=== PATIENT | male | born 1965 | race Caucasian/White ===

== ENCOUNTER 2016-07-02 08:46 | Emergency (ER) | payer MEDICARE ==
[2016-07-02 10:08] LABS: BASOPHILS 0.4 % (0-2); EOSINOPHILS 3.9 % (0-7); HEMATOCRIT 40.7 % (42.0-54.0); HEMOGLOBIN 13.1 g/dL (13.5-17.5); IMMATURE GRANULOCYTES 0.2 % (0-5); LYMPHOCYTES 16.1 % (15-50); MCH 32.2 pg (26.0-34.0); MCHC 32.2 g/dL (31.0-37.0); MEAN PLATELET VOLUME 10.9 fL (7.4-10.4); MONOCYTES 9.8 % (2-11); NEUTROPHILS 69.6 % (40-80); PLATELET COUNT 106 10x3/uL (130-400); RBC 4.07 10x6/uL (4.20-6.10); RDW 15.6 % (11.5-14.5); WBC 5.7 10x3/uL (4.8-10.8)
[2016-07-02 10:09] LABS: APPEARANCE CLEAR (CLEAR); BACTERIA FEW /hpf (NONE SEEN); BILIRUBIN NEGATIVE (NEGATIVE); COLOR YELLOW (YELLOW); EPITHELIAL CELLS OCC /hpf (0-5); GLUCOSE NEGATIVE (NEGATIVE); KETONE NEGATIVE (NEGATIVE); LEUKOCYTE ESTERASE TRACE (NEGATIVE); NITRITE NEGATIVE (NEGATIVE); PROTEIN NEGATIVE (NEGATIVE); RED CELLS - URINE RARE /hpf (0-5); SPECIFIC GRAVITY 1.015 (1.005-1.020); UROBILINOGEN NORMAL (NORMAL); WHITE CELLS - URINE 0-5 /hpf (0-5)
[2016-07-02 10:10] LABS: UDS - AMPHET NEGATIVE QUAL (NEGATIVE); UDS - BARB NEGATIVE QUAL (NEGATIVE); UDS - BENZO NEGATIVE QUAL (NEGATIVE); UDS - COCAINE NEGATIVE QUAL (NEGATIVE); UDS - METH NEGATIVE QUAL (NEGATIVE); UDS - OPIATE NEGATIVE QUAL (NEGATIVE); UDS - PCP NEGATIVE QUAL (NEGATIVE); UDS - THC NEGATIVE QUAL (NEGATIVE)
[2016-07-02 10:30] LABS: ALBUMIN 3.6 g/dL (3.4-5.0); ALKALINE PHOSPHATASE 73 U/L (46-116); ALT (SGPT) 65 U/L (10-68); BILIRUBIN - TOTAL 0.42 mg/dL (0.2-1.3); CALC OSMOLALITY 286 mosm/kg (275-300); CALCIUM 8.6 mg/dL (8.5-10.1); CARBON DIOXIDE 29.3 mmol/L (21.0-32.0); CHLORIDE - SERUM 106 mmol/L (98-107); CREATININE - SERUM 0.9 mg/dL (0.6-1.3); GLUCOSE 177 mg/dL (74-106); MAGNESIUM - SERUM 1.9 mg/dL (1.8-2.4); POTASSIUM - SERUM 3.9 mmol/L (3.5-5.1); PROTEIN - SERUM 7.4 g/dL (6.4-8.2); SODIUM 142 mmol/L (136-145); UREA NITROGEN 13 mg/dL (7-18); eGFR NON AFRICAN AMERICAN > 90 mL/min (90-120)
== END 2016-07-02 12:51 | disposition home or self-care (01) ==
LOC: D.ER 08:46
PROVIDERS: Emergency Medicine
DX: F32.9 Major depressive disorder, single episode, unspecified (principal); E11.9 Type 2 diabetes mellitus without complications; I25.10 Atherosclerotic heart disease of native coronary artery without angina pectoris; R42 Dizziness and giddiness; Z86.711 Personal history of pulmonary embolism; K21.9 Gastro-esophageal reflux disease without esophagitis; I10 Essential (primary) hypertension; E05.90 Thyrotoxicosis, unspecified without thyrotoxic crisis or storm; F43.10 Post-traumatic stress disorder, unspecified; F17.200 Nicotine dependence, unspecified, uncomplicated; R00.1 Bradycardia, unspecified

== ENCOUNTER 2016-08-24 17:10 | Emergency (ER) | payer MEDICARE ==
[2016-08-24 18:43] LABS: BASOPHILS 0.7 % (0-2); EOSINOPHILS 0.9 % (0-7); HEMATOCRIT 47.1 % (42.0-54.0); IMMATURE GRANULOCYTES 0.4 % (0-5); LYMPHOCYTES 25.7 % (15-50); MCH 32.1 pg (26.0-34.0); MCV 94.4 fL (80.0-100.0); MONOCYTES 4.1 % (2-11); NEUTROPHILS 68.2 % (40-80); RBC 4.99 10x6/uL (4.20-6.10); RDW 15.3 % (11.5-14.5); WBC 6.8 10x3/uL (4.8-10.8)
[2016-08-24 18:54] LABS: PLATELET COUNT 181 10x3/uL (130-400)
[2016-08-24 19:00] LABS: ALKALINE PHOSPHATASE 96 U/L (46-116); ALT (SGPT) 139 U/L (10-68); BILIRUBIN - TOTAL 0.87 mg/dL (0.2-1.3); CALC OSMOLALITY 277 mosm/kg (275-300); CALCIUM 8.4 mg/dL (8.5-10.1); CARBON DIOXIDE 24.9 mmol/L (21.0-32.0); CHLORIDE - SERUM 100 mmol/L (98-107); CREATININE - SERUM 0.8 mg/dL (0.6-1.3); GLUCOSE 139 mg/dL (74-106); POTASSIUM - SERUM 3.5 mmol/L (3.5-5.1); PROTEIN - SERUM 8.4 g/dL (6.4-8.2); SODIUM 140 mmol/L (136-145); UREA NITROGEN 5 mg/dL (7-18); eGFR NON AFRICAN AMERICAN > 90 mL/min (90-120)
[2016-08-24 20:04] LABS: APPEARANCE CLEAR (CLEAR); COLOR DK YELLOW (YELLOW); LEUKOCYTE ESTERASE NEGATIVE (NEGATIVE); NITRITE NEGATIVE (NEGATIVE); PROTEIN 3+ mg/dL (NEGATIVE); SPECIFIC GRAVITY 1.015 (1.005-1.020); UDS - AMPHET NEGATIVE QUAL (NEGATIVE); UDS - BARB NEGATIVE QUAL (NEGATIVE); UDS - BENZO POSITIVE QUAL (NEGATIVE); UDS - COCAINE NEGATIVE QUAL (NEGATIVE); UDS - METH NEGATIVE QUAL (NEGATIVE); UDS - OPIATE NEGATIVE QUAL (NEGATIVE); UDS - PCP NEGATIVE QUAL (NEGATIVE); UDS - THC NEGATIVE QUAL (NEGATIVE)
[2016-08-24 20:05] LABS: BACTERIA FEW /hpf (NONE SEEN); BILIRUBIN NEGATIVE (NEGATIVE); EPITHELIAL CELLS 0-5 /hpf (0-5); GLUCOSE NEGATIVE (NEGATIVE); KETONE MODERATE mg/dL (NEGATIVE); MUCUS <1+ /lpf (NONE SEEN); RED CELLS - URINE 0-5 /hpf (0-5); UROBILINOGEN NORMAL (NORMAL); WHITE CELLS - URINE 0-5 /hpf (0-5)
== END 2016-08-24 21:15 | disposition home or self-care (01) ==
LOC: D.ER 17:10
PROVIDERS: Nurse Practitioner Family
DX: F10.10 Alcohol abuse, uncomplicated (principal); F32.9 Major depressive disorder, single episode, unspecified; F10.129 Alcohol abuse with intoxication, unspecified; E11.9 Type 2 diabetes mellitus without complications; K21.9 Gastro-esophageal reflux disease without esophagitis; I10 Essential (primary) hypertension; E05.90 Thyrotoxicosis, unspecified without thyrotoxic crisis or storm; F17.200 Nicotine dependence, unspecified, uncomplicated

== ENCOUNTER 2017-02-05 16:38 | Emergency (ER) | payer MEDICARE ==
[2017-02-05 17:00] LABS: APPEARANCE CLEAR (CLEAR); BACTERIA NONE SEEN /hpf (NONE SEEN); BILIRUBIN NEGATIVE (NEGATIVE); COLOR YELLOW (YELLOW); EPITHELIAL CELLS RARE /hpf (0-5); GLUCOSE NEGATIVE (NEGATIVE); KETONE NEGATIVE (NEGATIVE); NITRITE NEGATIVE (NEGATIVE); PROTEIN 1+ mg/dL (NEGATIVE); SPECIFIC GRAVITY 1.005 (1.005-1.020); UROBILINOGEN NORMAL (NORMAL); WHITE CELLS - URINE 0-5 /hpf (0-5)
[2017-02-05 17:02] LABS: BASOPHILS 0.3 % (0-2); EOSINOPHILS 0.1 % (0-7); HEMATOCRIT 41.5 % (42.0-54.0); HEMOGLOBIN 14.1 g/dL (13.5-17.5); IMMATURE GRANULOCYTES 0.4 % (0-5); LYMPHOCYTES 11.8 % (15-50); MCH 30.1 pg (26.0-34.0); MCV 88.5 fL (80.0-100.0); MEAN PLATELET VOLUME 10.2 fL (7.4-10.4); MONOCYTES 5.5 % (2-11); NEUTROPHILS 81.9 % (40-80); PLATELET COUNT 147 10x3/uL (130-400); RBC 4.69 10x6/uL (4.20-6.10); RDW 14.7 % (11.5-14.5); WBC 10.4 10x3/uL (4.8-10.8)
[2017-02-05 17:11] LABS: UDS - AMPHET NEGATIVE QUAL (NEGATIVE); UDS - BARB NEGATIVE QUAL (NEGATIVE); UDS - BENZO NEGATIVE QUAL (NEGATIVE); UDS - COCAINE NEGATIVE QUAL (NEGATIVE); UDS - OPIATE NEGATIVE QUAL (NEGATIVE); UDS - PCP NEGATIVE QUAL (NEGATIVE); UDS - THC NEGATIVE QUAL (NEGATIVE)
[2017-02-05 17:21] LABS: ALBUMIN 4.2 g/dL (3.4-5.0); ALKALINE PHOSPHATASE 111 U/L (46-116); ALT (SGPT) 50 U/L (10-68); BILIRUBIN - TOTAL 0.86 mg/dL (0.2-1.3); CALC OSMOLALITY 268 mosm/kg (275-300); CALCIUM 8.2 mg/dL (8.5-10.1); CHLORIDE - SERUM 94 mmol/L (98-107); CREATININE - SERUM 0.8 mg/dL (0.6-1.3); GLUCOSE 184 mg/dL (74-106); POTASSIUM - SERUM 3.8 mmol/L (3.5-5.1); PROTEIN - SERUM 9.1 g/dL (6.4-8.2); SODIUM 133 mmol/L (136-145); UREA NITROGEN 7 mg/dL (7-18); eGFR NON AFRICAN AMERICAN > 90 mL/min (90-120)
[2017-02-05 18:07] LABS: MAGNESIUM - SERUM 1.6 mg/dL (1.8-2.4)
== END 2017-02-06 06:59 | disposition short-term general hospital (02) ==
LOC: D.ER 16:38
PROVIDERS: Emergency Medicine; Physician Assistant
DX: F32.9 Major depressive disorder, single episode, unspecified (principal); R45.851 Suicidal ideations; I10 Essential (primary) hypertension; E11.9 Type 2 diabetes mellitus without complications; K21.9 Gastro-esophageal reflux disease without esophagitis

== ENCOUNTER 2017-04-26 07:24 | Day surgery (SDC) | payer MEDICARE ==
[~2017-04-26] VITALS: Ht 170.2 cm; Wt 117.9 kg
--- NOTE | ~2017-04-26 | OP ---
PATIENT NAME: EDDA BARRAGAN JR MEDICAL RECORD: [id number] :69 LOCATION:[facility] ADMISSION DATE: SURGEON: SHAHEEN DIETZ DO DATE OF OPERATION: 04/26/2017 PROCEDURES PERFORMED: Bilateral endoscopic carpal tunnel release and left cubital tunnel release. PREOPERATIVE DIAGNOSES: Bilateral carpal tunnel syndrome and left cubital tunnel syndrome. POSTOPERATIVE DIAGNOSES: Bilateral carpal tunnel syndrome and left cubital tunnel syndrome. INDICATIONS: Mr. Barragan is a 51-year-old male that presented to my office with a long history of bilateral hand numbness and tingling. I sent him for nerve conduction studies, which came back positive for carpal tunnel syndrome and he is having severe carpal tunnel syndrome and avxkonyv-mi-mrckrx cubital tunnel syndrome on the left. He was symptomatic. Anytime he drove, his hands goes numb and they would wake him up at night and his left hand first 3 digits and his ulna too as well, digits would go numb. He came to my office and asked me if I would do his surgeries and I explained to him that since I was leaving, we could do one or both if he wanted to and although he would have a hard time recovering, but we would bandage him up well. He wanted to get them both done at the same time to be over with. He was informed of the risks and benefits including damage to nerves, that numbness would not go away, damage to vessels, and infection. He was okay with this and he consented to procedure. SURGEON: Shaheen Dietz DO DESCRIPTION OF PROCEDURE: The patient was taken to the operative suite and laid in supine position. The left upper extremity was prepped and draped in sterile fashion first and then the right one. A time-out was performed and everyone was in agreeance with correct site, side, and patient. The patient was given Ancef preoperatively for antibiotics. The incisions were then drawn out on the left and the left upper extremity was exsanguinated and the tourniquet was inflated. Tourniquet was up on the upper arm under the drapes. First began with cubital tunnel. An incision was made over the cubital tunnel between the medial epicondyle and the olecranon. Careful dissection was made down the cubital tunnel itself. The ulnar nerve was encountered, and fascia was released on top of the nerve distally over the FCU and proximally as well freeing up the nerve quite nicely. The nerve did not sublux, so we did not transpose it. The nerve looked healthy after the release. Attention was then drawn to the left carpal tunnel. A centimeter long incision was made just over the palmaris longus transversely and 2 Ragnells were used to carefully dissect down to the carpal tunnel itself. The median nerve was then encountered. A pickup and scissors were used to carefully release the forearm fascia proximally and then the dilators were used in the carpal tunnel itself having the median nerve below it and then the sheath was put in. The probe and rasp were used to clean off the transverse carpal ligament ensuring that we were only cutting the transverse carpal ligament and the knife was entered and the transverse carpal ligament was divided under direct visualization with the scope. Scope was then removed and a longer end of the Ragnell was used to view under direct loop magnification that the complete transverse carpal ligament had been incised and this was indeed the case freeing up the nerve completely. The tourniquet was then let down and any OPERATIVE REPORT [id number] EDDA BARRAGAN V JR coagulation that was needed was done at that time and the carpal tunnel area was anesthetized with 0.5% Marcaine without epinephrine as well as the cubital tunnel site and then the carpal tunnel incision was closed with 5-0 Monocryl in inverted interrupted fashion and then Steri-Strips were placed over it and the cubital tunnel was closed with 4-0 Monocryl in inverted interrupted fashion and then 4-0 Monocryl was ran on the skin in subcuticular fashion. Steri-Strips were put on that. Then Adaptic, 4 x 4s, Kerlix, and Coban were lightly wrapped over each of the sites. Then, we moved to the right side. The tourniquet was up on the left side for 28 minutes, then moved to the right side and the right tourniquet was placed in the forearm on the right and the right upper extremity was exsanguinated and then tourniquet was let up. Tourniquet was up for 16 minutes on the right. An incision then commenced as similar to the left with a centimeter incision over the palmaris longus just proximal to the wrist crease. Careful dissection was made down with Ragnells to the carpal tunnel itself and the forearm fascia was released proximally. I then dilated the carpal tunnel with dilators and the sheath was entered in. There was some soft tissue in the way. This was cleared off with a rasp and the probe. The transverse carpal ligament was seen and released under direct visualization with the knife. Then, the long end of the Ragnell was brought back in to ensure that the carpal tunnel had been completely released and indeed it was. Tourniquet was then let down at 16 minutes and 10 mL of 0.5% Marcaine was injected around the area. The incision was closed with 5-0 Monocryl in inverted interrupted fashion and Steri-Strips were put over it and then Adaptic, 4 x 4, Kerlix, and Coban were lightly wrapped on the palm. The complications were none. Blood loss was minimal. TRANSINT:[id number] Voice Confirmation ID: [id number] DOCUMENT ID: [id number] SHAHEEN DIETZ DO at 1604 CC: [id number] DICTATION DATE: 04/26/17 1146 PROFESSIONAL MODEL: 04/26/17 1230 DEP [facility] 04/26/17 [facility] [address] [place] [address]
[2017-04-26 08:10] LABS: HEMATOCRIT 41.6 % (42.0-54.0); HEMOGLOBIN 13.6 g/dL (13.5-17.5); MCH 28.9 pg (26.0-34.0); MCHC 32.7 g/dL (31.0-37.0); MCV 88.3 fL (80.0-100.0); MEAN PLATELET VOLUME 11.5 fL (7.4-10.4); RBC 4.71 10x6/uL (4.20-6.10); RDW 14.7 % (11.5-14.5); WBC 7.2 10x3/uL (4.8-10.8)
[2017-04-26 08:19] LABS: CALC OSMOLALITY 277 mosm/kg (275-300); CALCIUM 9.2 mg/dL (8.5-10.1); CARBON DIOXIDE 29.8 mmol/L (21.0-32.0); CHLORIDE - SERUM 99 mmol/L (98-107); CREATININE - SERUM 0.9 mg/dL (0.6-1.3); GLUCOSE 217 mg/dL (74-106); POTASSIUM - SERUM 3.9 mmol/L (3.5-5.1); SODIUM 136 mmol/L (136-145); UREA NITROGEN 11 mg/dL (7-18); eGFR NON AFRICAN AMERICAN > 90 mL/min (90-120)
[2017-04-26] MEDS ORDERED: METOPROLOL TAR100 M1 PO (08:26)
[2017-04-26] MEDS ORDERED: LEVOTHYROXINE50 MCG PO (08:26)
[2017-04-26] MEDS ORDERED: NORVASC5 MG PO (08:27)
[2017-04-26] MEDS ORDERED: LIPITOR20 MG PO (08:28)
[2017-04-26] MEDS ORDERED: NEURONTIN600 MG PO (08:28)
[2017-04-26] MEDS ORDERED: LEXAPRO20 MG PO (08:29)
[2017-04-26] MEDS ORDERED: PRINIVIL20 MG PO (08:29)
[2017-04-26] MEDS ORDERED: IBUPROFEN800 MG PO (08:31)
[2017-04-26] MEDS ORDERED: GLUCOPHAGE500 MG PO (08:31)
[2017-04-26] MEDS ORDERED: PROAIR HFA8.5 GM INH (08:32)
[2017-04-26] MEDS ORDERED: SINEQUAN100 MG PO ×2 (08:32→08:36)
[2017-04-26] MEDS ORDERED: PROTONIX20 MG PO (08:33)
[2017-04-26] MEDS ORDERED: ELIQUIS5 MG PO (08:33)
[2017-04-26] MEDS ORDERED: K-DUR20 MEQ PO (08:33)
[2017-04-26 08:54] VITALS: BP 121/71; Ht 170.2 cm; Wt 117.9 kg
[2017-04-26] MEDS ORDERED: PERCOCET 7.5/321 TAB PO (11:38)
[2017-04-26] MEDS ORDERED: DURICEF500 MG PO (11:38)
[2017-04-26] MEDS ORDERED: ULTRAM50 MG PO (11:51)
== END 2017-04-26 13:20 | disposition home or self-care (01) ==
LOC: D.OPS 07:24 → D.PAN 08:30 → D.OPS 09:30
PROVIDERS: Anesthesiology
DX: G56.03 Carpal tunnel syndrome, bilateral upper limbs (principal); G56.22 Lesion of ulnar nerve, left upper limb; F17.200 Nicotine dependence, unspecified, uncomplicated; I25.10 Atherosclerotic heart disease of native coronary artery without angina pectoris; I10 Essential (primary) hypertension; E11.9 Type 2 diabetes mellitus without complications; E03.9 Hypothyroidism, unspecified; G47.30 Sleep apnea, unspecified; K21.9 Gastro-esophageal reflux disease without esophagitis; E66.01 Morbid (severe) obesity due to excess calories; Z01.812 Encounter for preprocedural laboratory examination

== ENCOUNTER 2017-05-07 10:58 | Outpatient (CLI) | payer MEDICARE ==
--- NOTE | ~2017-05-07 | HEMODYNAMI ---
PATIENT:EDDA BARRAGAN JR MEDICAL RECORD: [id number] : 69 LOCATION:[facility] ADMISSION DATE: 05/07/17 Generatedon:05/07/201714:15 Patient name: EDDA BARRAGAN Patient #: [id number] SSN: : 1965 Date of study: 05/07/2017 Page: Of Hemodynamic Procedure Report Patient Data Patient Demographics Procedure consent was obtained First Name: EDDA Gender: Male Last Name: LAUREL Suffix: [facility] Initial: Van Campbell : 1965 Patient #: [id number] Age: 51 year(s) Race: Unknown Additional ID: [id number] Contact details [address]: [address] [place] [address] State: [place] City: [place] Zip code: [address] Past Medical History Allergies: No known allergies Admission Admission Data Admission Date: 05/07/2017 Admission Time: 10:58 Admit Source: Other Lab Results Lab Result Date: 05/07/2017 Lab Result Time: 11:35 Biochemistry Name Units Result Min Max BUN mg/dl 18 --(---*)-- 7 18 Creatinine mg/dl 0.9 --(-*--)-- 0.6 1.3 CBC Name Units Result Min Max Hematocrit % 38.1 *-(----)-- 42 54 Hemoglobin g/dl 12.2 *-(----)-- 13.5 17.5 Procedure Procedure Types Cath Procedure Diagnostic Procedure LHC LHC w/Coronaries w/Grafts Sedation Charges Moderate Sedation up to 30 minutes PCI Procedure Coronary Stent AMI/SVG/TURKEY EGG GATHERER PTCA or Stent SVG-BMS/LIZ Initial Procedure Description Procedure Date Procedure Date: 05/07/2017 Procedure Start Time: 13:32 Procedure End Time: 14:14 Procedure Staff Name Function Zaid Ramires MD Performing Physician Dusty Little RT Monitor Ching Mccloud RT Scrub Glen Miller RN Nurse Procedure Data Cath Procedure Fluoroscopy Diagnostic fluoroscopy Total fluoroscopy Time: 7.7 time: 7.7 min min Diagnostic fluoroscopy Total fluoroscopy dose: dose: 1752 mGy 1752 mGy Contrast Material Contrast Material Type Amount (ml) Isovue 300 176 Entry Location Entry Primary Successful Side Size Upsize Upsize Entry Closure Succes sful Closure Location (Fr) 1 (Fr) 2 (Fr) Remarks Device Remarks Femoral Right 5 Fr Exoseal vein Femoral Right 5 Fr 6 Fr Exoseal artery Short Estimated blood loss: 10 ml Diagnostic catheters Device Type Used For End Catheter Placement MULTIPACK JL 4.0 5Fr Procedure catheter DIAGNOSTIC AR 1 MOD 5Fr Procedure catheter ([id number]) DIAGNOSTIC IM 5Fr Procedure catheter ([id number]) MULTIPACK Pigtail 5 Fr Procedure catheter DIAGNOSTIC AR 1 MOD 5Fr Procedure catheter ([id number]) Procedure Complications No complications Procedure Medications Medication Administration Route Dosage Oxygen NC 2 l/min Heparin Flush Bag added to field 2 bags (1000units/500ml NS) 0.9% NaCl I.V. 100 ml/hr Fentanyl I.V. 50 mcg Versed I.V. 1 mg Fentanyl I.V. 50 mcg Versed I.V. 1 mg Fentanyl I.V. 50 mcg Versed I.V. 1 mg Versed I.V. 1 mg Fentanyl I.V. 50 mcg Fentanyl I.V. 50 mcg Fentanyl I.V. 50 mcg Heparin Bolus I.V. 75287 units Hemodynamics Rest HGB: 12.2 (g/dl) Heart Rate: 70 (bpm) Pressure Samples Time Site Value (mmHg) Purpose Heart Use Rate(bpm) 13:44 LV 131/4,37 Snapshot 78 13:45 AO 135/88(110) Pullback 75 13:45 LV 145/1,46 Pullback 75 Gradients Valve Time Site 1 Site 2 Mean SEP/DFP Peak To Heart Use (mmHg) (sec/min) Peak Rate (mmHg) (bpm) Aortic 13:45 LV AO 16 7 10 75 145/1,46 135/88(110) Calculations Valve P-P Mean Valve Index Valve Source Name Gradient Area Flow (cm2) Aortic 10 16 10 16 Snapshots Pre Cath Intra NCS Post Cath Vital Signs Time Heart Resp SPO2 etCO2 NIBP (mmHg) Rhythm Pain Sedation Rate (ipm) (%) (mmHg) Status Level (bpm) 12:57:28 69 16 95 38.9 150/87(112) NSR 0 (11) 10(A) , No pain 13:02:19 70 16 95 29.9 139/74(104) NSR 0 (11) 10(A) , No pain 13:07:10 66 14 94 50.1 141/71(100) NSR 0 (11) 10(A) , No pain 13:11:59 69 15 93 46.4 142/80(105) NSR 0 (11) 10(A) , No pain 13:16:49 69 16 93 11.2 140/74(111) NSR 0 (11) 10(A) , No pain 13:21:36 66 16 95 0 133/84(112) NSR 0 (11) 10(A) , No pain 13:26:25 68 15 92 0 143/84(112) NSR 0 (11) 10(A) , No pain 13:31:16 73 16 92 0 137/79(102) NSR 0 (11) 10(A) , No pain 13:36:03 76 16 90 60.6 134/70(123) NSR 0 (11) 10(A) , No pain 13:40:54 73 15 92 59.1 135/81(103) NSR 0 (11) 10(A) , No pain 13:46:27 78 16 92 53.8 137/79(104) NSR 0 (11) 10(A) , No pain 13:51:16 78 15 91 50.8 153/99(128) NSR 0 (11) 10(A) , No pain 13:56:11 79 16 92 56.1 160/76(112) NSR 0 (11) 10(A) , No pain 14:01:04 81 15 93 23.1 146/70(115) NSR 0 (11) 10(A) , No pain 14:05:55 79 16 94 0 152/85(106) NSR 0 (11) 10(A) , No pain 14:10:48 79 7 92 0 147/82(114) NSR 0 (11) 10(A) , No pain Medications Time Medication Route Dose Verified Delivered Reason Notes Effectiveness by by 13:13:38 Oxygen NC 2 Zaid Glen Per physician l/min Ike Miller RN 13:13:46 Heparin Flush added 2 Zaid Glen used for Bag to bags Ike Miller fire control assistant (1000units/500ml field NS) 13:13:54 0.9% NaCl I.V. 100 Zaid Glen Per physician ml/hr Ike Miller RN 13:28:13 Fentanyl I.V. 50 Zaid Glen for sedation mcg Ike Miller RN 13:28:20 Versed I.V. 1 mg Zaid Glen for sedation Ike Miller RN 13:31:14 Fentanyl I.V. 50 Zaid Glen for sedation mcg Ike Miller RN 13:31:18 Versed I.V. 1 mg Zaid Glen for sedation Ike Miller RN 13:34:15 Fentanyl I.V. 50 Zaid Glen for sedation mcg Ike Miller RN 13:34:19 Versed I.V. 1 mg Zaid Glen for sedation Ike Miller RN 13:36:23 Versed I.V. 1 mg Zaid Glen for sedation Ike Miller RN 13:36:32 Fentanyl I.V. 50 Zaid Glen for sedation mcg Ike Miller RN 13:38:44 Fentanyl I.V. 50 Zaid Glen for sedation mcg Ike Miller RN 13:45:56 Fentanyl I.V. 50 Zaid Glen for sedation mcg Ike Miller RN 13:54:17 [place].V. 30547 Zaid Glen for units Ike Miller RN anticoagulation Procedure Log Time Note 12:26:10 Informed consent obtained and on chart 12:26:17 Admit Source: Other 12:30:20 Diagnostic Cath status Elective 12:30:25 Dusty Little RT(R) sent for patient. Start room use. 12:30:27 Time tracking: Regular hours 12:30:31 Plan of Care:Hemodynamics will remain stable., Cardiac rhythm will remain stable., Comfort level will be maintained., Respiratory function will remain adequate., Patient/ family verbilizes understanding of procedure., Procedure tolerated without complication., Recovers from procedure without complications.. 12:31:11 Lab Result : Hemoglobin 12.2 g/dl 12:31:11 Lab Result : Creatinine 0.9 mg/dl 12:31:11 Lab Result : BUN 18 mg/dl 12:31:11 Lab Result : Hematocrit 38.1 % 12:31:36 H&P Date Dictated: 05/01/2017 Within 30 days and on chart., H&P Addendum completed by physician on day of procedure. (MUST COMPLETE FOR ALL OUTPATIENTS). 12:37:47 Family in waiting room. 12:43:28 Patient received from Pre/Post Procedure Room to CCL 1 Alert and oriented. Tansferred to table in Supine position. 12:43:29 Warm blankets applied, and tyrone hugger turned on for patient comfort. 12:43:30 Correct patient and procedure confirmed by team. 12:43:35 ECG and BP/O2 sat monitors applied to patient. 12:43:36 Pre-procedure instructions explained to patient. 12:43:37 Pre-op teaching completed and patient verbalized understanding. 12:43:40 Patient NPO since Breakfast. 12:56:21 Vital chart was started 13:00:15 Baseline sample Acquired. 13:00:26 Rhythm: sinus rhythm 13:00:28 Full Disclosure recording started 13:00:43 Patient allergic to No known allergies 13:00:45 Is the patient allergic to Iodine/contrast media? No. 13:00:47 Is patient on blood thinner?Yes 13:00:52 ACC The patient was administered the following blood thiners within the last 24 hours: Eliquis 13:00:54 Patient diabetic? Yes. 13:00:56 If diabetic: On Metformin? Yes 13:01:01 If on Metformin: Last Dose? 05/05/2017 13:01:05 Previous problem with sedation/anesthesia? No ? 13:01:06 Snore? Yes 13:01:07 Sleep apnea? Yes 13:01:27 Deviated septum? No 13:01:28 Opens mouth fully? Yes 13:01:29 Sticks out tongue? Yes 13:02:33 Airway obstruction? No ? 13:02:35 Dentures? No ? 13:03:23 Pre procedure: right dorsailis pedis pulse 2+ Normal; easily identifiable; not easily obliterated 13:03:30 Patient pain scale 0/10 ?. 13:09:21 IV patent on arrival in right forearm with 0.9% NaCl at O. 13:09:24 Lab results completed and on chart. 13:09:30 Right groin area was prepped with chlora-prep and draped in sterile fashion 13:09:32 Alarms reviewed by R. N. 13:09:32 Sharps counted by scrub and verified by R.N. 13:09:35 Use device set Femoral Dx 13:09:36 ACIST Syringe (09796) opened to sterile field. 13:09:37 Bag Decanter (2002S) opened to sterile field. 13:09:39 Tegaderm 4 x 4 (1626W) opened to sterile field. 13:09:40 ACIST Hand Control (63026) opened to sterile field. 13:09:40 ACIST Manifold (04791) opened to sterile field. 13:09:43 DIAGNOSTIC Multipack 5Fr catheter set (TM9648) opened to sterile field. 13:09:50 Medline Cath Pack ([id number]) opened to sterile field. 13:09:51 SHEATH 5FR [place] (BBQ686) opened to sterile field. 13:09:52 DIAGNOSTIC WIRE .035 260cm J wire (006244) opened to sterile field. 13:13:38 Oxygen 2 l/min NC was administered by Glen Miller RN; Per physician; 13:13:46 Heparin Flush Bag (1000units/500ml NS) 2 bags added to field was administered by Glen Miller RN; used for procedure; 13:13:54 0.9% NaCl 100 ml/hr I.V. was administered by Glen Miller RN; Per physician; 13:14:52 Zero performed for pressure channel P1 13:27:56 Physician arrived 13:27:57 --------ALL STOP TIME OUT------ 13:27:57 Final Timeout: patient, procedure, and site verified with staff and physician. All members of the team are in agreement. 13:28:00 Right groin site verified by team. 13:28:02 Physical assessment completed. ASA score P 2 - A patient with mild systemic disease as per Zaid Ramires MD. 13:28:04 Sedation plan: IV Moderate Sedation Medication:Versed, Fentanyl 13:28:13 Fentanyl 50 mcg I.V. was administered by Glen Miller RN; for sedation; 13:28:20 Versed 1 mg I.V. was administered by Glen Miller RN; for sedation; 13:28:25 Zero performed for pressure channel P1 13:31:14 Fentanyl 50 mcg I.V. was administered by Glen Miller RN; for sedation; 13:31:18 Versed 1 mg I.V. was administered by Glen Miller RN; for sedation; 13:32:32 Procedure started. 13:32:35 Local anesthetic to right femoral artery with Lidocaine 2% by Zaid Ramires MD.INITIAL ACCESS ONLY 13:33:05 A 5 Fr sheath was inserted into the Right Femoral vein 13:33:14 SHEATH 5FR [place] (DDJ873) opened to sterile field. 13:33:33 A 5 Fr sheath was inserted into the Right Femoral artery 13:34:15 Fentanyl 50 mcg I.V. was administered by Glen Miller RN; for sedation; 13:34:19 Versed 1 mg I.V. was administered by Glen Miller RN; for sedation; 13:35:55 A MULTIPACK JL 4.0 5Fr catheter was advanced over the wire and used for Procedure. 13:36:23 Versed 1 mg I.V. was administered by Glen Miller RN; for sedation; 13:36:32 Fentanyl 50 mcg I.V. was administered by Glen Miller RN; for sedation; 13:36:45 LCA angiography performed. 13:37:16 Catheter exchanged over wire. 13:38:18 A DIAGNOSTIC AR 1 MOD 5Fr catheter ([id number]) was advanced over the wire and used for Procedure. 13:38:44 Fentanyl 50 mcg I.V. was administered by Glen Miller RN; for sedation; 13:39:28 RCA angiography performed. 13:40:16 SVG to RCA angiography performed. 13:41:24 Catheter exchanged over wire. 13:41:31 A DIAGNOSTIC IM 5Fr catheter (635139T) was advanced over the wire and used for Procedure. 13:43:51 MORENO angiography performed. 13:44:02 Catheter exchanged over wire. 13:44:34 A MULTIPACK Pigtail 5 Fr catheter was advanced over the wire and used for Procedure. 13:44:58 LV hemodynamics recorded. 13:44:59 LV gram done using BRADEN 13:45:01 Injector settings: Ml/sec: 10, Volume: 20, 13:45:14 EF : 50 % 13:45:28 Aortic Root visualized 13:45:56 Fentanyl 50 mcg I.V. was administered by Glen Miller RN; for sedation; 13:46:44 Catheter exchanged over wire. 13:46:52 A DIAGNOSTIC AR 1 MOD 5Fr catheter ([id number]) was advanced over the wire and used for Procedure. 13:49:54 SVG to LAD angiography performed. 13:49:56 Catheter removed. 13:50:13 BMW 300cm Bertram 2 J wire ([id number]) opened to sterile field. 13:50:14 INFLATOR Merit BasixCompak (AG0340) opened to sterile field. 13:50:15 SHEATH 6FR [place] (EYD631) opened to sterile field. 13:52:20 GUIDE 6FR AR 2.0 catheter (IM4DF24) opened to sterile field. 13:52:29 Sheath upsized to a 6 Fr Short. 13:54:17 Heparin Bolus 27384 units I.V. was administered by Glen Miller RN; for anticoagulation; 13:55:12 6 Fr ar 2 guide catheter was inserted over the wire 13:55:18 BMW wire advanced. 13:55:36 Wire advanced across lesion. 14:00:48 Inflation Number: 1 A INTEGRITY OTW 3.5 X 26 stent ([id number]) was prepped and advanced across the Aorta Right -> R PDA. The stent was deployed at 14 HARJEET for 0:10 (min:sec). 14:02:46 Stent catheter was removed intact over wire. 14:02:46 Wire removed. 14:02:49 Guide catheter removed. 14:02:59 EXOSEAL 5Fr (EX500) opened to sterile field. 14:03:00 EXOSEAL 6Fr (EX600) opened to sterile field. 14:04:16 Sheath removed intact; hemostasis achieved with Exoseal to the Right Femoral vein. 14:05:43 Sheath removed intact; hemostasis achieved with Exoseal to the Right Femoral artery. 14:05:47 Procedure ended.(Physican Out) 14:09:03 Fluoroscopy time 07.70 minutes. 14:09:08 Flurop Dose total: 1752 14:09:08 Fluoroscopy dose: 1752 mGy 14:09:11 Contrast amount:Isovue 300 176ml. 14:09:12 Sharps counted by scrub and verified by R.N. 14:09:13 Insertion/operative site no bleeding no hematoma. 14:09:16 Post-op/insertion site Right Femoral artery dressed using a 4 x 4 and Tegaderm. 14:09:19 Post right femoral artery:stable, soft, clean and dry 14:09:25 Post right femoral vein:stable, soft, clean and dry 14:09:27 Post Procedure Pulses reassessed and unchanged 14:09:29 Post-procedure physical assessment completed. ASA score P 2 - A patient with mild systemic disease as per Zaid Ramires MD. 14:09:31 Post procedure rhythm: unchanged. 14:09:35 Estimated blood loss: 10 ml 14:09:36 Post procedure instruction explained to patient.Patient verbalizes understanding. 14:09:40 Patient needs reinforcement of post procedure teaching. 14:12:45 Procedure type changed to Cath procedure, Diagnostic procedure, LHC, LHC w/Coronaries w/Grafts, Sedation Charges, Moderate Sedation up to 30 minutes, PCI procedure, Coronary Stent, AMI/SVG/TURKEY EGG GATHERER PTCA or Stent, SVG-BMS/LIZ Initial 14:13:23 TUBING High Pressure Extension Tubing (Ike) ([id number]) opened to sterile field. 14:14:02 Procedure and supply charges have been captured, reviewed, submitted and are correct. 14:14:04 Procedure Complication : No complications 14:14:06 Vital chart was stopped 14:14:06 See physician's report for complete and final results. 14:14:08 Report given to Pre/Post Procedure Room. 14:14:16 Patient transfered to Pre/Post Procedure Room with Stretcher. 14:14:18 Procedure ended. 14:14:18 Full Disclosure recording stopped 14:15:34 End room use (Document Last) Intervention Summary Intervention Notes Time ActionType Lesion and Equipment Action# Pressure Duration Attributes Used 14:00:48 Place stent Aorta Right INTEGRITY 1 14 00:10 -> R PDA OTW 3.5 X 26 stent ([id number]) Device Usage Item Name Manufacture Quantity Catalog Hospital Part Current Minimal L ot# / Number Charge Number Stock Stock Serial# Code MARIAN Meansist 1 06001 807228 977644 012540 20 Syringe TeachScape (54448) Systems Inc Bag Microtek 1 2001S 533762 48067 119738 5 Decanter Medical Inc. () Tegaderm 4 3M 1 1626W 922327 381545 433039 5 x 4 (1626W) ACIST Hand Acist 1 87775 044695 204344 581807 5 Control Medical (43230) Systems Inc ACIST Acist 1 93164 822628 471435 294953 5 Manifold Medical (82922) Systems Inc DIAGNOSTIC Cardinal 1 XI1614 943755 73162 184808 30 Multipack Health 5Fr catheter set (MF3317) Medline Cardinal 1 [id number] 216843 50642 966050 5 Cath Pack Health ([id number]) SHEATH 5FR Terumo 2 EYS363 490892 328255 747267 40 [place] (OEF169) DIAGNOSTIC St Nathan 1 272232 248408 779104 365158 30 WIRE .035 260cm J wire (238845) MULTIPACK Cardinal 1 218998 5 JL 4.0 5Fr Health catheter DIAGNOSTIC Cardinal 1 067219Q 203156 179479 066592 15 AR 1 MOD Health 5Fr catheter (924648S) DIAGNOSTIC Cardinal 1 161414P 619511 680393 633389 5 IM 5Fr Health catheter (568205D) MULTIPACK Cardinal 1 306455 5 Pigtail 5 Health Fr catheter BMW 300cm Self 1 [id number] 706048 299927 716688 5 Bertram 2 Vascular J wire (4419664U) INFLATOR Merit 1 AB2822 414354 018726 529645 15 [facility] Medical BasixCompak (WX1138) SHEATH 6FR Terumo 1 SFN809 664965 170525 999393 40 [place] (AAO557) GUIDE 6FR Medtronic 1 [id number] 342530 42629 651345 1 AR 2.0 catheter (TW3VA37) INTEGRITY Medtronic 1 [id number] 143664 529065 1 0 [id number] OTW 3.5 X 26 stent ([id number]) EXOSEAL 5Fr Cardinal 1 EX500 355826 603245 394793 10 (EX500) Health EXOSEAL 6Fr Cardinal 1 EX600 111166 622180 762683 10 (EX600) Health TUBING High Merit 1 [id number] 029279 34314 315415 10 Pressure Medical Extension Tubing (Ramires) ([id number]) Signature Audit [place] Stage Time Signature Unsigned Intra-Procedure 05/07/2017 Dusty Little 2:15:44 PM RT(R) Signatures Monitor : Dusty Little RT Signature : Date : Time : [facility] [address] [facility] [place] [address]
[~2017-05-07 10:58] MED LIST: DURICEF500 MG PO; ELIQUIS5 MG PO; GLUCOPHAGE500 MG PO; IBUPROFEN800 MG PO; K-DUR20 MEQ PO; LEVOTHYROXINE50 MCG PO; LEXAPRO20 MG PO; LIPITOR20 MG PO; METOPROLOL TAR100 M1 PO; NEURONTIN600 MG PO; NORVASC5 MG PO; PERCOCET 7.5/321 TAB PO; PRINIVIL20 MG PO; PROAIR HFA8.5 GM INH; PROTONIX20 MG PO; SINEQUAN100 MG PO; ULTRAM50 MG PO
[2017-05-07] MEDS ORDERED: LASIX40 MG PO (11:20)
[2017-05-07] MEDS ORDERED: BACLOFEN20 M1 PO (11:23)
[2017-05-07 11:34] VITALS: BP 124/66; BMI 43.6
[2017-05-07 11:51] LABS: CALC OSMOLALITY 276 mosm/kg (275-300); CALCIUM 8.9 mg/dL (8.5-10.1); CHLORIDE - SERUM 99 mmol/L (98-107); CREATININE - SERUM 0.9 mg/dL (0.6-1.3); POTASSIUM - SERUM 4.4 mmol/L (3.5-5.1); SODIUM 132 mmol/L (136-145); UREA NITROGEN 18 mg/dL (7-18); eGFR NON AFRICAN AMERICAN > 90 mL/min (90-120)
[2017-05-07 11:52] LABS: BASOPHILS 0.3 % (0-2); GLUCOSE 282 mg/dL (74-106); HEMATOCRIT 38.1 % (42.0-54.0); HEMOGLOBIN 12.2 g/dL (13.5-17.5); IMMATURE GRANULOCYTES 0.2 % (0-5); LYMPHOCYTES 22.9 % (15-50); MCH 27.9 pg (26.0-34.0); MEAN PLATELET VOLUME 11.6 fL (7.4-10.4); MONOCYTES 5.9 % (2-11); NEUTROPHILS 68.7 % (40-80); PLATELET COUNT 167 10x3/uL (130-400); RBC 4.38 10x6/uL (4.20-6.10); RDW 15.1 % (11.5-14.5); WBC 6.6 10x3/uL (4.8-10.8)
[2017-05-07] MEDS ORDERED: PLAVIX75 MG PO (14:31)
[2017-05-07] MEDS ORDERED: BAYER CHEWABLE81 MG PO (14:31)
[2017-08-06] MEDS ORDERED: BACTRIM DS TABL1 TAB PO (23:11)
== END 2017-05-07 18:40 | disposition home or self-care (01) ==
LOC: D.CATH 10:58
PROVIDERS: Internal Medicine Cardiovascular Disease
DX: I25.119 Atherosclerotic heart disease of native coronary artery with unspecified angina pectoris (principal); I10 Essential (primary) hypertension; Z01.812 Encounter for preprocedural laboratory examination; F17.200 Nicotine dependence, unspecified, uncomplicated

== ENCOUNTER 2017-08-04 20:18 | Emergency (ER) | payer MEDICARE ==
[~2017-08-04 20:18] MED LIST changes: +BACLOFEN20 M1 PO; +BAYER CHEWABLE81 MG PO; +LASIX40 MG PO; +PLAVIX75 MG PO
[2017-08-06] MEDS ORDERED: BACTRIM DS TABL1 TAB PO (23:11)
== END 2017-08-04 21:33 | disposition home or self-care (01) ==
LOC: D.ER 20:18
DX: L02.214 Cutaneous abscess of groin (principal); F17.200 Nicotine dependence, unspecified, uncomplicated; I10 Essential (primary) hypertension; E11.9 Type 2 diabetes mellitus without complications

== ENCOUNTER 2017-08-29 12:30 | Emergency (ER) | payer MEDICARE ==
[~2017-08-29] VITALS: Ht 170.2 cm; Wt 122.7 kg
[~2017-08-29 12:30] MED LIST changes: +BACTRIM DS TABL1 TAB PO
[2017-08-29 12:42] VITALS: BP 125/75; Ht 170.2 cm; Wt 122.7 kg
[2017-08-29 13:17] LABS: BASOPHILS 0 % (0-2); EOSINOPHILS 0 % (0-7); HEMATOCRIT 36.8 % (42.0-54.0); HEMOGLOBIN 11.5 g/dL (13.5-17.5); LYMPHOCYTES 6.5 % (15-50); MCH 26.6 pg (26.0-34.0); MCHC 31.3 g/dL (31.0-37.0); MEAN PLATELET VOLUME 9.4 fL (7.4-10.4); MONOCYTES 4.9 % (2-11); NEUTROPHILS 87.6 % (40-80); PLATELET COUNT 153 10x3/uL (130-400); RBC 4.33 10x6/uL (4.20-6.10); RDW 17.1 % (11.5-14.5); WBC 10.4 10x3/uL (4.8-10.8)
[2017-08-29 13:31] LABS: ALBUMIN 3.8 g/dL (3.4-5.0); ALKALINE PHOSPHATASE 99 U/L (46-116); ALT (SGPT) 24 U/L (10-68); BILIRUBIN - TOTAL 0.47 mg/dL (0.2-1.3); CALC OSMOLALITY 294 mosm/kg (275-300); CALCIUM 8.9 mg/dL (8.5-10.1); CARBON DIOXIDE 25.2 mmol/L (21.0-32.0); CHLORIDE - SERUM 104 mmol/L (98-107); CREATININE - SERUM 0.8 mg/dL (0.6-1.3); PROTEIN - SERUM 8.2 g/dL (6.4-8.2); SODIUM 143 mmol/L (136-145); UREA NITROGEN 7 mg/dL (7-18); eGFR NON AFRICAN AMERICAN > 90 mL/min (90-120)
[2017-08-29 13:34] LABS: GLUCOSE 310 mg/dL (74-106)
== END 2017-08-29 17:00 | disposition left against medical advice (07) ==
LOC: D.ER 12:30
PROVIDERS: Family Medicine
DX: M79.661 Pain in right lower leg (principal)

== ENCOUNTER 2017-08-30 06:14 | Emergency (ER) | payer MEDICARE ==
[~2017-08-30] VITALS: Ht 170.2 cm; Wt 120.5 kg
[2017-08-30 06:28] VITALS: Ht 170.2 cm; Wt 120.5 kg
[2017-08-30 08:38] VITALS: BP 134/94
== END 2017-08-30 08:41 | disposition left against medical advice (07) ==
LOC: D.ER 06:14
DX: M79.604 Pain in right leg (principal)

== ENCOUNTER 2017-09-02 13:29 | Emergency (ER) | payer MEDICARE ==
[~2017-09-02] VITALS: Ht 170.2 cm; Wt 118.2 kg
[2017-09-02 13:31] VITALS: Ht 170.2 cm; Wt 118.2 kg
[2017-09-02 14:08] LABS: BASOPHILS 0.2 % (0-2); EOSINOPHILS 0.3 % (0-7); HEMATOCRIT 38.5 % (42.0-54.0); HEMOGLOBIN 12.2 g/dL (13.5-17.5); IMMATURE GRANULOCYTES 1.2 % (0-5); LYMPHOCYTES 13.7 % (15-50); MCHC 31.7 g/dL (31.0-37.0); MCV 81.9 fL (80.0-100.0); MEAN PLATELET VOLUME 9.6 fL (7.4-10.4); MONOCYTES 6.4 % (2-11); NEUTROPHILS 78.2 % (40-80); PLATELET COUNT 156 10x3/uL (130-400); RDW 16.4 % (11.5-14.5); WBC 10.5 10x3/uL (4.8-10.8)
[2017-09-02 14:34] LABS: ALBUMIN 3.9 g/dL (3.4-5.0); ALKALINE PHOSPHATASE 95 U/L (46-116); ALT (SGPT) 39 U/L (10-68); BILIRUBIN - TOTAL 0.57 mg/dL (0.2-1.3); CALC OSMOLALITY 281 mosm/kg (275-300); CALCIUM 8.1 mg/dL (8.5-10.1); CARBON DIOXIDE 27.9 mmol/L (21.0-32.0); CHLORIDE - SERUM 95 mmol/L (98-107); CREATININE - SERUM 0.7 mg/dL (0.6-1.3); GLUCOSE 271 mg/dL (74-106); POTASSIUM - SERUM 3.3 mmol/L (3.5-5.1); SODIUM 137 mmol/L (136-145); UREA NITROGEN 8 mg/dL (7-18); eGFR NON AFRICAN AMERICAN > 90 mL/min (90-120)
[2017-09-02 14:39] LABS: THYROID STIMULATING HORMONE 2.36 uIU/mL (0.36-3.74)
[2017-09-02 14:49] LABS: APPEARANCE CLEAR (CLEAR); BILIRUBIN NEGATIVE (NEGATIVE); COLOR YELLOW (YELLOW); GLUCOSE 500 mg/dL (NEGATIVE); KETONE NEGATIVE (NEGATIVE); NITRITE NEGATIVE (NEGATIVE); PROTEIN 1+ mg/dL (NEGATIVE); UROBILINOGEN NORMAL (NORMAL)
[2017-09-02 15:21] LABS: UDS - AMPHET NEGATIVE QUAL (NEGATIVE); UDS - BARB NEGATIVE QUAL (NEGATIVE); UDS - BENZO NEGATIVE QUAL (NEGATIVE); UDS - COCAINE NEGATIVE QUAL (NEGATIVE); UDS - OPIATE NEGATIVE QUAL (NEGATIVE); UDS - PCP NEGATIVE QUAL (NEGATIVE); UDS - THC NEGATIVE QUAL (NEGATIVE)
[2017-09-02] MEDS ORDERED: LIBRIUM25 MG PO (21:57)
[2017-09-02 22:45] VITALS: BP 141/84
== END 2017-09-02 22:46 | disposition home or self-care (01) ==
LOC: D.ER 13:29
PROVIDERS: Family Medicine
DX: F10.10 Alcohol abuse, uncomplicated (principal); E11.9 Type 2 diabetes mellitus without complications; I10 Essential (primary) hypertension; Z86.79 Personal history of other diseases of the circulatory system; B19.20 Unspecified viral hepatitis C without hepatic coma; F17.200 Nicotine dependence, unspecified, uncomplicated

== ENCOUNTER 2017-09-23 11:30 | Outpatient (CLI) | payer MEDICARE ==
[~2017-09-23] VITALS: Ht 170.2 cm; Wt 123.6 kg
--- NOTE | ~2017-09-23 | HEMODYNAMI ---
PATIENT:EDDA BARRAGAN JR MEDICAL RECORD: [id number] : 69 LOCATION:[facility] ADMISSION DATE: 09/23/17 Generatedon:09/23/201715:09 Patient name: EDDA BARRAGAN Patient #: [id number] SSN: : 1965 Date of study: 09/23/2017 Page: Of Hemodynamic Procedure Report Patient Data Patient Demographics Procedure consent was obtained First Name: EDDA Gender: Male Last Name: LAUREL Suffix: [facility] Initial: Van Campbell : 1965 Patient #: [id number] Age: 52 year(s) Race: Unknown Additional ID: [id number] Contact details Address: [address] [place] [address] [address] State: [place] City: [facility] Zip code: [address] Past Medical History Allergies: No known allergies Admission Admission Data Admission Date: 09/23/2017 Admission Time: 11:30 Procedure Procedure Types Cath Procedure Diagnostic Procedure LHC LHC w/Coronaries w/Grafts PCI Procedure AMI/SVG/TECHNOLOGY DIRECTOR PTCA or Stent SVG-BMS/LIZ Initial Procedure Description Procedure Date Procedure Date: 09/23/2017 Procedure Start Time: 14:30 Procedure End Time: 15:05 Procedure Staff Name Function Zaid Ramires MD Performing Physician Fausto Bernstein RT Monitor Ching Mccloud RT Scrub Сергей Murcia RN Nurse Procedure Data Cath Procedure Fluoroscopy Diagnostic fluoroscopy Total fluoroscopy Time: 5.5 time: 5.5 min min Diagnostic fluoroscopy Total fluoroscopy dose: dose: 1728 mGy 1728 mGy Contrast Material Contrast Material Type Amount (ml) Isovue 300 120 Entry Location Entry Primary Successful Side Size Upsize Upsize Entry Closure [place] ccessful Closure Location (Fr) 1 (Fr) 2 (Fr) Remarks Device Remarks Femoral Right 5 Fr Manual vein Compression Femoral Right 5 Fr 6 Fr Exoseal artery Short Estimated blood loss: 10 ml Diagnostic catheters Device Type Used For End Catheter Placement MULTIPACK JL 4.0 5Fr Procedure catheter DIAGNOSTIC AR MOD 5Fr Procedure Catheter ([id number]) MULTIPACK Pigtail 5 Fr Procedure catheter Procedure Complications No complications Procedure Medications Medication Administration Route Dosage Oxygen NC 2 l/min Lidocaine 2% added to field 20 Heparin Flush Bag added to field 2 bags (1000units/500ml NS) 0.9% NaCl I.V. 100 ml/hr Versed I.V. 2 mg Fentanyl I.V. 100 mcg Fentanyl I.V. 100 mcg Versed I.V. 2 mg Heparin Bolus I.V. 20127 units Versed I.V. 1 mg Fentanyl I.V. 50 mcg Fentanyl I.V. 50 mcg Versed I.V. 1 mg Plavix P.O. 600 mg Hemodynamics Rest Heart Rate: 66 (bpm) Pressure Samples Time Site Value (mmHg) Purpose Heart Use Rate(bpm) 14:59 LV 119/-15,16 Snapshot 79 14:59 LV 121/-15,15 EDP 75 15:00 AO 124/67(93) Pullback 68 15:00 LV 109/4,9 Pullback 68 Gradients Valve Time Site 1 Site 2 Mean SEP/DFP Peak To Heart Use (mmHg) (sec/min) Peak Rate (mmHg) (bpm) Aortic 15:00 LV AO 0 2 0 68 109/4,9 124/67(93) Calculations Valve P-P Mean Valve Index Valve Source Name Gradient Area Flow (cm2) Aortic 0 0 0 0 Snapshots Pre Cath Intra NCS Post Cath Vital Signs Time Heart Resp SPO2 etCO2 NIBP (mmHg) Rhythm Pain Sedation Rate (ipm) (%) (mmHg) Status Level (bpm) 14:25:54 74 36 95 31.3 148/92(108) NSR 0 (11) 10(A) , No pain 14:30:08 61 16 96 41.1 139/94(130) NSR 0 (11) 10(A) , No pain 14:35:31 67 18 93 35.8 155/95(118) NSR 0 (11) 10(A) , No pain 14:40:53 70 16 93 45.5 166/108(115) NSR 0 (11) 9(A) , No pain 14:45:21 74 18 94 38.8 170/103(137) NSR 0 (11) 9(A) , No pain 14:49:46 73 22 95 30.6 146/87(118) NSR 0 (11) 9(A) , No pain 14:54:08 67 17 95 35 132/76(100) NSR 0 (11) 9(A) , No pain 14:58:21 71 16 96 34.3 146/104(116) NSR 0 (11) 9(A) , No pain 15:02:46 69 23 95 37.3 167/78(116) NSR 0 (11) 10(A) , No pain Medications Time Medication Route Dose Verified Delivered Reason Notes Effectiveness by by 14:24:17 Oxygen NC 2 Zaid Buffie used for l/min Ike Murcia RN procedure 14:24:23 Lidocaine 2% added 20ml Zaid Zaid for local to vial Ike Ramires MD anesthetic field 14:24:28 Heparin Flush added 2 Zaid Zaid used for Bag to bags Ike Ramires MD procedure (1000units/500ml field NS) 14:24:36 0.9% NaCl I.V. 100 Zaid Buffie Per physician ml/hr Ike Murcia RN 14:29:31 Versed I.V. 2 mg Zaid Buffie for sedation Ike Murcia RN 14:29:46 Fentanyl I.V. 100 Zaid Buffie for sedation mcg Ike Murcia RN 14:35:54 Fentanyl I.V. 100 Zaid Buffie for sedation mcg Ike Murcia RN 14:36:07 Versed I.V. 2 mg Zaid Buffie for sedation Ike Murcia RN 14:51:27 [place].V. 60270 Zaid Buffie for verifi ed units Ike Murcia RN anticoagulation with liam marc rn 14:52:10 Versed I.V. 1 mg Zaid Buffie for sedation Ike Murcia RN 14:52:23 Fentanyl I.V. 50 Zaid Buffie for sedation mcg Ike Murcia RN 14:58:12 Fentanyl I.V. 50 Zaid Buffie for sedation mcg Ike Murcia RN 14:58:26 Versed I.V. 1 mg Zaid Buffie for sedation Ike Murcia RN 15:01:47 Plavix P.O. 600 Zaid Buffie for mg Ike Murcia RN antiplatelet therapy Procedure Log Time Note 13:50:20 Ching Mccloud RT(R) sent for patient. Start room use. 14:13:28 Time tracking: Regular hours (M-F 7:00 - 5:00) 14:13:33 Plan of Care:Hemodynamics will remain stable., Cardiac rhythm will remain stable., Comfort level will be maintained., Respiratory function will remain adequate., Patient/ family verbilizes understanding of procedure., Procedure tolerated without complication., Recovers from procedure without complications.. 14:13:34 Signed procedure consent form obtained from patient. 14:13:38 Patient received from Pre/Post Procedure Room to CCL 2 Alert and oriented. Tansferred to table in Supine position. 14:13:40 Warm blankets applied, and tyrone hugger turned on for patient comfort. 14:13:40 Correct patient and procedure confirmed by team. 14:13:41 ECG and BP/O2 sat monitors applied to patient. 14:14:32 H&P Date Dictated: 09/17/2017 Within 30 days and on chart., H&P Addendum completed by physician on day of procedure. (MUST COMPLETE FOR ALL OUTPATIENTS). 14:14:41 Patient allergic to No known allergies 14:24:17 Oxygen 2 l/min NC was administered by Сергей Murcia RN; used for procedure; 14:24:23 Lidocaine 2% 20ml vial added to field was administered by Zaid Ramires MD; for local anesthetic; 14:24:28 Heparin Flush Bag (1000units/500ml NS) 2 bags added to field was administered by Zaid Ramires MD; used for procedure; 14:24:36 0.9% NaCl 100 ml/hr I.V. was administered by Сергей Murcia RN; Per physician; 14:24:43 Vital chart was started 14:25:57 Baseline sample Acquired. 14:26:02 Rhythm: sinus rhythm 14:26:03 Full Disclosure recording started 14:26:05 Pre-procedure instructions explained to patient. 14:26:06 Pre-op teaching completed and patient verbalized understanding. 14:26:07 Family in patients room. 14:26:09 Patient NPO since Midnight. 14:26:10 Is the patient allergic to Iodine/contrast media? No. 14:26:11 Is patient on blood thinner?Yes 14:26:47 Last dose of Eliquis was 09/20/17. 14:26:49 Patient diabetic? Yes. 14:26:50 If diabetic: On Metformin? Yes 14:26:53 If on Metformin: Last Dose? 09/21/2017 14:26:58 Previous problem with sedation/anesthesia? No ? 14:26:59 Snore? Yes 14:27:00 Sleep apnea? Yes 14:27:01 Deviated septum? No 14:27:02 Opens mouth fully? Yes 14:27:03 Sticks out tongue? Yes 14:27:04 Airway obstruction? No ? 14:27:06 Dentures? No ? 14:27:09 Pre procedure: right dorsailis pedis pulse 1+ Palpable, but thready & weak; easily obliterated 14:27:12 Patient pain scale 0/10 ?. 14:27:17 IV patent on arrival in right antecubital with 0.9% NaCl at [facility]. 14:27:35 Lab results completed and on chart. 14:27:38 Right groin area was prepped with chlora-prep and draped in sterile fashion 14:27:39 Alarms reviewed by R. N. 14:27:40 Sharps counted by scrub and verified by R.N. 14:27:47 Use device set Femoral Dx 14:28:01 ACIST Syringe (51812) opened to sterile field. 14:28:01 Bag Decanter (2002S) opened to sterile field. 14:28:02 Medline Cath Pack ([id number]) opened to sterile field. 14:28:03 ACIST Hand Control (37880) opened to sterile field. 14:28:04 ACIST Manifold (39317) opened to sterile field. 14:28:06 Tegaderm 4 x 4 (1626W) opened to sterile field. 14:28:09 DIAGNOSTIC WIRE .035 260cm J wire (697728) opened to sterile field. 14:28:10 DIAGNOSTIC Multipack 5Fr catheter set (VT6917) opened to sterile field. 14:28:13 SHEATH Prelude 5Fr 0.035 (SIR-1B-09-035) opened to sterile field. 14:28:32 --------ALL STOP TIME OUT------ 14:28:32 Final Timeout: patient, procedure, and site verified with staff and physician. All members of the team are in agreement. 14:28:41 Right groin site verified by team. 14:28:47 Physical assessment completed. ASA score P 3 - A patient with severe systemic disease as per Zaid Ramires MD. 14:28:51 Sedation plan: IV Moderate Sedation Medication:Versed, Fentanyl 14:29:31 Versed 2 mg I.V. was administered by Сергей Murcia RN; for sedation; 14:29:46 Fentanyl 100 mcg I.V. was administered by Сергей Murcia RN; for sedation; 14:30:14 Procedure started. 14:30:17 Local anesthetic to right femoral artery with Lidocaine 2% by Zaid Ramires MD.INITIAL ACCESS ONLY 14:35:54 Fentanyl 100 mcg I.V. was administered by Сергей Murcia RN; for sedation; 14:36:07 Versed 2 mg I.V. was administered by Сергей Murcia RN; for sedation; 14:37:42 A 5 Fr sheath was inserted into the Right Femoral vein 14:38:04 SHEATH Prelude 5Fr 0.035 (GBY-1S-96-035) opened to sterile field. 14:38:18 A 5 Fr sheath was inserted into the Right Femoral artery 14:39:18 A MULTIPACK JL 4.0 5Fr catheter was advanced over the wire and used for Procedure. 14:40:00 LCA angiography performed. 14:41:32 Catheter exchanged over wire. 14:41:36 A DIAGNOSTIC AR MOD 5Fr Catheter (481419M) was advanced over the wire and used for Procedure. 14:41:43 RCA angiography performed. 14:42:39 SVG to RPDA angiography performed. 14:42:48 SVG to Circ occluded. 14:45:45 SVG to Diag angiography performed. 14:45:47 Catheter exchanged over wire. 14:47:59 Use device set RAMIRES PCI 14:48:15 SHEATH Prelude 6Fr 0.035 (VRK-5J-88-035) opened to sterile field. 14:48:19 BMW 300cm Peach Bottom 2 J wire (1812131F) opened to sterile field. 14:48:20 TUBING High Pressure Extension Tubing (Ike) ([id number]) opened to sterile field. 14:49:02 INFLATOR Merit BasixCompak (LV7501) opened to sterile field. 14:49:17 GUIDE 6FR JR 4.0 catheter (SL7VM81) opened to sterile field. 14:49:30 Sheath upsized to a 6 Fr Short. 14:49:39 6 Fr JR 4 guide catheter was inserted over the wire 14:51:02 BMW wire advanced. 14:51:27 Heparin Bolus 63753 units I.V. was administered by Сергей Murcia RN; for anticoagulation; verified with liam marc rn 14:52:10 Versed 1 mg I.V. was administered by Сергей Murcia RN; for sedation; 14:52:23 Fentanyl 50 mcg I.V. was administered by Сергей Murcia RN; for sedation; 14:52:57 Wire advanced across lesion. 14:56:51 Place stent Inflation Number: 1 A YASMIN RX 5.0 x 18 stent ([id number]) was prepped and advanced across the Aorta Left -> 1st Diag. The stent was deployed at 14 HARJEET for 0:10 (min:sec). 14:57:59 Stent catheter was removed intact over wire. 14:58:00 Wire removed. 14:58:00 Guide catheter removed. 14:58:12 Fentanyl 50 mcg I.V. was administered by Сергей Murcia RN; for sedation; 14:58:16 A MULTIPACK Pigtail 5 Fr catheter was advanced over the wire and used for Procedure. 14:58:26 Versed 1 mg I.V. was administered by Сергей Murcia RN; for sedation; 14:59:48 LV angiography performed. 14:59:49 LV gram done using BRADEN 14:59:58 EF : 50 % 15:00:00 LV hemodynamics recorded. 15:00:03 Injector settings: Ml/sec: 10, Volume: 20, 15:00:07 Catheter removed. 15:00:14 EXOSEAL 6Fr (EX600) opened to sterile field. 15:00:44 Sheath removed intact; hemostasis achieved with Exoseal to the Right Femoral artery. 15:00:47 Procedure ended.(Physican Out) 15:00:59 Fluoroscopy time 05.50 minutes. 15:01:03 Fluoroscopy dose: 1728 mGy 15:: Flurop Dose total: 1728 15:01:07 Contrast amount:Isovue 300 120ml. 15:01:09 Sharps counted by scrub and verified by R.N. 15:01:10 Insertion/operative site no bleeding no hematoma. 15::27 Sheath removed intact; hemostasis achieved with Manual Compression to the Right Femoral vein. 15:01:33 Post-op/insertion site Right Femoral artery dressed using a 4 x 4 and Tegaderm. 15:01:35 Post Procedure Pulses reassessed and unchanged 15:01:37 Post-procedure physical assessment completed. ASA score P 2 - A patient with mild systemic disease as per Zaid Ramires MD. 15:01:40 Post procedure rhythm: unchanged. 15:01:42 Estimated blood loss: 10 ml 15:01:43 Post procedure instruction explained to patient.Patient verbalizes understanding. 15:01:44 Patient needs reinforcement of post procedure teaching. 15:01:47 Plavix 600 mg P.O. was administered by Сергей Murcia RN; for antiplatelet therapy; 15:02:00 Procedure type changed to Cath procedure, Diagnostic procedure, LHC, LHC w/Coronaries w/Grafts, PCI procedure, AMI/SVG/TECHNOLOGY DIRECTOR PTCA or Stent, SVG-BMS/LIZ Initial 15:02:02 Procedure and supply charges have been captured, reviewed, submitted and are correct. 15:02:04 Procedure Complication : No complications 15:05:39 Vital chart was stopped 15:05:40 See physician's report for complete and final results. 15:05:48 Report given to Pre/Post Procedure Room. 15:05:52 Patient transfered to Pre/Post Procedure Room with Stretcher. 15:05:54 Procedure ended. 15:05:54 Full Disclosure recording stopped 15:09:28 End room use (Document Last) Intervention Summary Intervention Notes Time ActionType Lesion and Equipment Used Action# Pressure Duration Attributes 14:56:51 Place stent Aorta Left YASMIN RX 5.0 x 1 14 00:10 -> 1st Diag 18 stent ([id number]) Device Usage Item Name Manufacture Quantity Catalog Number Hospital Part Current Minimal Lot# / Charge Number Stock Stock Serial# Code ACIST Syringe Acist 1 45409 753141 428192 718979 20 (86141) Medical Systems Inc Bag Decanter Microtek 1 349992 71499 186830 5 () Medical Inc. Medline Cath Cardinal 1 [id number] 145017 16107 756513 5 Pack Health ([id number]) ACIST Hand Acist 1 67417 128822 317252 161121 5 Control (11251) Medical Systems Inc ACIST Manifold Acist 1 18571 092331 195645 502005 5 (26359) Medical Systems Inc Tegaderm 4 x 4 3M 1 1626W 724333 573970 352417 5 (1626W) DIAGNOSTIC WIRE St Nathan 1 347495 520105 217243 921460 30 .035 260cm J wire (587603) DIAGNOSTIC Cardinal 1 XH5683 308772 41096 027479 30 Multipack 5Fr Health catheter set (IM4773) SHEATH Prelude Merit 2 FXC-6V-43-035 700638 079847 191837 5 5Fr 0.035 Medical (YZO-4C-62-035) MULTIPACK JL Cardinal 1 593762 5 4.0 5Fr Health catheter SHEATH Prelude Merit 1 BBK-3W-29-35 423533 0031551 423274 5 6Fr 0.035 Medical (KSE-6Y-96-035) BMW 300cm Self 1 [id number] 858177 505856 991768 5 Peach Bottom 2 J Vascular wire (9635602B) TUBING High Merit 1 [id number] 065321 54088 028064 10 Pressure Medical Extension Tubing (Ramires) (FG9391X) DIAGNOSTIC AR Cardinal 1 703771M 838967 760487 594721 15 MOD 5Fr Health Catheter (359919X) INFLATOR Merit Merit 1 GO3023 228424 029452 213284 15 [facility] Hospital[facility] Single Point Medical (HN4561) GUIDE 6FR JR Medtronic 1 HW9EH42 534259 04853 146170 1 4.0 catheter (OY7CI78) YASMIN RX 5.0 x Medtronic 1 [id number] 503450 0291575 293625 5 [id number] 18 stent ([id number]) MULTIPACK Cardinal 1 655744 5 Pigtail 5 Fr Health catheter EXOSEAL 6Fr Cardinal 1 EX600 276109 258181 916432 10 (EX600) Health Signature Audit [place] Stage Time Signature Unsigned Intra-Procedure 09/23/2017 Fausto Bernstein 3:09:48 PM RT(R) Signatures Monitor : Fausto Bernstein RT Signature : Date : Time : [facility] [address] [place] [address]
[~2017-09-23 11:30] MED LIST changes: +LIBRIUM25 MG PO
[2017-09-23 12:18] VITALS: BP 137/85; Ht 170.2 cm; Wt 123.6 kg
[2017-09-23 13:10] LABS: BASOPHILS 0.3 % (0-2); EOSINOPHILS 2.2 % (0-7); HEMATOCRIT 36.7 % (42.0-54.0); HEMOGLOBIN 11.3 g/dL (13.5-17.5); IMMATURE GRANULOCYTES 0.6 % (0-5); MCH 26.1 pg (26.0-34.0); MCHC 30.8 g/dL (31.0-37.0); MCV 84.8 fL (80.0-100.0); MEAN PLATELET VOLUME 9.7 fL (7.4-10.4); MONOCYTES 5.6 % (2-11); NEUTROPHILS 71.3 % (40-80); PLATELET COUNT 175 10x3/uL (130-400); RBC 4.33 10x6/uL (4.20-6.10); RDW 17.6 % (11.5-14.5)
[2017-09-23 13:36] LABS: CALC OSMOLALITY 279 mosm/kg (275-300); CALCIUM 8.5 mg/dL (8.5-10.1); CARBON DIOXIDE 32.2 mmol/L (21.0-32.0); CHLORIDE - SERUM 104 mmol/L (98-107); CREATININE - SERUM 0.7 mg/dL (0.6-1.3); POTASSIUM - SERUM 4.4 mmol/L (3.5-5.1); SODIUM 140 mmol/L (136-145); UREA NITROGEN 10 mg/dL (7-18); eGFR NON AFRICAN AMERICAN > 90 mL/min (90-120)
[2017-09-23 13:44] LABS: GLUCOSE 142 mg/dL (74-106)
[2017-09-23] MEDS ORDERED: PLAVIX75 MG PO (16:29)
== END 2017-09-23 19:15 | disposition home or self-care (01) ==
LOC: D.CATH 11:30
PROVIDERS: Internal Medicine Cardiovascular Disease
DX: I25.790 Atherosclerosis of other coronary artery bypass graft(s) with unstable angina pectoris (principal); I10 Essential (primary) hypertension; R06.02 Shortness of breath
CPT/HCPCS: 93459; C9604

== ENCOUNTER 2017-11-05 15:04 | Emergency (ER) | payer MEDICARE ==
[2017-11-05 15:11] VITALS: Ht 170.2 cm
[2017-11-05 16:01] LABS: BASOPHILS 0.3 % (0-2); HEMATOCRIT 36.5 % (42.0-54.0); HEMOGLOBIN 11.4 g/dL (13.5-17.5); IMMATURE GRANULOCYTES 0.8 % (0-5); LYMPHOCYTES 29.5 % (15-50); MCHC 31.2 g/dL (31.0-37.0); MCV 86.5 fL (80.0-100.0); MEAN PLATELET VOLUME 9.8 fL (7.4-10.4); NEUTROPHILS 64.4 % (40-80); PLATELET COUNT 179 10x3/uL (130-400); RBC 4.22 10x6/uL (4.20-6.10); RDW 18.9 % (11.5-14.5)
[2017-11-05 16:25] LABS: ALBUMIN 3.7 g/dL (3.4-5.0); ALKALINE PHOSPHATASE 79 U/L (46-116); ALT (SGPT) 49 U/L (10-68); BILIRUBIN - TOTAL 0.36 mg/dL (0.2-1.3); CALC OSMOLALITY 285 mosm/kg (275-300); CALCIUM 8.1 mg/dL (8.5-10.1); CARBON DIOXIDE 29.6 mmol/L (21.0-32.0); CHLORIDE - SERUM 104 mmol/L (98-107); CREATININE - SERUM 0.6 mg/dL (0.6-1.3); GLUCOSE 172 mg/dL (74-106); POTASSIUM - SERUM 3.7 mmol/L (3.5-5.1); PROTEIN - SERUM 7.6 g/dL (6.4-8.2); SODIUM 143 mmol/L (136-145); UREA NITROGEN 5 mg/dL (7-18); eGFR NON AFRICAN AMERICAN > 90 mL/min (90-120)
[2017-11-05 16:32] LABS: APPEARANCE CLEAR (CLEAR); BILIRUBIN NEGATIVE (NEGATIVE); COLOR YELLOW (YELLOW); GLUCOSE NEGATIVE (NEGATIVE); KETONE NEGATIVE (NEGATIVE); NITRITE NEGATIVE (NEGATIVE); PROTEIN 1+ mg/dL (NEGATIVE); UROBILINOGEN NORMAL (NORMAL)
[2017-11-05 16:35] LABS: UDS - AMPHET NEGATIVE QUAL (NEGATIVE); UDS - BARB NEGATIVE QUAL (NEGATIVE); UDS - BENZO NEGATIVE QUAL (NEGATIVE); UDS - COCAINE NEGATIVE QUAL (NEGATIVE); UDS - OPIATE NEGATIVE QUAL (NEGATIVE); UDS - PCP NEGATIVE QUAL (NEGATIVE); UDS - THC NEGATIVE QUAL (NEGATIVE)
[2017-11-06 10:21] VITALS: BP 112/065
== END 2017-11-06 10:30 ==
LOC: D.ER 15:04
PROVIDERS: Family Medicine
DX: F10.129 Alcohol abuse with intoxication, unspecified (principal); R45.851 Suicidal ideations

== ENCOUNTER 2017-12-10 05:18 | Inpatient (IN) | payer MEDICARE ==
[~2017-12-10] VITALS: Ht 170.2 cm; Wt 120.5 kg
--- NOTE | ~2017-12-10 | MORECARE ---
CASE MANAGEMENT DISCHARGE SUMMARY PATIENT: EDDA BARRGAAN V JR UNIT: [id number] ADM DATE: 12/10/17 AGE: 52 : 69 SEX: M ROOM/BED: D.4241 AUTHOR: MURRAY LEHMAN PHYSICIAN: REFERRING PHYSICIAN: LOGAN AVILA DO DATE OF SERVICE: 12/16/17 Discharge Plan Patient Name: EDDA BARRAGAN Facility: [facility]:[place] : 1965 Planned Disposition: Home Anticipated Discharge Date: 12/13/17 Discharge Date: 12/13/2017 Expected LOS: 3 Initial Reviewer: [email or web address] Initial Review Date: 12/13/2017 Generated: 12/16/17 9:50 am Comments DCP- Discharge Planning Updated by [email or web address]: Carleen Kenney on 12/13/17 9:[address] Patient Name: EDDA BARRAGAN Admission Status: ER Accout number: [id number] Admission Date: 12-10-2017 : 1965 Admission Diagnosis:LOCALIZED EDEMA Attending: LOGAN AVILA Current LOS: 3 Anticipated DC Date: 12-13-2017 Planned Disposition: Home Primary Insurance: MEDICARE A & B Discharge Planning Comments: CM MET WITH PATIENT ABOUT DC PLANNING. STATES TO DC TO HOME TODAY. STATES SPOUSE LAURIE WILL PICK HIM UP WHEN DC'D. STATES NO NEEDS AT THIS TIME. CM WILL FOLLOW AND ASSIST NEEDED WITH DC PLANNING/NEEDS. IMM SERVED. Alarm Mechanism Adjuster: Carleen Kenney DCPIA - Discharge Planning Initial Assessment Updated by [email or web address]: Carleen Kenney on 12/13/17 10:55 am * Is the patient Alert and Oriented? Yes * PCP MARGARITA * Pharmacy [facility] * Preadmission Environment Home with Family * ADLs Independent * Equipment CPAP Glucometer * List name and contact numbers for known caregivers / representatives who currently or will assist patient after discharge: LAURIE, SPOUSE, , * Community resources currently utilized None * Additional services required to return to the preadmission environment? No * Can the patient safely return to the preadmission environment? Yes * Has this patient been hospitalized within the prior 30 days at any hospital? No Coverage Notice Reviewer: [email or web address] Kenney Notice Issued Date-Time: 12/13/2017 10:51 Notice Type: IM Discharge Notice Notice Delivered To: Patient Relationship to Patient: Self Therapy Assistant Name: Delivery Method: HAND - Hand Delivered Ritu Days: Prior Verbal Notification: Recipient Understood Notice: Yes Recipient Signature: Yes Med Rec Note Co-signed by Attending: Coverage Notice Comment: Last DP export: 12/13/17 9:58 Patient Name: EDDA BARRAGAN Page [phone] at 0850 All edits/amendments must be made on the electronic document DICTATION DATE: 12/16/17848 GARBAGE TRUCK HELPER: LOREN 12/16/1749 RPT#: [id number] DC DATE:12/13/17 STATUS: DIS IN [facility] [address] [place] [address] END OF REPORT
--- NOTE | ~2017-12-10 | MORECARE ---
CASE MANAGEMENT DISCHARGE SUMMARY PATIENT: EDDA BARRAGAN V JR UNIT: [id number] ADM DATE: 12/10/17 AGE: 52 : 69 SEX: M ROOM/BED: D.2883 AUTHOR: MURRAY LEHMAN PHYSICIAN: REFERRING PHYSICIAN: LOGAN AVILA DO DATE OF SERVICE: 12/13/17 Discharge Plan Patient Name: EDDA BARRAGAN Facility: [facility]:[place] : 1965 Planned Disposition: Home Anticipated Discharge Date: 12/13/17 Discharge Date: Expected LOS: 3 Initial Reviewer: [email or web address] Initial Review Date: 12/13/2017 Generated: 12/13/17 11:58 am Comments DCP- Discharge Planning Updated by [email or web address]: Carleen Kenney on 12/13/17 9:[address] Patient Name: EDDA BARRAGAN Admission Status: ER Accout number: [id number] Admission Date: 12-10-2017 : 1965 Admission Diagnosis:LOCALIZED EDEMA Attending: LOGAN AVILA Current LOS: 3 Anticipated DC Date: 12-13-2017 Planned Disposition: Home Primary Insurance: MEDICARE A & B Discharge Planning Comments: CM MET WITH PATIENT ABOUT DC PLANNING. STATES TO DC TO HOME TODAY. STATES SPOUSE LAURIE WILL PICK HIM UP WHEN DC'D. STATES NO NEEDS AT THIS TIME. CM WILL FOLLOW AND ASSIST NEEDED WITH DC PLANNING/NEEDS. IMM SERVED. Tongue Binder: Carleen Kenney DCPIA - Discharge Planning Initial Assessment Updated by [email or web address]: Carleen Kenney on 12/13/17 10:55 am * Is the patient Alert and Oriented? Yes * PCP MARGARITA * Pharmacy [facility] * Preadmission Environment Home with Family * ADLs Independent * Equipment CPAP Glucometer * List name and contact numbers for known caregivers / representatives who currently or will assist patient after discharge: LAURIE, SPOUSE, , * Community resources currently utilized None * Additional services required to return to the preadmission environment? No * Can the patient safely return to the preadmission environment? Yes * Has this patient been hospitalized within the prior 30 days at any hospital? No Coverage Notice Reviewer: [email or web address] - Carleen Kenney Notice Issued Date-Time: 12/13/2017 10:51 Notice Type: IM Discharge Notice Notice Delivered To: Patient Relationship to Patient: Self Irish Moss Bleacher Name: Delivery Method: HAND - Hand Delivered Ritu Days: Prior Verbal Notification: Recipient Understood Notice: Yes Recipient Signature: Yes Med Rec Note Co-signed by Attending: Coverage Notice Comment: Patient Name: EDDA BARRAGAN Page [phone] at 1058 All edits/amendments must be made on the electronic document DICTATION DATE: 12/13/171057 SHAREPOINT TRAINER: LOREN 12/13/17 1058 RPT#: [id number] DC DATE: STATUS: ADM IN [facility] [address] [place] [address] END OF REPORT
[2017-12-10 06:32] LABS: BASOPHILS 0.6 % (0-2); EOSINOPHILS 4.2 % (0-7); HEMATOCRIT 33.5 % (42.0-54.0); HEMOGLOBIN 10.2 g/dL (13.5-17.5); IMMATURE GRANULOCYTES 0.4 % (0-5); LYMPHOCYTES 21.8 % (15-50); MCHC 30.4 g/dL (31.0-37.0); MCV 85.2 fL (80.0-100.0); MONOCYTES 7.7 % (2-11); NEUTROPHILS 65.3 % (40-80); PLATELET COUNT 147 10x3/uL (130-400); RBC 3.93 10x6/uL (4.20-6.10); RDW 17.9 % (11.5-14.5); WBC 5.2 10x3/uL (4.8-10.8)
[2017-12-10 06:46] LABS: ALBUMIN 3.5 g/dL (3.4-5.0); ALKALINE PHOSPHATASE 97 U/L (46-116); ALT (SGPT) 33 U/L (10-68); BILIRUBIN - TOTAL 0.33 mg/dL (0.2-1.3); CALC OSMOLALITY 282 mosm/kg (275-300); CALCIUM 8.3 mg/dL (8.5-10.1); CARBON DIOXIDE 26.3 mmol/L (21.0-32.0); CHLORIDE - SERUM 104 mmol/L (98-107); CREATININE - SERUM 0.8 mg/dL (0.6-1.3); POTASSIUM - SERUM 3.9 mmol/L (3.5-5.1); PROTEIN - SERUM 7.3 g/dL (6.4-8.2); SODIUM 138 mmol/L (136-145); UREA NITROGEN 11 mg/dL (7-18); eGFR NON AFRICAN AMERICAN > 90 mL/min (90-120)
[2017-12-10 06:48] LABS: GLUCOSE 241 mg/dL (74-106)
[2017-12-10 06:57] LABS: CREATINE KINASE 153 UL (21-232); PRO BNP 91 pg/mL (0-125); TROPONIN-I < 0.017 ng/mL (0.000-0.060)
[2017-12-10 07:35] VITALS: BP 135/72
[2017-12-10 07:46] LABS: APTT 28.3 SECONDS (22.8-39.4); INR 1.15 (0.85-1.17); PROTIME 14.3 SECONDS (11.6-15.0)
[2017-12-10 07:48] LABS: D-DIMER-QUANTITATIVE 0.42 ug/mLFEU (0.20-0.54)
[2017-12-10] MEDS ORDERED: CYMBALTA60 MG PO (09:58)
[2017-12-10] MEDS ORDERED: TEMAZEPAM30 MG PO (10:04)
[2017-12-10] MEDS ORDERED: OXYCODONE HCL5 M1 PO (10:05)
[2017-12-10 11:02] VITALS: BP 134/90; BMI 42.5
[2017-12-10 11:40] VITALS: BP 134/99
[2017-12-10 20:21] VITALS: BP 153/72
[2017-12-11] VITALS: BP 140/77
[2017-12-11 04:00] VITALS: BP 109/46
[2017-12-11 06:04] LABS: BASOPHILS 0.4 % (0-2); HEMATOCRIT 35.8 % (42.0-54.0); HEMOGLOBIN 11.1 g/dL (13.5-17.5); IMMATURE GRANULOCYTES 0.2 % (0-5); LYMPHOCYTES 21.2 % (15-50); MCH 25.9 pg (26.0-34.0); MCV 83.6 fL (80.0-100.0); MEAN PLATELET VOLUME 10.8 fL (7.4-10.4); MONOCYTES 8.3 % (2-11); NEUTROPHILS 67.9 % (40-80); PLATELET COUNT 152 10x3/uL (130-400); RBC 4.28 10x6/uL (4.20-6.10); WBC 4.6 10x3/uL (4.8-10.8)
[2017-12-11 06:31] LABS: CALCIUM 8.1 mg/dL (8.5-10.1); CARBON DIOXIDE 28.1 mmol/L (21.0-32.0); CHLORIDE - SERUM 101 mmol/L (98-107); CREATININE - SERUM 0.7 mg/dL (0.6-1.3); MAGNESIUM - SERUM 1.3 mg/dL (1.8-2.4); SODIUM 140 mmol/L (136-145); UREA NITROGEN 11 mg/dL (7-18); eGFR NON AFRICAN AMERICAN > 90 mL/min (90-120)
[2017-12-11 06:33] LABS: CALC OSMOLALITY 281 mosm/kg (275-300); GLUCOSE 177 mg/dL (74-106); POTASSIUM - SERUM 3.3 mmol/L (3.5-5.1)
[2017-12-11 11:00] VITALS: BP 137/86
[2017-12-11 11:52] VITALS: BP 140/88
[2017-12-11 12:56] VITALS: Ht 170.2 cm; Wt 120.5 kg
[2017-12-11 18:37] VITALS: BP 145/85
[2017-12-11 19:00] VITALS: BP 92/58
[2017-12-12 00:55] VITALS: BP 105/53
[2017-12-12 05:04] LABS: BASOPHILS 0.4 % (0-2); EOSINOPHILS 3.9 % (0-7); HEMATOCRIT 36.1 % (42.0-54.0); IMMATURE GRANULOCYTES 0.2 % (0-5); LYMPHOCYTES 25.9 % (15-50); MCHC 30.5 g/dL (31.0-37.0); MCV 85.3 fL (80.0-100.0); MEAN PLATELET VOLUME 10.4 fL (7.4-10.4); MONOCYTES 8.8 % (2-11); NEUTROPHILS 60.8 % (40-80); PLATELET COUNT 177 10x3/uL (130-400); RBC 4.23 10x6/uL (4.20-6.10); RDW 17.9 % (11.5-14.5); WBC 5.5 10x3/uL (4.8-10.8)
[2017-12-12 05:31] LABS: ALBUMIN 3.4 g/dL (3.4-5.0); ALKALINE PHOSPHATASE 86 U/L (46-116); ALT (SGPT) 32 U/L (10-68); CALC OSMOLALITY 281 mosm/kg (275-300); CALCIUM 8.2 mg/dL (8.5-10.1); CHLORIDE - SERUM 100 mmol/L (98-107); CREATININE - SERUM 0.8 mg/dL (0.6-1.3); GLUCOSE 161 mg/dL (74-106); MAGNESIUM - SERUM 1.4 mg/dL (1.8-2.4); POTASSIUM - SERUM 3.7 mmol/L (3.5-5.1); PROTEIN - SERUM 7.3 g/dL (6.4-8.2); SODIUM 139 mmol/L (136-145); eGFR NON AFRICAN AMERICAN > 90 mL/min (90-120)
[2017-12-12 05:37] LABS: UREA NITROGEN 14 mg/dL (7-18)
[2017-12-12 07:08] VITALS: BP 103/57
[2017-12-12 08:47] VITALS: BP 108/62
[2017-12-12 11:06] VITALS: BP 121/76
[2017-12-12 16:17] VITALS: BP 110/56
[2017-12-12 22:25] VITALS: BP 113/55
[2017-12-13 02:17] VITALS: BP 119/69
[2017-12-13 05:59] VITALS: BP 115/58
[2017-12-13 08:14] VITALS: BP 117/60
[2017-12-13 12:06] VITALS: BP 117/69
== END 2017-12-13 14:31 | disposition home or self-care (01) | DRG 947 ==
LOC: D.ER 05:18 → D.M2 08:22 → D.EDHOLD 08:22 → D.M2 08:28
PROVIDERS: Emergency Medicine; Family Medicine
DX: R60.0 Localized edema (principal); J81.0 Acute pulmonary edema; F31.30 Bipolar disorder, current episode depressed, mild or moderate severity, unspecified; L03.115 Cellulitis of right lower limb; F10.10 Alcohol abuse, uncomplicated; D64.9 Anemia, unspecified; E11.9 Type 2 diabetes mellitus without complications; I10 Essential (primary) hypertension; I25.10 Atherosclerotic heart disease of native coronary artery without angina pectoris; J44.9 Chronic obstructive pulmonary disease, unspecified; K21.9 Gastro-esophageal reflux disease without esophagitis; Z72.0 Tobacco use; Z95.1 Presence of aortocoronary bypass graft; Z95.5 Presence of coronary angioplasty implant and graft

== ENCOUNTER → 2018-01-21 13:38 | Outpatient (CLI) | payer MEDICARE ==
[2017-12-11 12:56] VITALS: BMI 42.9
[~2018-01-21 13:38] MED LIST changes: +CYMBALTA60 MG PO; +OXYCODONE HCL5 M1 PO; +TEMAZEPAM30 MG PO
== END | disposition home or self-care (01) ==
LOC: D.CT 13:38
DX: M19.019 Primary osteoarthritis, unspecified shoulder (principal)

== ENCOUNTER → 2018-03-07 11:24 | Outpatient (CLI) | payer MEDICARE ==
[2017-12-11 12:56] VITALS: BMI 42.9
== END | disposition home or self-care (01) ==
LOC: D.MRI 11:24
DX: M25.511 Pain in right shoulder (principal)

== ENCOUNTER → 2018-03-31 19:56 | Outpatient (CLI) | payer MEDICARE ==
[2017-12-11 12:56] VITALS: BMI 42.9
== END | disposition home or self-care (01) ==
LOC: D.LABREF 19:56
DX: R31.9 Hematuria, unspecified (principal)

== ENCOUNTER 2018-06-09 09:02 | Emergency (ER) | payer MEDICARE ==
[~2018-06-09] VITALS: Ht 170.2 cm; Wt 125.0 kg
[2018-06-09 09:06] VITALS: Ht 170.2 cm; Wt 125.0 kg
[2018-06-09] MEDS ORDERED: HYDROCODON-ACE1 EAC2 PO (09:15)
[2018-06-09] MEDS ORDERED: AMBIEN5 MG PO (09:15)
[2018-06-09] MEDS ORDERED: PROVENTIL/2.5 MG/3 M INH (09:18)
[2018-06-09] MEDS ORDERED: MYBETRIC (09:18)
[2018-06-09] MEDS ORDERED: GLIMEPIRIDE1 MG PO (09:20)
[2018-06-09 10:05] LABS: BASOPHILS 0.2 % (0-2); EOSINOPHILS 2.9 % (0-7); HEMOGLOBIN 12.4 g/dL (13.5-17.5); IMMATURE GRANULOCYTES 0.3 % (0-5); LYMPHOCYTES 12.6 % (15-50); MCH 28.4 pg (26.0-34.0); MCHC 31.8 g/dL (31.0-37.0); MCV 89.4 fL (80.0-100.0); MEAN PLATELET VOLUME 10.6 fL (7.4-10.4); MONOCYTES 6.1 % (2-11); NEUTROPHILS 77.9 % (40-80); RBC 4.36 10x6/uL (4.20-6.10); RDW 17.1 % (11.5-14.5); WBC 5.9 10x3/uL (4.8-10.8)
[2018-06-09 10:10] LABS: INR 1.05 (0.85-1.17); PROTIME 13.2 SECONDS (11.6-15.0)
[2018-06-09 10:12] LABS: PLATELET COUNT 133 10x3/uL (130-400)
[2018-06-09 10:14] LABS: ALBUMIN 3.4 g/dL (3.4-5.0); ALKALINE PHOSPHATASE 101 U/L (46-116); ALT (SGPT) 39 U/L (10-68); BILIRUBIN - TOTAL 0.37 mg/dL (0.2-1.3); CALC OSMOLALITY 277 mosm/kg (275-300); CALCIUM 8.4 mg/dL (8.5-10.1); CARBON DIOXIDE 30.8 mmol/L (21.0-32.0); CHLORIDE - SERUM 99 mmol/L (98-107); CREATININE - SERUM 0.8 mg/dL (0.6-1.3); PROTEIN - SERUM 7.2 g/dL (6.4-8.2); SODIUM 135 mmol/L (136-145); UREA NITROGEN 9 mg/dL (7-18); eGFR NON AFRICAN AMERICAN > 90 mL/min (90-120)
[2018-06-09 10:15] LABS: GLUCOSE 258 mg/dL (74-106)
[2018-06-09 10:26] LABS: CKMB 1.2 U/L (0.0-3.6); CREATINE KINASE 59 UL (21-232); MAGNESIUM - SERUM 1.5 mg/dL (1.8-2.4)
[2018-06-09 10:28] LABS: TROPONIN-I < 0.017 ng/mL (0.000-0.060)
[2018-06-09] MEDS ORDERED: KEFLEX500 MG PO (11:03)
[2018-06-09] MEDS ORDERED: MAG-OX 400 MG400 MG PO (11:07)
[2018-06-09 11:49] VITALS: BP 144/89
== END 2018-06-09 11:58 | disposition home or self-care (01) ==
LOC: D.ER 09:02
PROVIDERS: Emergency Medicine
DX: R60.0 Localized edema (principal); I10 Essential (primary) hypertension; E83.42 Hypomagnesemia; I73.9 Peripheral vascular disease, unspecified

== ENCOUNTER 2018-07-02 08:00 | Outpatient (CLI) | payer MEDICARE ==
[~2018-07-02 08:00] MED LIST changes: +AMBIEN5 MG PO; +GLIMEPIRIDE1 MG PO; +HYDROCODON-ACE1 EAC2 PO; +KEFLEX500 MG PO; +MAG-OX 400 MG400 MG PO; +MYBETRIC; +PROVENTIL/2.5 MG/3 M INH
[2018-07-02] MEDS ORDERED: OXYCONTIN10 MG PO (14:06)
[2018-07-02] MEDS ORDERED: OMEPRAZOLE40 MG PO (14:07)
[2018-07-02 14:51] LABS: HEMATOCRIT 43.4 % (42.0-54.0); HEMOGLOBIN 14.5 g/dL (13.5-17.5); MCH 29.7 pg (26.0-34.0); MCHC 33.4 g/dL (31.0-37.0); MCV 88.8 fL (80.0-100.0); MEAN PLATELET VOLUME 10.7 fL (7.4-10.4); RBC 4.89 10x6/uL (4.20-6.10); RDW 16.4 % (11.5-14.5); WBC 9.5 10x3/uL (4.8-10.8)
[2018-07-02 15:09] LABS: CALC OSMOLALITY 282 mosm/kg (275-300); CALCIUM 10.1 mg/dL (8.5-10.1); CARBON DIOXIDE 26.8 mmol/L (21.0-32.0); CHLORIDE - SERUM 103 mmol/L (98-107); POTASSIUM - SERUM 3.8 mmol/L (3.5-5.1); SODIUM 141 mmol/L (136-145); UREA NITROGEN 20 mg/dL (7-18); eGFR NON AFRICAN AMERICAN 84 mL/min (90-120)
[2018-07-02 15:15] LABS: GLUCOSE 84 mg/dL (74-106)
[2018-07-03] MEDS ORDERED: GLUCOTROL 5 MG T5 MG PO (12:52)
[2018-07-03] MEDS ORDERED: LIPITOR20 MG PO (12:52)
[2018-07-04 12:27] VITALS: BMI 41.8
== END 2018-07-02 08:01 | disposition home or self-care (01) ==
LOC: D.OPS 08:00 → EDSTATUS 07-03 08:30 → D.PAN 07-03 08:30
PROVIDERS: Anesthesiology; ATTEND Urology
DX: R31.21 Asymptomatic microscopic hematuria (principal); R39.15 Urgency of urination; Z01.812 Encounter for preprocedural laboratory examination; Z53.09 Procedure and treatment not carried out because of other contraindication

== ENCOUNTER 2018-07-03 09:23 | Outpatient (CLI) | payer MEDICARE ==
[~2018-07-03] VITALS: Ht 170.2 cm; Wt 121.1 kg
--- NOTE | ~2018-07-03 | OP ---
PATIENT NAME: EDDA BARRAGAN JR MEDICAL RECORD: [id number] :[birth year] LOCATION:D.M2 D.2117 ADMISSION DATE: SURGEON: JOYCE THOMAS MD DATE OF OPERATION: 07/03/2018 PROCEDURES: 1. PTCA and stent, RCA through patent vein graft. 2. PTCA and stent, left circumflex. 3. IFR, RCA. 4. IFR, left circumflex. 5. Left heart catheterization. 6. Selective coronary angiography. 7. Vein graft angiography. INDICATION: Unstable angina and coronary artery disease. PROCEDURE IN DETAIL: After informed consent was obtained with detailed description of risks and benefits as well as alternative therapies, the patient elected to proceed with angiogram and angioplasty. The right femoral area was prepped and draped in normal sterile fashion. The right femoral artery was cannulated via modified Seldinger technique with placement of 6-Palestinian sheath. All catheters were exchanged through the sheath. FINDINGS: Left ventriculogram performed in standard 30-degree BRADEN view reveals preserved cardiac wall motion. Ejection fraction estimated at 55% to 60%. SELECTIVE CORONARY ANGIOGRAPHY: 1. Left main is with no significant angiographic disease. 2. Left anterior descending is totally occluded. 3. Vein graft to the LAD diagonal filling the LAD as well is widely patent. Previously placed stent is widely patent. 4. Left circumflex has 75% stenosis at the ostium with an abnormal IFR. 5. Vein graft to the left circumflex is closed. 6. Right coronary is closed. 7. Vein graft to the right coronary is patent; however, after this, there is 75% stenosis in the RCA. This is with an abnormal IFR of 0.8. PTCA AND STENT OF THE RCA THROUGH THE VEIN GRAFT: The stent used was 3.0 x 18-mm Jairon. Result was 0% residual stenosis. PTCA AND STENT OF THE LEFT CIRCUMFLEX: The stent used was 2.75 x 12-mm Shelby. Result was 0% residual stenosis. OVERALL IMPRESSION: Successful PTCA and stent of RCA and left circumflex, both going from 75% initial stenosis to 0% residual. TRANSINT:[id number] Voice Confirmation ID: [id number] DOCUMENT ID: [id number] OPERATIVE REPORT [id number] EDDA BARRAGAN JR, JEFFREY MD CC: [id number] DICTATION DATE: 07/03/18 1604 STEPDOWN NURSE: 05/02/19 1618 [facility] [address] [facility] [address]
--- NOTE | ~2018-07-03 | HEMODYNAMI ---
PATIENT:EDDA BARRAGAN JR MEDICAL RECORD: [id number] : 69 LOCATION:[facility] D.2[address] LOCATED WITHIN [facility]# [id number] ADMISSION DATE: 07/03/18 Generatedon:07/03/201816:06 Patient name: EDDA BARRAGAN Patient #: [id number] SSN: [id number] : 1965 Date of study: 07/03/2018 Page: Of Hemodynamic Procedure Report Patient Data Patient Demographics Procedure consent was obtained First Name: EDDA Gender: Male Last Name: LAUREL Suffix: Jr Rico Initial: Van Campbell : 1965 Patient #: [id number] Age: 52 year(s) Race: Unknown SSN: [id number] Additional ID: [id number] Contact details Address: [address] [place] [address] State: [place] [facility] [place]: [address] Past Medical History Allergies: No known allergies Admission Admission Data Admission Date: 07/03/2018 Admission Time: 9:23 Room #: D.2117 Lab Results Lab Result Date: 07/03/2018 Lab Result Time: 0:00 Biochemistry Name Units Result Min Max BUN mg/dl 23 --(----)-* 7 18 Creatinine mg/dl 1.2 --(---*)-- 0.6 1.3 CBC Name Units Result Min Max Hemoglobin g/dl 13.2 -*(----)-- 13.5 17.5 Procedure Procedure Types Cath Procedure Diagnostic Procedure [facility] w/Coronaries w/Grafts FFR/IVUS FFR Initial PCI Procedure Coronary Stent Coronary Stent Initial AMI/SVG/BOAT WORKER PTCA or Stent SVG-BMS/LIZ Initial Procedure Description Procedure Date Procedure Date: 07/03/2018 Procedure Start Time: 15:39 Procedure End Time: 16:01 Procedure Staff Name Function Adis Rodriguez MD Performing Physician Zina Terry RT Monitor Dusty Little RT Scrub Adalid Cox RT Scrub Thomas Castillo RN Nurse Man Cifuentes CRNA Additional personnel Procedure Data Cath Procedure Fluoroscopy Diagnostic fluoroscopy Total fluoroscopy Time: 5.2 time: 5.2 min min Diagnostic fluoroscopy Total fluoroscopy dose: dose: 1682 mGy 1682 mGy Contrast Material Contrast Material Type Amount (ml) Isovue 300 141 Entry Location Entry Primary Successful Side Size Upsize Upsize Entry Closure Succes sful Closure Location (Fr) 1 (Fr) 2 (Fr) Remarks Device Remarks Femoral Right 5 Fr 6 Fr artery Short Estimated blood loss: 5 ml Diagnostic catheters Device Type Used For End Catheter Placement MULTIPACK Pigtail 5 Fr LV Angiography catheter MULTIPACK JL 4.0 5Fr Left Coronary catheter Angiography DIAGNOSTIC AR2 MOD 5 Fr Multi-vessel catheter ([id number]) Angiography Procedure Complications No complications Procedure Medications Medication Administration Route Dosage 0.9% NaCl I.V. 100 ml/hr Oxygen etCO2 Nasal cannula 2 l/min Heparin Flush Bag added to field 2 bags (1000units/500ml NS) Lidocaine 2% added to field 20 Refer to Anesthesia Notes for Sedation Medications Heparin Bolus I.V. 4000 units Labetalol I.V. 5 mg Hemodynamics Rest HGB: 13.2 (g/dl) Heart Rate: 85 (bpm) Pressure Samples Time Site Value (mmHg) Purpose Heart Use Rate(bpm) 15:40 LV 160/28,32 Snapshot 100 15:41 AO 169/121(144) Snapshot 100 Snapshots Pre Cath Intra NCS Post Cath Vital Signs Time Heart Resp SPO2 etCO2 NIBP (mmHg) Rhythm Pain Sedation Rate (ipm) (%) (mmHg) Status Level (bpm) 15:19:12 81 18 96 0 150/92(118) NSR 0 (11) 10(A) , No pain 15:23:32 89 26 97 20.2 146/92(113) NSR 0 (11) 10(A) , No pain 15:27:54 83 13 96 41.2 166/87(111) NSR 0 (11) 10(A) , No pain 15:44:01 104 15 92 11.9 159/88(0) NSR 0 (11) 8(A) , No pain 15:46:45 106 18 91 10.4 153/84(0) NSR 0 (11) 8(A) , No pain 15:49:14 100 19 98 30.7 179/97(122) NSR 0 (11) 8(A) , No pain 15:53:40 87 10 97 17.9 111/53(82) NSR 0 (11) 8(A) , No pain 15:57:55 87 11 97 17.9 107/59(81) NSR 0 (11) 9(A) , No pain 16:02:06 91 10 98 18.7 123/70(93) NSR 0 (11) 9(A) , No pain Medications Time Medication Route Dose Verified Delivered Reason Notes Effectiveness by by 15:17:04 0.9% NaCl I.V. 100 Thomas Thomas Per physician ml/hr Anna Castillo RN RN 15:17:13 Oxygen etCO2 2 Thomas Thomas for low 02 sats Nasal l/min Anna Castillo cannula RN RN 15:17:27 Heparin Flush added 2 Thomas Thomas used for Bag to bags Anna Castillo procedure (1000units/500ml field RN RN NS) 15:17:37 Lidocaine 2% added 20ml Thomas Thomas for local to vial Anna Castillo anesthetic field RN RN 15:32:38 Refer to Thomas Thomas for sedation Anesthesia Notes Anna Castillo for Sedation RN RN Medications 15:50:03 Labetalol I.V. 5 mg Thomas Thomas for Lorigan Anna hypertension RN RN 15:51:24 Heparin Bolus I.V. 4000 Thomas Thomas for units Anna Castillo anticoagulation RN patient case manager Log Time Note 14:45:18 Diagnostic Cath Status : Elective 14:46:47 Adalid Suit RT(R) sent for patient. Start room use. 14:46:48 Time tracking: Regular hours (M-F 7:00 - 5:00) 14:46:53 Plan of Care:Hemodynamics will remain stable., Cardiac rhythm will remain stable., Comfort level will be maintained., Respiratory function will remain adequate., Patient/ family verbilizes understanding of procedure., Procedure tolerated without complication., Recovers from procedure without complications.. 14:55:35 Lab Result : Hemoglobin 13.2 g/dl 14:55:35 Lab Result : Creatinine 1.2 mg/dl 14:55:35 Lab Result : BUN 23 mg/dl 15:13:57 Patient received from Med II to [facility] 2 Alert and oriented. Tansferred to table in Supine position. 15:13:59 Warm blankets applied, and tyrone hugger turned on for patient comfort. 15:13:59 Correct patient and procedure confirmed by team. 15:14:01 Signed procedure consent form obtained from patient. 15:14:02 ECG and BP/O2 sat monitors applied to patient. 15:17:04 0.9% NaCl 100 ml/hr I.V. was administered by Thomas Castillo RN; Per physician; 15:17:13 Oxygen 2 l/min etCO2 Nasal cannula was administered by Thomas Castillo RN; for low 02 sats; 15:17:27 Heparin Flush Bag (1000units/500ml NS) 2 bags added to field was administered by Thomas Castillo RN; used for procedure; 15:17:37 Lidocaine 2% 20ml vial added to field was administered by Thomas Castillo RN; for local anesthetic; 15:17:53 Vital chart was started 15:20:30 Baseline sample Acquired. 15:20:34 Rhythm: sinus rhythm 15:20:35 Full Disclosure recording started 15:20:47 H&P Date Dictated: 07/03/2018 Within 30 days and on chart., H&P Addendum completed by physician on day of procedure. (MUST COMPLETE FOR ALL OUTPATIENTS). 15:20:51 Pre-procedure instructions explained to patient. 15:20:51 Pre-op teaching completed and patient verbalized understanding. 15:20:53 Family in waiting room. 15:20:55 Patient NPO since Midnight. 15:22:17 Is the patient allergic to Iodine/contrast media? No. 15:22:22 Is patient on blood thinner?Yes 15:22:25 ACC The patient was administered the following blood thiners within the last 24 hours: ACCPlavix 15:22:27 Patient diabetic? Yes. 15:22:29 If diabetic: On Metformin? Yes 15:22:33 If on Metformin: Last Dose? 07/02/2018 15:22:34 ----Pre-sedation anethsthesia assessment.---- 15:22:36 Previous problem with sedation/anesthesia? No ? 15:22:38 Snore? Yes 15:22:39 Sleep apnea? Yes 15:22:40 Deviated septum? No 15:22:42 Opens mouth fully? Yes 15:22:43 Sticks out tongue? No 15:22:49 Airway obstruction? Yes COPD 15:22:53 Dentures? No ? 15:22:57 Pre procedure: right dorsailis pedis pulse 1+ Palpable, but thready & weak; easily obliterated 15:23:53 Patient pain scale 7/10 CHEST PAIN. 15:24:00 IV patent on arrival in left forearm with 0.9% NaCl at [facility] 15:24:06 Lab results completed and on chart. 15:24:12 Right groin area was prepped with chlora-prep and draped in sterile fashion 15:24:54 Alarms reviewed by R. N. 15:24:55 Sharps counted by scrub and verified by R.N. 15:25:01 Use device set Femoral Dx 15:25:02 ACIST Syringe (26771) opened to sterile field. 15:25:02 Bag Decanter (2002S) opened to sterile field. 15:25:03 Medline Cath Pack ([id number]) opened to sterile field. 15:25:03 DIAGNOSTIC WIRE .035 260cm J wire (789279) opened to sterile field. 15:25:05 ACIST Hand Control (53460) opened to sterile field. 15:25:05 ACIST Manifold (76900) opened to sterile field. 15:25:06 DIAGNOSTIC Multipack 5Fr catheter set ([id number]) opened to sterile field. 15:25:06 Tegaderm 4 x 4 (1626W) opened to sterile field. 15:25:07 SHEATH 5FR [place] (WAN288) opened to sterile field. 15:29:37 Physician arrived 15:29:37 --------ALL STOP TIME OUT------ 15:29:38 Final Timeout: patient, procedure, and site verified with staff and physician. All members of the team are in agreement. 15:29:41 Right groin site verified by team. 15:29:45 Maximum allowable Isovue 300 dose 300ml. Physician notified. (300ml for normal creatinines. For patients with creatinine of 1.7 or higher multiply weight(kg) x 5 divided by creatinine.) 15:29:49 Fire Safety Assessment: A--An alcohol-based skin anteseptic being used preoperatively., C--Open oxygen or nitrous oxide is being used., D--An ESU, laser, or fiber-optic light is being used. 15:29:52 Physical assessment completed. ASA score P 2 - A patient with mild systemic disease as per Adis Rodriguez MD. 15:29:55 Sedation plan: TIVA Medication:Propofol 15:31:22 Zero performed for pressure channel P1 15:31:32 Zero performed for pressure channel P1 15:32:38 Refer to Anesthesia Notes for Sedation Medications was administered by Thomas Castillo RN; for sedation; 15:38:40 Procedure started. 15:39:14 Local anesthetic to right femoral artery with Lidocaine 2% by Adis Rodriguez MD.INITIAL ACCESS ONLY 15:39:29 A 5 Fr sheath was inserted into the Right Femoral artery 15:39:58 A MULTIPACK Pigtail 5 Fr catheter was advanced over the wire and used for LV Angiography. 15:40:37 LV hemodynamics recorded. 15:40:38 LV gram done using BRADEN 15:40:40 Injector settings: Ml/sec: 5, Volume: 15, 15:40:58 EF : 60 % 15:41:04 Catheter removed. 15:41:23 A MULTIPACK JL 4.0 5Fr catheter was advanced over the wire and used for Left Coronary Angiography. 15:43:08 LCA angiography performed. 15:43:10 Injector settings: Ml/sec: 3, Volume: 6, 15:43:12 Catheter removed. 15:43:29 A DIAGNOSTIC AR2 MOD 5 Fr catheter ([id number]) was advanced over the wire and used for Multi-vessel Angiography. 15:43:37 RCA angiography performed. 15:43:48 SVG to RCA angiography performed. 15:44:47 SHEATH 6FR [place] (YBP411) opened to sterile field. 15:44:47 INFLATOR Merit BasixCompak (IG8787) opened to sterile field. 15:44:48 [place] Verrata Plus pressure wire (91456B) opened to sterile field. 15:44:57 SVG to Circ angiography performed. 15:45:32 Catheter removed. 15:45:34 Proceeding to intervention. 15:45:42 Sheath upsized to a 6 Fr Short. 15:46:04 GUIDE 6FR AR 2.0 catheter ([id number]) opened to sterile field. 15:46:10 6 Fr AR 2 guide catheter was inserted over the wire 15:46:22 IFR wire advanced. 15:49:28 SVG lesion measured at 0.80 with IFR 15:50:03 Labetalol 5 mg I.V. was administered by Thomas Castillo RN; for hypertension; 15:51:15 Place stent Inflation Number: 1 A YASMIN RX 3.0 x 18 stent ([id number]) was prepped and advanced across the Aorta Right -> Mid RCA. The stent was deployed at 13 HARJEET for 0:10 (min:sec). 15:51:24 Heparin Bolus 4000 units I.V. was administered by Thomas Castillo RN; for anticoagulation; 15:51:40 Inflation number: 2 The stent balloon was then re-inflated across the Aorta Right -> Mid RCA to 21 HARJEET for 0:10 (min:sec). 15:53:36 Stent catheter was removed intact over wire. 15:53:38 Wire removed. 15:53:38 Guide catheter removed. 15:53:49 GUIDE 6FR XBLAD 3.5 catheter ([id number]) opened to sterile field. 15:53:57 6 Fr xblad 3.5 guide catheter was inserted over the wire 15:55:19 FFR/IFR wire advanced. 15:55:51 lcx lesion measured at 0.89 with IFR 15:57:54 Place stent Inflation Number: 1 A YASMIN RX 2.75 x 12 stent ([id number]) was prepped and advanced across the Prox CX. The stent was deployed at 13 HARJEET for 0:10 (min:sec). 15:59:11 Stent catheter was removed intact over wire. 15:59:11 Wire removed. 15:59:12 Guide catheter removed. 15:59:18 EXOSEAL 6Fr (EX600) opened to sterile field. 15:59:37 Procedure ended.(Physican Out) 15:59:54 Fluoroscopy time 05.20 minutes. 15:59:59 Flurop Dose total: 1682 15:59:59 Fluoroscopy dose: 1682 mGy 16:00:35 Contrast amount:Isovue 300 141ml. 16:00:37 Sharps counted by scrub and verified by R.N. 16:00:39 Insertion/operative site no bleeding no hematoma. 16:00:41 Post-op/insertion site Right Femoral artery dressed using a 4 x 4 and Tegaderm. 16:00:44 Post Procedure Pulses reassessed and unchanged 16:00:46 Post procedure rhythm: unchanged. 16:00:48 Estimated blood loss: 5 ml 16:00:50 Post procedure instruction explained to patient.Patient verbalizes understanding. 16:00:51 Patient needs reinforcement of post procedure teaching. 16:01:30 Procedure type changed to Cath procedure, Diagnostic procedure, LHC, LHC w/Coronaries w/Grafts, FFR/IVUS, FFR Initial, PCI procedure, Coronary Stent, Coronary Stent Initial, AMI/SVG/BOAT WORKER PTCA or Stent, SVG-BMS/LIZ Initial 16:01:31 Procedure and supply charges have been captured, reviewed, submitted and are correct. 16:01:35 Procedure Complication : No complications 16:01:37 Vital chart was stopped 16:01:38 See physician's report for complete and final results. 16:01:52 Report given to [facility]. 16:01:54 Patient transfered to [facility] with Stretcher. 16:01:57 Procedure ended. 16:01:57 Full Disclosure recording stopped 16:02:06 ACC-PCI Only Patient was given prescriptions, or instructed by Adis Rodriguez MD to start/continue the following medications upon discharge: Plavix 16:02:08 End room use (Document Last) Intervention Summary Intervention Notes Time ActionType Lesion and Equipment Used Action# Pressure Duration Attributes 15:51:15 Place stent Aorta Right YASMIN RX 3.0 x 1 13 00:10 -> Mid RCA 18 stent ([id number]) 15:51:40 Reinflate Aorta Right YASMIN RX 3.0 x 2 21 00:10 stent -> Mid RCA 18 stent balloon ([id number]) 15:57:54 Place stent Prox CX YASMIN RX 2.75 x 1 13 00:10 12 stent ([id number]) Device Usage Item Name Manufacture Quantity Catalog Hospital Part Current Minimal Lot# / Number Charge Number Stock Stock Serial# Code ACIST Syringe Acist 1 89766 934168 482898 343233 20 (07224) [employer] Bag Decanter Microtek 1 707424 55622 716738 5 () Medical Inc. Medline Cath Medline 1 [id number] 616831 91296 303599 5 Pack ([id number]) DIAGNOSTIC St Nathan 1 701736 420041 394389 611758 30 WIRE .035 260cm J wire (790829) ACIST Hand Acist 1 24124 644073 306280 073477 5 Control Medical (03596) Systems Inc ACIST Manifold Acist 1 21871 123756 815323 198676 5 (24212) Medical Systems Inc DIAGNOSTIC Cardinal 1 GW6562 321647 78253 319359 30 Multipack 5Fr Health catheter set (ZL9932) Tegaderm 4 x 4 3M 1 1626W 037583 937927 373064 5 (1626W) SHEATH 5FR Terumo 1 XSJ656 662009 573625 072154 5 [place] (VIW343) MULTIPACK Cardinal 1 718923 5 Pigtail 5 Fr Health catheter MULTIPACK JL Cardinal 1 352372 5 4.0 5Fr Health catheter DIAGNOSTIC AR2 Cardinal 1 [id number] 606573 616267 231889 20 MOD 5 Fr Health catheter (712450H) SHEATH 6FR Terumo 1 GFD228 023165 491129 611213 40 [place] (OPU906) INFLATOR Merit Merit 1 CH2057 499393 418689 294178 15 ApoforeSt. Mark'S HospitalActively Learn [facility] (VZ8888) [place] 1 12506N 673435 724495244 275638 5 Verrata Plus pressure wire (29748H) GUIDE 6FR AR Medtronic 1 [id number] 439986 48130 775606 1 2.0 catheter (XU9II16) YASMIN RX 3.0 x Medtronic 1 [id number] 282044 6176588 909637 5 [id number] 18 stent ([id number]) GUIDE 6FR Cardinal 1 [id number] 197543 556148 826552 10 XBLAD 3.5 Health catheter ([id number]) YASMIN RX 2.75 x Medtronic 1 [id number] 617312 9191811 112173 5 [id number] 12 stent ([id number]) EXOSEAL 6Fr Cardinal 1 EX600 186764 849049 770151 10 (EX600) Health Signature Audit [place] Stage Time Signature Unsigned Intra-Procedure 07/03/2018 Zina Terry 4:05:58 PM RT(R) Signatures Monitor : Zina Terry RT Signature : Date : Time : [id number] [place] [address]
--- NOTE | ~2018-07-03 | DS ---
PATIENT:EDDA BARRAGAN V JR :69 MEDICAL RECORD: [id number] DISCHARGE SUMMARY ADMISSION DATE: 07/03/18 DISCHARGE DATE: 07/04/18 DIAGNOSES: 1. Unstable angina. 2. Coronary artery disease. 3. Percutaneous transluminal coronary angioplasty stent right coronary artery and left circumflex this admission. 4. Diabetes. 5. Hypertension. 6. Hyperlipidemia. HOSPITAL COURSE: Mr. Barragan presents with unstable anginal symptomatology, found to have significant disease of the RCA and circumflex, underwent successful PTCA stent of both territories, was discharged home with the addition of Plavix to his medical regimen. He had no further anginal symptomatology. Will follow up with [facility] in 1 month. TRANSINT:[id number] Voice Confirmation ID: [id number] DOCUMENT ID: [id number] JOYCE THOMAS MD CC: [id number] DICTATION DATE: 07/04/18 1056 MAJOR GIFTS DIRECTOR: 07/04/18 1209 DEP CLI 07/04/18 [id number] [place] [address]
[~2018-07-03 09:23] MED LIST changes: +OMEPRAZOLE40 MG PO; +OXYCONTIN10 MG PO
[2018-07-03 10:13] LABS: BASOPHILS 0.2 % (0-2); EOSINOPHILS 2.6 % (0-7); HEMATOCRIT 40.8 % (42.0-54.0); HEMOGLOBIN 13.2 g/dL (13.5-17.5); IMMATURE GRANULOCYTES 0.2 % (0-5); LYMPHOCYTES 18.4 % (15-50); MCH 29.4 pg (26.0-34.0); MCHC 32.4 g/dL (31.0-37.0); MEAN PLATELET VOLUME 10.4 fL (7.4-10.4); MONOCYTES 7.4 % (2-11); NEUTROPHILS 71.2 % (40-80); RBC 4.49 10x6/uL (4.20-6.10); RDW 16.3 % (11.5-14.5)
[2018-07-03 10:17] LABS: ALBUMIN 3.9 g/dL (3.4-5.0); ALKALINE PHOSPHATASE 86 U/L (46-116); ALT (SGPT) 92 U/L (10-68); APTT 28.2 SECONDS (22.8-39.4); BILIRUBIN - TOTAL 0.48 mg/dL (0.2-1.3); CALC OSMOLALITY 293 mosm/kg (275-300); CALCIUM 9.4 mg/dL (8.5-10.1); CARBON DIOXIDE 27.4 mmol/L (21.0-32.0); CHLORIDE - SERUM 104 mmol/L (98-107); CREATININE - SERUM 1.2 mg/dL (0.6-1.3); INR 1.09 (0.85-1.17); POTASSIUM - SERUM 3.6 mmol/L (3.5-5.1); PROTEIN - SERUM 7.8 g/dL (6.4-8.2); PROTIME 13.6 SECONDS (11.6-15.0); SODIUM 142 mmol/L (136-145); UREA NITROGEN 23 mg/dL (7-18); eGFR NON AFRICAN AMERICAN 68 mL/min (90-120)
[2018-07-03 10:18] LABS: GLUCOSE 218 mg/dL (74-106)
[2018-07-03 10:24] LABS: MCV 90.9 fL (80.0-100.0); PLATELET COUNT 112 10x3/uL (130-400); WBC 6.1 10x3/uL (4.8-10.8)
[2018-07-03 10:33] LABS: CKMB 3.8 U/L (0.0-3.6); CREATINE KINASE 287 UL (21-232); MAGNESIUM - SERUM 1.4 mg/dL (1.8-2.4); PRO BNP 102 pg/mL (0-125); TROPONIN-I < 0.017 ng/mL (0.000-0.060)
[2018-07-03] MEDS ORDERED: GLUCOTROL 5 MG T5 MG PO (12:52)
[2018-07-03] MEDS ORDERED: LIPITOR20 MG PO (12:52)
--- NOTE | 2018-07-03 13:01 | NUR ---
TRANSFER FROM ER BY W/C. ROSEMARIEINTED TO ROOM. CALL LIGHT IN REACH. WILL CONT. PLAN OF CARE.
[2018-07-03 13:09] VITALS: BP 133/75
[2018-07-03 13:28] VITALS: BP 136/75; BMI 41.9
--- NOTE | 2018-07-03 14:00 | NUR ---
HAS SLIPPED AND FELL ON HIS LOTION THAT HE HAD SPILT ON FLOOR. DR. THOMAS NOTIFIED. REFUSES BED ALARM. FORM SIGNED AND PLACED ON CHART.
--- NOTE | 2018-07-03 14:58 | NUR ---
CONSENTS SIGNED FOR [facility]. PRE-OPS GIVEN. WILL CONT. PLAN OF CARE.
--- NOTE | 2018-07-03 15:45 | NUR ---
TO STRETCHER DRIER OPERATOR BY BED.
--- NOTE | 2018-07-03 19:30 | NUR ---
RESUMING PATIENT CARE. PATIENT IS ALERT AND ORIENTED. RESTING COMFORTABLY IN BED. RESPIRATIONS ARE EVEN AND UNLABORED. PATIENT RIGHT GROIN, DRESSING C/D/I, AREA SOFT, MINIMAL BRUISING. NO S/S OF DISRESS. NO C/O PAIN. CALL LIGHT WITHIN REACH. WILL CPOC.
[2018-07-03 20:05] VITALS: BP 144/73
[2018-07-04] VITALS: BP 140/70
--- NOTE | 2018-07-04 02:07 | NUR ---
PATIENT ALERT AND ORIENTED, RESPIRATIONS ARE EVEN AND UNLABORED. PATIENT ASKING FOR A SNACK. NEEDS MET. NO S/S OF DISTRESS. CALL LIGHT WITHIN REACH. WILL CPOC.
[2018-07-04 04:00] VITALS: BP 131/74
--- NOTE | 2018-07-04 04:52 | NUR ---
PATIENT RESTING COMFORTABLY IN BED. RESPIRATIONS ARE EVEN AND UNLABORED. NO S/S OF DISTRESS. CALL LIGHT WITHIN REACH. WILL CPOC.
[2018-07-04 07:56] VITALS: BP 152/75
--- NOTE | 2018-07-04 10:54 | HP ---
PATIENT: EDDA BARRAGAN JR MEDICAL RECORD: [id number] ACCOUNT: [id number] LOCATION:[address] : 69 ADMISSION DATE: 07/03/18 PCP: LOGAN AVILA DO HISTORY AND PHYSICAL EXAMINATION DIAGNOSES: 1. Unstable angina. 2. Coronary artery disease. 3. Previous multivessel PTCA stent. 4. Previous coronary artery bypass graft surgery 10 years ago. 5. Hypertension. 6. Hyperlipidemia. 7. Paroxysmal atrial fibrillation. 8. Noninsulin-dependent diabetes. HISTORY OF PRESENT ILLNESS: Mr. Barragan has a past history of coronary artery disease, bypass surgery approximately 10 years ago, five vessels and stents since then. Last stents were approximately a year ago. He has been having 2 weeks of increasing episodes of chest pain, chest discomfort compatible with angina just like that of his previous angina. This has worsened dramatically over the past 24 hours. He comes in with chest pain, severe diaphoresis to the point of drooping wet with sweat, shortness of breath. PHYSICAL EXAMINATION: GENERAL APPEARANCE: Well-nourished, well-developed, appears stated age. Level of distress, comfortable. PSYCHIATRIC: Mental status, alert, normal affect. Orientation, oriented to time, place and person. EYES: Lids and conjunctiva, noninjected. No discharge, no pallor. ENT: Lips, teeth, gums, normal dentition. Oropharynx, no cyanosis, no pallor. NECK: Carotid arteries, bilateral normal upstroke, no bruits, no thrills. JUGULAR VEINS: No jugular venous pressure or distention. CERVICAL LYMPH NODES: Nontender, nonenlarged. THYROID: Not enlarged. Nontender. No nodules. LUNGS: Respiratory effort, unlabored. CHEST: Normal curvature. No thoracic deformity. No chest wall tenderness. Percussion, resonant. Auscultation, clear. No wheezes, no rales, no rhonchi. CARDIOVASCULAR: Precordial exam, nondisplaced. No heaves or pericardial thrills. Rate and rhythm, regular. Heart sounds, normal S1, normal S2. No S3, no gallop, no rub. Systolic murmur, not heard. Diastolic murmur, not heard. EXTREMITIES: No cyanosis, no edema. Peripheral pulses, full and equal in all extremities, except as noted. No bruits appreciated. ABDOMEN: Soft, nondistended. Normal aorta. No bruit. Nontender. No masses. Liver, nontender, no hepatomegaly. Spleen, nontender, no splenomegaly. MUSCULOSKELETAL: No joint tenderness. No joint swelling. No erythema. NEUROLOGICAL: Normal gait, normal strength, normal tone. SKIN: Warm and dry. OVERALL IMPRESSION: Chest pain compatible with angina. EKG compatible with inferior ischemia. Most likely, he has recurrent hemodynamically significant coronary artery disease. His symptoms have progressed in a markedly unstable fashion. We will proceed with coronary angiography. Further care depends upon the findings of the angiography. He is already on maximal medical therapy with SUSAN inhibitor, beta-tatianna, or calcium channel tatianna. HISTORY AND PHYSICAL [id number] EDDA BARRAGAN JR TRANSINT:[id number] Voice Confirmation ID: [id number] DOCUMENT ID: [id number] JOYCE THOMAS MD at 1054 CC: [id number] DICTATION DATE: 07/03/18 1536 SPEECH AND LANGUAGE SPECIALIST: 07/03/18 1548 [facility] [address] [id number]
[2018-07-04] MEDS ORDERED: ASPIRIN81 MG PO (11:41)
[2018-07-04] MEDS ORDERED: PLAVIX75 MG PO (11:41)
[2018-07-04 12:20] VITALS: BP 166/82
[2018-07-04 12:27] VITALS: Ht 170.2 cm; Wt 121.1 kg
--- NOTE | 2018-07-04 12:46 | NUR ---
IV AND TELEMETRY DCD. DC PLANS GIVEN. UNDERSTANDING VOICED. ESCORTED TO CAR BY W/C.
== END 2018-07-04 12:46 | disposition home or self-care (01) ==
LOC: D.CATH 09:23 → D.ER 09:23 → D.M2 09:23 → EDSTATUS 11:25 → D.M2 11:54 → D.CATH 07-04 12:46
PROVIDERS: Emergency Medicine; ATTEND Internal Medicine Interventional Cardiology
DX: I25.110 Atherosclerotic heart disease of native coronary artery with unstable angina pectoris (principal); Z95.5 Presence of coronary angioplasty implant and graft; Z95.1 Presence of aortocoronary bypass graft; I10 Essential (primary) hypertension; E78.5 Hyperlipidemia, unspecified; I48.0 Paroxysmal atrial fibrillation; E11.9 Type 2 diabetes mellitus without complications
CPT/HCPCS: 93459; C9604; C9605

== ENCOUNTER 2018-07-20 17:14 | Emergency (ER) | payer MEDICARE ==
[~2018-07-20] VITALS: Ht 170.2 cm; Wt 122.7 kg
[~2018-07-20 17:14] MED LIST changes: +ASPIRIN81 MG PO; +GLUCOTROL 5 MG T5 MG PO
[2018-07-20 17:18] VITALS: Ht 170.2 cm; Wt 122.7 kg
[2018-07-20 17:58] LABS: BASOPHILS 0.1 % (0-2); EOSINOPHILS 0.9 % (0-7); HEMATOCRIT 42.6 % (42.0-54.0); HEMOGLOBIN 14.3 g/dL (13.5-17.5); IMMATURE GRANULOCYTES 0.3 % (0-5); LYMPHOCYTES 26.1 % (15-50); MCHC 33.6 g/dL (31.0-37.0); MCV 89.3 fL (80.0-100.0); MONOCYTES 6.5 % (2-11); NEUTROPHILS 66.1 % (40-80); PLATELET COUNT 214 10x3/uL (130-400); RBC 4.77 10x6/uL (4.20-6.10)
[2018-07-20 18:11] LABS: APTT 26.3 SECONDS (22.8-39.4); INR 1.11 (0.85-1.17); PROTIME 13.8 SECONDS (11.6-15.0)
[2018-07-20 18:20] LABS: ALBUMIN 3.8 g/dL (3.4-5.0); ALKALINE PHOSPHATASE 86 U/L (46-116); ALT (SGPT) 74 U/L (10-68); BILIRUBIN - TOTAL 0.45 mg/dL (0.2-1.3); CALC OSMOLALITY 281 mosm/kg (275-300); CALCIUM 8.1 mg/dL (8.5-10.1); CARBON DIOXIDE 27.3 mmol/L (21.0-32.0); CHLORIDE - SERUM 100 mmol/L (98-107); CREATININE - SERUM 0.7 mg/dL (0.6-1.3); POTASSIUM - SERUM 3.5 mmol/L (3.5-5.1); SODIUM 140 mmol/L (136-145); UREA NITROGEN 14 mg/dL (7-18); eGFR NON AFRICAN AMERICAN > 90 mL/min (90-120)
[2018-07-20 18:21] LABS: GLUCOSE 135 mg/dL (74-106)
[2018-07-20 18:32] LABS: CKMB 0.5 U/L (0.0-3.6); CREATINE KINASE 73 UL (21-232); MAGNESIUM - SERUM 1.5 mg/dL (1.8-2.4)
[2018-07-20 18:35] LABS: TROPONIN-I < 0.017 ng/mL (0.000-0.060)
[2018-07-20 19:37] LABS: AMYLASE - SERUM 84 U/L (25-115); LIPASE 393 U/L (73-393)
[2018-07-20 21:07] VITALS: BP 167/83
== END 2018-07-20 21:07 | disposition home or self-care (01) ==
LOC: D.ER 17:14
PROVIDERS: Family Medicine
DX: R07.9 Chest pain, unspecified (principal); Z79.01 Long term (current) use of anticoagulants; J44.9 Chronic obstructive pulmonary disease, unspecified; E11.9 Type 2 diabetes mellitus without complications; Z87.09 Personal history of other diseases of the respiratory system; R06.09 Other forms of dyspnea

== ENCOUNTER 2018-12-07 12:15 | Inpatient (IN) | payer MEDICARE ==
[~2018-12-07] VITALS: Ht 170.2 cm; Wt 138.6 kg
[2018-12-07 12:57] LABS: BASOPHILS 0 % (0-2); EOSINOPHILS 0.4 % (0-7); HEMATOCRIT 39.2 % (42.0-54.0); HEMOGLOBIN 13.2 g/dL (13.5-17.5); IMMATURE GRANULOCYTES 0.3 % (0-5); LYMPHOCYTES 3.5 % (15-50); MCH 30.9 pg (26.0-34.0); MCHC 33.7 g/dL (31.0-37.0); MCV 91.8 fL (80.0-100.0); MEAN PLATELET VOLUME 10.3 fL (7.4-10.4); MONOCYTES 3.9 % (2-11); NEUTROPHILS 91.9 % (40-80); RBC 4.27 10x6/uL (4.20-6.10); RDW 16.7 % (11.5-14.5); WBC 10.8 10x3/uL (4.8-10.8)
[2018-12-07 13:03] LABS: PLATELET COUNT 102 10x3/uL (130-400)
[2018-12-07 13:14] LABS: INR 1.11 (0.85-1.17); PROTIME 13.8 SECONDS (11.6-15.0)
[2018-12-07 13:34] LABS: ALBUMIN 3.1 g/dL (3.4-5.0); ALKALINE PHOSPHATASE 116 U/L (46-116); ALT (SGPT) 47 U/L (10-68); BILIRUBIN - TOTAL 1.12 mg/dL (0.2-1.3); CALC OSMOLALITY 277 mosm/kg (275-300); CALCIUM 7.9 mg/dL (8.5-10.1); CHLORIDE - SERUM 95 mmol/L (98-107); CKMB 1.9 U/L (0.0-3.6); CREATINE KINASE 94 UL (21-232); CREATININE - SERUM 0.7 mg/dL (0.6-1.3); GLUCOSE 302 mg/dL (74-106); MAGNESIUM - SERUM 1.1 mg/dL (1.8-2.4); PROTEIN - SERUM 7.7 g/dL (6.4-8.2); SODIUM 134 mmol/L (136-145); UREA NITROGEN 11 mg/dL (7-18); eGFR NON AFRICAN AMERICAN > 90 mL/min (90-120)
[2018-12-07 13:35] LABS: POTASSIUM - SERUM 2.7 mmol/L (3.5-5.1)
--- NOTE | 2018-12-07 13:52 | NUR ---
PT DECLINED NTG PATCH
[2018-12-07 14:21] LABS: APPEARANCE CLEAR (CLEAR); BILIRUBIN NEGATIVE (NEGATIVE); COLOR YELLOW (YELLOW); GLUCOSE 1000 mg/dL (NEGATIVE); KETONE SMALL mg/dL (NEGATIVE); NITRITE NEGATIVE (NEGATIVE); PROTEIN TRACE mg/dL (NEGATIVE); SPECIFIC GRAVITY 1.005 (1.005-1.020); UROBILINOGEN NORMAL (NORMAL); WHITE CELLS - URINE 0-5 /hpf (NEGATIVE)
[2018-12-07 14:22] LABS: BACTERIA FEW /hpf (NEGATIVE); RED CELLS - URINE 0-5 /hpf (0-5)
[2018-12-07 14:38] VITALS: BP 165/88
[2018-12-07] MEDS ORDERED: BUPRENORPHIN-N1 EACH SL (14:55)
[2018-12-07 16:00] VITALS: BP 143/76
[2018-12-07 17:21] VITALS: Ht 170.2 cm; Wt 138.6 kg
[2018-12-07 19:13] LABS: CKMB 1.6 U/L (0.0-3.6); CREATINE KINASE 112 UL (21-232); TROPONIN-I < 0.017 ng/mL (0.000-0.060)
--- NOTE | 2018-12-07 19:40 | NUR ---
RECIEVED BEDSIDE SHIFT REPORT. UP AMBULATING IN HALLWAY WITH SPOUSE. LEFT FLOOR WITH SPOUSE AND SAID " BE RIGHT BACK'. AMBULATING AROUND MED SURG AT THIS TIME. ALERT AND ORIENTED . WILL CONT ASSESSMENT WHEN RETURNS TO HIS ROOM.
[2018-12-07 20:00] VITALS: BP 151/80
[2018-12-08 00:30] VITALS: BP 138/74
[2018-12-08 00:35] VITALS: BP 146/71
[2018-12-08 02:18] LABS: CKMB 0.8 U/L (0.0-3.6); CREATINE KINASE 55 UL (21-232); TROPONIN-I < 0.017 ng/mL (0.000-0.060)
[2018-12-08 04:24] VITALS: BP 145/58
--- NOTE | 2018-12-08 04:56 | NUR ---
STATES HE THINKS HE HAD A SEIZURE AND REQUESTED LIBRIUM. SAID WHEN HE WITHDRAWLS FROM ALCOHOL HE HAS SEIZURES. LIBRIUM GIVEN PER ORDER. NO OBVIOUS S/S OF SEIZURE ACTIVITY OBSERVED.
[2018-12-08 06:18] LABS: BASOPHILS 0.1 % (0-2); EOSINOPHILS 0.9 % (0-7); HEMATOCRIT 38.3 % (42.0-54.0); HEMOGLOBIN 12.7 g/dL (13.5-17.5); IMMATURE GRANULOCYTES 0.4 % (0-5); LYMPHOCYTES 7.7 % (15-50); MCH 30.7 pg (26.0-34.0); MCHC 33.2 g/dL (31.0-37.0); MCV 92.5 fL (80.0-100.0); MEAN PLATELET VOLUME 10.6 fL (7.4-10.4); MONOCYTES 5.6 % (2-11); NEUTROPHILS 85.3 % (40-80); PLATELET COUNT 102 10x3/uL (130-400); RBC 4.14 10x6/uL (4.20-6.10); RDW 16.5 % (11.5-14.5)
[2018-12-08 06:21] LABS: WBC 7.7 10x3/uL (4.8-10.8)
[2018-12-08 07:28] LABS: CALC OSMOLALITY 269 mosm/kg (275-300); CALCIUM 7.5 mg/dL (8.5-10.1); CARBON DIOXIDE 35.2 mmol/L (21.0-32.0); CHLORIDE - SERUM 93 mmol/L (98-107); CKMB 0.8 U/L (0.0-3.6); CREATINE KINASE 60 UL (21-232); CREATININE - SERUM 0.7 mg/dL (0.6-1.3); GLUCOSE 177 mg/dL (74-106); SODIUM 134 mmol/L (136-145); TROPONIN-I < 0.017 ng/mL (0.000-0.060); UREA NITROGEN 7 mg/dL (7-18); eGFR NON AFRICAN AMERICAN > 90 mL/min (90-120)
[2018-12-08 07:31] LABS: POTASSIUM - SERUM 2.7 mmol/L (3.5-5.1)
--- NOTE | 2018-12-08 07:32 | NUR ---
ACKNOWLEDGING THE CRITICAL LOW POTASSIUM OF 2.7 AND MAG OF 1.0 . WILL TREAT AGAIN TODAY TO GET LABS NORMALIZED. PATIENT IS RESTING QUIETLY AT THIS TIME. WEARING C-PAP THAT HE BROUGHT FROM HOME.
[2018-12-08 08:30] VITALS: BP 150/83
[2018-12-08 16:52] VITALS: BP 125/65
[2018-12-08] MEDS ORDERED: BUPRENORPHIN-N1 EACH SL (18:33)
[2018-12-08 20:00] VITALS: BP 125/62
[2018-12-09] VITALS: BP 127/77
[2018-12-09 04:00] VITALS: BP 127/64
[2018-12-09 06:29] LABS: CALC OSMOLALITY 270 mosm/kg (275-300); CALCIUM 7.3 mg/dL (8.5-10.1); CHLORIDE - SERUM 96 mmol/L (98-107); CREATININE - SERUM 0.7 mg/dL (0.6-1.3); GLUCOSE 165 mg/dL (74-106); MAGNESIUM - SERUM 1.2 mg/dL (1.8-2.4); PHOSPHOROUS 2.4 mg/dL (2.5-4.9); POTASSIUM - SERUM 3.9 mmol/L (3.5-5.1); SODIUM 134 mmol/L (136-145); UREA NITROGEN 11 mg/dL (7-18); eGFR NON AFRICAN AMERICAN > 90 mL/min (90-120)
[2018-12-09 07:21] LABS: BASOPHILS 0.2 % (0-2); EOSINOPHILS 1.4 % (0-7); HEMATOCRIT 38.6 % (42.0-54.0); HEMOGLOBIN 12.6 g/dL (13.5-17.5); IMMATURE GRANULOCYTES 0.7 % (0-5); LYMPHOCYTES 11.9 % (15-50); MCH 30.7 pg (26.0-34.0); MCHC 32.6 g/dL (31.0-37.0); MCV 94.1 fL (80.0-100.0); MEAN PLATELET VOLUME 11.2 fL (7.4-10.4); MONOCYTES 7.3 % (2-11); NEUTROPHILS 78.5 % (40-80); PLATELET COUNT 106 10x3/uL (130-400); WBC 8.3 10x3/uL (4.8-10.8)
--- NOTE | 2018-12-09 07:27 | NUR ---
REPORT RECEIVED. WILL CONTINUE WITH POC. PT CURRENTLY LYING SUPINE. CALL LIGHT W/I REACH. RR EVEN AND UNLABORED ON CPAP. R.FOR ABX CURRENTLY INFUSING. NO S/S OF DISTRESS NOTED. PT DENIES ANY NEEDS. WILL CTM.
[2018-12-09 08:45] VITALS: BP 135/67
[2018-12-09 12:45] VITALS: BP 130/77
--- NOTE | 2018-12-09 14:01 | NUR ---
I have reviewed this patient and I concur with the Shift Assessment completed by the Licensed Practical Nurse today this shift.
[2018-12-09 16:46] VITALS: BP 105/51
--- NOTE | 2018-12-09 17:16 | NUR ---
PT CURRENTLY LYING SEMI FOWLERS. CALL LIGHT W/I REACH. RR EVEN AND UNLABORED ON 2L 02. NO S/S OF DISTRESS NOTED. R.WRIST PIV IS SALINE LOCKED. PT DENIES ANY NEEDS. WILL CTM.
--- NOTE | 2018-12-09 19:05 | NUR ---
EVENING ROUNDS COMPLETE. PT SITTING UP IN BEDSIDE CHAIR. NO SIGNS OF DISTRESS. AAOX4, PT DENIES ANY PAIN OR NEEDS AT THIS TIME. CL IN REACH, BED IN LOWEST POSITION.
[2018-12-09 20:00] VITALS: BP 142/87
[2018-12-10] VITALS: BP 148/89
[2018-12-10 04:00] VITALS: BP 141/75
[2018-12-10 04:36] LABS: BASOPHILS 0.2 % (0-2); EOSINOPHILS 2.4 % (0-7); HEMATOCRIT 40.4 % (42.0-54.0); HEMOGLOBIN 13.1 g/dL (13.5-17.5); IMMATURE GRANULOCYTES 1.4 % (0-5); LYMPHOCYTES 19.6 % (15-50); MCHC 32.4 g/dL (31.0-37.0); MCV 95.5 fL (80.0-100.0); MEAN PLATELET VOLUME 10.3 fL (7.4-10.4); MONOCYTES 9.2 % (2-11); NEUTROPHILS 67.2 % (40-80); RBC 4.23 10x6/uL (4.20-6.10); RDW 17.1 % (11.5-14.5); WBC 6.3 10x3/uL (4.8-10.8)
[2018-12-10 04:39] LABS: PLATELET COUNT 135 10x3/uL (130-400)
[2018-12-10 05:14] LABS: CALCIUM 7.4 mg/dL (8.5-10.1); CARBON DIOXIDE 34.1 mmol/L (21.0-32.0); CHLORIDE - SERUM 99 mmol/L (98-107); CREATININE - SERUM 0.8 mg/dL (0.6-1.3); GLUCOSE 122 mg/dL (74-106); MAGNESIUM - SERUM 1.3 mg/dL (1.8-2.4); SODIUM 141 mmol/L (136-145); eGFR NON AFRICAN AMERICAN > 90 mL/min (90-120)
[2018-12-10 05:23] LABS: CALC OSMOLALITY 282 mosm/kg (275-300); POTASSIUM - SERUM 3.3 mmol/L (3.5-5.1); UREA NITROGEN 15 mg/dL (7-18)
--- NOTE | 2018-12-10 07:00 | NUR ---
REPORT RECEIVED. HE IS ALERT AROUSES EASILY HAS CPAP ON AT THIS TIME THAT HE WEARS AT NIGHT. RESP EVEN WITHOUT LABOR. RIGHT LOWER LEG WITH EDEMA AND REDNESS THAT EXTENDS UP LEG. HE HAS IT ELEVATED UP ON A PILLOW. BED IN LOWEST POSITION AND LOCKED. CAREPLAN REVIEW DONE WITH SAFETY PRECAUTIONS IN PLACE. CL IN REACH
[2018-12-10 08:00] VITALS: BP 136/65
[2018-12-10 12:00] VITALS: BP 125/72
--- NOTE | 2018-12-10 13:36 | NUR ---
HE WILL DISCHARGE TONIGHT AFTER 8PM DOSE OF VANCOMYCIN PER GILA. HE WILL RETURN TO OUTPATIENT TOMORROW FOR DOSE OF ORBACTIV, SALINE LOCK IS NOT TO BE LEFT IN WHEN DISCHARGING, OUTPATIENT TO RESITE HIM TOMORROW PER GILA FORREST.
--- NOTE | 2018-12-10 14:28 | NUR ---
I CALLED EMILIO IN OUTPATIENT TO SCHEDULE A TIME FOR TOMORROW FOR IV ANTIBIOTIC FOR PAITENT. SHE TELLS ME THAT HE CAN BE IN OUTPAITNET AT 1230. I CALLED VIKAS IN SCHEDULING AND FAXED ORDER ALONG WITH WRITTEN SCRIPT FOR ORBACTIV 1200 MG X 1 TO [phone]. SHE STATES THAT HE NEEDS TO BE IN REGISTRATION AT 1200.
--- NOTE | 2018-12-10 14:44 | NUR ---
WILL DEFER FLU SHOT AT THIS TIME PATIENT IS STILL ON IV ANTIBIOTICS.
--- NOTE | 2018-12-10 15:58 | MORECARE ---
CASE MANAGEMENT DISCHARGE SUMMARY PATIENT: EDDA BARRAGAN V JR UNIT: [id number] ADM DATE: 12/07/18 AGE: 53 : 69 SEX: M ROOM/BED: D.6532 AUTHOR: MURRAY LEHMAN PHYSICIAN: REFERRING PHYSICIAN: GIULIANO BETANCOURT MD DATE OF SERVICE: 12/10/18 Discharge Plan Patient Name: EDDA BARRAGAN Facility: [facility]:[place] : 1965 Planned Disposition: Outpatient clinics\services (Programs) Anticipated Discharge Date: 12/10/18 Discharge Date: Expected LOS: 3 Initial Reviewer: [id number] Initial Review Date: 12/10/2018 Generated: 12/10/18 4:58 pm DCPIA - Discharge Planning Initial Assessment Updated by [email or web address]: Brandon Urrutia on 12/10/18 3:57 pm * Is the patient Alert and Oriented? Yes * How many steps to enter\exit or inside your home? * PCP DR. AVILA * Pharmacy [facility] * Preadmission Environment Home with Family * ADLs Independent * Equipment CPAP Glucometer * Other Equipment NO MEDICAL EQUIPMENT PROVIDER PREFERENCE * List name and contact numbers for known caregivers / representatives who currently or will assist patient after discharge: LETICIA BARRAGAN, SPOUSE, * Verbal permission to speak to the caregivers and representatives has been obtained from the patient. N/A * Community resources currently utilized None * Please name any agencies selected above. NONE * Additional services required to return to the preadmission environment? No * Can the patient safely return to the preadmission environment? Yes * Has this patient been hospitalized within the prior 30 days at any hospital? No Coverage Notice Reviewer: [id number] - Brandon Urrutia Notice Issued Date-Time: 12/10/2018 14:10 Notice Type: IM Discharge Notice Notice Delivered To: Patient Relationship to Patient: Practicing Dermatologist Name: Delivery Method: HAND - Hand Delivered Ritu Days: Prior Verbal Notification: Recipient Understood Notice: Yes Recipient Signature: Yes Med Rec Note Co-signed by Attending: Coverage Notice Comment: Patient Name: EDDA BARRAGAN Page [phone] at 1558 All edits/amendments must be made on the electronic document DICTATION DATE: 12/10/181557 AUDIO VISUAL SECRETARY: LOREN 12/10/181557 RPT#: [id number] DC DATE: STATUS: ADM IN [facility] [address] [place] [address] END OF REPORT
[2018-12-10 16:00] VITALS: BP 124/62
--- NOTE | 2018-12-10 16:13 | MORECARE ---
CASE MANAGEMENT DISCHARGE SUMMARY PATIENT: EDDA BARRAGAN V JR UNIT: [id number] ADM DATE: 12/07/18 AGE: 53 : 69 SEX: M ROOM/BED: D.4808 AUTHOR: DOMINIK,DOC PHYSICIAN: REFERRING PHYSICIAN: GIULIANO BETANCOURT MD DATE OF SERVICE: 12/10/18 Discharge Plan Patient Name: EDDA BARRAGAN [facility] [facility] 1965 Planned Disposition: Outpatient clinics\services (Programs) Anticipated Discharge Date: 12/10/18 Discharge Date: Expected LOS: 3 Initial Reviewer: [email or web address] Initial Review Date: 12/10/2018 Generated: 12/10/18 5:12 pm Comments DCP- Discharge Planning Updated by [email or web address]: Brandon Urrutia on 12/10/18 3:[address] Patient Name: EDDA BARRAGAN Admission Status: ER Accout number: [id number] Admission Date: 12-07-2018 : 1965 Admission Diagnosis: Attending: GIULIANO BETANCOURT Current LOS: 3 Anticipated DC Date: 12-10-2018 Planned Disposition: Outpatient clinics\services (Programs) Primary Insurance: MEDICARE A & B PLANNED EXTERNAL PROVIDER: [facility] OUTPATIENT DEPARTMENT Discharge Planning Comments: CM MET WITH PT IN ROOM TO DISCUSS DISCHARGE PLANNING AND NEEDS. PT REPORTS LIVING AT HOME INDEPENDENTLY WITH SPOUSE. PT HAS GLUCOMETER AND CPAP FROM [facility]. PT HAS NO OUTSIDE SERVICES ASSISTING IN THE HOME. CM DISCUSSED AVAILABILITY OF HOME HEALTH, REHAB SERVICES AND MEDICAL EQUIPMENT. PT DENIES DISCHARGE NEEDS, REPORTS HIS WILL PICK HIM UP FOR DISCHARGE HOME. IMPORTANT MESSAGE FROM MEDICARE PROVIDED AND EXPLAINED. CM RECEIVED EMAIL FROM CM DIRECTOR MAYE STATING that we will be able to administer a Delvance equivalent medication in the outpatient. PT WAS PROVIDED [facility] OUTPATIENT SERVICES ARRANGED BY SPOOL HAULER. CM SPOKE TO PT IN ROOM WHO IS THANKFUL TO BE ABLE TO GO HOME AND GET SOME REST; PT REPORTS ABILITY FOR SPOUSE TO TRANSPORT TO [facility] FOR OUTPATIENT INFUSION SERVICES. PT DENIES FURHTER NEEDS. PT TO DISCHARGE HOME WITH SPOUSE, SPOUSE TO TRANSPORT HOME. PT'S SPOUSE TO TRANSPORT PT TO [facility] FOR OUTPATIENT INFUSION. CM TO FOLLLOW AND ASSIST IF NEEDED. Consulting Analyst: Brandon Urrutia DCPIA - Discharge Planning Initial Assessment Updated by [id number]: Brandon Urrutia on 12/10/18 3:57 pm * Is the patient Alert and Oriented? Yes * How many steps to enter\exit or inside your home? * PCP DR. AVILA * Pharmacy [facility] * Preadmission Environment Home with Family * ADLs Independent * Equipment CPAP Glucometer * Other Equipment NO MEDICAL EQUIPMENT PROVIDER PREFERENCE * List name and contact numbers for known caregivers / representatives who currently or will assist patient after discharge: LETICIA BARRAGAN, SPOUSE, * Verbal permission to speak to the caregivers and representatives has been obtained from the patient. N/A * Community resources currently utilized None * Please name any agencies selected above. NONE * Additional services required to return to the preadmission environment? No * Can the patient safely return to the preadmission environment? Yes * Has this patient been hospitalized within the prior 30 days at any hospital? No Coverage Notice Reviewer: [id number] - Brandon Urrutia Notice Issued Date-Time: 12/10/2018 14:10 Notice Type: IM Discharge Notice Notice Delivered To: Patient Relationship to Patient: Women'S Lacrosse Coach Name: Delivery Method: HAND - Hand Delivered Ritu Days: Prior Verbal Notification: Recipient Understood Notice: Yes Recipient Signature: Yes Med Rec Note Co-signed by Attending: Coverage Notice Comment: Last DP export: 12/10/18 2:58 p Patient Name: EDDA BARRAGAN Page [phone] at 1613 All edits/amendments must be made on the electronic document DICTATION DATE: 12/10/181611 HARNESS MENDER: LOREN 12/10/181611 RPT#: [id number] DC DATE: STATUS: ADM IN [facility] [address] [place] [address] END OF REPORT
--- NOTE | 2018-12-10 18:05 | NUR ---
SITTING UP IN CHAIR IN ROOM WITH CL IN REACH. ALERT DENIES ANY CURRENT NEEDS. CONTINUE CURRENT POC.
--- NOTE | 2018-12-10 19:00 | NUR ---
EVENING ROUNDS COMPLETE. PT SITTING UP IN BED. NO SIGNS OF DISTRESS. PT DENIES ANY NEEDS AT THIS TIME. LAST DOSE OF VANC INFUSING BEFORE PT CAN BE D/C.
[2018-12-10 20:35] VITALS: BP 134/75
--- NOTE | 2018-12-10 21:31 | NUR ---
PT INFUSION COMPLETE. IV TO RIGHT FOREARM REMOVED AT THIS TIME. TIP INTACT. PT TOLERATED WELL.
--- NOTE | 2018-12-10 21:43 | NUR ---
PT WHEELED TO FRONT DOOR AND ENTERED WIFES CAR.
--- NOTE | 2018-12-11 07:14 | MORECARE ---
CASE MANAGEMENT DISCHARGE SUMMARY PATIENT: EDDA BARRAGAN V JR UNIT: [id number] ADM DATE: 12/07/18 AGE: 53 : 69 SEX: M ROOM/BED: D.9604 AUTHOR: DOMINIKDOC PHYSICIAN: REFERRING PHYSICIAN: GIULIANO BETANCOURT MD DATE OF SERVICE: 12/11/18 Discharge Plan Patient Name: EDDA BARRAGAN [facility] [facility] 1965 Planned Disposition: Outpatient clinics\services (Programs) Anticipated Discharge Date: 12/10/18 Discharge Date: 12/10/2018 Expected LOS: 3 Initial Reviewer: [id number] Initial Review Date: 12/10/2018 Generated: 12/11/18 8:14 am Comments DCP- Discharge Planning Updated by [id number]: Brandon Urrutia on 12/10/18 3:[address] Patient Name: EDDA BARRAGAN Admission Status: ER Accout number: [id number] Admission Date: 12-07-2018 : 1965 Admission Diagnosis: Attending: GIULIANO BETANCOURT Current LOS: 3 Anticipated DC Date: 12-10-2018 Planned Disposition: Outpatient clinics\services (Programs) Primary Insurance: MEDICARE A & B PLANNED EXTERNAL PROVIDER: [facility] OUTPATIENT DEPARTMENT Discharge Planning Comments: CM MET WITH PT IN ROOM TO DISCUSS DISCHARGE PLANNING AND NEEDS. PT REPORTS LIVING AT HOME INDEPENDENTLY WITH SPOUSE. PT HAS GLUCOMETER AND CPAP FROM [facility]. PT HAS NO OUTSIDE SERVICES ASSISTING IN THE HOME. CM DISCUSSED AVAILABILITY OF HOME HEALTH, REHAB SERVICES AND MEDICAL EQUIPMENT. PT DENIES DISCHARGE NEEDS, REPORTS HIS WILL PICK HIM UP FOR DISCHARGE HOME. IMPORTANT MESSAGE FROM MEDICARE PROVIDED AND EXPLAINED. CM RECEIVED EMAIL FROM CM DIRECTOR MAYE STATING that we will be able to administer a Delvance equivalent medication in the outpatient. PT WAS PROVIDED [facility] OUTPATIENT SERVICES ARRANGED BY BULK DELIVERY DRIVER. CM SPOKE TO PT IN ROOM WHO IS THANKFUL TO BE ABLE TO GO HOME AND GET SOME REST; PT REPORTS ABILITY FOR SPOUSE TO TRANSPORT TO [facility] FOR OUTPATIENT INFUSION SERVICES. PT DENIES FURHTER NEEDS. PT TO DISCHARGE HOME WITH SPOUSE, SPOUSE TO TRANSPORT HOME. PT'S SPOUSE TO TRANSPORT PT TO [facility] FOR OUTPATIENT INFUSION. CM TO FOLLLOW AND ASSIST IF NEEDED. Brazing Machine Feeder: Brandon Urrutia DCPIA - Discharge Planning Initial Assessment Updated by [id number]: Brandon Urrutia on 12/10/18 3:57 pm * Is the patient Alert and Oriented? Yes * How many steps to enter\exit or inside your home? * PCP DR. AVILA * Pharmacy [facility] [address] * Preadmission Environment Home with Family * ADLs Independent * Equipment CPAP Glucometer * Other Equipment NO MEDICAL EQUIPMENT PROVIDER PREFERENCE * List name and contact numbers for known caregivers / representatives who currently or will assist patient after discharge: LETICIA BARRAGAN, SPOUSE, * Verbal permission to speak to the caregivers and representatives has been obtained from the patient. N/A * Community resources currently utilized None * Please name any agencies selected above. NONE * Additional services required to return to the preadmission environment? No * Can the patient safely return to the preadmission environment? Yes * Has this patient been hospitalized within the prior 30 days at any hospital? No Coverage Notice Reviewer: [id number] - Brandon Urrutia Notice Issued Date-Time: 12/10/2018 14:10 Notice Type: IM Discharge Notice Notice Delivered To: Patient Relationship to Patient: Inspector Purchased Parts Name: Delivery Method: HAND - Hand Delivered Ritu Days: Prior Verbal Notification: Recipient Understood Notice: Yes Recipient Signature: Yes Med Rec Note Co-signed by Attending: Coverage Notice Comment: Last DP export: 12/10/18 3:13 p Patient Name: EDDA BARRAGAN Page [id number] at 0714 All edits/amendments must be made on the electronic document DICTATION DATE: 12/11/18713 REAL ESTATE BROKER ASSOCIATE: LOREN 12/11/18713 RPT#: [id number] DC DATE:12/10/18 STATUS: DIS IN [facility] [address] [place] [address] END OF REPORT
== END 2018-12-10 21:43 | disposition home or self-care (01) | DRG 637 ==
LOC: D.ER 12:15 → D.M2 14:02
PROVIDERS: Emergency Medicine; ADMIT Internal Medicine Nephrology; ATTEND Internal Medicine Nephrology
DX: E11.628 Type 2 diabetes mellitus with other skin complications (principal); G93.41 Metabolic encephalopathy; L03.116 Cellulitis of left lower limb; E87.1 Hypo-osmolality and hyponatremia; E11.40 Type 2 diabetes mellitus with diabetic neuropathy, unspecified; I10 Essential (primary) hypertension; I25.10 Atherosclerotic heart disease of native coronary artery without angina pectoris; J44.9 Chronic obstructive pulmonary disease, unspecified; G47.33 Obstructive sleep apnea (adult) (pediatric); E87.6 Hypokalemia; E11.65 Type 2 diabetes mellitus with hyperglycemia; K76.0 Fatty (change of) liver, not elsewhere classified; K75.9 Inflammatory liver disease, unspecified; K21.9 Gastro-esophageal reflux disease without esophagitis; Z68.33 Body mass index [BMI] 33.0-33.9, adult; E66.01 Morbid (severe) obesity due to excess calories; Z91.19 Patient's noncompliance with other medical treatment and regimen; F41.8 Other specified anxiety disorders; F10.10 Alcohol abuse, uncomplicated

== ENCOUNTER 2018-12-11 12:12 | Outpatient (CLI) | payer MEDICARE ==
[~2018-12-11] VITALS: Ht 170.2 cm; Wt 121.8 kg
[~2018-12-11 12:12] MED LIST changes: +BUPRENORPHIN-N1 EACH SL
[2018-12-11 13:04] VITALS: BP 140/74; Ht 170.2 cm; Wt 121.8 kg
--- NOTE | 2018-12-11 14:35 | NUR ---
UPON ROUNDING ON PATIENT, IV IN RIGHT MAMMARY AREA IS NOTED TO BE FIRM AND RED. INFUSION HALTED AND IV ACCESS RETRIED BY SHAHNAZ KAUR RN IN LEFT MAMMARY AREA, UNSUCCESSFUL. IV RESITED IN RIGHT MAMMARY AREA ABOUT 5 INCHES INFERIORLY TO PREVIOUS SITE. PATIENT STATES THAT IV PUMP HAD ALARMED MULTIPLE TIMES SAYING THAT IT WAS OCCLUDED AND PATIENT WAS RESTARTING THE INFUSION. PATIENT IS UNSURE HOW MANY TIMES THIS HAPPENED. CALL PLACED TO PHARMACIST TO INQUIRE ABOUT THE TISSUE TOXICITY OF THIS MEDICATION, PHARMACIST STATES HE WILL LOOK IT UP AND CALL BACK
--- NOTE | 2018-12-11 14:50 | NUR ---
PHARMACIST OLINDA CALLS AND STATES THAT WITH THIS PARTICULAR MEDICATION "NO SPECIAL MEASURES NEED TO BE TAKEN, JUST TREAT THE AREA ANY OTHER INFILTRATED IV SITE." GREETER GUEST SERVICES KALYAN ARCEO VISITS THE PATIENT AND GIVES SOME EDUCATION ABOUT THE MEDICATION
--- NOTE | 2018-12-11 15:23 | NUR ---
dr. estevez notified and reviewed pt's behavior and assessment results. pt is a low risk per dr. estevez. dr. estevez stated to give resources to pt at time of discharge. no further orders at this time. resources reviewed with pt and he verbalizied understanding.
== END 2018-12-11 17:45 | disposition home or self-care (01) ==
LOC: D.OPS 12:12
PROVIDERS: ATTEND Internal Medicine Nephrology
DX: L03.90 Cellulitis, unspecified (principal)

== ENCOUNTER → 2018-12-29 11:00 | Outpatient (CLI) | payer MEDICARE ==
[2018-12-11 13:04] VITALS: BMI 42.1
[~2018-12-29 11:00] MED LIST changes: +AMBIEN10 MG PO; +EFFEXOR75 MG PO; +MYRBETRIQ50 MG PO; +RANEXA500 MG PO; +SYNTHROID50 MCG PO
--- NOTE | 2018-12-31 09:45 | ST ---
PATIENT:EDDA BARRAGAN JR MEDICAL RECORD: [id number] SEX: M LOCATION:[facility] ORDER #: ADMISSION DATE: 12/29/18 AGE OF PATIENT: 53 REFERRING PHYSICIAN: INTERPRETING PHYSICIAN: JOYCE THOMAS MD DATE OF SERVICE: 12/29/2018 PROCEDURE: Nuclear stress test. INDICATION: Angina, coronary artery disease, hypertension, and hyperlipidemia. He was exercised on standard Lexiscan protocol with 33 mCi of sestamibi injected at peak stress, 11 mCi used previously for rest images. FINDINGS: Gated SPECT reveals a mildly depressed ejection fraction at 49%. SPECT imaging: Cardiolite was used as myocardial perfusion agent. There is reversible ischemia anteriorly as well as inferiorly. Anterior includes the basal, mid, apical anterior segments. The degree of reversibility is moderate. The amount of myocardial involved is moderate. Inferior includes the basal, mid, apical, inferior segments. The degree of reversibility is mild. The amount of myocardium involved is moderate. The amount of myocardium involved between the 2 defects is very large. OVERALL IMPRESSION: This is a high risk abnormal nuclear stress test. Reversible ischemia anteriorly as well as inferiorly suggestive of multivessel coronary artery disease. TRANSINT:[id number] Voice Confirmation ID: [id number] DOCUMENT ID: [id number] JOYCE THOMAS MD at 0945 CC: LOGAN AVILA DO [id number] DICTATION DATE: 12/30/18 1027 MEDICAL LAB SPECIALIST: 12/31/18 0046 DEP CLI 12/29/18 [facility] [address] [place] [id number]
== END | disposition home or self-care (01) ==
LOC: D.HCCARDIO 11:00
PROVIDERS: ATTEND Internal Medicine Interventional Cardiology
DX: I25.10 Atherosclerotic heart disease of native coronary artery without angina pectoris (principal)

== ENCOUNTER → 2019-01-02 12:59 | Outpatient (CLI) | payer MEDICARE ==
[2018-12-11 13:04] VITALS: BMI 42.1
--- NOTE | 2019-01-07 14:07 | EC ---
PATIENT:EDDA BARRAGAN JR DATE OF SERVICE: 01/02/19 SEX: M MEDICAL RECORD: [id number] DATE OF : [birth year] LOCATION:[facility] AGE OF PATIENT: 53 ADMISSION DATE: 01/02/19 REFERRING PHYSICIAN: INTERPRETING PHYSICIAN: JOYCE RODRIGUEZ MD ECHOCARDIOGRAM REPORT ECHO CHARGES 4 ECHO COMPLETE Date: 01/02/19 CLINICAL DIAGNOSIS: CAD/HTN ECHOCARDIOGRAPHIC MEASUREMENTS (adult normal given) AC root (d.<3.7cm) 3.0 cm LV Septum d (<1.2 cm> 1.4 cm Valve Excursion 2.0 cm LV Septum (systole) 2.0 cm Left Atria (s.<4.0cm> 4.1 cm LVPW d(<1.2cm) 1.4 cm RV (d.<2.3cm) 2.9 cm LVPW (sytole) 2.1 cm LV diastole(<5.6CM) 5.5 cm MV E-F(>70mm/sec) cm LV systole 2.4 cm LVOT Diameter 1.9 cm MV exc.(>10mm) cm Est.ejection fraction (50-75%) % DOPPLER: LVIT cm/sec A 87.0 cm/sec E 100 cm/sec LA cm/sec RVSP 38.0 mmHg LVOT 118 cm/sec AOP1/2T m/s Asc. Ao 193 cm/sec RVOT 81.0 cm/sec RA cm/sec PA 158 cm/sec AV Gradient Peak 15.0 mmHg AV Mean 6.9 mmHg AV Area 1.6 cm MV Gradient Peak 5.6 mmHg MV Mean 1.9 mmHg MV Area cm COMMENTS: OP - HC Carrier Packer: 1 FRITZ ROTHMANOE Pleater: 1 Dr. Rodriguez TAPE# PACS Pericardial Effusion N DATE OF SERVICE: ECHOCARDIOGRAM FINDINGS: 1. Left ventricular chamber size is within normal limits. Left ventricular systolic function is normal. Overall ejection fraction estimated at 55%. 2. Left atrium is enlarged at 4.1 cm. Right atrium and right ventricular chamber sizes are as well mildly dilated. 3. Valvular structures have normal structure and motion. ECHOCARDIOGRAM REPORT [id number] AZUCENA BARRAGANFLORINDA Campbell JR 4. Doppler interrogation reveals only trace mitral regurgitation, no other valvular insufficiency or stenosis. Pulmonary systolic pressure is normal estimated at 38 mmHg. 5. No evidence of pericardial effusion or left ventricular thrombus. TRANSINT:[id number] Voice Confirmation ID: [id number] DOCUMENT ID: [id number] OJYCE RODRIGUEZ MD at 1407 CC: [id number] DICTATION DATE: 01/03/19 1136 INTERNAL COMMUNICATIONS MANAGER: 01/03/19 1214 DEP CLI 01/02/19 [place] [id number]
== END | disposition home or self-care (01) ==
LOC: D.HCCECHO 12:59
PROVIDERS: ATTEND Internal Medicine Interventional Cardiology
DX: I34.0 Nonrheumatic mitral (valve) insufficiency (principal)

== ENCOUNTER 2019-01-13 08:17 | Outpatient (CLI) | payer MEDICARE ==
[~2019-01-13] VITALS: Ht 170.2 cm; Wt 120.5 kg
--- NOTE | ~2019-01-13 | HEMODYNAMI ---
PATIENT:EDDA BARRAGAN JR MEDICAL RECORD: [id number] : 69 LOCATION:[facility] ADMISSION DATE: 01/13/19 Generatedon:01/13/201912:44 Patient name: EDDA BARRAGAN Patient #: [id number] SSN: [id number] : 1965 Date of study: 01/13/2019 Page: Of Hemodynamic Procedure Report Patient Data Patient Demographics Procedure consent was obtained First Name: EDDA Gender: Male Last Name: LAUREL Suffix: Jr Rico Initial: Van Campbell : 1965 Patient #: [id number] Age: 53 year(s) Race: SSN: [id number] Additional ID: [id number] Contact details Address: [address] [place] [address] State: [place] City: [facility] Zip code: [address] Past Medical History Allergies Allergen Reaction Date Comments Reported Other 01/13/2019 lithium,aripiprazole(from allergy Abilify) Admission Admission Data Admission Date: 01/13/2019 Admission Time: 8:17 Arrival Date: 01/13/2019 Arrival Time: 0:00 Admit Source: Other Insurance Payor: Medicare HIC #: [id number] Height (in.): 66.93 BSA: 2.28 (m2) Height (cm.): 170 BMI: 41.52 (kg/m2) Weight (lbs.): 264.56 Weight (kg.): 120 Lab Results Lab Result Date: 01/13/2019 Lab Result Time: 0:00 Biochemistry Name Units Result Min Max BUN mg/dl 14 --(--*-)-- 7 18 Creatinine mg/dl 0.8 --(-*--)-- 0.6 1.3 eGFR ml/min 90 --(*---)-- 90 120 NONAFRICAN CBC Name Units Result Min Max Hemoglobin g/dl 13.4 -*(----)-- 13.5 17.5 Procedure Procedure Types Cath Procedure Diagnostic Procedure [facility] w/Coronaries w/Grafts FFR/IVUS FFR Initial FFR Additional Procedure Description Procedure Date Procedure Date: 01/13/2019 Procedure Start Time: 12:20 Procedure End Time: 12:42 Procedure Staff Name Function Adis Rodriguez MD Performing Physician Ching Mccloud RT Monitor Alexandra Zambrano RT Monitor Lilly Ramírez RT Scrub Thomas Castillo RN Nurse Nas Colunga MD Additional personnel Indication CAD Procedure Data Cath Procedure Fluoroscopy Diagnostic fluoroscopy Total fluoroscopy Time: 5 time: 5 min min Diagnostic fluoroscopy Total fluoroscopy dose: dose: 1097 mGy 1097 mGy Contrast Material Contrast Material Type Amount (ml) Isovue 300 118 Entry Location Entry Primary Successful Side Size Upsize Upsize Entry Closure Succes sful Closure Location (Fr) 1 (Fr) 2 (Fr) Remarks Device Remarks Femoral Right 5 Fr 6 Fr Exoseal artery Short Estimated blood loss: 5 ml Diagnostic catheters Device Type Used For End Catheter Placement MULTIPACK Pigtail 5 Fr LV Angiography catheter MULTIPACK JL 4.0 5Fr Left Coronary catheter Angiography MULTIPACK 3DRC 5Fr Right Coronary catheter Angiography DIAGNOSTIC AR2 MOD 5 Fr Procedure catheter ([id number]) Procedure Complications No complications Procedure Medications Medication Administration Route Dosage 0.9% NaCl I.V. 100 ml/hr Oxygen etCO2 Nasal cannula 2 l/min Heparin Flush Bag added to field 2 bags (1000units/500ml NS) Lidocaine 2% added to field 20 Refer to Anesthesia Notes for Sedation Medications Hemodynamics Rest BSA: 2.28 (m2) HGB: 13.4 (g/dl) O2 Consumption: Estimated: 263.35 (ml/min) O2 Co nsumption indexed: Estimated:115.5 (ml/min/m) Heart Rate: 60 (bpm) Snapshots Pre Cath Intra NCS Post Cath Vital Signs Time Heart Resp SPO2 etCO2 NIBP (mmHg) Rhythm Pain Sedation Rate (ipm) (%) (mmHg) Status Level (bpm) 11:55:28 62 14 98 0 152/72(117) NSR 0 (11) 10(A) , No pain 12:00:09 62 34 97 19.8 142/66(126) NSR 0 (11) 10(A) , No pain 12:05:32 59 16 94 38.9 140/85(126) NSR 0 (11) 10(A) , No pain 12:10:03 57 15 93 33.5 130/76(117) NSR 0 (11) 10(A) , No pain 12:14:27 57 13 91 38.2 135/81(111) NSR 0 (11) 10(A) , No pain 12:18:57 62 11 96 31.2 139/69(117) NSR 0 (11) 9(A) , No pain 12:23:21 71 10 95 45.7 149/94(133) NSR 0 (11) 8(A) , No pain 12:27:50 68 12 94 37.3 139/98(124) NSR 0 (11) 8(A) , No pain 12:32:12 68 10 94 38.1 150/107(142) NSR 0 (11) 8(A) , No pain 12:36:42 68 15 94 34.3 142/97(126) NSR 0 (11) 9(A) , No pain 12:41:15 65 35 97 29.7 133/79(98) NSR 0 (11) 9(A) , No pain Medications Time Medication Route Dose Verified Delivered Reason Notes Eff ectiveness by by 12:04:27 0.9% NaCl I.V. 100 Thomas Thomas Per ml/hr Anna Castillo physician RN RN 12:04:36 Oxygen etCO2 2 Thomas Thomas for low 02 Nasal l/min Anna Castillo sats cannula RN RN 12:04:51 Heparin Flush added 2 Thomas Thomas used for Bag to bags Anna Castillo procedure (1000units/500ml field RN RN NS) 12:05:02 Lidocaine 2% added 20ml Thomas Thomas for local to vial Anna Castillo anesthetic field RN RN 12:17:56 Refer to Thomas Thomas for Anesthesia Notes Anna Castillo sedation for Sedation RN RN Medications Procedure Log Time Note 11:31:50 Informed consent obtained and on chart 11:33:36 Indication : CAD 11:33:41 Diagnostic Cath Status : Elective 11:33:54 Procedure Status Elective Heart Cath (OP). 11:33:59 Ching Mccloud RT(R) sent for patient. Start room use. 11:40:21 Patient allergic to Other allergylithium,aripiprazole(from [facility]) 11:44:03 Arrival Date: 01/13/2019 12:00:00 AM 11:44:35 Insurance Payor : Medicare 11:44:39 Patient Height : 66.93 inches 11:44:45 Patient Weight : 264.56 lbs 11:44:50 Admit Source: Other :45:32 Lab Result : eGFR NONAFRICAN 90 ml/min :45:32 Lab Result : Hemoglobin 13.4 g/dl ::32 Lab Result : BUN 14 mg/dl ::32 Lab Result : Creatinine 0.8 mg/dl 11:47:42 Time tracking: Regular hours (M-F 7:00 - 5:00) 11:47:49 Plan of Care:Hemodynamics will remain stable., Cardiac rhythm will remain stable., Comfort level will be maintained., Respiratory function will remain adequate., Patient/ family verbilizes understanding of procedure., Procedure tolerated without complication., Recovers from procedure without complications.. 11:47:56 Patient received from Pre/Post Procedure Room to CCL 1 Alert and oriented. Tansferred to table in Supine position. 11:47:58 Warm blankets applied, and tyrone hugger turned on for patient comfort. 11:47:59 Correct patient and procedure confirmed by team. 11:48:00 ECG and BP/O2 sat monitors applied to patient. 11:48:12 ACC Patient presents with Stable Angina CCS Anginal Class 2--Slight limitation of ordinary activity. 11:49:24 ACCPatient has been prescribed/administered the following anti-anginal medication within the last 2 weeks: Beta Jeremy 11:53:57 Vital chart was started 11:53:58 Baseline sample Acquired. 11:54:05 Rhythm: sinus rhythm 11:54:08 Full Disclosure recording started 11:54:10 - 11:54:19 H&P Date Dictated: 01/13/2019 H&P Addendum completed by physician on da y of procedure. (MUST COMPLETE FOR ALL OUTPATIENTS), New H&P dictated by physician.. 11:54:22 Pre-procedure instructions explained to patient. 11:54:23 Pre-op teaching completed and patient verbalized understanding. 11:54:28 Family in patients room. 11:54:31 Patient NPO since Midnight. 11:54:35 Is the patient allergic to Iodine/contrast media? No. 11:54:49 Was the patient premedicated? Yes 11:54:51 Is patient on blood thinner?Yes 11:54:57 ACC The patient was administered the following blood thiners within the last 24 hours: ACCPlavix 11:55:00 Patient diabetic? Yes. 11:55:03 If diabetic: On Metformin? Yes 11:55:11 If on Metformin: Last Dose? 01/12/2019 11:55:14 ----Pre-sedation anethsthesia assessment.---- 11:55:18 Previous problem with sedation/anesthesia? No ? 11:55:20 Snore? Yes 11:55:22 Sleep apnea? Yes 11:55:28 Deviated septum? No 11:55:31 Opens mouth fully? Yes 11:55:33 Sticks out tongue? Yes 11:56:22 Airway obstruction? Yes PT USES CPAP AT HOME 11:58:40 Dentures? No ? 11:58:48 Pre procedure: right dorsailis pedis pulse 1+ Palpable, but thready & weak; easily obliterated 11:58:53 Patient pain scale 0/10 ?. 11:59:42 IV patent on arrival in right antecubital with 0.9% NaCl at KVO. 12:00:11 Lab results completed and on chart. 12:00:45 Stress Test: yes; abnormal ANTERIORLY AND INFERIORLY 12:00:50 Risk of Mortality: 0.1 12:00:54 Risk of blood transfusion: 0.2 12:00:59 Risk of SHERRON: 0.3 12:01:04 Right groin area was prepped with chlora-prep and draped in sterile fashion 12:01:07 Alarms reviewed by R. N. 12:01:08 Sharps counted by scrub and verified by R.N. 12:01:16 Use device set Femoral Dx 12:01:19 ACIST Syringe (51099) opened to sterile field. 12:01:19 Bag Decanter () opened to sterile field. 12:01:21 Medline Cath Pack ([id number]) opened to sterile field. 12:01:23 ACIST Hand Control (34399) opened to sterile field. 12:01:24 ACIST Manifold (64903) opened to sterile field. 12:01:25 DIAGNOSTIC Multipack 5Fr catheter set ([id number]) opened to sterile field. 12:01:28 SHEATH 5FR [place] (CWP711) opened to sterile field. 12:01:29 EMERALD Guide Wire (719-437) opened to sterile field. 12:04:27 0.9% NaCl 100 ml/hr I.V. was administered by Thomas Castillo RN; Per physician; Verbal order read back and verified. 12:04:36 Oxygen 2 l/min etCO2 Nasal cannula was administered by Thomas Castillo RN; for low 02 sats; Verbal order read back and verified. 12:04:51 Heparin Flush Bag (1000units/500ml NS) 2 bags added to field was administered by Thomas Castillo RN; used for procedure; Verbal order read back and verified. 12:05:02 Lidocaine 2% 20ml vial added to field was administered by Thomas Castillo RN; for local anesthetic; Verbal order read back and verified. 12:05:52 Zero performed for pressure channel P1 12:14:35 Physician arrived 12:14:44 Nas Colunga MD present and monitoring patient for TIVA. 12:15:24 Final Timeout: patient, procedure, and site verified with staff and physician. All members of the team are in agreement. 12:15:42 Fire Safety Assessment: A--An alcohol-based skin anteseptic being used preoperatively., C--Open oxygen or nitrous oxide is being used., D--An ESU, laser, or fiber-optic light is being used. 12:17:56 Refer to Anesthesia Notes for Sedation Medications was administered by Thomas Castillo RN; for sedation; Verbal order read back and verified. 12:19:42 --------ALL STOP TIME OUT------ 12:19:49 Right groin site verified by team. 12:19:58 1) 90+ Normal kidney functon but urine findings or structural abnormalities or genetic trait point to kidney disease. 12:20:04 Maximum allowable contrast dose (3.7 X eGFR X 0.75)250 ml. 12:20:10 Physical assessment completed. ASA score P 2 - A patient with mild systemic disease as per Adis Rodriguez MD. 12:: Sedation plan: TIVA Medication:Propofol 12::24 Procedure started. 12:: Local anesthetic to right femoral artery with Lidocaine 2% by Adis Rodriguez MD.INITIAL ACCESS ONLY 12::42 A 5 Fr sheath was inserted into the Right Femoral artery 12:: A MULTIPACK Pigtail 5 Fr catheter was advanced over the wire and used for LV Angiography. 12::07 LV gram done using BRADEN 12:: EF : 30 % 12:: Injector settings: Ml/sec: 10, Volume: 20, 12::36 Catheter removed. 12::42 A MULTIPACK JL 4.0 5Fr catheter was advanced over the wire and used for Left Coronary Angiography. 12:22:14 LCA angiography performed. 12:23:00 Catheter removed. 12:23:09 A MULTIPACK 3DRC 5Fr catheter was advanced over the wire and used for Right Coronary Angiography. 12:23:59 MORENO to LAD angiography performed. 12:24:19 Catheter removed. 12:24:28 A DIAGNOSTIC AR2 MOD 5 Fr catheter ([id number]) was advanced over the wire and used for Procedure. 12:25:18 SVG to Diag angiography performed. 12:26:40 SVG to RCA angiography performed. 12:28:00 Jean Verrata Plus pressure wire (39769Q) opened to sterile field. 12:28: SHEATH 6FR [place] (TGJ404) opened to sterile field. 12:28:02 INFLATOR Merit BasixCompak (TC0955) opened to sterile field. 12:28:06 GUIDE 6FR AR 2.0 catheter (HV3MB88) opened to sterile field. 12::27 Sheath upsized to a 6 Fr Short. 12:29:05 6 Fr AR2 guide catheter was inserted over the wire 12:29:26 FFR/IFR wire advanced. 12:30:56 Wire advanced across lesion. 12:31:51 mRCA SVG lesion measured at 0.91 with IFR 12:32:30 Wire removed. 12:32:31 Guide catheter removed. 12:32:46 GUIDE 6FR XBLAD 3.5 catheter ([id number]) opened to sterile field. 12:33:06 6 Fr XBLAD3.5 guide catheter was inserted over the wire 12:33:45 FFR/IFR wire advanced. 12:34:14 Wire advanced across lesion. 12:35:53 Ramus lesion measured at 0.94 with IFR 12:36:05 Wire removed. 12:36:06 Guide catheter removed. 12:36:26 EXOSEAL 6Fr (EX600) opened to sterile field. 12:36:49 Sheath removed intact; hemostasis achieved with Exoseal to the Right Femoral artery. 12:36:53 Procedure ended.(Physican Out) 12:38:06 Contrast amount:Isovue 300 118ml. 12:38:10 Maximum allowable dose exceeded? No. 12:38:33 Fluoroscopy time 05.00 minutes. 12:38:48 Flurop Dose total: 1097 12:38:48 Fluoroscopy dose: 1097 mGy 12:38:58 Dose Area Product 93547 mGy/cm. 12:39:01 Sharps counted by scrub and verified by R.N. 12:39:06 Insertion/operative site no bleeding no hematoma. 12:39:12 Post-op/insertion site Right Femoral artery dressed using a 4 x 4 and Tegaderm. 12:39:17 Post right femoral artery:stable 12:39:23 Post Procedure Pulses reassessed and unchanged 12:39:28 Post-procedure physical assessment completed. ASA score P 2 - A patient with mild systemic disease as per Adis Rodriguez MD. 12:39:32 Post procedure rhythm: unchanged. 12:39:38 Estimated blood loss: 5 ml 12:39:40 Post procedure instruction explained to patient.Patient verbalizes understanding. 12:39:41 Patient needs reinforcement of post procedure teaching. 12:40:01 Procedure type changed to Cath procedure, Diagnostic procedure, [facility], C w/Coronaries w/Grafts, FFR/IVUS, FFR Initial, FFR Additional 12:40:12 Procedure and supply charges have been captured, reviewed, submitted an d are correct. 12:41:25 Procedure Complication : No complications 12:41:28 Vital chart was stopped 12:41:48 [facility] Findings: mild to moderate CAD (<70%) 12:41:50 Operative report dictated upon procedure completion. 12:41:51 See physician's report for complete and final results. 12:42:04 Report given to Pre/Post Procedure Room. 12:42:09 Patient transfered to Pre/Post Procedure Room with Stretcher. 12:42:12 Procedure ended. 12:42:12 Full Disclosure recording stopped 12:42:24 End room use (Document Last) Device Usage Item Name Manufacture Quantity Catalog Hospital Part Current Minima l Lot# / Number Charge Number Stock Stock Serial# Code ACIST Acist 1 99131 [id number] 566447 125592 20 Syringe Medical (94621) Systems Executive [employer]ers Bag Microtek 1 557107 81552 230001 5 Decanter Medical Inc. () Medline Medline 1 [id number] 530244 65400 709993 5 Cath Pack ([id number]) ACIST Hand Acist 1 82856 936021 176457 154592 5 Control Medical (80889) Systems Inc ACIST Acist 1 94413 437334 285829 556294 5 Manifold Medical (05450) Systems Inc DIAGNOSTIC Cardinal 1 [id number] 357441 79201 338747 30 Multipack Health 5Fr catheter set (GB0678) SHEATH 5FR Terumo 1 NNR991 226456 816916 050543 5 [place] (USJ992) EMERALD Cardinal 1 502-455 660888 166222 278095 5 Guide Wire Health (502-455) MULTIPACK Cardinal 1 792903 5 Pigtail 5 Health Fr catheter MULTIPACK Cardinal 1 295396 5 JL 4.0 5Fr Health catheter MULTIPACK Cardinal 1 816394 5 3DRC 5Fr Health catheter DIAGNOSTIC Cardinal 1 [id number] 632864 628982 232991 20 AR2 MOD 5 Health Fr catheter (298679A) Jean Jean 1 [id number] 652418 [id number] 666582 5 Verrata Plus pressure wire (52132Y) SHEATH 6FR Terumo 1 XIH191 372313 369429 446171 40 [place] (RRX290) INFLATOR Merit 1 OK3863 303538 178986 710271 15 Merit Medical BasixCompak (AY3358) GUIDE 6FR Medtronic 1 [id number] 113402 84536 454855 1 AR 2.0 catheter (CY9EZ99) GUIDE 6FR Cardinal 1 [id number] 288608 542362 606294 10 XBLAD 3.5 Health catheter (55478370) EXOSEAL 6Fr Cardinal 1 EX600 280185 139079 874895 10 (EX600) Health Signature Audit [place] Stage Time Signature Unsigned Intra-Procedure 01/13/2019 Alexandra 12:43:15 PM Juan Manuel RT(R) (CV) Intra-Procedure 01/13/2019 Thomas 12:43:49 PM Anna TELLO Intra-Procedure 01/13/2019 Adis Rodriguez 12:44:15 PM [facility] [address] [facility] [place] [address]
[~2019-01-13 08:17] MED LIST changes: -AMBIEN10 MG PO; -EFFEXOR75 MG PO; -MYRBETRIQ50 MG PO; -RANEXA500 MG PO; -SYNTHROID50 MCG PO
[2019-01-13] MEDS ORDERED: EFFEXOR75 MG PO (08:40)
[2019-01-13] MEDS ORDERED: LASIX40 MG PO (08:43)
[2019-01-13 08:45] VITALS: BP 157/79; Ht 170.2 cm; Wt 120.5 kg
[2019-01-13] MEDS ORDERED: MYRBETRIQ50 MG PO (08:45)
[2019-01-13] MEDS ORDERED: GLUCOTROL 5 MG T5 MG PO (08:46)
[2019-01-13] MEDS ORDERED: ELIQUIS5 MG PO (08:46)
[2019-01-13] MEDS ORDERED: AMBIEN10 MG PO (08:47)
[2019-01-13] MEDS ORDERED: SYNTHROID50 MCG PO (08:47)
[2019-01-13 09:27] LABS: BASOPHILS 0.1 % (0-2); EOSINOPHILS 1.6 % (0-7); HEMATOCRIT 41.6 % (42.0-54.0); HEMOGLOBIN 13.4 g/dL (13.5-17.5); IMMATURE GRANULOCYTES 0.3 % (0-5); LYMPHOCYTES 22.6 % (15-50); MCH 30.9 pg (26.0-34.0); MCHC 32.2 g/dL (31.0-37.0); MCV 96.1 fL (80.0-100.0); MEAN PLATELET VOLUME 10.4 fL (7.4-10.4); MONOCYTES 5.6 % (2-11); NEUTROPHILS 69.8 % (40-80); PLATELET COUNT 152 10x3/uL (130-400); RBC 4.33 10x6/uL (4.20-6.10); RDW 15.7 % (11.5-14.5); WBC 7.3 10x3/uL (4.8-10.8)
[2019-01-13 09:50] LABS: ALT (SGPT) 50 U/L (10-68); CALC OSMOLALITY 280 mosm/kg (275-300); CALCIUM 8.9 mg/dL (8.5-10.1); CARBON DIOXIDE 27.4 mmol/L (21.0-32.0); CHLORIDE - SERUM 104 mmol/L (98-107); CHOL - HDL RATIO 3.7 ratio (2.3-4.9); CHOLESTEROL, TOTAL 171 mg/dL (0-200); CREATININE - SERUM 0.8 mg/dL (0.6-1.3); HDL CHOLESTEROL 46 mg/dL (32-96); LDL CHOLESTEROL 86 mg/dL (0-100); LDL-HDL RATIO 1.9 ratio (1.5-3.5); POTASSIUM - SERUM 4.2 mmol/L (3.5-5.1); SODIUM 137 mmol/L (136-145); TRIGLYCERIDE 198 mg/dL (30-200); UREA NITROGEN 14 mg/dL (7-18); eGFR NON AFRICAN AMERICAN > 90 mL/min (90-120)
[2019-01-13 09:51] LABS: GLUCOSE 199 mg/dL (74-106)
--- NOTE | 2019-01-13 12:50 | NUR ---
PT ARRIVED BY STRETCHER. PLACED ON MONITOR. ASSESSMENT COMPLETED. FAMILY AT BEDSIDE.
--- NOTE | 2019-01-13 13:02 | NUR ---
DR. THOMAS ROUNDED AND SPOKE WITH PT AND PT'S FAMILY. THEY VOICED UNDERSTANDING. VSS. RIGHT GROIN DRESSING C/D/I. NO S/S OF HEMATOMA NOTED.
[2019-01-13] MEDS ORDERED: RANEXA500 MG PO (13:08)
--- NOTE | 2019-01-13 13:30 | NUR ---
PT RESTING COMFORTABLY. VSS. RIGHT GROIN DRESSING C/D/I. NO S/S OF HEMATOMA NOTED. PT VOIDED IN URINAL 200cc OF CLEAR YELLOW URINE NOTED. CALL LIGHT WITHIN REACH. FAMILY AT BEDSIDE. PT DENIES NAUSEA/PAIN AT THIS TIME.
--- NOTE | 2019-01-13 14:00 | NUR ---
PT RESTING COMFORTABLY. IN SUPINE POSITION. RIGHT GROIN DRESSING C/D/I. NO S/S OF HEMATOMA NOTED. VSS. DENIES NAUSEA/PAIN AT THIS TIME.
--- NOTE | 2019-01-13 14:30 | NUR ---
PT'S HEAD OF BED INC TO 30 DEGREES. TOLERATED WELL. RIGHT GROIN DRESSING C/D/I. NO S/S OF HEMATOMA NOTED. PT SET UP WITH SANDWICH TRAY AND DRINK. CALL LIGHT WITHIN REACH. VSS. WILL CONTINUE TO MONITOR.
--- NOTE | 2019-01-13 15:00 | NUR ---
RIGHT GROIN DRESSING C/D/I. NO S/S OF HEMATOMA NOTED. CALL LIGHT WITHIN REACH. FAMILY AT BEDSIDE. VSS.
--- NOTE | 2019-01-13 15:10 | NUR ---
DISCUSSED DISCHARGE INSTRUCTIONS WITH PT AND PT'S FAMILY. THEY VOICED UNDERSTANDING. PIV D/C'D WITH CATH TIP INTACT. PT TOLERATED WELL. PT INSTRUCTED TO GET UP AND DRESSED AT THIS TIME.
--- NOTE | 2019-01-13 15:30 | NUR ---
PT TAKEN OUT TO VEHICLE BY WHEELCHAIR. NO S/S OF DISTRESS NOTED. ALL BELONGINGS AND PAPERWORK IN HAND.
--- NOTE | 2019-01-14 10:41 | OP ---
PATIENT NAME: EDDA BARRAGAN JR MEDICAL RECORD: [id number] :69 LOCATION:D.CAT ADMISSION DATE: SURGEON: JOYCE THOMAS MD DATE OF OPERATION: 01/13/2019 PROCEDURES: 1. IFR RCA. 2. IFR ramus intermedius. 3. Vein graft angiography. 4. Left heart catheterization. 5. Selective coronary angiography. 6. Left ventriculogram. INDICATION: Angina, coronary artery disease, abnormal nuclear stress test. PROCEDURE IN DETAIL: After informed consent was obtained and after a detailed description of risks, benefits as well as alternative therapies, the patient elected to proceed with angiogram and heart catheterization. The right femoral area was prepped and draped in normal sterile fashion. Right femoral artery was cannulated via modified Seldinger technique with placement of 6-Frisian sheath. All catheters exchanged through this sheath. FINDINGS: Left ventriculogram was performed in standard 30-degree BRADEN view, reveals global hypokinesis, ejection fraction 30 to 35%. SELECTIVE CORONARY ANGIOGRAPHY: 1. Left main is with no significant angiographic disease. 2. Left anterior descending is totally occluded. 3. Vein graft to the LAD diagonal is patent. This ties on in the mid diagonal. There is no graft to the LAD. The LAD then backfills through the diagonal. LAD does have significant stenosis in the mid vessel; however, this is unapproachable via transcatheter approach secondary to the graft tying into the diagonal. 4. The circumflex has mild irregularities, no flow-limiting stenosis. There is a questionable stenosis on the ramus intermedius; however, IFR is normal. 5. Right coronary is totally occluded. 6. Vein graft to the right coronary is widely patent. There are previously placed stents, these are widely patent. There is an area between the stents that is questionable; however, IFR is normal. OVERALL IMPRESSION: Wide patency of both bypass grafts. There is disease of the left anterior descending, this is unapproachable via transcatheter, approach only medical management of this disease. TRANSINT:[id number] Voice Confirmation ID: [id number] DOCUMENT ID: [id number] JOYCE THOMAS MD at 1041 CC: [id number] DICTATION DATE: 01/13/19 1240 AUTOMATIC SPLICING MACHINE OPERATOR: 01/13/19 1339 DEP CLI 01/13/19 [facility] [address] [place] [address]
== END 2019-01-13 15:30 | disposition home or self-care (01) ==
LOC: D.CATH 08:17
PROVIDERS: ATTEND Internal Medicine Interventional Cardiology
DX: I25.110 Atherosclerotic heart disease of native coronary artery with unstable angina pectoris (principal); R94.30 Abnormal result of cardiovascular function study, unspecified

== ENCOUNTER 2019-03-10 16:43 | Inpatient (IN) | payer MEDICARE ==
[~2019-03-10] VITALS: Ht 170.2 cm; Wt 128.4 kg
[~2019-03-10 16:43] MED LIST changes: +AMBIEN10 MG PO; +EFFEXOR75 MG PO; +MYRBETRIQ50 MG PO; +RANEXA500 MG PO; +SYNTHROID50 MCG PO
[2019-03-10] MEDS ORDERED: GLUCOTROL 5 MG T5 MG PO (17:14)
[2019-03-10 18:08] LABS: BASOPHILS 0.6 % (0-2); HEMATOCRIT 44.2 % (42.0-54.0); HEMOGLOBIN 14.2 g/dL (13.5-17.5); IMMATURE GRANULOCYTES 0.2 % (0-5); LYMPHOCYTES 23.5 % (15-50); MCH 31.5 pg (26.0-34.0); MCHC 32.1 g/dL (31.0-37.0); MEAN PLATELET VOLUME 9.1 fL (7.4-10.4); MONOCYTES 7.5 % (2-11); NEUTROPHILS 67.2 % (40-80); RBC 4.51 10x6/uL (4.20-6.10); RDW 17.1 % (11.5-14.5); WBC 5.2 10x3/uL (4.8-10.8)
[2019-03-10 18:12] LABS: PLATELET COUNT 115 10x3/uL (130-400)
[2019-03-10 18:22] LABS: APTT 29.5 SECONDS (22.8-39.4); INR 1.07 (0.85-1.17); PROTIME 13.9 SECONDS (11.6-15.0)
[2019-03-10 19:21] LABS: CALC OSMOLALITY 282 mosm/kg (275-300); CALCIUM 8.3 mg/dL (8.5-10.1); CARBON DIOXIDE 28.2 mmol/L (21.0-32.0); CHLORIDE - SERUM 103 mmol/L (98-107); CREATININE - SERUM 0.6 mg/dL (0.6-1.3); GLUCOSE 159 mg/dL (74-106); POTASSIUM - SERUM 4.1 mmol/L (3.5-5.1); SODIUM 141 mmol/L (136-145); UREA NITROGEN 9 mg/dL (7-18); eGFR NON AFRICAN AMERICAN > 90 mL/min (90-120)
[2019-03-10 19:26] VITALS: BP 148/89
[2019-03-10 19:36] LABS: ALBUMIN 3.7 g/dL (3.4-5.0); ALKALINE PHOSPHATASE 87 U/L (46-116); ALT (SGPT) 103 U/L (10-68); BILIRUBIN - TOTAL 0.64 mg/dL (0.2-1.3); CKMB 1.3 U/L (0.0-3.6); CREATINE KINASE 125 UL (21-232); PROTEIN - SERUM 7.8 g/dL (6.4-8.2)
[2019-03-10 19:40] LABS: TROPONIN-I < 0.017 ng/mL (0.000-0.060)
[2019-03-10 19:57] VITALS: BP 146/62
[2019-03-10 20:31] VITALS: BP 146/62; BMI 44.4
--- NOTE | 2019-03-10 20:32 | NUR ---
RECIEVED REPORT FROM ER, PT ARRIVED BY WHEELCHAIR. PT AAOX4, VSS, NO S/S OF RT DISTRESS. PT C/O PAIN IN BILAT L.EXT. WILL ADMINISTER PAIN MEDS ORDERED. BILAT LOWER EXT APPEARS REDDENED, SWOLLEN WITH SCABS/SORE, WITH MILD WEEPING. FSBS 126 NO INSULIN GIVEN. SPOUSE AT BEDSIDE. PT STATES HE FORGOT HIS CPAP MACHINE AT HOME, BUT HE CAN GO WITHOUT IT TODAY. PLACED PT ON 2L FOR COMFORT. PT DENIES ANY FURTHER NEEDS AT THIS TIME. WILL CPOC. CL WITHIN REACH, BED IN LOW, SR UP X2.
--- NOTE | 2019-03-10 21:44 | NUR ---
NICOTINE PATCH PLACED IN R.SHOULDER, VANC STARTED, 2MG MORPHINE GIVEN FOR PAIN OF 8/10 ON BILAT LOWER EXT. URINAL AT BEDSIDE. PT DENIES ANY FURTHER NEEDS AT THIS WILL CTM.
--- NOTE | 2019-03-10 22:00 | NUR ---
pt is doing ok. he has multiple complaints every time his room is entered. he gets up ad nehemiah in room.
--- NOTE | 2019-03-11 00:06 | NUR ---
PT UP IN ROOM. HE STATES THAT HE IS GETTING SHAKY LIKE HE WAS GOING INTO DT'S. HE STATES THAT HE HAD A SEIZURE AT HOME YESTERDAY. HE ALSO STATES THAT FOR THE LAST FEW WEEKS HE HAS BEEN DRINKING HEAVILY TO HELP WITH THE PAIN. ELISHA Cespedes NOTIFIED THE PHYSICIAN. HIS BP NOTED TO BE HIGHER THAN THE LAST TIME VS WERE TAKEN.
[2019-03-11 00:11] VITALS: BP 163/94
--- NOTE | 2019-03-11 01:02 | NUR ---
PT'S BP 163/94. PT ALSO C/O DT'S AND STUFFY NOSE. CALLED AND NOTIFIED MARIELLE PRAKASH. 10MG APRESOLINE ORDERED. APRESOLINE GIVEN AT THIS TIME. PRN MORPHINE ALSO GIVEN. WILL CPOC. CL WITHIN REACH.
[2019-03-11 04:10] VITALS: BP 146/88
[2019-03-11 08:01] LABS: BASOPHILS 0.2 % (0-2); EOSINOPHILS 1.4 % (0-7); HEMATOCRIT 42.9 % (42.0-54.0); HEMOGLOBIN 13.9 g/dL (13.5-17.5); IMMATURE GRANULOCYTES 0.2 % (0-5); LYMPHOCYTES 22.3 % (15-50); MCH 31.7 pg (26.0-34.0); MCHC 32.4 g/dL (31.0-37.0); MCV 97.9 fL (80.0-100.0); MEAN PLATELET VOLUME 9.2 fL (7.4-10.4); MONOCYTES 9.1 % (2-11); NEUTROPHILS 66.8 % (40-80); RBC 4.38 10x6/uL (4.20-6.10); RDW 16.8 % (11.5-14.5); WBC 4.8 10x3/uL (4.8-10.8)
[2019-03-11 08:08] LABS: PLATELET COUNT 90 10x3/uL (130-400)
[2019-03-11 08:24] LABS: ALBUMIN 3.7 g/dL (3.4-5.0); ALKALINE PHOSPHATASE 88 U/L (46-116); ALT (SGPT) 100 U/L (10-68); BILIRUBIN - TOTAL 0.75 mg/dL (0.2-1.3); CALC OSMOLALITY 277 mosm/kg (275-300); CALCIUM 8.4 mg/dL (8.5-10.1); CARBON DIOXIDE 30.9 mmol/L (21.0-32.0); CHLORIDE - SERUM 100 mmol/L (98-107); CREATININE - SERUM 0.6 mg/dL (0.6-1.3); GLUCOSE 119 mg/dL (74-106); MAGNESIUM - SERUM 1.5 mg/dL (1.8-2.4); PHOSPHOROUS 3.1 mg/dL (2.5-4.9); POTASSIUM - SERUM 3.8 mmol/L (3.5-5.1); PRO BNP 116 pg/mL (0-125); PROTEIN - SERUM 7.8 g/dL (6.4-8.2); SODIUM 140 mmol/L (136-145); THYROID STIMULATING HORMONE 4.69 uIU/mL (0.36-3.74); UREA NITROGEN 7 mg/dL (7-18); eGFR NON AFRICAN AMERICAN > 90 mL/min (90-120)
[2019-03-11 08:30] VITALS: BP 151/84
--- NOTE | 2019-03-11 08:33 | NUR ---
PT IN BR VOMITTING. PRN ZOFRAN GIVEN AT THIS TIME.
--- NOTE | 2019-03-11 09:13 | NUR ---
PT STATES HE DRINKS "ABOUT A FIFTH OF VODKA EVERYDAY." SPOKE WITH FRANCHESCA. BANANA BAG AND ATIVAN ORDERED.
[2019-03-11 10:04] VITALS: Ht 170.2 cm; Wt 128.4 kg
[2019-03-11 11:21] LABS: APPEARANCE CLEAR (CLEAR); BILIRUBIN NEGATIVE (NEGATIVE); COLOR YELLOW (YELLOW); GLUCOSE 250 mg/dL (NEGATIVE); KETONE SMALL mg/dL (NEGATIVE); NITRITE NEGATIVE (NEGATIVE); PROTEIN 1+ mg/dL (NEGATIVE); UROBILINOGEN NORMAL (NORMAL)
[2019-03-11 11:25] LABS: AMORPHOUS SEDIMENT <1+ /lpf (NONE SEEN); BACTERIA FEW /hpf (NEGATIVE); EPITHELIAL CELLS 0-5 /hpf (0-5); MUCUS <1+ /lpf (NONE SEEN); RED CELLS - URINE 0-5 /hpf (0-5); WHITE CELLS - URINE NSEEN /hpf (NEGATIVE)
[2019-03-11 11:26] LABS: PLATELET ESTIMATE DECREASED
[2019-03-11 11:27] LABS: ANISOCYTOSIS OCC; ROULEAUX OCC
[2019-03-11] MEDS ORDERED: PLAVIX75 MG PO (11:31)
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
[2019-03-11 19:45] VITALS: BP 170/86
--- NOTE | 2019-03-11 19:45 | NUR ---
PATIENT AMBULATING AROUND ROOM WITH GUEST AT BEDSIDE. VSS. PATIENT DENIES NEEDS AT THIS TIME. GAVE GUEST CLEAN LINENS PER HER REQUEST. OFFERED TO CHANGE BED, GUEST DECLINED. ENCOURAGED THE PATIENT TO CALL IF HE HAS NEEDS. BED IN LOWEST POSITION AND CALL LIGHT WITHIN REACH. WILL CONTINUE TO MONITOR.
[2019-03-12 01:39] VITALS: BP 133/76
--- NOTE | 2019-03-12 04:19 | NUR ---
PATIENT RESTING IN BED. ADMINISTERED MEDS PER ORDERS. PATIENT REFUSED INSULIN FOR 160 BLOOD GLUCOSE. PATIENT STATED HE ATE 1/2 SMALL BAG POPCORN. PATIENT DENIES OTHER NEEDS AT THIS TIME. WILL CONTINUE TO MONITOR.
[2019-03-12 05:30] VITALS: BP 142/73
--- NOTE | 2019-03-12 07:58 | NUR ---
ASSESSMENT COMPLETE, PT UP SITTING ON SIDE OF BED, EATING BREAKFAST. AT BEDSIDE. BOTH DENY ANY NEEDS AT THIS TIME.
[2019-03-12 08:00] VITALS: BP 157/88
[2019-03-12 09:50] LABS: CALCIUM 7.8 mg/dL (8.5-10.1); CARBON DIOXIDE 31.1 mmol/L (21.0-32.0); CHLORIDE - SERUM 98 mmol/L (98-107); MAGNESIUM - SERUM 1.4 mg/dL (1.8-2.4); PHOSPHOROUS 2.8 mg/dL (2.5-4.9); SODIUM 137 mmol/L (136-145); UREA NITROGEN 8 mg/dL (7-18)
[2019-03-12 09:56] LABS: CALC OSMOLALITY 277 mosm/kg (275-300); CREATININE - SERUM 0.8 mg/dL (0.6-1.3); GLUCOSE 204 mg/dL (74-106); POTASSIUM - SERUM 3.1 mmol/L (3.5-5.1); eGFR NON AFRICAN AMERICAN > 90 mL/min (90-120)
[2019-03-12 10:00] LABS: BASOPHILS 0.2 % (0-2); EOSINOPHILS 1.8 % (0-7); HEMATOCRIT 41.8 % (42.0-54.0); HEMOGLOBIN 13.7 g/dL (13.5-17.5); IMMATURE GRANULOCYTES 0.2 % (0-5); LYMPHOCYTES 12.7 % (15-50); MCH 31.9 pg (26.0-34.0); MCHC 32.8 g/dL (31.0-37.0); MCV 97.2 fL (80.0-100.0); MEAN PLATELET VOLUME 10.2 fL (7.4-10.4); MONOCYTES 8.5 % (2-11); NEUTROPHILS 76.6 % (40-80); PLATELET COUNT 75 10x3/uL (130-400); RDW 16.6 % (11.5-14.5); WBC 4.3 10x3/uL (4.8-10.8)
[2019-03-12 12:03] VITALS: BP 136/80
--- NOTE | 2019-03-12 13:19 | MORECARE ---
CASE MANAGEMENT DISCHARGE SUMMARY PATIENT: EDDA BARRAGAN V JR UNIT: [id number] ADM DATE: 03/10/19 AGE: 53 : 69 SEX: M ROOM/BED: D.1206 AUTHOR: MURRAY LEHMAN PHYSICIAN: REFERRING PHYSICIAN: AUBREE DYSON MD DATE OF SERVICE: 03/12/19 Discharge Plan Patient Name: EDDA BARRAGAN Facility: [facility]:[place] : 1965 Planned Disposition: Home Anticipated Discharge Date: 03/14/19 Discharge Date: Expected LOS: 4 Initial Reviewer: PIERCE Initial Review Date: 03/10/2019 Generated: 03/12/19 2:19 pm DCPIA - Discharge Planning Initial Assessment Updated by [email or web address]: Rufina Ramon on 03/12/19 1:17 pm * Is the patient Alert and Oriented? Yes * How many steps to enter\exit or inside your home? * PCP Dr. Baker * Pharmacy [facility] * Preadmission Environment Home with Family * ADLs Independent * Equipment CPAP Crutch Glucometer Nebulizer Rolling Walker * List name and contact numbers for known caregivers / representatives who currently or will assist patient after discharge: Felisha Nation - - [phone] * Verbal permission to speak to the caregivers and representatives has been obtained from the patient. Yes * Community resources currently utilized None * Please name any agencies selected above. Has had House Calls in the past. * Additional services required to return to the preadmission environment? No * Can the patient safely return to the preadmission environment? Yes * Has this patient been hospitalized within the prior 30 days at any hospital? No Coverage Notice Reviewer: [id number] Ramila Ramon Notice Issued Date-Time: 03/12/2019 13:11 Notice Type: Patient Choice Letter Notice Delivered To: Patient Relationship to Patient: Spouse Computer Architect Name: Felisha Nation Delivery Method: HAND - Hand Delivered Ritu Days: Prior Verbal Notification: Recipient Understood Notice: Yes Recipient Signature: Yes Med Rec Note Co-signed by Attending: Coverage Notice Comment: DC IMM delivered, explained, signed by the patients , and placed in his chart. Signed form also left with patient. Rufina Ramon RN, CCM Reviewer: [id number] Ramila Ramon Notice Issued Date-Time: 03/12/2019 13:17 Notice Type: Patient Choice Letter Notice Delivered To: Patient Relationship to Patient: Spouse Computer Architect Name: Felisha Nation Delivery Method: HAND - Hand Delivered Ritu Days: Prior Verbal Notification: Recipient Understood Notice: Yes Recipient Signature: Yes Med Rec Note Co-signed by Attending: Coverage Notice Comment: CHRISTOPHER form presented, explained and signed by the patients , Felisha Nation, for 1.[employer] 2.[employer]. Signed form placed on patient's chart and a signed copy left with the patient for her records. Patient Name: EDDA BARRAGAN Page [id number] at 1319 All edits/amendments must be made on the electronic document DICTATION DATE: 03/12/198 RECEIVING ROOM CLERK: LOREN 03/12/198 RPT#: [id number] DC DATE: STATUS: ADM IN [facility] [address] [place] [address] END OF REPORT
--- NOTE | 2019-03-12 13:29 | MORECARE ---
CASE MANAGEMENT DISCHARGE SUMMARY PATIENT: EDDA BARRAGAN V JR UNIT: [id number] ADM DATE: 03/10/19 AGE: 53 : 69 SEX: M ROOM/BED: D.1206 AUTHOR: DOMINIK,DOC PHYSICIAN: REFERRING PHYSICIAN: AUBREE DYSON MD DATE OF SERVICE: 03/12/19 Discharge Plan Patient Name: EDDA BARRAGAN Facility: [facility] : 1965 Planned Disposition: Home Anticipated Discharge Date: 03/14/19 Discharge Date: Expected LOS: 4 Initial Reviewer: [email or web address] Initial Review Date: 03/10/2019 Generated: 03/12/19 2:29 pm DCP- Discharge Planning Updated by [email or web address]: Rufina Ramon on 03/12/19 12:[address] DC PLAN: Return home with at dc. ANTICIPATED DC NEEDS: denied known dc needs at time of assessment. CM met with patient and his , Felisha, to complete initial dc planning assessment. CM educated patient on the CM role and verbal consent given by patient to complete assessment. CM verified patient's address, phone number, and emergency contact phone numbers. Patient lives at home with his . He reports he is mostly independent in his care at home. At discharge patient plans to return home with his and feels this is a safe discharge. CM discussed availability of home health, rehab services, and medical equipment. He reports he has had [facility] House Calls with his last dc. Patient denied known discharge needs at this time but may need hh if MD thinks so. CHRISTOPHER form presented, explained and signed by the patient's ,Felisha for 1. [place] 2.[place] 3. Signed form placed on patient's chart and a signed copy left with the patient for her records. Transportation provider at discharge will be his . CM will continue to follow and will assist as needed with dc plans/needs. Rufina Ramon RN, [facility] DCPIA - Discharge Planning Initial Assessment Updated by [email or web address]: Rufina Ramon on 03/12/19 1:17 pm * Is the patient Alert and Oriented? Yes * How many steps to enter\exit or inside your home? * PCP Dr. Baker * Pharmacy [facility] * Preadmission Environment Home with Family * ADLs Independent * Equipment CPAP Crutch Glucometer Nebulizer Rolling Walker * List name and contact numbers for known caregivers / representatives who currently or will assist patient after discharge: Felisha Nation - - [phone] * Verbal permission to speak to the caregivers and representatives has been obtained from the patient. Yes * Community resources currently utilized None * Please name any agencies selected above. Has had House Calls in the past. * Additional services required to return to the preadmission environment? No * Can the patient safely return to the preadmission environment? Yes * Has this patient been hospitalized within the prior 30 days at any hospital? No Coverage Notice Reviewer: [email or web address] Ramila Ramon Notice Issued Date-Time: 03/12/2019 13:11 Notice Type: Patient Choice Letter Notice Delivered To: Patient Relationship to Patient: Spouse Leasing Specialist Name: Felisha Nation Delivery Method: HAND - Hand Delivered Ritu Days: Prior Verbal Notification: Recipient Understood Notice: Yes Recipient Signature: Yes Med Rec Note Co-signed by Attending: Coverage Notice Comment: DC IMM delivered, explained, signed by the patients , and placed in his chart. Signed form also left with patient. Rufina Ramon RN, CCM Reviewer: [email or web address] Ramila Ramon Notice Issued Date-Time: 03/12/2019 13:17 Notice Type: Patient Choice Letter Notice Delivered To: Patient Relationship to Patient: Spouse Leasing Specialist Name: Felisha Nation Delivery Method: HAND - Hand Delivered Ritu Days: Prior Verbal Notification: Recipient Understood Notice: Yes Recipient Signature: Yes Med Rec Note Co-signed by Attending: Coverage Notice Comment: CHRISTOPHER form presented, explained and signed by the patients , Felisha Nation, for 1.[place] 2.[place]. Signed form placed on patient's chart and a signed copy left with the patient for her records. Last DP export: 03/12/19 12:19 pm Patient Name: EDDA BARRAGAN Page [phone] at 1329 All edits/amendments must be made on the electronic document DICTATION DATE: 03/12/19 1329 WORKERS COMPENSATION EXAMINER: LOREN 03/12/19 1329 RPT#: [id number] DC DATE: STATUS: ADM IN [facility] [address] [place] [address] END OF REPORT
--- NOTE | 2019-03-12 17:16 | NUR ---
FSBS 152 NO COVERAGE REQUIRED. PT UP ONSIDE OF BED EATING DINNER. DENIES ANY FURTHER NEEDS AT THIS TIME.
--- NOTE | 2019-03-12 18:20 | NUR ---
PT HALLUNINATING, SEEING PEOPLE IN IN HIS ROOM THAT arent there. ENCOURAGED TO CALL to have SIT WITH HIM BUT REFUSED SECONDARY TO BEING WORN OUT. GIVEN CHAIR TO SIT OUT AT NURSES STATION WITH US WHERE NO WINDOWS ARE PRESENT. WILL CONTINUE TO MONITOR.
[2019-03-12 20:02] VITALS: BP 136/68
--- NOTE | 2019-03-12 23:21 | NUR ---
PT STATED THAT HE WANTED TO STEP OFF FLOOR TO SMOKE AFTER IV MORPHINE AND ATIVAN. I ADVISED HIM THAT IT IS AGAINST THE HOSPITAL RULES TO GO OFF THE FLOOR AFTER HAVING IV MEDICATION. HE STATED THAT HE WAS GOING TO GO OUTSIDE ANYWAY. PT HAS NICOTINE PATCH ON. I PAGED THE MARIELLE PRAKASH WHO HAS YET TO CALL BACK. NETWORK FIREWALL ENGINEER WAS ALSO NOTIFIED. PT SIGNED AMA FORM PIOR TO LEAVING THE HOSPITAL. PT TOOK ALL BELONGINGS. IV IS DC'ED AND PT HAS NO TELEMETRY. LEFT WALKING OFF THE FLOOR AND OUT OF THE HOSPITAL AND WAS ESCORTED OUT BY SECURITY.
== END 2019-03-12 23:15 | disposition left against medical advice (07) | DRG 603 ==
LOC: D.ER 16:43 → D.M3 18:15
PROVIDERS: Family Medicine; ADMIT Family Medicine; ATTEND Family Medicine
DX: L03.115 Cellulitis of right lower limb (principal); Z68.41 Body mass index [BMI] 40.0-44.9, adult; F17.213 Nicotine dependence, cigarettes, with withdrawal; I10 Essential (primary) hypertension; Z79.01 Long term (current) use of anticoagulants; E11.51 Type 2 diabetes mellitus with diabetic peripheral angiopathy without gangrene; K76.0 Fatty (change of) liver, not elsewhere classified; J44.9 Chronic obstructive pulmonary disease, unspecified; F41.8 Other specified anxiety disorders; K21.9 Gastro-esophageal reflux disease without esophagitis; I25.10 Atherosclerotic heart disease of native coronary artery without angina pectoris; K75.9 Inflammatory liver disease, unspecified; E66.01 Morbid (severe) obesity due to excess calories; K74.60 Unspecified cirrhosis of liver

== ENCOUNTER 2019-05-16 14:11 | Emergency (ER) | payer MEDICARE ==
[~2019-05-16] VITALS: Ht 170.2 cm; Wt 120.5 kg
[2019-05-16 14:11] VITALS: Ht 170.2 cm; Wt 120.5 kg
[2019-05-16 15:33] LABS: BASOPHILS 0.1 % (0-2); EOSINOPHILS 0.4 % (0-7); HEMATOCRIT 42.5 % (42.0-54.0); HEMOGLOBIN 14.1 g/dL (13.5-17.5); IMMATURE GRANULOCYTES 0.5 % (0-5); LYMPHOCYTES 9.1 % (15-50); MCHC 33.2 g/dL (31.0-37.0); MCV 93.4 fL (80.0-100.0); MEAN PLATELET VOLUME 10.2 fL (7.4-10.4); MONOCYTES 1.4 % (2-11); NEUTROPHILS 88.5 % (40-80); PLATELET COUNT 148 10x3/uL (130-400); RBC 4.55 10x6/uL (4.20-6.10); RDW 15.2 % (11.5-14.5); WBC 9.5 10x3/uL (4.8-10.8)
[2019-05-16 15:43] LABS: APTT 31.5 SECONDS (22.8-39.4); INR 1.22 (0.85-1.17); PROTIME 15.3 SECONDS (11.6-15.0)
[2019-05-16 15:46] LABS: CALC OSMOLALITY 290 mosm/kg (275-300); CALCIUM 9.3 mg/dL (8.5-10.1); CARBON DIOXIDE 28.3 mmol/L (21.0-32.0); CHLORIDE - SERUM 100 mmol/L (98-107); CREATININE - SERUM 0.8 mg/dL (0.6-1.3); POTASSIUM - SERUM 4.6 mmol/L (3.5-5.1); SODIUM 137 mmol/L (136-145); UREA NITROGEN 15 mg/dL (7-18); eGFR NON AFRICAN AMERICAN > 90 mL/min (90-120)
[2019-05-16 15:55] LABS: GLUCOSE 382 mg/dL (74-106)
[2019-05-16 16:03] LABS: ALKALINE PHOSPHATASE 122 U/L (30-120); ALT (SGPT) 46 U/L (10-68); CKMB 0.9 U/L (0.0-3.6); CREATINE KINASE 39 UL (21-232); MAGNESIUM - SERUM 1.7 mg/dL (1.8-2.4); PROTEIN - SERUM 7.5 g/dL (6.4-8.2); THYROID STIMULATING HORMONE 2.46 uIU/mL (0.36-3.74)
[2019-05-16 16:08] LABS: TROPONIN-I < 0.017 ng/mL (0.000-0.060)
[2019-05-16 18:27] LABS: UDS - AMPHET NEGATIVE QUAL (NEGATIVE); UDS - BARB NEGATIVE QUAL (NEGATIVE); UDS - BENZO NEGATIVE QUAL (NEGATIVE); UDS - COCAINE NEGATIVE QUAL (NEGATIVE); UDS - OPIATE NEGATIVE QUAL (NEGATIVE); UDS - PCP NEGATIVE QUAL (NEGATIVE); UDS - THC NEGATIVE QUAL (NEGATIVE)
[2019-05-16 18:48] LABS: BACTERIA MANY /hpf (NEGATIVE); BILIRUBIN NEGATIVE (NEGATIVE); EPITHELIAL CELLS 0-5 /hpf (0-5); GLUCOSE 1000 mg/dL (NEGATIVE); KETONE NEGATIVE (NEGATIVE); NITRITE POSITIVE (NEGATIVE); UROBILINOGEN NORMAL (NORMAL)
[2019-05-16 21:33] VITALS: BP 160/106
[2019-05-16] MEDS ORDERED: LEVAQUIN750 MG PO (22:29)
== END 2019-05-16 23:42 | disposition home or self-care (01) ==
LOC: D.ER 14:11
PROVIDERS: Family Medicine
DX: E11.65 Type 2 diabetes mellitus with hyperglycemia (principal); Z79.84 Long term (current) use of oral hypoglycemic drugs; E07.9 Disorder of thyroid, unspecified; I10 Essential (primary) hypertension; J44.9 Chronic obstructive pulmonary disease, unspecified; K21.9 Gastro-esophageal reflux disease without esophagitis; Z72.0 Tobacco use

== ENCOUNTER 2019-06-10 14:41 | Inpatient (IN) | payer MEDICARE ==
[~2019-06-10] VITALS: Ht 170.2 cm; Wt 125.0 kg
[~2019-06-10 14:41] MED LIST changes: +LEVAQUIN750 MG PO
[2019-06-10 15:46] LABS: UDS - AMPHET NEGATIVE QUAL (NEGATIVE); UDS - BARB NEGATIVE QUAL (NEGATIVE); UDS - BENZO NEGATIVE QUAL (NEGATIVE); UDS - COCAINE NEGATIVE QUAL (NEGATIVE); UDS - OPIATE NEGATIVE QUAL (NEGATIVE); UDS - PCP NEGATIVE QUAL (NEGATIVE); UDS - THC NEGATIVE QUAL (NEGATIVE)
[2019-06-10 15:53] LABS: BILIRUBIN NEGATIVE (NEGATIVE); GLUCOSE NEGATIVE (NEGATIVE); KETONE NEGATIVE (NEGATIVE); NITRITE POSITIVE (NEGATIVE); SPECIFIC GRAVITY 1.015 (1.005-1.020); UROBILINOGEN NORMAL (NORMAL)
[2019-06-10 15:54] LABS: BACTERIA MANY /hpf (NEGATIVE); RED CELLS - URINE 25-50 /hpf (0-5); WHITE CELLS - URINE 25-50 /hpf (NEGATIVE)
[2019-06-10 15:59] LABS: BASOPHILS 0.2 % (0-2); EOSINOPHILS 1.1 % (0-7); HEMATOCRIT 39.7 % (42.0-54.0); HEMOGLOBIN 12.7 g/dL (13.5-17.5); IMMATURE GRANULOCYTES 0.3 % (0-5); LYMPHOCYTES 12.6 % (15-50); MCV 93.6 fL (80.0-100.0); MEAN PLATELET VOLUME 10.7 fL (7.4-10.4); MONOCYTES 7.2 % (2-11); NEUTROPHILS 78.6 % (40-80); PLATELET COUNT 139 10x3/uL (130-400); RBC 4.24 10x6/uL (4.20-6.10); RDW 15.5 % (11.5-14.5); WBC 6.4 10x3/uL (4.8-10.8)
--- NOTE | 2019-06-10 16:01 | NUR ---
PT RESPONDING MUCH BETTER AFTER NARCAN.GTT HELD PER MOUSTAPHA
[2019-06-10 16:05] LABS: APTT 36.5 SECONDS (22.8-39.4); INR 1.48 (0.85-1.17); PROTIME 17.8 SECONDS (11.6-15.0)
[2019-06-10 16:21] LABS: CALC OSMOLALITY 282 mosm/kg (275-300); CALCIUM 8.4 mg/dL (8.5-10.1); CARBON DIOXIDE 28.4 mmol/L (21.0-32.0); CHLORIDE - SERUM 103 mmol/L (98-107); CREATININE - SERUM 0.8 mg/dL (0.6-1.3); POTASSIUM - SERUM 4.5 mmol/L (3.5-5.1); SODIUM 139 mmol/L (136-145); UREA NITROGEN 15 mg/dL (7-18); eGFR NON AFRICAN AMERICAN > 90 mL/min (90-120)
[2019-06-10 16:25] LABS: GLUCOSE 174 mg/dL (74-106)
[2019-06-10 16:37] LABS: ALBUMIN 3.4 g/dL (3.4-5.0); ALKALINE PHOSPHATASE 105 U/L (30-120); ALT (SGPT) 29 U/L (10-68); AMYLASE - SERUM 26 U/L (25-115); CKMB 0.4 U/L (0.0-3.6); CREATINE KINASE 38 UL (21-232); LIPASE 140 U/L (73-393); MAGNESIUM - SERUM 1.6 mg/dL (1.8-2.4); PROTEIN - SERUM 6.5 g/dL (6.4-8.2); THYROID STIMULATING HORMONE 2.04 uIU/mL (0.36-3.74)
[2019-06-10 16:38] LABS: TROPONIN-I < 0.017 ng/mL (0.000-0.060)
--- NOTE | 2019-06-10 19:10 | NUR ---
PT RESTING WITH EYES CLOSED. RESPIRATIONS EVEN AND UNLABORED. WILL CONTINUE TO MONITOR.
--- NOTE | 2019-06-10 21:30 | NUR ---
PT RIPPED IV OUT OF ARM, INCONTINENT EPISODE OF URINE. PERIODS OF APNEIC BREATHING NOTED. OLINDA DANIEL CONTACTED, VERBAL ORDERS GIVEN FOR RESPIRATORY TO SET PT UP TO BIPAP. LINEN CHANGE, GOWN CHANGED. PERINEAL CARE PROVIDED X1 ASSIST. PT DENIES FURTHER NEEDS. FLOOR NURSE CONTACTED AND REPORT AMMENDED.
--- NOTE | 2019-06-10 22:05 | NUR ---
PT ARRIVED TO THE FLOOR. EYES CLOSED. BREATHING LABORED. PT AROUSES TO VERBAL STIMULI. SKIN CLEAN DRY AND INTACT. IV SITE LT SHOULDER. DRESSING CLEAN DRY AND INTACT. NO SIGNS OF INFECTION OR INFULTRATION. WILL CONTINUE PLAN OF CARE. CALL LIGHT IN REACH. BED LOWERED AND LOCKED. BED RAILS UPX2
[2019-06-10 22:43] VITALS: BP 139/88
[2019-06-11] VITALS (7 sets, daily range): BP systolic 119–142; BP diastolic 56–87; Ht 170.2 cm; Wt 125.0 kg
[2019-06-11 05:31] LABS: BASOPHILS 0.2 % (0-2); HEMATOCRIT 41.7 % (42.0-54.0); HEMOGLOBIN 13.1 g/dL (13.5-17.5); IMMATURE GRANULOCYTES 0.5 % (0-5); LYMPHOCYTES 13.7 % (15-50); MCH 29.6 pg (26.0-34.0); MCHC 31.4 g/dL (31.0-37.0); MCV 94.3 fL (80.0-100.0); MEAN PLATELET VOLUME 10.7 fL (7.4-10.4); MONOCYTES 7.8 % (2-11); NEUTROPHILS 76.8 % (40-80); PLATELET COUNT 145 10x3/uL (130-400); RBC 4.42 10x6/uL (4.20-6.10); RDW 15.6 % (11.5-14.5)
[2019-06-11 05:45] LABS: ALBUMIN 3.3 g/dL (3.4-5.0); ALKALINE PHOSPHATASE 106 U/L (30-120); ALT (SGPT) 29 U/L (10-68); BILIRUBIN - TOTAL 0.71 mg/dL (0.2-1.3); CALCIUM 8.8 mg/dL (8.5-10.1); CARBON DIOXIDE 31.5 mmol/L (21.0-32.0); CHLORIDE - SERUM 101 mmol/L (98-107); CREATININE - SERUM 0.7 mg/dL (0.6-1.3); GLUCOSE 156 mg/dL (74-106); MAGNESIUM - SERUM 1.5 mg/dL (1.8-2.4); PHOSPHOROUS 3.9 mg/dL (2.5-4.9); POTASSIUM - SERUM 4.1 mmol/L (3.5-5.1); PROTEIN - SERUM 7.2 g/dL (6.4-8.2); SODIUM 139 mmol/L (136-145); eGFR NON AFRICAN AMERICAN > 90 mL/min (90-120)
[2019-06-11 05:47] LABS: CALC OSMOLALITY 279 mosm/kg (275-300); UREA NITROGEN 10 mg/dL (7-18)
--- NOTE | 2019-06-11 08:00 | NUR ---
ASSESSMENT PER FLOW SHEET. PATIENT IS WITHOUT DISTRESS.HE HOPES TO GO HOME TODAY. MONITOR FOR NEEDS
--- NOTE | 2019-06-11 08:30 | NUR ---
OFFERED TO PUT SCD'S ON PT, PT REFUSED STATING HE FEELS SO MUCH BETTER AND WAS ABLE TO AMBULATE TO RESTROOM WITH NO ASSISTANCE, PT STATED HE HAD UTI AND WAS UNAWARE OF THE EFFECTS OF IT WHEN NOT TREATED. PT IS ALERT AND ORIENTED NO S/SX OF DISTRESS, CONTINUE WITH PLAN OF CARE
[2019-06-11 10:15] LABS: % SATURATION 18 % (15-55); IRON 63 ug/dl (35-150); TOTAL IRON BIND CAPACITY 336 ug/dl (260-445); UNSAT IRON BIND CAPACITY 273 ug/dl (150-375)
[2019-06-11 10:41] LABS: FERRITIN 153 ng/mL (3-244)
[2019-06-12] VITALS: BP 130/78
[2019-06-12 04:00] VITALS: BP 121/73
[2019-06-12 04:30] LABS: BASOPHILS 0.2 % (0-2); EOSINOPHILS 1.6 % (0-7); HEMATOCRIT 42.4 % (42.0-54.0); HEMOGLOBIN 13.6 g/dL (13.5-17.5); IMMATURE GRANULOCYTES 0.5 % (0-5); LYMPHOCYTES 22.9 % (15-50); MCH 29.8 pg (26.0-34.0); MCHC 32.1 g/dL (31.0-37.0); MEAN PLATELET VOLUME 10.1 fL (7.4-10.4); MONOCYTES 10.8 % (2-11); PLATELET COUNT 155 10x3/uL (130-400); RBC 4.56 10x6/uL (4.20-6.10); RDW 15.6 % (11.5-14.5); WBC 5.6 10x3/uL (4.8-10.8)
[2019-06-12 05:03] LABS: CALCIUM 8.6 mg/dL (8.5-10.1); CARBON DIOXIDE 31.7 mmol/L (21.0-32.0); CHLORIDE - SERUM 98 mmol/L (98-107); GLUCOSE 151 mg/dL (74-106); MAGNESIUM - SERUM 1.7 mg/dL (1.8-2.4); PHOSPHOROUS 4.4 mg/dL (2.5-4.9); POTASSIUM - SERUM 3.6 mmol/L (3.5-5.1); SODIUM 138 mmol/L (136-145)
[2019-06-12 05:05] LABS: CALC OSMOLALITY 279 mosm/kg (275-300); CREATININE - SERUM 0.9 mg/dL (0.6-1.3); UREA NITROGEN 14 mg/dL (7-18); eGFR NON AFRICAN AMERICAN > 90 mL/min (90-120)
--- NOTE | 2019-06-12 06:19 | NUR ---
I have reviewed this patient and I concur with the Shift Assessment completed by the Licensed Practical Nurse today this shift.
[2019-06-12 09:39] VITALS: BP 137/78
[2019-06-12] MEDS ORDERED: LEVAQUIN750 MG PO (11:22)
[2019-06-12 12:48] VITALS: BP 128/77
--- NOTE | 2019-06-12 13:11 | NUR ---
DISCHARGE INSTRUCTIONS,STATES UNDERSTANDING. IV DCD WITH CATH TIP INTACT. WAITING ON RIDE FOR TRANSPORT HOME
--- NOTE | 2019-06-12 14:42 | NUR ---
LEFT UNIT VIA WHEELCHAIR FOR TRANSPORT HOME
--- NOTE | 2019-06-12 17:02 | MORECARE ---
CASE MANAGEMENT DISCHARGE SUMMARY PATIENT: EDDA BARRAGAN V JR UNIT: [id number] ADM DATE: 06/10/19 AGE: 53 : 69 SEX: M ROOM/BED: D.2218 AUTHOR: MURRAY LEHMAN PHYSICIAN: REFERRING PHYSICIAN: GIULIANO BETANCOURT MD DATE OF SERVICE: 06/12/19 Discharge Plan Patient Name: EDDA BARRAGAN [facility] [facility] 1965 Planned Disposition: Home Anticipated Discharge Date: Discharge Date: 06/12/2019 Expected LOS: 0 Initial Reviewer: [email or web address] Initial Review Date: 06/10/2019 Generated: 06/12/19 6:02 pm Patient Name: EDDA BARRAGAN Page [phone] at 1702 All edits/amendments must be made on the electronic document DICTATION DATE: 06/12/191701 CHILD CARE TEAM LEAD: LOREN 06/12/191701 RPT#: [id number] DC DATE:06/12/19 STATUS: DIS IN [facility] [address] [place] [address] END OF REPORT
== END 2019-06-12 14:43 | disposition home or self-care (01) | DRG 689 ==
LOC: D.ER 14:41 → D.MS 17:45
PROVIDERS: Family Medicine; ADMIT Internal Medicine Nephrology; ATTEND Internal Medicine Nephrology
DX: N39.0 Urinary tract infection, site not specified (principal); G93.41 Metabolic encephalopathy; F17.203 Nicotine dependence unspecified, with withdrawal; Z68.41 Body mass index [BMI] 40.0-44.9, adult; I50.22 Chronic systolic (congestive) heart failure; B96.20 Unspecified Escherichia coli [E. coli] as the cause of diseases classified elsewhere; J44.9 Chronic obstructive pulmonary disease, unspecified; I25.10 Atherosclerotic heart disease of native coronary artery without angina pectoris; I11.0 Hypertensive heart disease with heart failure; E78.5 Hyperlipidemia, unspecified; E66.01 Morbid (severe) obesity due to excess calories; E11.51 Type 2 diabetes mellitus with diabetic peripheral angiopathy without gangrene; F41.8 Other specified anxiety disorders; E03.9 Hypothyroidism, unspecified

== ENCOUNTER 2019-06-13 20:37 | Inpatient (IN) | payer MEDICARE ==
[~2019-06-13] VITALS: Ht 170.2 cm; Wt 124.7 kg
[2019-06-13 20:57] LABS: BASOPHILS 0 % (0-2); EOSINOPHILS 0.4 % (0-7); HEMATOCRIT 41.4 % (42.0-54.0); HEMOGLOBIN 13.5 g/dL (13.5-17.5); IMMATURE GRANULOCYTES 0.4 % (0-5); LYMPHOCYTES 8.6 % (15-50); MCHC 32.6 g/dL (31.0-37.0); MEAN PLATELET VOLUME 10.1 fL (7.4-10.4); MONOCYTES 4.8 % (2-11); NEUTROPHILS 85.8 % (40-80)
[2019-06-13 21:05] LABS: CALCIUM 8.7 mg/dL (8.5-10.1); CHLORIDE - SERUM 96 mmol/L (98-107); PLATELET COUNT 201 10x3/uL (130-400); POTASSIUM - SERUM 4.1 mmol/L (3.5-5.1); SODIUM 135 mmol/L (136-145); WBC 12.8 10x3/uL (4.8-10.8); eGFR NON AFRICAN AMERICAN 35 mL/min (90-120)
[2019-06-13 21:08] LABS: CALC OSMOLALITY 287 mosm/kg (275-300); CREATININE - SERUM 2.1 mg/dL (0.6-1.3); GLUCOSE 237 mg/dL (74-106); UREA NITROGEN 41 mg/dL (7-18)
[2019-06-13 21:12] LABS: BILIRUBIN NEGATIVE (NEGATIVE); GLUCOSE NEGATIVE (NEGATIVE); KETONE NEGATIVE (NEGATIVE); NITRITE NEGATIVE (NEGATIVE); UROBILINOGEN NORMAL (NORMAL)
[2019-06-13 21:14] LABS: BACTERIA MODERATE /hpf (NEGATIVE); EPITHELIAL CELLS 0-5 /hpf (0-5); RED CELLS - URINE 0-5 /hpf (0-5); WHITE CELLS - URINE 25-50 /hpf (NEGATIVE)
[2019-06-13 21:23] LABS: ALBUMIN 3.4 g/dL (3.4-5.0); ALKALINE PHOSPHATASE 114 U/L (30-120); ALT (SGPT) 35 U/L (10-68); BILIRUBIN - TOTAL 1.47 mg/dL (0.2-1.3); CKMB 3.3 U/L (0.0-3.6); CREATINE KINASE 406 UL (21-232); PROTEIN - SERUM 7.3 g/dL (6.4-8.2)
[2019-06-13 21:27] LABS: TROPONIN-I < 0.017 ng/mL (0.000-0.060)
[2019-06-13 21:28] LABS: MAGNESIUM - SERUM 1.5 mg/dL (1.8-2.4); THYROID STIMULATING HORMONE 2.99 uIU/mL (0.36-3.74)
[2019-06-13 21:34] LABS: APTT 34.1 SECONDS (22.8-39.4); INR 1.34 (0.85-1.17); PROTIME 16.4 SECONDS (11.6-15.0)
[2019-06-13 23:06] VITALS: BP 120/60; BMI 43.2
--- NOTE | 2019-06-13 23:14 | NUR ---
ADMISSION ASSESSMENT COMPLETE. BOX LINER STARTED AND DOCUMENTED WITH WITNESS. PT TEACHING PERFORMED BY ARNOL TORO ON USE OF BOX LINER.
[2019-06-14] VITALS: BP 120/60
[2019-06-14 04:00] VITALS: BP 156/87
[2019-06-14 10:42] VITALS: BP 127/78
--- NOTE | 2019-06-14 13:34 | NUR ---
PT ALERT X 4. BREATH SOUNDS CLEAR BILAT. IV TO RIGHT AC, PATENT, DRESSING CDI. DRESSING TO LEFT FOOT CDI, FOOT SWOLLEN AND BRUISED. PT REPORTING PAIN OF 9/10, WILL CONTINUE TO MONITOR. BED LOW, CALL LIGHT IN REACH. NO OTHER NEEDS AT THIS TIME.
[2019-06-14 17:50] VITALS: BP 146/84
[2019-06-14 22:30] VITALS: BP 146/84
--- NOTE | 2019-06-14 23:30 | NUR ---
ORTHO STATIC VS; LYING- B/P 148/83 HR 107, SITTING B/P 117/81 HR 119, STANDING 117/75 HR 125.
[2019-06-15 01:25] VITALS: BP 148/83
[2019-06-15 04:59] VITALS: BP 126/74
[2019-06-15 06:17] LABS: BASOPHILS 0.1 % (0-2); EOSINOPHILS 1.4 % (0-7); HEMATOCRIT 36.2 % (42.0-54.0); HEMOGLOBIN 11.6 g/dL (13.5-17.5); IMMATURE GRANULOCYTES 0.5 % (0-5); LYMPHOCYTES 14.6 % (15-50); MCH 29.6 pg (26.0-34.0); MCV 92.3 fL (80.0-100.0); MEAN PLATELET VOLUME 10.4 fL (7.4-10.4); MONOCYTES 4.8 % (2-11); NEUTROPHILS 78.6 % (40-80); RBC 3.92 10x6/uL (4.20-6.10); RDW 15.5 % (11.5-14.5)
[2019-06-15 06:44] LABS: PLATELET COUNT 120 10x3/uL (130-400); WBC 7.9 10x3/uL (4.8-10.8)
[2019-06-15 06:45] LABS: CALCIUM 8.5 mg/dL (8.5-10.1); CARBON DIOXIDE 27.3 mmol/L (21.0-32.0); CHLORIDE - SERUM 101 mmol/L (98-107); GLUCOSE 230 mg/dL (74-106); POTASSIUM - SERUM 3.9 mmol/L (3.5-5.1); SODIUM 137 mmol/L (136-145)
[2019-06-15 06:51] LABS: CALC OSMOLALITY 280 mosm/kg (275-300); CREATININE - SERUM 0.8 mg/dL (0.6-1.3); UREA NITROGEN 13 mg/dL (7-18); eGFR NON AFRICAN AMERICAN > 90 mL/min (90-120)
--- NOTE | 2019-06-15 07:10 | NUR ---
ALERT AND ORIENTED. CPAP ON AT THIS TIME. IV TO RIGHT AC, NS INFUSING @ 50ML/HR. SITE PATENT WITHOUT REDNESS OR SWELLING. SUSAN WRAP TO LEFT FOOT D/T FX. DENIES ANY NEEDS AT THIS TIME. CALL LIGHT IN REACH. WILL CONTINUE TO MONITOR.
[2019-06-15 09:27] VITALS: BP 143/89
[2019-06-15 12:34] VITALS: Ht 170.2 cm; Wt 124.7 kg
[2019-06-15 13:19] VITALS: BP 135/92
--- NOTE | 2019-06-15 13:43 | NUR ---
LYING IN BED,WITHOUT DISTRESS.DENIES NEEDS.CALL LIGHT IN REACH
[2019-06-15 17:47] VITALS: BP 159/87
--- NOTE | 2019-06-15 18:14 | NUR ---
ALERT AND ORIENTED, RESTING IN BED WITH EYES OPEN. NO C/O PAIN. NO S/S OF ACUTE DISTRESS NOTED. DENIES ANY NEEDS AT THIS TIME. CALL LIGHT IN REACH. WILL CONTINUE TO MONITOR.
--- NOTE | 2019-06-15 19:15 | NUR ---
SUPINE IN BED, A&O X 4. REPORTS PAIN OF 8/10. PILLOW UNDER KNEES PER REQUEST. STATES PAIN MEDICINE IS NOT VERY EFFECTIVE BECAUSE HE TAKE SUBOXONE AT HOME. DRESSING TO LEFT FOOT C/D/I. WILL CONTINUE TO MONITOR.
[2019-06-15 20:00] VITALS: BP 176/98
[2019-06-16 00:57] VITALS: BP 158/94
--- NOTE | 2019-06-16 02:19 | NUR ---
I have reviewed this patient and I concur with the Shift Assessment completed by the Licensed Practical Nurse today this shift.
[2019-06-16 04:57] VITALS: BP 170/90
[2019-06-16 05:51] LABS: BASOPHILS 0.1 % (0-2); EOSINOPHILS 1.9 % (0-7); HEMATOCRIT 37.1 % (42.0-54.0); HEMOGLOBIN 11.7 g/dL (13.5-17.5); IMMATURE GRANULOCYTES 0.9 % (0-5); LYMPHOCYTES 14.7 % (15-50); MCH 29.3 pg (26.0-34.0); MCHC 31.5 g/dL (31.0-37.0); MEAN PLATELET VOLUME 10.2 fL (7.4-10.4); MONOCYTES 3.1 % (2-11); NEUTROPHILS 79.3 % (40-80); PLATELET COUNT 126 10x3/uL (130-400); RBC 3.99 10x6/uL (4.20-6.10); RDW 15.4 % (11.5-14.5); WBC 7.4 10x3/uL (4.8-10.8)
[2019-06-16 06:11] LABS: CALC OSMOLALITY 276 mosm/kg (275-300); CALCIUM 8.6 mg/dL (8.5-10.1); CARBON DIOXIDE 28.5 mmol/L (21.0-32.0); CHLORIDE - SERUM 101 mmol/L (98-107); CREATININE - SERUM 0.7 mg/dL (0.6-1.3); GLUCOSE 215 mg/dL (74-106); MAGNESIUM - SERUM 1.4 mg/dL (1.8-2.4); SODIUM 136 mmol/L (136-145); eGFR NON AFRICAN AMERICAN > 90 mL/min (90-120)
[2019-06-16 06:12] LABS: UREA NITROGEN 9 mg/dL (7-18)
--- NOTE | 2019-06-16 07:00 | NUR ---
RECEIVED PT FROM MACHINE PULLER AND LASTER. PT SLEEPING WITH CPAP ON UPON ENTERING. BREATHING EVEN AND UNLABORED. NO S/S OF DISTRESS AT THIS TIME. PT IS REPORTED TO BE ALERT AND ORIENTED. ACHS BLOOD SUGAR. PT HAS LEFT FOOT FRACTURE. WAS SCHEDULED TO HAVE SURGERY TODAY. DR. DIETZ CAME THROUGH AND CANCELLED PT SURGERY DUE TO FOOT BEING TOO SWOLLEN. ORDERED PT DIABETIC DIET. ROOM AIR, RIGHT AC IV WITH NS @ 75. WILL CONTINUE TO MONITOR.
[2019-06-16 08:47] VITALS: BP 157/102
--- NOTE | 2019-06-16 10:44 | NUR ---
ADMINISTERED PRN PERCOCET 10 FOR PAIN OF 9/10 IN LEFT FOOT AND HIP. NO DIFFICULTY SWALLOWING. DENIES ANY NEEDS AT THIS TIME. BED IN LOWEST POSITION, BED RAILS X2, CALL LIGHT WITHIN REACH. WILL CONTINUE TO MONITOR.
--- NOTE | 2019-06-16 11:57 | NUR ---
ADMINISTERED INSULIN FOR BLOOD SUGAR OF 323, 8 UNITS IN LEFT ARM. RESTING COMFORTABLY IN BED WITH HOME CPAP ON. DENIES ANY NEEDS AT THIS TIME. WILL CONTINUE TO MONITOR.
[2019-06-16 12:48] VITALS: BP 160/97
--- NOTE | 2019-06-16 14:19 | NUR ---
HUNG IV ANTIBIOTICS. RESTING COMFORTABLY IN BED WITH HOME CPAP ON. DENIES ANY NEEDS AT THIS TIME. BED IN LOWEST POSITION, BED RAILS X2, CALL LIGHT WITHIN REACH. WILL CONTINUE TO MONITOR.
--- NOTE | 2019-06-16 15:04 | NUR ---
ADMINISTERED PRN PERCOCET FOR PAIN LEVEL OF 7/10. NO DIFFICULTY SWALLOWING. DENIES ANY NEEDS. WILL CONTINUE TO MONITOR.
--- NOTE | 2019-06-16 17:03 | NUR ---
ADMINISTERED MEDICATION. ASSESSED BLOOD SUGAR. 214, REQUIRED 4 UNITS INSULIN. ADMINISTERED IN RIGHT ARM. PT IS UP RIGHT EATING. DINNER. DENIES ANY NEEDS AT THIS TIME. WILL CONTINUE TO MONITOR.
[2019-06-16 17:16] VITALS: BP 154/88
--- NOTE | 2019-06-16 19:18 | NUR ---
ADMINISTERED PRN PERCOCET FOR 8/10 PAIN.
[2019-06-16 22:38] VITALS: BP 148/84
[2019-06-17 01:08] VITALS: BP 167/94
[2019-06-17 05:38] VITALS: BP 159/80
[2019-06-17 06:33] LABS: BASOPHILS 0.1 % (0-2); EOSINOPHILS 2.3 % (0-7); HEMATOCRIT 37.6 % (42.0-54.0); HEMOGLOBIN 12.2 g/dL (13.5-17.5); IMMATURE GRANULOCYTES 1.1 % (0-5); LYMPHOCYTES 15.5 % (15-50); MCHC 32.4 g/dL (31.0-37.0); MCV 92.4 fL (80.0-100.0); MEAN PLATELET VOLUME 9.9 fL (7.4-10.4); MONOCYTES 4.1 % (2-11); NEUTROPHILS 76.9 % (40-80); PLATELET COUNT 146 10x3/uL (130-400); RBC 4.07 10x6/uL (4.20-6.10); RDW 15.2 % (11.5-14.5); WBC 7.4 10x3/uL (4.8-10.8)
--- NOTE | 2019-06-17 06:55 | NUR ---
ALERT AND ORIENTED, RESTING IN BED WITH CPAP ON. NO C/O PAIN. NO S/S OF ACUTE DISTRESS NOTED. UP WITH ASSIST, USES URINAL. IV TO RIGHT AC, NS IFUSING @ 75ML/HR. SITE PATENT WITHOUT REDNESS OR SWELLING. DENIES ANY NEEDS AT THIS TIME. CALL LIGHT IN REACH. WILL CONTINUE TO MONITOR.
[2019-06-17 06:59] LABS: CALC OSMOLALITY 274 mosm/kg (275-300); CARBON DIOXIDE 27.7 mmol/L (21.0-32.0); CHLORIDE - SERUM 101 mmol/L (98-107); CREATININE - SERUM 0.7 mg/dL (0.6-1.3); GLUCOSE 186 mg/dL (74-106); MAGNESIUM - SERUM 1.5 mg/dL (1.8-2.4); POTASSIUM - SERUM 4.2 mmol/L (3.5-5.1); SODIUM 136 mmol/L (136-145); UREA NITROGEN 8 mg/dL (7-18); eGFR NON AFRICAN AMERICAN > 90 mL/min (90-120)
[2019-06-17 09:57] VITALS: BP 166/88
[2019-06-17] MEDS ORDERED: OMNICEF300 MG PO (13:53)
[2019-06-17 14:41] VITALS: BP 156/93
--- NOTE | 2019-06-17 16:37 | MORECARE ---
CASE MANAGEMENT DISCHARGE SUMMARY PATIENT: EDDA BARRAGAN V JR UNIT: [id number] ADM DATE: 06/13/19 AGE: 53 : 69 SEX: M ROOM/BED: D.2233 AUTHOR: MURRAY LEHMAN PHYSICIAN: REFERRING PHYSICIAN: GIULIANO BETANCOURT MD DATE OF SERVICE: 06/17/19 Discharge Plan Patient Name: EDDA BARRAGAN [facility] [facility] 1965 Planned Disposition: Home or Self Care Anticipated Discharge Date: Discharge Date: Expected LOS: Initial Reviewer: [email or web address] Initial Review Date: 06/13/2019 Generated: 06/17/19 5:36 pm DCPIA - Discharge Planning Initial Assessment Updated by [email or web address]: Alexandria Real on 06/17/19 4:37 pm * Is the patient Alert and Oriented? Yes * How many steps to enter\exit or inside your home? * PCP MARGARITA * [facility] * Preadmission Environment Home with Family * ADLs Independent * Equipment CPAP * List name and contact numbers for known caregivers / representatives who currently or will assist patient after discharge: LAURIE WOO [phone] * Verbal permission to speak to the caregivers and representatives has been obtained from the patient. N/A * Community resources currently utilized Home Health * Additional services required to return to the preadmission environment? Yes * Can the patient safely return to the preadmission environment? No * Has this patient been hospitalized within the prior 30 days at any hospital? Yes Patient Name: EDDA BARRAGAN Page [phone] at 1637 All edits/amendments must be made on the electronic document DICTATION DATE: 06/17/19 163 GEAR REPAIR SUPERVISOR: LOREN 06/17/19 163 RPT#: [id number] DC DATE: STATUS: ADM IN [facility] [address] [place] [address] END OF REPORT
--- NOTE | 2019-06-17 16:44 | MORECARE ---
CASE MANAGEMENT DISCHARGE SUMMARY PATIENT: EDDA BARRAGAN V JR UNIT: [id number] ADM DATE: 06/13/19 AGE: 53 : 69 SEX: M ROOM/BED: D.2233 AUTHOR: DOMINIKDOC PHYSICIAN: REFERRING PHYSICIAN: GIULIANO BETANCOURT MD DATE OF SERVICE: 06/17/19 Discharge Plan Patient Name: EDDA BARRAGAN Facility: [facility]:[place] : 1965 Planned Disposition: Home or Self Care Anticipated Discharge Date: Discharge Date: Expected LOS: Initial Reviewer: [email or web address] Initial Review Date: 06/13/2019 Generated: 06/17/19 5:43 pm Comments DCP- Discharge Planning Updated by [email or web address]: Alexandria Real on 06/17/19 3:[address] Patient Name: EDDA BARRAGAN Admission Status: ER Accout number: [id number] Admission Date: 06-13-2019 : 1965 Admission Diagnosis:PAIN IN LEFT FOOT Attending: GIULIANO BETANCOURT Current LOS: 4 Anticipated DC Date: Planned Disposition: Home or Self Care Primary Insurance: MEDICARE A & B Discharge Planning Comments: CM met with patient to complete initial dc planning assessment. CM educated patient on the CM role and verbal consent given by patient to complete assessment. Patient lives at home with his spouse where he was independent with his care. At discharge patient is unsure of his plan, it just depends on his needs. He states his has just had back surgery and can not help him. he is not safe to go home at this time. If swelling is better he should have surgery on Saturday. CM discussed availability of home health, rehab services, and medical equipment. He has a CPAP at his bedside. He will more than likely need fpc after surgery. Patient denied known discharge needs at this time. CM will continue to follow and will assist as needed with dc plans/needs. Loss Control Technician: Alexandria Real DCPIA - Discharge Planning Initial Assessment Updated by [email or web address]: Alexandria Real on 06/17/19 4:37 pm * Is the patient Alert and Oriented? Yes * How many steps to enter\exit or inside your home? 6/1/7 * PCP MARGARITA * [facility] * Preadmission Environment Home with Family * ADLs Independent * Equipment CPAP * List name and contact numbers for known caregivers / representatives who currently or will assist patient after discharge: LAURIE WOO [phone] * Verbal permission to speak to the caregivers and representatives has been obtained from the patient. N/A * Community resources currently utilized Home Health * Additional services required to return to the preadmission environment? Yes * Can the patient safely return to the preadmission environment? No * Has this patient been hospitalized within the prior 30 days at any hospital? Yes Last DP export: 06/17/19 3:37 p Patient Name: EDDA BARRAGAN Page [phone] at 1644 All edits/amendments must be made on the electronic document DICTATION DATE: 06/17/191642 DRYING FRAME OPERATOR: LOREN 06/17/191642 RPT#: [id number] DC DATE: STATUS: ADM IN [facility] [address] [place] [address] END OF REPORT
[2019-06-17 17:46] VITALS: BP 157/93
--- NOTE | 2019-06-17 19:30 | NUR ---
ALERT AND ORIENTED, RESTING IN BED WITH EYES OPEN. C/O PAIN 11/11, GAVE PERCOCET 10MG PO FOR PAIN. NO S/S OF ACUTE DISTRESS NOTED. DENIES ANYTHING FURTHER. CALL LIGHT IN REACH.
[2019-06-17 20:00] VITALS: BP 158/90
--- NOTE | 2019-06-17 20:00 | NUR ---
ALERT RESTING IN BED SUSAN WRAP DRRESSING INTACT TO LEFT FOOT, SEE SHIFT ASSESSMENT, CALL LIGHT IN REACH
[2019-06-18] VITALS: BP 152/97
[2019-06-18 04:00] VITALS: BP 183/100
[2019-06-18 06:37] LABS: BASOPHILS 0.4 % (0-2); HEMATOCRIT 39.4 % (42.0-54.0); HEMOGLOBIN 12.7 g/dL (13.5-17.5); IMMATURE GRANULOCYTES 1.5 % (0-5); LYMPHOCYTES 16.1 % (15-50); MCH 29.9 pg (26.0-34.0); MCHC 32.2 g/dL (31.0-37.0); MCV 92.7 fL (80.0-100.0); MEAN PLATELET VOLUME 9.6 fL (7.4-10.4); MONOCYTES 6.3 % (2-11); NEUTROPHILS 73.7 % (40-80); PLATELET COUNT 157 10x3/uL (130-400); RBC 4.25 10x6/uL (4.20-6.10); RDW 15.4 % (11.5-14.5); WBC 7.9 10x3/uL (4.8-10.8)
[2019-06-18 06:56] LABS: CALC OSMOLALITY 273 mosm/kg (275-300); CALCIUM 8.8 mg/dL (8.5-10.1); CARBON DIOXIDE 26.4 mmol/L (21.0-32.0); CHLORIDE - SERUM 100 mmol/L (98-107); CREATININE - SERUM 0.7 mg/dL (0.6-1.3); GLUCOSE 176 mg/dL (74-106); MAGNESIUM - SERUM 1.4 mg/dL (1.8-2.4); POTASSIUM - SERUM 4.2 mmol/L (3.5-5.1); SODIUM 136 mmol/L (136-145); UREA NITROGEN 8 mg/dL (7-18); eGFR NON AFRICAN AMERICAN > 90 mL/min (90-120)
--- NOTE | 2019-06-18 07:48 | NUR ---
ALERT AND ORIENTED. LUNGS CLEAR BILATERALLY. HEART SOUNDS S1 AND S2 HEARD IN ALL VENEGAS. BOWEL SOUNDS ACTIVE X 4. SKIN INTACT WITHOUT REDNESS. IV TO RIGHT AC PATENT WITHOUT REDNESS. WEARING BIPAP. REQUESTED AND GIVEN PRN PAIN MEDICATION. DENIES FURTHER NEEDS. BED LOW. CALL JOHNSON AND PERSONAL ITEMS IN REACH. WILL CONTINUE TO MONITOR.
[2019-06-18 08:49] VITALS: BP 160/97
--- NOTE | 2019-06-18 10:31 | NUR ---
Nutrition Follow-up: Eating well overall. Diet: Diabetic PO intake: 82% avg x 6 meals Wt: 275# (06/14) Labs noted: Glu 176, Mg 1.4 Meds noted: Glucotrol, KDur, NS @ 75, Humulin -Encourage PO intake and honor food preferences within diet restrictions. -Monitor wt. -RD following.
[2019-06-18 12:17] VITALS: BP 159/97
--- NOTE | 2019-06-18 14:00 | NUR ---
RESTING IN BED. DENIES NEEDS. WILL CONTINUE TO MONITOR.
[2019-06-18 17:16] VITALS: BP 146/92
--- NOTE | 2019-06-18 18:39 | NUR ---
RESTING IN BED. DENIES NEEDS. CALL JOHNSON AND PERSONAL ITEMS IN REACH.
[2019-06-18 20:00] VITALS: BP 129/84
--- NOTE | 2019-06-18 20:00 | NUR ---
PATIENT RESTING IN BED WATCHING TV. NO S/S OF ACUTE DISTRESS. NO C/O AT THIS TIME. PATIENT HAS IV IN RIGHT AC, NORMAL SALINE @ 30 ML/HR. IV IS PATENT WITHOUT REDNESS, SWELLING, OR TENDERNESS. PATIENT WEARS CPAP FROM HOME AT NIGHT. PATIENT HAS LEFT FOOT FRACTURE, BEING OPERATED ON 06/23/19 (J LUIS). PATIENT IS NON-WEIGHT BEARING TO THE LEFT FOOT, BUT CAN GET UP TO THE BEDSIDE COMMODE WITH ASSISTANCE. PATIENT USES URNINAL. PATIENT REFUSED HIS SCDS. CALL LIGHT IN PLACE. WILL CONTINUE TO MONITOR.
--- NOTE | 2019-06-19 02:23 | NUR ---
I have reviewed this patient and I concur with the Shift Assessment completed by the Licensed Practical Nurse today this shift.
[2019-06-19 04:00] VITALS: BP 164/96
[2019-06-19 06:29] LABS: BASOPHILS 0.2 % (0-2); EOSINOPHILS 1.5 % (0-7); HEMATOCRIT 40.5 % (42.0-54.0); HEMOGLOBIN 13.2 g/dL (13.5-17.5); IMMATURE GRANULOCYTES 1.2 % (0-5); LYMPHOCYTES 13.9 % (15-50); MCH 29.9 pg (26.0-34.0); MCHC 32.6 g/dL (31.0-37.0); MCV 91.8 fL (80.0-100.0); MEAN PLATELET VOLUME 9.6 fL (7.4-10.4); MONOCYTES 5.7 % (2-11); NEUTROPHILS 77.5 % (40-80); PLATELET COUNT 154 10x3/uL (130-400); RBC 4.41 10x6/uL (4.20-6.10); RDW 15.5 % (11.5-14.5); WBC 9.2 10x3/uL (4.8-10.8)
[2019-06-19 06:39] LABS: CALC OSMOLALITY 273 mosm/kg (275-300); CALCIUM 8.8 mg/dL (8.5-10.1); CHLORIDE - SERUM 99 mmol/L (98-107); CREATININE - SERUM 0.7 mg/dL (0.6-1.3); GLUCOSE 204 mg/dL (74-106); MAGNESIUM - SERUM 1.4 mg/dL (1.8-2.4); POTASSIUM - SERUM 4.1 mmol/L (3.5-5.1); SODIUM 135 mmol/L (136-145); UREA NITROGEN 8 mg/dL (7-18); eGFR NON AFRICAN AMERICAN > 90 mL/min (90-120)
--- NOTE | 2019-06-19 07:15 | NUR ---
REC'D IN WALKING ROUNDS AWAKE AND ALERT. RESP EVEN AND UNLABORED WITH NO DISTRESS NOTED. CAN EXPRESS NEEDS AND WANTS. NO C/O NOTED OR VOICED AT THIS TIME. ASSESSMENT COMPLETED. PT IS NON WEIGHT BEARING TO LEFT FOOT. WILL CONTINUE TO OBSERVE FOR NEEDS. C/L IN REACH AT BEDSIDE.
[2019-06-19 09:00] VITALS: BP 160/108
[2019-06-19 12:41] VITALS: BP 143/73
--- NOTE | 2019-06-19 12:51 | NUR ---
LYING IN BED,WITHOUT SIGNS OF DISTRESS.CALL LIGHT IN REACH
[2019-06-19 20:30] VITALS: BP 132/75
[2019-06-20 00:56] VITALS: BP 148/93
--- NOTE | 2019-06-20 01:16 | NUR ---
AWAKE,ALERT.COMPALINTS OF PAIN TO LEFT FOOT. PERCOCET 10/325 MG GIVEN PER REQUEST. LEFT FOOT REMAINS SWAOLLEN AN DISCOLOR. ENCOURAGED TO KEEP FOOT UP ON PILLOW ORDERED.
[2019-06-20 04:01] VITALS: BP 160/91
[2019-06-20 05:21] LABS: BASOPHILS 0.2 % (0-2); EOSINOPHILS 1.3 % (0-7); HEMATOCRIT 41.8 % (42.0-54.0); HEMOGLOBIN 13.7 g/dL (13.5-17.5); IMMATURE GRANULOCYTES 1.5 % (0-5); LYMPHOCYTES 14.4 % (15-50); MCHC 32.8 g/dL (31.0-37.0); MCV 91.7 fL (80.0-100.0); MEAN PLATELET VOLUME 9.5 fL (7.4-10.4); MONOCYTES 5.9 % (2-11); NEUTROPHILS 76.7 % (40-80); PLATELET COUNT 165 10x3/uL (130-400); RBC 4.56 10x6/uL (4.20-6.10); RDW 15.9 % (11.5-14.5); WBC 10.7 10x3/uL (4.8-10.8)
[2019-06-20 05:43] LABS: ALKALINE PHOSPHATASE 112 U/L (30-120); ALT (SGPT) 28 U/L (10-68); BILIRUBIN - TOTAL 1.01 mg/dL (0.2-1.3); CALC OSMOLALITY 270 mosm/kg (275-300); CALCIUM 9.1 mg/dL (8.5-10.1); CARBON DIOXIDE 21.2 mmol/L (21.0-32.0); CHLORIDE - SERUM 99 mmol/L (98-107); CREATININE - SERUM 0.6 mg/dL (0.6-1.3); GLUCOSE 198 mg/dL (74-106); MAGNESIUM - SERUM 1.6 mg/dL (1.8-2.4); POTASSIUM - SERUM 4.5 mmol/L (3.5-5.1); PROTEIN - SERUM 7.6 g/dL (6.4-8.2); SODIUM 133 mmol/L (136-145); eGFR NON AFRICAN AMERICAN > 90 mL/min (90-120)
[2019-06-20 05:44] LABS: UREA NITROGEN 11 mg/dL (7-18)
--- NOTE | 2019-06-20 05:53 | NUR ---
I have reviewed this patient and I concur with the Shift Assessment completed by the Licensed Practical Nurse today this shift.
[2019-06-20 08:12] VITALS: BP 149/84
--- NOTE | 2019-06-20 09:10 | NUR ---
PT ALERT X 4. BREATH SOUNDS CLEAR BILAT. NO IV AT THIS TIME. SUSAN TO LEFT FOOT. PT REPORTING PAIN OF 7/10, MEDICATED PER ORDERS, WILL MONITOR. DISCOLORING TO RLE. BED LOW, CALL LIGHT IN REACH. NO OTHER NEEDS AT THIS TIME.
[2019-06-20 11:38] VITALS: BP 154/87
[2019-06-20 16:00] VITALS: BP 149/91
[2019-06-20 20:00] VITALS: BP 139/79
--- NOTE | 2019-06-20 21:41 | NUR ---
WATCHING TV QUITETLY WITH NO DISTRESS NOTED. SUSAN WRAP DRESSING TO LEFT FOOT. ENCOURAGED PATIENT TO KEEP FOOT ELEVATED DUE TO EDEMA. IV TO RFA INTACT WITHOTU REDNESS OR EDEMA NOTED. CL IN REACH
--- NOTE | 2019-06-21 00:31 | NUR ---
I have reviewed this patient and I concur with the Shift Assessment completed by the Licensed Practical Nurse today this shift.
[2019-06-21 04:00] VITALS: BP 127/79
[2019-06-21 06:50] LABS: BASOPHILS 0.1 % (0-2); EOSINOPHILS 1.9 % (0-7); HEMATOCRIT 41.4 % (42.0-54.0); HEMOGLOBIN 13.5 g/dL (13.5-17.5); IMMATURE GRANULOCYTES 0.9 % (0-5); LYMPHOCYTES 15.1 % (15-50); MCH 29.5 pg (26.0-34.0); MCHC 32.6 g/dL (31.0-37.0); MCV 90.6 fL (80.0-100.0); MEAN PLATELET VOLUME 9.7 fL (7.4-10.4); MONOCYTES 6.4 % (2-11); NEUTROPHILS 75.6 % (40-80); PLATELET COUNT 191 10x3/uL (130-400); RBC 4.57 10x6/uL (4.20-6.10); RDW 15.6 % (11.5-14.5); WBC 8.5 10x3/uL (4.8-10.8)
[2019-06-21 07:20] LABS: ALBUMIN 3.2 g/dL (3.4-5.0); ALKALINE PHOSPHATASE 117 U/L (30-120); BILIRUBIN - TOTAL 0.86 mg/dL (0.2-1.3); CALC OSMOLALITY 276 mosm/kg (275-300); CALCIUM 9.1 mg/dL (8.5-10.1); CARBON DIOXIDE 23.7 mmol/L (21.0-32.0); CHLORIDE - SERUM 100 mmol/L (98-107); CREATININE - SERUM 0.6 mg/dL (0.6-1.3); GLUCOSE 202 mg/dL (74-106); POTASSIUM - SERUM 3.9 mmol/L (3.5-5.1); SODIUM 136 mmol/L (136-145); UREA NITROGEN 11 mg/dL (7-18); eGFR NON AFRICAN AMERICAN > 90 mL/min (90-120)
[2019-06-21 07:21] LABS: ALT (SGPT) 36 U/L (10-68)
[2019-06-21 09:00] VITALS: BP 130/81
--- NOTE | 2019-06-21 09:28 | NUR ---
PT ALERT X 4. BREATH SOUNDS CLEAR BILAT. IV TO RIGHT FOREARM, PATENT, DRESSING CDI. DRESSING TO LEFT FOOT CDI. PT REPORTING PAIN OF 8/10, MEDICATED PER ORDERS, WILL MONITOR. DISCOLORATION TO RIGHT LOWER LEG. BED LOW, CALL LIGHT IN REACH. NO OTHER NEEDS AT THIS TIME.
[2019-06-21 15:17] VITALS: BP 157/88
[2019-06-21 16:26] VITALS: BP 142/83
[2019-06-21 21:14] VITALS: BP 131/81
[2019-06-22 01:01] VITALS: BP 138/94
[2019-06-22 04:00] VITALS: BP 148/87
[2019-06-22 05:34] LABS: BASOPHILS 0.3 % (0-2); EOSINOPHILS 2.1 % (0-7); HEMATOCRIT 41.8 % (42.0-54.0); HEMOGLOBIN 13.6 g/dL (13.5-17.5); IMMATURE GRANULOCYTES 0.6 % (0-5); LYMPHOCYTES 23.6 % (15-50); MCH 29.2 pg (26.0-34.0); MCHC 32.5 g/dL (31.0-37.0); MCV 89.9 fL (80.0-100.0); MEAN PLATELET VOLUME 9.8 fL (7.4-10.4); MONOCYTES 7.9 % (2-11); NEUTROPHILS 65.5 % (40-80); RBC 4.65 10x6/uL (4.20-6.10); RDW 15.4 % (11.5-14.5); WBC 6.7 10x3/uL (4.8-10.8)
[2019-06-22 06:05] LABS: ALBUMIN 3.1 g/dL (3.4-5.0); ALKALINE PHOSPHATASE 117 U/L (30-120); ALT (SGPT) 33 U/L (10-68); BILIRUBIN - TOTAL 0.75 mg/dL (0.2-1.3); CALC OSMOLALITY 275 mosm/kg (275-300); CARBON DIOXIDE 24.7 mmol/L (21.0-32.0); CHLORIDE - SERUM 101 mmol/L (98-107); CREATININE - SERUM 0.7 mg/dL (0.6-1.3); GLUCOSE 227 mg/dL (74-106); POTASSIUM - SERUM 3.8 mmol/L (3.5-5.1); PROTEIN - SERUM 7.5 g/dL (6.4-8.2); SODIUM 135 mmol/L (136-145); UREA NITROGEN 11 mg/dL (7-18); eGFR NON AFRICAN AMERICAN > 90 mL/min (90-120)
[2019-06-22 06:07] LABS: PLATELET COUNT 232 10x3/uL (130-400)
--- NOTE | 2019-06-22 07:10 | NUR ---
ALERT AND ORIENTED, RESTING IN BED WITH CPAP ON. NO C/O PAIN. NO S/S OF ACUTE DISTRESS NOTED. UP WITH ASSIST. NON-WEIGHT BEARING LEFT FOOT. SUSAN WRAP TO LEFT FOOT/ANKLE, C/D/I. IV TO RIGHT FOREARM, NS INFUSING @ 20ML/HR. SITE PATENT WITHOUT REDNESS OR SWELLING. FSBS Q4 HOURS. DENIES ANY NEEDS AT THIS TIME. CALL LIGHT IN REACH. WILL CONTINUE TO MONITOR.
[2019-06-22 07:18] VITALS: BP 111/82
[2019-06-22 12:30] VITALS: BP 144/91
--- NOTE | 2019-06-22 12:55 | NUR ---
Nutrition follow-up: Diet: consistent CHO PO intake 75-100% of meals Labs reviewed Wt: 275# Pt scheduled for ORIF 06/23/19 PO intake has been good during hospital stay RDN following.
--- NOTE | 2019-06-22 16:58 | NUR ---
I have reviewed this patient and I concur with the Shift Assessment completed by the Licensed Practical Nurse today this shift.
[2019-06-22 17:03] VITALS: BP 143/97
--- NOTE | 2019-06-22 19:59 | NUR ---
PATIENT LYING IN BED ON PHONE WITH . ALERT AND ORRIENTED. NO ACUTE DISTRESS NOTED AT THIS TIME. PATIENT IS TOLD HE WILL HAVE AN EKG AT SOME POINT TONIGHT AND STATES HE HAS NO NEEDS AT THIS TIME. R FA IV NS @20, NO REDNESS OR SWELLING NOTED. ROOM AIR. BED IN LOW POSITION BED RAILS X3. CALL LIGHT AND BEDSIDE TABLE WITHIN REACH. WILL CONTINUE TO MONITOR.
[2019-06-22 20:00] VITALS: BP 148/96
[2019-06-23] VITALS: BP 156/100
[2019-06-23 04:00] VITALS: BP 143/87
[2019-06-23 05:37] LABS: BASOPHILS 0.1 % (0-2); EOSINOPHILS 2.1 % (0-7); HEMATOCRIT 41.4 % (42.0-54.0); HEMOGLOBIN 13.5 g/dL (13.5-17.5); IMMATURE GRANULOCYTES 0.6 % (0-5); LYMPHOCYTES 19.5 % (15-50); MCH 29.4 pg (26.0-34.0); MCHC 32.6 g/dL (31.0-37.0); MCV 90.2 fL (80.0-100.0); MEAN PLATELET VOLUME 9.7 fL (7.4-10.4); MONOCYTES 6.4 % (2-11); NEUTROPHILS 71.3 % (40-80); PLATELET COUNT 237 10x3/uL (130-400); RBC 4.59 10x6/uL (4.20-6.10); RDW 15.5 % (11.5-14.5); WBC 7.2 10x3/uL (4.8-10.8)
[2019-06-23 05:38] LABS: ALBUMIN 3.1 g/dL (3.4-5.0); ALKALINE PHOSPHATASE 121 U/L (30-120); ALT (SGPT) 41 U/L (10-68); CALC OSMOLALITY 275 mosm/kg (275-300); CALCIUM 9.2 mg/dL (8.5-10.1); CARBON DIOXIDE 25.3 mmol/L (21.0-32.0); CHLORIDE - SERUM 101 mmol/L (98-107); CREATININE - SERUM 0.6 mg/dL (0.6-1.3); GLUCOSE 187 mg/dL (74-106); POTASSIUM - SERUM 3.9 mmol/L (3.5-5.1); PROTEIN - SERUM 7.5 g/dL (6.4-8.2); SODIUM 136 mmol/L (136-145); UREA NITROGEN 10 mg/dL (7-18); eGFR NON AFRICAN AMERICAN > 90 mL/min (90-120)
[2019-06-23 08:27] VITALS: BP 139/85
[2019-06-23 14:13] VITALS: BP 115/65
--- NOTE | 2019-06-23 15:21 | MORECARE ---
CASE MANAGEMENT DISCHARGE SUMMARY PATIENT: EDDA BARRAGAN V JR UNIT: [id number] ADM DATE: 06/13/19 AGE: 53 : 69 SEX: M ROOM/BED: D.2233 AUTHOR: DOMINIKDOC PHYSICIAN: REFERRING PHYSICIAN: GIULIANO BETANCOURT MD DATE OF SERVICE: 06/23/19 Discharge Plan Patient Name: EDDA BARRAGAN Facility: [facility]:[place] : 1965 Planned Disposition: Home or Self Care Anticipated Discharge Date: Discharge Date: Expected LOS: Initial Reviewer: [email or web address] Initial Review Date: 06/13/2019 Generated: 06/23/19 4:20 pm DCP- Discharge Planning Updated by [email or web address]: Alexandria Real on 06/17/19 3:[address] Patient Name: EDDA BARRAGAN Admission Status: ER Accout number: [id number] Admission Date: 06-13-2019 : 1965 Admission Diagnosis:PAIN IN LEFT FOOT Attending: GIULIANO BETANCOURT Current LOS: 4 Anticipated DC Date: Planned Disposition: Home or Self Care Primary Insurance: MEDICARE A & B Discharge Planning Comments: CM met with patient to complete initial dc planning assessment. CM educated patient on the CM role and verbal consent given by patient to complete assessment. Patient lives at home with his spouse where he was independent with his care. At discharge patient is unsure of his plan, it just depends on his needs. He states his has just had back surgery and can not help him. he is not safe to go home at this time. If swelling is better he should have surgery on Saturday. CM discussed availability of home health, rehab services, and medical equipment. He has a CPAP at his bedside. He will more than likely need prison after surgery. Patient denied known discharge needs at this time. CM will continue to follow and will assist as needed with dc plans/needs. Director Of Cloud Services: Alexandria Real DCPIA - Discharge Planning Initial Assessment Updated by [email or web address]: Alexandria Real on 06/17/19 4:37 pm * Is the patient Alert and Oriented? Yes * How many steps to enter\exit or inside your home? * PCP FARO * Pharmacy [facility] * Preadmission Environment Home with Family * ADLs Independent * Equipment CPAP * List name and contact numbers for known caregivers / representatives who currently or will assist patient after discharge: LAURIE WOO [phone] * Verbal permission to speak to the caregivers and representatives has been obtained from the patient. N/A * Community resources currently utilized Home Health * Additional services required to return to the preadmission environment? Yes * Can the patient safely return to the preadmission environment? No * Has this patient been hospitalized within the prior 30 days at any hospital? Yes Last DP export: 06/17/19 3:44 p Patient Name: EDDA BARRAGAN Page [phone] at 1521 All edits/amendments must be made on the electronic document DICTATION DATE: 06/23/191520 CONTROL CENTER OPERATOR: LOREN 06/23/191520 RPT#: [id number] DC DATE: STATUS: ADM IN [facility] [address] [place] [address] END OF REPORT
[2019-06-23 16:48] VITALS: BP 143/86
--- NOTE | 2019-06-23 17:09 | NUR ---
I have reviewed this patient and I concur with the Shift Assessment completed by the Licensed Practical Nurse today this shift.
[2019-06-23 21:44] VITALS: BP 156/85
[2019-06-24 00:50] VITALS: BP 136/80
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
--- NOTE | 2019-06-24 04:21 | NUR ---
I have reviewed this patient and I concur with the Shift Assessment completed by the Licensed Practical Nurse today this shift.
[2019-06-24 05:01] LABS: BASOPHILS 0.1 % (0-2); EOSINOPHILS 0.9 % (0-7); HEMATOCRIT 39.6 % (42.0-54.0); HEMOGLOBIN 12.9 g/dL (13.5-17.5); IMMATURE GRANULOCYTES 0.3 % (0-5); LYMPHOCYTES 11.2 % (15-50); MCH 29.5 pg (26.0-34.0); MCHC 32.6 g/dL (31.0-37.0); MCV 90.4 fL (80.0-100.0); MEAN PLATELET VOLUME 9.6 fL (7.4-10.4); NEUTROPHILS 80.5 % (40-80); PLATELET COUNT 283 10x3/uL (130-400); RBC 4.38 10x6/uL (4.20-6.10); RDW 15.6 % (11.5-14.5)
[2019-06-24 05:12] LABS: WBC 10.3 10x3/uL (4.8-10.8)
[2019-06-24 05:16] LABS: ALKALINE PHOSPHATASE 119 U/L (30-120); ALT (SGPT) 37 U/L (10-68); BILIRUBIN - TOTAL 0.68 mg/dL (0.2-1.3); CALCIUM 8.7 mg/dL (8.5-10.1); CARBON DIOXIDE 23.6 mmol/L (21.0-32.0); CHLORIDE - SERUM 97 mmol/L (98-107); CREATININE - SERUM 0.7 mg/dL (0.6-1.3); MAGNESIUM - SERUM 1.4 mg/dL (1.8-2.4); POTASSIUM - SERUM 4.2 mmol/L (3.5-5.1); PROTEIN - SERUM 7.4 g/dL (6.4-8.2); SODIUM 131 mmol/L (136-145); eGFR NON AFRICAN AMERICAN > 90 mL/min (90-120)
[2019-06-24 05:17] LABS: CALC OSMOLALITY 268 mosm/kg (275-300); GLUCOSE 248 mg/dL (74-106); UREA NITROGEN 7 mg/dL (7-18)
[2019-06-24 06:55] VITALS: BP 143/87
--- NOTE | 2019-06-24 07:44 | OP ---
PATIENT NAME: EDDA BARRAGAN JR MEDICAL RECORD: [id number] :69 LOCATION:[id number] ADMISSION DATE:06/13/19 SURGEON: BEAR DIETZ DO DATE OF OPERATION: 06/23/2019 PROCEDURE PERFORMED: Left foot second, third, fourth and fifth metatarsal open reduction internal fixation. PREOPERATIVE DIAGNOSES: Left foot second, third, fourth and fifth metatarsal fractures, displaced and comminuted. POSTOPERATIVE DIAGNOSES: Left foot second, third, fourth and fifth metatarsal fractures, displaced and comminuted. INDICATIONS: Mr. Barragan is a 53-year-old male who said he fell and hurt his left foot. He got x-ray and it showed the displaced fractures, luckily he did not get through the Lisfranc joint and that the base of the second stayed in place. He did have an extreme amount of swelling. I wrap him in a 2 x [address] dressing[address] He was that way for 10 days before the swelling came down and till his foot was amenable to surgery. I informed him that he would be at high risk for infection, bleeding, malunion, nonunion, continued pain due to his diabetes and due to the severity of the fractures that we would try to fix it and see if it would heal. He was okay with that and also aware of the risk of bleeding and afterwards blood clots, and even and he signed a consent. He also knew that he could have foot numbness due to the small nerves in the area that would get injured. He was okay with all that and signed the consent. SURGEON: Bear Dietz DO DESCRIPTION OF PROCEDURE: The patient was taken to the operative suite, after given a block by anesthesia in the preoperative area, given general anesthetic and 2 grams of Ancef. He then had an LMA placed. The left lower extremity was then prepped and draped in sterile fashion. Time-out was performed. Everyone was in agreeance with the correct side, site, patient, and procedure. We then first began with the fifth metatarsal, making a small incision on the lateral aspect of the foot and putting a K-wire through the canal of the fifth metatarsal, then used a 15 mm Acutrak screw, compressing the fracture site. After that was done, after drill was used to make overdrill to the pin. This was confirmed to be in good position on AP and lateral. We then exsanguinated the left lower extremity with an Esmarch and inflated the tourniquet to 350 mmHg, it was up for 100 minutes. I then made an incision in the midline in the foot in order to access all the three metatarsals that were fixing. Then, careful dissection was made down to the third metatarsal. The second metatarsal had somehow popped up over the third metatarsal and I had to reduce that extending the excision. This was then plated using Medline plate and screws. Then, the third metatarsal was addressed, it had more distal fracture and severely comminuted with segmental bone loss. I bridged that and put a screw into one of the segmental pieces that was lost and filled that in with the bone that was in the area, bridging the fracture site with the plate. I then dressed the fourth metatarsal in same fashion. It was also severely comminuted. I used a plate to bridge it and putting the comminuted pieces under the plate in hopes that they would serve for healing this. X-rays were then done and everything was confirmed to be in good position on AP, lateral, and oblique, and the tourniquet was then let down. The area was irrigated with normal saline and then closed with a 2-0 Prolene in a horizontal mattress fashion by Fernandez Gonzalez, OPERATIVE REPORT [id number] EDDA BARRAGAN JR certified surgical entry level administrative assistant and then dressed the foot with Adaptic, 4 x 4s, ABD on the heel and cast padding Kerlix and then Vargas wrap. He was then awakened and taken to recovery in stable condition. BLOOD LOSS: Approximately 50 mL. COMPLICATIONS: None. TRANSINT:[id number] Voice Confirmation ID: [id number] DOCUMENT ID: [id number] BEAR DIETZ DO at 0744 CC: [id number] DICTATION DATE: 06/23/19 1336 TURBINE INSPECTOR: 06/23/19 1503 ADM IN [facility] [address] [id number]
[2019-06-24 09:21] VITALS: BP 148/92
--- NOTE | 2019-06-24 11:06 | NUR ---
I have reviewed this patient and I concur with the Shift Assessment completed by the Licensed Practical Nurse today this shift.
--- NOTE | 2019-06-24 13:25 | NUR ---
Nutrition follow-up: s/p ORIF of foot fx Diet: ADA consistent CHO PO intake 100% of meals Labs reviewed Wt: 275# PO intake remains good Rehab screen in progress RDN following.
[2019-06-24 13:45] VITALS: BP 138/84
--- NOTE | 2019-06-24 14:04 | NUR ---
Rehab Prescreening Consult recieved and the chart has been reviewed. He is a good ARU candidate, but is only POD#1. Rehab will follow his progress with Therapy, and plan to accept when appropriate. Diamond Sykes RN Clinical Liaison, Rehab
[2019-06-24 17:06] VITALS: BP 145/85
[2019-06-24 20:00] VITALS: BP 138/86
--- NOTE | 2019-06-25 01:58 | NUR ---
ALERT AND ORENTED ABLE TO BVOICE NEEDS AND WANTS TO STAFF. ON ROOM AIR. IV TO RIGHT FA WITH NS AT 30ML/HR. DILAUDID ACCOUNT SERVICES COORDINATOR IN PLACE PER ORDERS. CALL LIGHT IN REACH BED LOW NO NEEDS.
[2019-06-25 04:00] VITALS: BP 138/56
[2019-06-25 08:48] VITALS: BP 164/95
--- NOTE | 2019-06-25 10:05 | NUR ---
WOKE HIM UP TO TAKE HIS MEDS AND EAT, THEN HE WENT BACK TO SLEEP.
[2019-06-25 10:19] LABS: BASOPHILS 0.1 % (0-2); EOSINOPHILS 1.2 % (0-7); HEMATOCRIT 38.8 % (42.0-54.0); HEMOGLOBIN 12.6 g/dL (13.5-17.5); IMMATURE GRANULOCYTES 0.3 % (0-5); MCH 29.2 pg (26.0-34.0); MCHC 32.5 g/dL (31.0-37.0); MEAN PLATELET VOLUME 9.6 fL (7.4-10.4); MONOCYTES 4.5 % (2-11); NEUTROPHILS 82.9 % (40-80); RBC 4.31 10x6/uL (4.20-6.10); RDW 15.5 % (11.5-14.5)
[2019-06-25 10:23] LABS: PLATELET COUNT 221 10x3/uL (130-400); WBC 7.6 10x3/uL (4.8-10.8)
[2019-06-25 10:29] LABS: CALCIUM 8.7 mg/dL (8.5-10.1); CARBON DIOXIDE 27.3 mmol/L (21.0-32.0); CHLORIDE - SERUM 98 mmol/L (98-107); CREATININE - SERUM 0.6 mg/dL (0.6-1.3); POTASSIUM - SERUM 4.1 mmol/L (3.5-5.1); SODIUM 134 mmol/L (136-145); eGFR NON AFRICAN AMERICAN > 90 mL/min (90-120)
[2019-06-25 10:30] LABS: CALC OSMOLALITY 278 mosm/kg (275-300); GLUCOSE 316 mg/dL (74-106); UREA NITROGEN 9 mg/dL (7-18)
[2019-06-25 13:01] VITALS: BP 157/95
[2019-06-25 15:23] VITALS: BP 92/50
[2019-06-25 16:46] VITALS: BP 153/100
--- NOTE | 2019-06-25 18:19 | NUR ---
REMOVED HIS IV, CALLED REPORT TO VIKAS TELLO ON REHAB UNIT, ROOM 1115.
--- NOTE | 2019-06-25 18:30 | MORECARE ---
CASE MANAGEMENT DISCHARGE SUMMARY PATIENT: EDDA BARRAGAN V JR UNIT: [id number] ADM DATE: 06/13/19 AGE: 53 : 69 SEX: M ROOM/BED: D.2233 AUTHOR: DOMINIK,DOC PHYSICIAN: REFERRING PHYSICIAN: GIULIANO BETANCOURT MD DATE OF SERVICE: 06/25/19 Discharge Plan Patient Name: EDDA BARRAGAN Facility: [facility]:[place] : 1965 Planned Disposition: Home or Self Care Anticipated Discharge Date: Discharge Date: Expected LOS: Initial Reviewer: [email or web address] Initial Review Date: 06/13/2019 Generated: 06/25/19 7:29 pm Comments DCP- Discharge Planning Updated by [email or web address]: Elvira Foy on 06/25/19 5:[address] D/C IMM SIGNED 06/25/19 @ 1610 PATIENT IS GOING TO INPATIENT REHAB @ [facility]. CHRISTOPHER SIGNED. CM WILL CONTINUE TO FOLLOW AND ASSIST NEEDED WITH DISCHARGE PLANNING / NEEDS. DCP- Discharge Planning Updated by [email or web address]: Alexandria Real on 06/17/19 3:[address] Patient Name: EDDA BARRAGAN Admission Status: ER Accout number: [id number] Admission Date: 06-13-2019 : 1965 Admission Diagnosis:PAIN IN LEFT FOOT Attending: GIULIANO BETANCOURT Current LOS: 4 Anticipated DC Date: Planned Disposition: Home or Self Care Primary Insurance: MEDICARE A & B Discharge Planning Comments: CM met with patient to complete initial dc planning assessment. CM educated patient on the CM role and verbal consent given by patient to complete assessment. Patient lives at home with his spouse where he was independent with his care. At discharge patient is unsure of his plan, it just depends on his needs. He states his has just had back surgery and can not help him. he is not safe to go home at this time. If swelling is better he should have surgery on Saturday. CM discussed availability of home health, rehab services, and medical equipment. He has a CPAP at his bedside. He will more than likely need retirement after surgery. Patient denied known discharge needs at this time. CM will continue to follow and will assist as needed with dc plans/needs. Chip Mixer: Alexandria Real DCPIA - Discharge Planning Initial Assessment Updated by [email or web address]: Alexandria Real on 06/17/19 4:37 pm * Is the patient Alert and Oriented? Yes * How many steps to enter\exit or inside your home? * PCP MARGARITA * Pharmacy [facility] * Preadmission Environment Home with Family * ADLs Independent * Equipment CPAP * List name and contact numbers for known caregivers / representatives who currently or will assist patient after discharge: LAURIE CHILO [phone] * Verbal permission to speak to the caregivers and representatives has been obtained from the patient. N/A * Community resources currently utilized Home Health * Additional services required to return to the preadmission environment? Yes * Can the patient safely return to the preadmission environment? No * Has this patient been hospitalized within the prior 30 days at any hospital? Yes Coverage Notice Reviewer: [email or web address] Ramila Foy Notice Issued Date-Time: 06/25/2019 10:00 Notice Type: Patient Choice Letter Notice Delivered To: Patient Relationship to Patient: Self Customer Service And Sales Consultant Name: Delivery Method: HAND - Hand Delivered Ritu Days: Prior Verbal Notification: Recipient Understood Notice: Yes Recipient Signature: Yes Med Rec Note Co-signed by Attending: Coverage Notice Comment: [facility] inpatient rehab Reviewer: [email or web address] Ramila Foy Notice Issued Date-Time: 06/25/2019 16:10 Notice Type: IM Discharge Notice Notice Delivered To: Patient Relationship to Patient: Self Customer Service And Sales Consultant Name: Delivery Method: HAND - Hand Delivered Ritu Days: Prior Verbal Notification: Recipient Understood Notice: Yes Recipient Signature: Yes Med Rec Note Co-signed by Attending: Coverage Notice Comment: Last DP export: 06/23/19 2:21 p Patient Name: EDDA BARRAGAN Page [id number] at 1830 All edits/amendments must be made on the electronic document DICTATION DATE: 06/25/191828 TRAINMAN: LOREN 06/25/191828 RPT#: [id number] DC DATE: STATUS: ADM IN [facility] [address] [place] [address] END OF REPORT
== END 2019-06-25 18:44 | DRG 503 ==
LOC: D.ER 20:37 → D.MS 21:41 → D.SDCHOLD 06-16 12:51 → D.MS 06-16 12:53
PROVIDERS: Emergency Medicine; Family Medicine; Orthopaedic Surgery; ADMIT Internal Medicine Nephrology; ATTEND Internal Medicine Nephrology
PROC: 0QSP04Z Reposition Left Metatarsal with Internal Fixation Device, Open Approach (ICD-10-PCS; principal; 2019-06-23 11:00)
DX: S92.322A Displaced fracture of second metatarsal bone, left foot, initial encounter for closed fracture (principal); G93.41 Metabolic encephalopathy; N39.0 Urinary tract infection, site not specified; T84.051A Periprosthetic osteolysis of internal prosthetic left hip joint, initial encounter; N17.9 Acute kidney failure, unspecified; F31.30 Bipolar disorder, current episode depressed, mild or moderate severity, unspecified; Z68.41 Body mass index [BMI] 40.0-44.9, adult; F17.203 Nicotine dependence unspecified, with withdrawal; R55 Syncope and collapse; I11.0 Hypertensive heart disease with heart failure; I50.9 Heart failure, unspecified; E11.51 Type 2 diabetes mellitus with diabetic peripheral angiopathy without gangrene; I25.10 Atherosclerotic heart disease of native coronary artery without angina pectoris; F41.8 Other specified anxiety disorders; E66.01 Morbid (severe) obesity due to excess calories; E03.9 Hypothyroidism, unspecified; W19.XXXA Unspecified fall, initial encounter; S92.332A Displaced fracture of third metatarsal bone, left foot, initial encounter for closed fracture; S92.342A Displaced fracture of fourth metatarsal bone, left foot, initial encounter for closed fracture; S92.352A Displaced fracture of fifth metatarsal bone, left foot, initial encounter for closed fracture

== ENCOUNTER 2019-06-25 17:12 | Inpatient (IN) | payer MEDICARE ==
[~2019-06-25] VITALS: Ht 170.2 cm; Wt 124.7 kg
[~2019-06-25 17:12] MED LIST changes: +OMNICEF300 MG PO
[2019-06-25 19:00] VITALS: BP 157/90
--- NOTE | 2019-06-25 21:33 | NUR ---
NEW ADMIT, CONSENTS SIGNED, ASSESSMENTS DONE, FALL PRECAUTIONS IN PLACE, FLUIDS/CALL LIGHT WITHIN REACH
[2019-06-25 23:48] VITALS: BP 157/90; BMI 43.2
--- NOTE | 2019-06-26 03:02 | NUR ---
PT ASLEEP, AROUSES EASILY TO VOICE, CPAP ON, FALL PRECAUTIONS IN PLACE, FLUIDS/CALL LIGHT WITHIN REACH
[2019-06-26 06:29] LABS: BASOPHILS 0.2 % (0-2); EOSINOPHILS 0.9 % (0-7); HEMATOCRIT 41.4 % (42.0-54.0); HEMOGLOBIN 13.4 g/dL (13.5-17.5); IMMATURE GRANULOCYTES 0.5 % (0-5); LYMPHOCYTES 11.8 % (15-50); MCH 29.5 pg (26.0-34.0); MCHC 32.4 g/dL (31.0-37.0); MEAN PLATELET VOLUME 9.4 fL (7.4-10.4); MONOCYTES 4.2 % (2-11); NEUTROPHILS 82.4 % (40-80); PLATELET COUNT 261 10x3/uL (130-400); RBC 4.55 10x6/uL (4.20-6.10); RDW 15.5 % (11.5-14.5)
[2019-06-26 06:56] LABS: CALCIUM 9.3 mg/dL (8.5-10.1); CHLORIDE - SERUM 99 mmol/L (98-107); CREATININE - SERUM 0.5 mg/dL (0.6-1.3); POTASSIUM - SERUM 4.7 mmol/L (3.5-5.1); SODIUM 134 mmol/L (136-145); UREA NITROGEN 10 mg/dL (7-18); eGFR NON AFRICAN AMERICAN > 90 mL/min (90-120)
[2019-06-26 06:58] LABS: CALC OSMOLALITY 274 mosm/kg (275-300); GLUCOSE 245 mg/dL (74-106)
[2019-06-26 07:08] LABS: WBC 11.1 10x3/uL (4.8-10.8)
--- NOTE | 2019-06-26 08:30 | NUR ---
The patient is resting, he asked for something to vomit in, provided him a cold wet washcloth to his head and neck. While this nurse went to get an emesis bucket the patient had a loose BM in the bed and he did not vomit. Assisted the patient to sit up, cleaned him up and changed his bed linens.
--- NOTE | 2019-06-26 08:37 | NUR ---
The patient c/o pain, rates his pain 8/10. Dilaudid po, see MAR.
[2019-06-26 09:50] VITALS: BP 135/84
--- NOTE | 2019-06-26 12:30 | NUR ---
The patient says his pain is 4/10 now, he tried to sit up and use the urinal. He had a small amount of BM on the sheetm changed the bottom sheet and the pink pad.
[2019-06-26 14:47] VITALS: Ht 170.2 cm; Wt 124.7 kg
--- NOTE | 2019-06-26 16:11 | NUR ---
The patient c/o pain rates it 11/11. Dilaudid po provided, see MAR.
--- NOTE | 2019-06-26 16:40 | NUR ---
The patient says his pain is less at this time.
[2019-06-26 20:00] VITALS: BP 153/93
--- NOTE | 2019-06-26 20:10 | NUR ---
PATIENT RECEIVED LAYING IN BED WITH HIS BIPAP ON. ASSESSMENT & VITAL SIGNS DONE. BED LOW. CALL LIGHT WITHIN REACH. WILL CONTINUE TO MONITOR.
--- NOTE | 2019-06-27 07:46 | NUR ---
LAYING FLAT IN BED, SHEET COVERING FACE, WOULD NOT RESPOND TO MY QUESTIONS. WHEN NURSE ASKED TO TAKE HIS BP AND RAISE HIS ARM, HE SLUNG IT OUT FORCEFULLY, HITTING NURSE. WEARING CPAP. RLE DISCOLORED AT ANKLE/LOW CALF AREA. CALL LIGHT IN REACH, BED IN LOWEST POSITION, SIDE RAILS UP X2.
[2019-06-27 08:00] VITALS: BP 149/85
--- NOTE | 2019-06-27 11:46 | NUR ---
ROLLING AROUND IN SHIELDS IN WC. HAS LLE ELEVATED ON FOOT PROP ON WC. DENIES NEEDS OR C/O.
[2019-06-27 20:20] VITALS: BP 140/91
--- NOTE | 2019-06-27 20:20 | NUR ---
PATIENT RECEIVED SITTING UP IN BED. CPAP ON 3L. VITAL SIGNS & ASSESSMENT DONE. LEFT FOOT DRESSING C/D/I. BED LOW. CALL LIGHT & URINALS WITHIN REACH. WILL CONTINUE TO MONITOR.
--- NOTE | 2019-06-27 23:47 | NUR ---
I have reviewed this patient and I concur with the Shift Assessment completed by the Licensed Practical Nurse today this shift.
--- NOTE | 2019-06-28 04:13 | NUR ---
PATIENT EYES CLOSED. CPAP CONTINUES. PAIN MEDICATION EFFECTIVE. BED LOW. URINALS & CALL LIGHT WITHIN REACH. WILL CONTINUE TO MONITOR.
[2019-06-28 08:00] VITALS: BP 142/84
--- NOTE | 2019-06-28 13:46 | NUR ---
LAYING DOWN IN BED TALKING ON PHONE AND WATCHING TV. HE GOT SELF UP TO USE BED SIDE COMMODE. LLE STILL WRAPED IN SUSAN BANDAGE. HE ASKS FOR PAIN MEDS EVERY 4 HOURS, ALMOST TO THE MINUTE. CALL LIGHT IN REACH
--- NOTE | 2019-06-28 20:00 | NUR ---
PATIENT RECEIVED SITTING UP IN BED WATCHING TV. VITAL SIGNS & ASSESSMENT DONE. SUSAN BANDAGE INTACT TO LEFT FOOT. PAIN LEVEL 5. PAIN MEDICATION GIVEN ON DAY SHIFT.BED LOW. CALL LIGHT WITHIN REACH. URINAL EMPTIED 200CC. WILL CONTINUE TO MONITOR.
[2019-06-28 20:14] VITALS: BP 125/83
--- NOTE | 2019-06-29 02:11 | NUR ---
I have reviewed this patient and I concur with the Shift Assessment completed by the Licensed Practical Nurse today this shift.
[2019-06-29 05:47] LABS: BASOPHILS 0.2 % (0-2); HEMATOCRIT 42.6 % (42.0-54.0); IMMATURE GRANULOCYTES 0.4 % (0-5); LYMPHOCYTES 24.4 % (15-50); MCH 28.9 pg (26.0-34.0); MCHC 32.9 g/dL (31.0-37.0); MEAN PLATELET VOLUME 9.6 fL (7.4-10.4); MONOCYTES 7.1 % (2-11); NEUTROPHILS 65.9 % (40-80); RBC 4.84 10x6/uL (4.20-6.10); RDW 15.2 % (11.5-14.5); WBC 10.2 10x3/uL (4.8-10.8)
[2019-06-29 06:01] LABS: PLATELET COUNT 391 10x3/uL (130-400)
[2019-06-29 06:27] LABS: CALC OSMOLALITY 277 mosm/kg (275-300); CALCIUM 9.9 mg/dL (8.5-10.1); CARBON DIOXIDE 21.9 mmol/L (21.0-32.0); CHLORIDE - SERUM 97 mmol/L (98-107); CREATININE - SERUM 0.9 mg/dL (0.6-1.3); POTASSIUM - SERUM 4.3 mmol/L (3.5-5.1); SODIUM 134 mmol/L (136-145); UREA NITROGEN 28 mg/dL (7-18); eGFR NON AFRICAN AMERICAN > 90 mL/min (90-120)
[2019-06-29 06:29] LABS: GLUCOSE 171 mg/dL (74-106)
[2019-06-29 07:55] VITALS: BP 130/84
--- NOTE | 2019-06-29 09:55 | NUR ---
LAYING IN BED WITH BIPAP IN PLACE. NO S/S DISTRESS. EYES CLOSED. BED IN LOWEST POSITION. HAS ATE BREAKFAST AND TAKEN AM MEDS. CALL LIGHT IN REACH
--- NOTE | 2019-06-29 10:41 | NUR ---
PATIENT ADMITTED TO REHAB FROM ACUTE FLOOR. DR. AVILA IS PATIENT PCP. DME AT HOME IS A C-PAP. HE HAS NO OUTSIDE SERVICES AT THIS TIME. DISCHARGE PLANS ARE FOR PATIENT TO RETURN HOME. WILL CONTINUE TO FOLLOW WITH PATIENT.
--- NOTE | 2019-06-29 13:47 | NUR ---
Nutrition Follow-up: Pt reports improved appetite and states he ate ~50% of breakfast this AM. Denies N/V. Diet: Diabetic Wt: 275# (06/25) Last BM: 06/27 Labs noted: Na 134, Glu 171 Meds noted: KDur, Lasix, Protonix, vitamin D, Oscal D, Glucophage, Glucotrol -Encourage PO intake and honor food preferences within diet restrictions. -Monitor wt. -RD following.
--- NOTE | 2019-06-29 15:59 | NUR ---
LAYING DOWN IN BED. ASKS FOR PAIN MEDS Q 4 HRS ALMOST TO THE MINUTE. LLE STILL WRAPPED IN SUSAN WRAP. CALL LIGHT IN REACH
--- NOTE | 2019-06-29 19:10 | NUR ---
GREETED PATIENT AND INTRODUCED MYSELF HIS NURSE. PATIENT IS LAYING IN BED WATCHING TV AT THIS TIME. LEFT LEG ELEVATED ON PILLOW FOR COMFORT. O2 AT 3L IN USE VIA NC. RESPIRATIONS EVEN. NO S/S OF DISTRESS. BEDSIDE SHIFT REPORT COMPLETED FROM OFF GOING NURSE. PATIENT DENIES ANY NEEDS AT THIS TIME. CALL LIGHT IN REACH.
[2019-06-29 19:30] VITALS: BP 112/61
--- NOTE | 2019-06-30 00:57 | NUR ---
PT RESTING QUIETLY WITH EYES CLOSED. RESPIRATIONS EVEN. NO S/S OF DISTRESS. CPAP IN USE. CALL LIGHT IN REACH.
--- NOTE | 2019-06-30 05:11 | NUR ---
PT AWAKE AND ADMINISTERED PRN PAIN MEDICATION FOR PAIN IN LEFT FOOT AND LEFT ANKLE. CALL LIGHT IN REACH.
[2019-06-30 07:00] VITALS: BP 121/75
--- NOTE | 2019-06-30 07:15 | NUR ---
REPORT RECEIVED. PT ALERT AND ORIENTED. ON CPAP DURING NIGHT. HAS SOFT CAST TO LEFT FOOT/ANKLE. GETS DILAUDID FOR PAIN. HAS OVERHEAD TRAPEZE BAR TO ASSIST IN SITTING UP. PT HAS NO COMPLAINTS OR NEEDS AT THIS TIME. WILL CONTINUE TO MONITOR. CALL LIGHT IN REACH.
--- NOTE | 2019-06-30 09:30 | NUR ---
PAIN MEDICATION GIVEN PER REQUEST.
--- NOTE | 2019-06-30 12:10 | NUR ---
PT IN ROOM EATING LUNCH. NO NEEDS AT THIS TIME. CALL LIGHT IN REACH.
--- NOTE | 2019-06-30 19:15 | NUR ---
GREETED PATIENT AND INTRODUCED MYSELF HIS NURSE. PATIENT IS RESTING QUIETLY WATCHING TV. RESPIRATIONS EVEN. NO S/S OF DISTRESS. DENIES ANY NEEDS AT THIS TIME. BEDSIDE SHIFT REPORT COMPLETE FROM OFF GOING NURSE. CALL LIGHT IN REACH.
[2019-06-30 23:05] VITALS: BP 111/61
--- NOTE | 2019-07-01 07:10 | NUR ---
ALERT AND ORIENTED, RESTING IN BED WITH CPAP ON. NO C/O PAIN. NO S/S OF ACUTE DISTRESS NOTED. SOFT CAST WITH ACCE WRAP TO LEFT FOOT. UP WITH ASSIST TO BEDSIDE COMMODE. DENIES ANY NEEDS AT THIS TIME. CALL LIGHT IN REACH. WILL CONTINUE TO MONITOR.
[2019-07-01 07:23] LABS: BASOPHILS 0.3 % (0-2); EOSINOPHILS 1.9 % (0-7); HEMATOCRIT 40.8 % (42.0-54.0); HEMOGLOBIN 13.5 g/dL (13.5-17.5); IMMATURE GRANULOCYTES 0.5 % (0-5); LYMPHOCYTES 24.5 % (15-50); MCHC 33.1 g/dL (31.0-37.0); MCV 87.7 fL (80.0-100.0); MEAN PLATELET VOLUME 9.6 fL (7.4-10.4); MONOCYTES 7.9 % (2-11); NEUTROPHILS 64.9 % (40-80); RBC 4.65 10x6/uL (4.20-6.10); RDW 15.2 % (11.5-14.5); WBC 7.8 10x3/uL (4.8-10.8)
[2019-07-01 07:33] LABS: CALC OSMOLALITY 280 mosm/kg (275-300); CALCIUM 9.3 mg/dL (8.5-10.1); CARBON DIOXIDE 22.8 mmol/L (21.0-32.0); CHLORIDE - SERUM 101 mmol/L (98-107); CREATININE - SERUM 0.8 mg/dL (0.6-1.3); GLUCOSE 163 mg/dL (74-106); SODIUM 136 mmol/L (136-145); UREA NITROGEN 27 mg/dL (7-18); eGFR NON AFRICAN AMERICAN > 90 mL/min (90-120)
[2019-07-01 07:40] LABS: PLATELET COUNT 294 10x3/uL (130-400)
[2019-07-01 08:00] VITALS: BP 117/69
--- NOTE | 2019-07-01 10:14 | NUR ---
PATIENT C/O PAIN TO LEFT FOOT, 10/11. GAVE PATIENT DILAUDID 4MG PER PHYSICIAN ORDERS. CALL LIGHT IN REACH. WILL CONTINUE TO MONITOR.
--- NOTE | 2019-07-01 12:30 | NUR ---
I have reviewed this patient and I concur with the Shift Assessment completed by the Licensed Practical Nurse today this shift.
--- NOTE | 2019-07-01 14:15 | NUR ---
PATIENT C/O PAIN TO LEFT FOOT, 11/11 D/T THERAPY. GAVE PATIENT DILAUDID 4 MG PER PHYSICIAN ORDERS. CALL LIGHT IN REACH. WILL CONTINUE TO MONITOR.
--- NOTE | 2019-07-01 16:19 | NUR ---
CARE TEAM MEETING: PATIENT ATTENDED MEETING. HIS QUESTIONS AND CONCERNS WERE ADDRESSED. TENATIVE DISCHARGE DATE IS 07/03/19. WILL CONTINUE TO FOLLOW WITH PATIENT.
--- NOTE | 2019-07-01 16:29 | RHP ---
PATIENT: EDDA BARRAGAN JR MEDICAL RECORD: [id number] ACCOUNT: [id number] [facility] [birth year] AD[facility]ION DATE: 06/25/19 REHABILITATION HISTORY AND PHYSICAL EXAMINATION POST ADMISSION PHYSICIAN EXAMINATION ADMITTING DIAGNOSIS: Disuse myopathy. HISTORY OF PRESENT ILLNESS: The patient is a 53-year-old gentleman who is morbidly obese, presented to the ED on 06/13/2019 with complaints of feeling weak, multiple falls and left foot and hip pain. He was discharged from the hospital on 06/12/2019 for treatment of UTI. He had some fractures of his first through his fifth metatarsals in a medial cuneiform fashion. 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 He has had left hip pain, but it has been worse in the last couple of weeks. The patient has a history of hypertension, CHF, coronary artery disease, coronary artery bypass grafting, obstructive sleep apnea, diabetes. He is on Eliquis for this. He has got a history of hypothyroidism, bipolar disorder and chronic back pain. He had orthopedic surgery consult done and they were unable to do surgery on his initial evaluation. 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 They plan to do a revision at some point. The patient was able to undergo a left foot ORIF on 06/23/2019 for his left foot second, third, fourth and fifth metatarsal fractures. He has been on physical therapy. He is currently ambulating 6 feet. He is nonweightbearing to his left lower extremity, he needs to be monitored closely for his left foot surgical area, pain control, monitoring his I's and O's, antibiotic therapy, lab values, electrolytes. He is on electrolyte protocol. He has got proximal muscle weakness, balance deficits, decreased activity tolerance, decreased strength, gait disturbance, limited safety awareness. He is at a risk for falls and fractures to his foot. He needs cues for using equipment. He is nonweightbearing. He has got low endurance, unsteady gait and balance, fatigues easily and inability to care for himself. These are all barriers to his discharge home. Lives at home with his , was independent with ADLs and mobility prior to this. He is currently set up for max assist for ADLs, mod to max assist for mobility. Plans to return home at his prior level of functioning or better. COMORBIDITIES: In this patient include morbid obesity, weakness, bipolar, syncope and collapse. He has got a history of multiple falls, electrolyte abnormalities, chronic anticoagulation, got a history of COPD, obstructive sleep apnea, morbid obesity, CHF. PAST MEDICAL HISTORY: Significant for diabetes, thyroid problems, hypertension, CHF, coronary artery disease, coronary artery bypass grafting, dyslipidemia, bipolar, COPD, tobacco use in the past. PAST SURGICAL HISTORY: Includes hip, foot, arm, extremity and coronary artery bypass grafting. ALLERGIES: LITHIUM AND ABILIFY. CURRENT MEDICATIONS: Include Os-David 1000 mg daily, he is on vitamin D 1000 units daily, lisinopril 20 mg daily, Plavix 75 mg daily, atorvastatin 20 mg daily, nystatin to apply topically, he is on Effexor 75 b.i.d., potassium 20 mEq b.i.d., Lopressor 100 mg b.i.d., furosemide 40 mg b.i.d., Norvasc 5 mg daily, HISTORY AND PHYSICAL [id number] EDDA BARRAGAN JR metformin 500 mg b.i.d., glipizide 5 mg b.i.d., Protonix 40 mg daily, Synthroid 50 mcg daily, he is on Dilaudid 4 mg every 4 hours p.r.n., Omnicef 300 mg b.i.d., and zolpidem 10 mg at bedtime. HABITS: No alcohol or tobacco use at this time. FAMILY HISTORY: Noncontributory. SOCIAL HISTORY: The patient hopes to return back home with his . REVIEW OF SYSTEMS: GENERAL: Does complain of weakness and fatigue. HEENT: Denies cold, cough, or congestion. CARDIOVASCULAR: Denies chest pain. PHYSICAL EXAMINATION: VITAL SIGNS: Stable, afebrile. GENERAL: A morbidly obese gentleman in no acute distress upon exam. HEENT: Normocephalic and atraumatic. Mucosa moist. NECK: Supple without lymphadenopathy. LUNGS: Clear in [place]. No wheeze, rhonchi or rales. HEART: Regular rate and rhythm. No murmurs, rubs or gallops. ABDOMEN: Soft, benign and nondistended. Positive bowel sounds times 4. EXTREMITIES: No clubbing, cyanosis or edema. Postop area looks pretty good. NEUROLOGIC: He does have noted weakness. LABORATORY DATA: White count is 11,000, H&H of 13 and 41 and platelet count is 261. His sodium is 134, potassium 4.7, BUN and creatinine of 10 and 0.5 and blood sugar is noted to be 245. ASSESSMENT: This is a 53-year-old gentleman admitted to the rehab with a working diagnosis of disuse myopathy. The patient has potential to make improvement. We instituted the following multiple disciplinary therapies include, but not limited to physical, occupational, respiratory, speech, nutritional services, prosthetics and orthotics. Given his complex medical condition and risks for more complications, rehabilitation services cannot be provided at a low level of care such a skilled nurse facility. PLAN: 1. Admit to [facility] for intensive inpatient therapy to include the following disciplines; A. Physical therapy to improve gait, all transfer skills and bed mobility to a modified independent level. B. Occupational therapy to improve activities of daily living. C. Case management to assist with discharge planning and placement options. D. Nutrition to assist with nutritional needs. E. Rehabilitation nursing to assist in monitoring the patient's underlying medical conditions and to assist with any type bowel or bladder management. 2. The patient's current medications and medical care will be continued. 3. The patient will be placed on standard fall precautions. 4. We will follow vitamin D levels and treat his blood sugar throughout his stay. 5. We will see him again in the a.m. TRANSINT:[id number] Voice Confirmation ID: [id number] DOCUMENT ID: [id number] HISTORY AND PHYSICAL [id number] EDDA BARRAGAN JR notes whether there has been none or any medical/functional change since admission: - No change since pre-admission screen. ALEA attests patient continues to be appropriate for IRF: - Continues to be appropriate. MELONY RODRIGUEZ MD at 1629 CC: [id number] DICTATION DATE: 06/26/19904 DIRECTOR OF STRATEGIC SALES: 06/26/19 1013 ADM IN [id number] [place] [address]
--- NOTE | 2019-07-01 18:10 | NUR ---
ALERT AND ORIENTED, RESTING IN BED WITH EYES OPEN. NO C/O PAIN. NO S/S OF ACUTE DISTRESS NOTED. DENIES ANY NEEDS AT THIS TIME. CALL LIGHT IN REACH. WILL CONTINUE TO MONITOR.
--- NOTE | 2019-07-01 19:10 | NUR ---
GREETED PATIENT AND INTRODUCED MYSELF HIS NURSE. PATIENT IS LAYING IN BED RESTING AT THIS TIME WITH CPAP MACHINE IN USE. RESPIRATIONS EVEN. NO S/S OF DISTRESS. DENIES ANY FURTHER NEEDS AT THIS TIME. CALL LIGHT IN REACH.
[2019-07-01 20:33] VITALS: BP 109/70
--- NOTE | 2019-07-02 01:25 | NUR ---
PT RESTING QUIETLY WITH EYES CLOSED. RESPIRATIONS EVEN. NO S/S OF DISTRESS. CPAP IN USE. CALL LIGHT IN REACH.
--- NOTE | 2019-07-02 04:08 | NUR ---
PT RESTING QUIETLY WITH EYES CLOSED. RESPIRATIONS EVEN. NO S/S OF DISTRESS. CPAP IN USE. CALL LIGHT IN REACH.
[2019-07-02 08:00] VITALS: BP 113/65
--- NOTE | 2019-07-02 08:00 | NUR ---
PATIENT IN BED RESTING, CPAP IN USE, DENIES ANY NEEDS AT THIS TIME, C/L AND H2O IN REACH, ASSESSMENT COMPLETED.
--- NOTE | 2019-07-02 12:00 | NUR ---
PT. IN BED RESTING WATCHING TV, DENIES ANY NEEDS AT THIS TIME, C/L AND H2O IN REACH.
--- NOTE | 2019-07-02 16:12 | NUR ---
PT. LYING IN BED RESTING WITH EYES CLOSED, NO S/S OF DISTRESS NOTED, C/L AND H2O IN REACH
[2019-07-02 20:00] VITALS: BP 107/68
--- NOTE | 2019-07-02 20:00 | NUR ---
PATIENT RECEIVED LAYING IN BED. ASSESSMENT & VITAL SIGNS DONE. PAIN MEDICATION GIVEN WAS EFFECTIVE. BED LOW. CALL LIGHT & URINALS WITHIN REACH. WILL CONTINUE TO MONITOR.
--- NOTE | 2019-07-03 03:09 | NUR ---
I have reviewed this patient and I concur with the Shift Assessment completed by the Licensed Practical Nurse today this shift.
--- NOTE | 2019-07-03 04:48 | NUR ---
PATIENT EYES CLOSED. CONTINUES ON CPAP. BED LOW. URINALS & CALL LIGHT WITHIN REACH. WILL CONTIUE TO MONITOR.
--- NOTE | 2019-07-03 07:45 | NUR ---
RESTING QUIETLY WITH EYES CLOSED,AROUSES EASILY TO VERBAL STIMULI,DENIES NEEDS AT PRESENT TIME.IS ORIENTED X 4.DRESSING WITH SOFT CAST INTACT CLEAN AND DRY.WILL CONTINUE WITH CURRENT PLAN OF CARE.POSSIBLE DISCHARGE TODAY.CL IN EASY REACH.
[2019-07-03 08:00] VITALS: BP 114/70
[2019-07-03 08:04] LABS: BASOPHILS 0.3 % (0-2); EOSINOPHILS 1.8 % (0-7); HEMOGLOBIN 13.3 g/dL (13.5-17.5); IMMATURE GRANULOCYTES 0.3 % (0-5); MCH 28.9 pg (26.0-34.0); MCHC 32.4 g/dL (31.0-37.0); MCV 89.1 fL (80.0-100.0); MEAN PLATELET VOLUME 9.9 fL (7.4-10.4); MONOCYTES 8.5 % (2-11); NEUTROPHILS 67.1 % (40-80); PLATELET COUNT 258 10x3/uL (130-400); RDW 15.1 % (11.5-14.5); WBC 6.5 10x3/uL (4.8-10.8)
[2019-07-03 08:15] LABS: CALC OSMOLALITY 280 mosm/kg (275-300); CALCIUM 9.3 mg/dL (8.5-10.1); CHLORIDE - SERUM 102 mmol/L (98-107); CREATININE - SERUM 0.8 mg/dL (0.6-1.3); GLUCOSE 148 mg/dL (74-106); SODIUM 138 mmol/L (136-145); UREA NITROGEN 18 mg/dL (7-18); eGFR NON AFRICAN AMERICAN > 90 mL/min (90-120)
--- NOTE | 2019-07-03 10:16 | NUR ---
PATIENT DISCHARGING HOME TODAY WITH FAMILY. [facility] WILL PROVIDE THERAPY AT HOME. [facility] WILL DELIVER A TUB TRANSFER BENCH TO PATIENT HOME. [facility] AND [facility] SERVED, EXPLAINED AND SIGNED . ONE GIVEN TO PATIENT AND FILED IN CHART. NO COMPARE DATA REVIEWED PER PATIENT REQUEST. DR. AVILA 07/07/19 @ 8:15, DR. DIETZ 07/16/19 @ 2:30. DISCHARGE INSTRUCTIONS FAXED TO [facility] AND REVIEWED WITH PATIENT PER PRIMARY NURSE.
--- NOTE | 2019-07-03 12:30 | NUR ---
REVIEWED MEDICATIONS.HAS CALLED PHARMACY ABOUT RENEWING HIS MEDS.
--- NOTE | 2019-07-03 13:30 | NUR ---
DISCHARGED HOME VIA WHEELCHAIR TO CAR.HAS ALL PERSONAL ITEMS AND PRESCRIPTION,AND INSTRUCTIONS.
== END 2019-07-03 13:30 | disposition home health service (06) | DRG 91 ==
LOC: D.REHAB 17:12
PROVIDERS: ADMIT Emergency Medicine; ATTEND Emergency Medicine
DX: G72.89 Other specified myopathies (principal); G93.41 Metabolic encephalopathy; N39.0 Urinary tract infection, site not specified; T84.051A Periprosthetic osteolysis of internal prosthetic left hip joint, initial encounter; F31.30 Bipolar disorder, current episode depressed, mild or moderate severity, unspecified; Z68.41 Body mass index [BMI] 40.0-44.9, adult; F17.203 Nicotine dependence unspecified, with withdrawal; S92.322D Displaced fracture of second metatarsal bone, left foot, subsequent encounter for fracture with routine healing; I25.10 Atherosclerotic heart disease of native coronary artery without angina pectoris; I11.0 Hypertensive heart disease with heart failure; I50.9 Heart failure, unspecified; E66.01 Morbid (severe) obesity due to excess calories; E11.9 Type 2 diabetes mellitus without complications; J44.9 Chronic obstructive pulmonary disease, unspecified

== ENCOUNTER 2019-07-05 10:01 | Emergency (ER) | payer MEDICARE ==
[2019-07-05 10:14] VITALS: Ht 170.2 cm
[2019-07-05 11:18] VITALS: BP 145/90
== END 2019-07-05 11:18 | disposition home or self-care (01) ==
LOC: D.ER 10:01
DX: G89.18 Other acute postprocedural pain (principal); M79.672 Pain in left foot; E11.9 Type 2 diabetes mellitus without complications; E07.9 Disorder of thyroid, unspecified; I10 Essential (primary) hypertension; J44.9 Chronic obstructive pulmonary disease, unspecified; K21.9 Gastro-esophageal reflux disease without esophagitis; Z79.84 Long term (current) use of oral hypoglycemic drugs

== ENCOUNTER 2019-07-14 14:32 | Inpatient (IN) | payer MEDICARE ==
[~2019-07-14] VITALS: Ht 170.2 cm; Wt 124.7 kg
[2019-07-14] VITALS (10 sets, daily range): BP systolic 101–156; BP diastolic 66–91; BMI 43.5; BMI 43.2
[2019-07-14 14:53] LABS: HEMATOCRIT 45.6 % (42.0-54.0); HEMOGLOBIN 14.7 g/dL (13.5-17.5); MCH 29.7 pg (26.0-34.0); MCHC 32.2 g/dL (31.0-37.0); MCV 92.1 fL (80.0-100.0); MEAN PLATELET VOLUME 10.1 fL (7.4-10.4); RBC 4.95 10x6/uL (4.20-6.10); RDW 16.7 % (11.5-14.5); WBC 15.6 10x3/uL (4.8-10.8)
[2019-07-14] MEDS ORDERED: LEVAQUIN750 MG PO (15:08)
[2019-07-14] MEDS ORDERED: DILAUDID4 MG PO (15:10)
[2019-07-14] MEDS ORDERED: TRULICITY0.75 MG/0. SC (15:12)
[2019-07-14] MEDS ORDERED: BACLOFEN10 MG PO (15:13)
[2019-07-14] MEDS ORDERED: LOTENSIN20 MG (15:13)
[2019-07-14] MEDS ORDERED: LYRICA75 MG PO (15:13)
[2019-07-14 15:23] LABS: CALC OSMOLALITY 277 mosm/kg (275-300); CALCIUM 9.5 mg/dL (8.5-10.1); CHLORIDE - SERUM 99 mmol/L (98-107); CREATININE - SERUM 0.8 mg/dL (0.6-1.3); GLUCOSE 202 mg/dL (74-106); POTASSIUM - SERUM 4.5 mmol/L (3.5-5.1); SODIUM 135 mmol/L (136-145); UREA NITROGEN 18 mg/dL (7-18); eGFR NON AFRICAN AMERICAN > 90 mL/min (90-120)
--- NOTE | 2019-07-14 17:42 | NUR ---
1700-iv sited to r hand x 1 22g. 1745-report called to Mildred Rodriges RN. To await surgery in room 2229. Dr Huber here to see patient. 175-transported to room 2229 via stretcher with personal belongings.
--- NOTE | 2019-07-14 18:15 | NUR ---
REC'D FROM SURGERY SUITE AT THIS TIME AWAKE AND ALERT. RESP EVEN AND UNLABORED WITH NO DISTRESS NOTED. CAN EXPRESS NEEDS AND WANTS. NO C/O NOTED OR VOICED AT THIS TIME. ASSESSMENT COMPLETED. AWAITING TO GO TO SURGERY AT 2100. C/L IN REACH AT BEDSIDE.
--- NOTE | 2019-07-14 19:20 | NUR ---
LYING IN BED WAITING FOR SURGERY SCHEDULED AT 1999. NO DISTRESS. CL IN REACH. ALERT AND ORIENTED X4.
--- NOTE | 2019-07-14 19:55 | NUR ---
PT TAKEN TO SURGERY AT THIS TIME.
--- NOTE | 2019-07-14 21:00 | NUR ---
RECEIVED FROM PACU VIA BED. ALERT AND ORIENTED X4. REQUESTING FOOD. WOUND VAC NOTED TO LT FOOT WITH SMALL AMOUNT OF BLOODY DRAINAGE IN TUBING. USED URINAL. RATES PAIN IN LT FOOT 8 AND ASKING FOR PAIN MED. JUST RECEIVED DEMEROL 20 MIN AGO. SCDS ON BILAT. 1/2 NS @ 50 ML/HR INFUSING IN RT HAND. BLE ARE DISCOLORED BROWN FROM WHAT APPEARS TO BE PVD. SOWMYA ALARM ON FOR PT SAFETY. V/S STABLE. SR ELEVATED X2. CL IN REACH.
--- NOTE | 2019-07-14 23:30 | NUR ---
MEDICATED WITH DILAUDID ORDERED FOR C/O LT FOOT PAIN. HAS TOLERATED DIET. NO DISTRESS. V/S STABLE. CL IN REACH. SOWMYA ALARM ON.
[2019-07-15] VITALS (8 sets, daily range): BP systolic 120–156; BP diastolic 66–90; Ht 170.2 cm; Wt 124.7 kg
--- NOTE | 2019-07-15 03:38 | NUR ---
MEDICATED WITH DILAUDID FOR C/O PAIN IN LT FOOT. CL IN REACH. TALKATIVE AND LAUGHING AND WATCHING TV.
[2019-07-15 05:46] LABS: HEMATOCRIT 41.1 % (42.0-54.0); HEMOGLOBIN 13.2 g/dL (13.5-17.5)
--- NOTE | 2019-07-15 07:15 | NUR ---
REC'D IN BED AWAKE AND ALERT. RESP EVEN AND UNLABORED WITH NO DISTRESS NOTED. CAN EXPRESS NEEDS AND WANTS. NO C/O NOTED OR VOICED OF YET. WOUND VAC INTACT TO LEFT FOOT AND WORKING PROPERLY. ASSESSMENT COMPLETED. C/L IN REACH AT BEDSIDE.
--- NOTE | 2019-07-15 07:58 | OP ---
PATIENT NAME: EDDA BARRAGAN JR MEDICAL RECORD: [id number] :69 LOCATION:D.MS Simmons2229 ADMISSION DATE:07/14/19 SURGEON: SHAHEEN DIETZ DO DATE OF OPERATION: 07/14/2019 PROCEDURE PERFORMED: Left foot irrigation and debridement with wound VAC application. PREOPERATIVE DIAGNOSIS: Surgical wound dehiscence of the left foot. POSTOPERATIVE DIAGNOSIS: Surgical wound dehiscence of the left foot. INDICATION FOR PROCEDURE: Mr. Barragan is a 53-year-old male who about a month ago underwent open reduction internal fixation of his metatarsals with a single incision on the center of his foot. He was doing well. He had the sutures removed last week and then he started putting weight on it against advice and it split open at the distal portion. He came to the clinic today and we admitted him for surgery tonight. I informed him of the risks including infection, possible amputation, removal of hardware, continued pain, prolonged wound VAC usage, blood clots, and even and he signed the consent. SURGEON: Shaheen Dietz DO DESCRIPTION OF PROCEDURE: The patient was taken to the operative suite, laid in supine position, given TIVA first and then did not tolerate that and then given general anesthetic and LMA was placed. He was given 2 grams of Ancef preoperatively. The left lower extremity was prepped and draped in sterile fashion. Timeout was performed. Everyone was agreeance with the correct side, site, patient and procedure. We then began by irrigating the wound with a 1.5 mL normal saline. There is no purulence or anything in the wound and then debrided the edges with a pickup and a 15 blade and then also curettes cleaning up the wound edges. I then irrigated the rest of the wound that measured 4 cm x 1 cm x 2 cm deep. After irrigating, I put a wound VAC sponge and sealed that and then put the wound VAC on. It was holding a good suction after that. He was awakened and taken to recovery in stable condition. BLOOD LOSS: Minimal. COMPLICATION: None. TRANSINT:[id number] Voice Confirmation ID: [id number] DOCUMENT ID: [id number] SHAHEEN DIETZ DO at 0758 CC: [id number] DICTATION DATE: 07/14/192050 QA LEAD: 07/15/19 0218 ADM IN [facility] [address] [id number]
--- NOTE | 2019-07-15 08:00 | NUR ---
WAS MEDICATED WITH DILAUDID FOR C/O LEFT FOOT PAIN. C/L IN REACH AT BEDSIDE.
[2019-07-15 08:52] LABS: CALC OSMOLALITY 276 mosm/kg (275-300); CALCIUM 8.9 mg/dL (8.5-10.1); CARBON DIOXIDE 23.1 mmol/L (21.0-32.0); CHLORIDE - SERUM 100 mmol/L (98-107); CREATININE - SERUM 0.8 mg/dL (0.6-1.3); GLUCOSE 195 mg/dL (74-106); POTASSIUM - SERUM 4.6 mmol/L (3.5-5.1); SODIUM 135 mmol/L (136-145); UREA NITROGEN 18 mg/dL (7-18); eGFR NON AFRICAN AMERICAN > 90 mL/min (90-120)
[2019-07-15 09:29] LABS: ERYTHROCYTE SEDIMENTATION RATE 20 mm/hr (0-20)
--- NOTE | 2019-07-15 12:12 | NUR ---
WAS MEDICATED FOR C/O LEFT FOOT PAIN WITH DILUADID PER ORDERS. C/L IN REACH AT BEDSIDE.
--- NOTE | 2019-07-15 12:30 | NUR ---
LYING IN BED,WITHOUT DISTRESS.
[2019-07-15 12:34] LABS: BILIRUBIN NEGATIVE (NEGATIVE); GLUCOSE NEGATIVE (NEGATIVE); KETONE NEGATIVE (NEGATIVE); NITRITE NEGATIVE (NEGATIVE); SPECIFIC GRAVITY 1.005 (1.005-1.020); UROBILINOGEN NORMAL (NORMAL)
--- NOTE | 2019-07-15 13:23 | MORECARE ---
CASE MANAGEMENT DISCHARGE SUMMARY PATIENT: EDDA BARRAGAN V JR UNIT: [id number] ADM DATE: 07/14/19 AGE: 53 : 69 SEX: M ROOM/BED: D.2229 AUTHOR: MURRAY LEHMAN PHYSICIAN: REFERRING PHYSICIAN: SHAHEEN DIETZ DO DATE OF SERVICE: 07/15/19 Discharge Plan Patient Name: EDDA BARRAGAN Facility: [facility]:[place] : 1965 Planned Disposition: Anticipated Discharge Date: Discharge Date: Expected LOS: Initial Reviewer: [email or web address] Initial Review Date: 07/14/2019 Generated: 07/15/19 2:23 pm Patient Name: EDDA BARRAGAN Page [phone] at 1323 All edits/amendments must be made on the electronic document DICTATION DATE: 07/15/19 1323 RAILROAD MECHANIC: LOREN 07/15/19 1323 RPT#: [id number] DC DATE: STATUS: ADM IN [facility] [address] [place] [address] END OF REPORT
--- NOTE | 2019-07-15 15:36 | NUR ---
I & D ON 07/13 - LEFT FOOT WITH WOUND VAC APPLICATION. VAC DRESSING INTACT.
--- NOTE | 2019-07-15 16:33 | NUR ---
C/O PA IN RATING 7/10 ON PAIN SCALE MEDICATED WTH DILUADID PER ORDERS. C/L IN REACH AT BEDSIDE.
--- NOTE | 2019-07-15 18:33 | NUR ---
OT NOTE: PT COMPLETED BED MOB TASKS WITH SBA. PT COMPLETED FACE HYGIENE WITH SETUP. PT COMPLETED UE AROM WITH FUNCTIONAL TASKS. [id number] THANK YOU,RULA CANTRELL
[2019-07-16] VITALS (7 sets, daily range): BP systolic 129–150; BP diastolic 77–89
[2019-07-16 05:39] LABS: HEMATOCRIT 45.1 % (42.0-54.0); HEMOGLOBIN 14.6 g/dL (13.5-17.5)
[2019-07-16 09:22] LABS: BASOPHILS 0.1 % (0-2); EOSINOPHILS 0.7 % (0-7); HEMATOCRIT 46.1 % (42.0-54.0); HEMOGLOBIN 14.7 g/dL (13.5-17.5); IMMATURE GRANULOCYTES 0.8 % (0-5); LYMPHOCYTES 11.5 % (15-50); MCH 29.1 pg (26.0-34.0); MCHC 31.9 g/dL (31.0-37.0); MCV 91.1 fL (80.0-100.0); MEAN PLATELET VOLUME 9.8 fL (7.4-10.4); MONOCYTES 5.8 % (2-11); NEUTROPHILS 81.1 % (40-80); PLATELET COUNT 199 10x3/uL (130-400); RBC 5.06 10x6/uL (4.20-6.10); RDW 16.8 % (11.5-14.5); WBC 14.6 10x3/uL (4.8-10.8)
[2019-07-16 09:43] LABS: CALC OSMOLALITY 276 mosm/kg (275-300); CALCIUM 9.2 mg/dL (8.5-10.1); CARBON DIOXIDE 26.9 mmol/L (21.0-32.0); CHLORIDE - SERUM 100 mmol/L (98-107); CREATININE - SERUM 0.8 mg/dL (0.6-1.3); GLUCOSE 182 mg/dL (74-106); POTASSIUM - SERUM 4.3 mmol/L (3.5-5.1); SODIUM 134 mmol/L (136-145); eGFR NON AFRICAN AMERICAN > 90 mL/min (90-120)
[2019-07-16 09:46] LABS: UREA NITROGEN 23 mg/dL (7-18)
--- NOTE | 2019-07-16 15:12 | NUR ---
OT NOTE: PT IN BED. STATED THAT HE HAD JUST BEEN SITTING UP ON EOB; ASKED IF PT WOULD LIKE FOR ME TO GET HIM A CHAIR BUT HE DECLINED. STATED THAT HE WAS HAVING 1 MORE SURGERY TOMORROW THEN PLANS TO RETURN HOME LORI MILTON, OTR/L [phone]
[2019-07-17] VITALS: BP 149/87
--- NOTE | 2019-07-17 03:08 | NUR ---
ALERT AND ORENTED X4 ABLE TO VOICE NEEDS AND WANTS TO STAFF. USING C-PAP AT NIGHT. CALL LIGHT IN REACH ON CELL PHONE OFTEN. NO NEEDS A THIS TIME .
[2019-07-17 04:00] VITALS: BP 169/93
[2019-07-17 04:59] LABS: BASOPHILS 0.1 % (0-2); EOSINOPHILS 0.7 % (0-7); HEMATOCRIT 46.6 % (42.0-54.0); HEMOGLOBIN 15.2 g/dL (13.5-17.5); IMMATURE GRANULOCYTES 0.6 % (0-5); LYMPHOCYTES 11.7 % (15-50); MCH 29.5 pg (26.0-34.0); MCHC 32.6 g/dL (31.0-37.0); MCV 90.3 fL (80.0-100.0); MEAN PLATELET VOLUME 9.8 fL (7.4-10.4); MONOCYTES 6.5 % (2-11); NEUTROPHILS 80.4 % (40-80); PLATELET COUNT 181 10x3/uL (130-400); RBC 5.16 10x6/uL (4.20-6.10); RDW 16.5 % (11.5-14.5); WBC 15.1 10x3/uL (4.8-10.8)
[2019-07-17 05:10] LABS: CALC OSMOLALITY 277 mosm/kg (275-300); CALCIUM 9.1 mg/dL (8.5-10.1); CARBON DIOXIDE 23.8 mmol/L (21.0-32.0); CHLORIDE - SERUM 101 mmol/L (98-107); CREATININE - SERUM 0.8 mg/dL (0.6-1.3); POTASSIUM - SERUM 4.4 mmol/L (3.5-5.1); SODIUM 133 mmol/L (136-145); UREA NITROGEN 23 mg/dL (7-18); eGFR NON AFRICAN AMERICAN > 90 mL/min (90-120)
[2019-07-17 05:18] LABS: GLUCOSE 239 mg/dL (74-106)
--- NOTE | 2019-07-17 07:00 | NUR ---
RECEIVED REPORT FROM CRUISE CONSULTANT. UPON ENTERING PT IS ALERT AND ORIENTED X4. RIGHT HAND IV, ACHS BLOOD SUGAR. POST OP +3 DAYS I&D LEFT FOOT, WOUND VAC TO THE LEFT FOOT. NON-WEIGHT BEARING ON THE LEFT FOOT. SURGERY THIS MORNING TO COMPLETE I&D. DENIES ANY NEEDS. WILL CONTINUE TO MONITOR.
--- NOTE | 2019-07-17 07:30 | NUR ---
PT OUT FOR SURGERY.
[2019-07-17] MEDS ORDERED: DILAUDID4 MG PO (08:58)
--- NOTE | 2019-07-17 09:40 | MORECARE ---
CASE MANAGEMENT DISCHARGE SUMMARY PATIENT: EDDA BARRAGAN V JR UNIT: [id number] ADM DATE: 07/14/19 AGE: 53 : 69 SEX: M ROOM/BED: D.2229 AUTHOR: MURRAY LEHMAN PHYSICIAN: REFERRING PHYSICIAN: SHAHEEN DIETZ DO DATE OF SERVICE: 07/17/19 Discharge Plan Patient Name: EDDA BARRAGAN Facility: [facility]:[place] : 1965 Planned Disposition: Anticipated Discharge Date: Discharge Date: Expected LOS: Initial Reviewer: [email or web address] Initial Review Date: 07/14/2019 Generated: 07/17/19 10:39 am Comments DCP- Discharge Planning Updated by [email or web address]: Carleen Kenney on 07/17/19 8:[address] Patient Name: EDDA BARRAGAN Admission Status: Elective Accout number: [id number] Admission Date: 07-14-2019 : 1965 Admission Diagnosis:DISRUPTION OF WOUND, UNSPECIFIED, INITIAL ENCOUNTER Attending: SHAHEEN DIETZ Current LOS: 3 Anticipated DC Date: Planned Disposition: Primary Insurance: MEDICARE A & B Discharge Planning Comments: CM met with patient at bedside after explaining CM role and obtaining verbal consent. CM discussed availability / needs of home health, REHAB and medical equipment. PATIENT DENIES ANY DISCHARGE NEEDS. States current with care 4 but states he doesn't want HH anymore. He states he will call and cancel HH. States he is going to use a wound clinic. imm signed. CM to follow and assist. Tool Room Lathe Operator: Carleen Kenney Coverage Notice Reviewer: [id number] - Carleen Kenney Notice Issued Date-Time: 07/17/2019 9:34 Notice Type: IM Discharge Notice Notice Delivered To: Patient Relationship to Patient: Fertilizer Loader Name: Delivery Method: HAND - Hand Delivered Ritu Days: Prior Verbal Notification: Recipient Understood Notice: Yes Recipient Signature: Yes Med Rec Note Co-signed by Attending: Coverage Notice Comment: Last DP export: 07/15/19 12:23 p Patient Name: EDDA BARRAGAN Page [phone] at 0940 All edits/amendments must be made on the electronic document DICTATION DATE: 07/17/19938 HAIRSPRING INSPECTOR: DM 07/17/19938 RPT#: [id number] DC DATE: STATUS: ADM IN [facility] [address] [facility] [place] [address] END OF REPORT
--- NOTE | 2019-07-17 10:08 | NUR ---
ADMINISTERED MEDICATION, NO DIFFICULTY. HUNG IV ANTIBIOTICS. NO COMPLAINT. PT EATING BREAKFAST. RESTING COMFORTABLY IN BED. DENIES ANY NEEDS AT THIS TIME. WILL CONTINUE TO MONITOR.
--- NOTE | 2019-07-17 11:26 | NUR ---
DC IV FROM RIGHT HAND, CATHETER TIP INTACT. ALL PAPER WORK SIGNED. TEJA NEW ESCORTING PT DOWN VIA WHEELCHAIR. DENIES ANY NEEDS.
--- NOTE | 2019-07-17 14:31 | OP ---
PATIENT NAME: RASHID BARRAGAN JR MEDICAL RECORD: [id number] :69 LOCATION:D.MS Simmons2229 ADMISSION DATE:07/14/19 SURGEON: SHAHEEN DIETZ DO DATE OF OPERATION: 07/17/2019 PROCEDURE PERFORMED: Left foot irrigation and debridement with Kerecis applications. PREOPERATIVE DIAGNOSIS: Left foot surgical wound dehiscence. POSTOPERATIVE DIAGNOSIS: Left foot surgical wound dehiscence. INDICATIONS: Mr. Rashid Barragan is a 53-year-old male who had a foot open reduction internal fixation of 4/5 metatarsals a few weeks ago, almost a month ago now. He presented to the office with an open wound. After having the sutures removed last week on Saturday, I did a debridement with a wound VAC application then and then to close the wound decided to do Kerecis application today with a Prevena plus VAC application. He was aware of the risks including infection, bleeding, damage to nerves or vessels, need for further surgery, failure of wound to close, amputation, continued pain and signed the consent. SURGEON: Shaheen Dietz DO DESCRIPTION OF PROCEDURE: The patient was taken to the operative suite, laid in supine position, given general anesthetic. Left lower extremity was prepped and draped in sterile fashion after he was sedated and LMA was placed. Time-out was performed and everyone was in agreement with correct side, site, patient and procedure. I then began with a #15 blade scalpel and did a debridement of the wound, which measured 4 cm x 1 cm x 1 cm. Once I got bleeding edges with that, I did 2 liters normal saline, irrigated it, one prior to the debridement and one after that. Cultures were also taken, aerobic, anaerobic and Gram stain. We then applied the Kerecis 3 x 7 piece and stuffed it into the wound, sutured it into place with 4-0 Monocryl. I then placed the Prevena VAC with an Adaptic over the Kerecis on the foot. It did appear to be holding suction at that time. He was then awakened and taken to recovery in stable condition. BLOOD LOSS: Minimal. COMPLICATIONS: None. TRANSINT:[id number] Voice Confirmation ID: [id number] DOCUMENT ID: [id number] SHAHEEN DIETZ DO at 1431 CC: [id number] DICTATION DATE: 07/17/19 0849 PROCTOLOGIST: 07/17/19 1425 DIS IN 07/17/19 [facility] [address] [id number]
--- NOTE | 2019-07-17 14:57 | MORECARE ---
CASE MANAGEMENT DISCHARGE SUMMARY PATIENT: EDDA BARRAGAN V JR UNIT: [id number] ADM DATE: 07/14/19 AGE: 53 : 69 SEX: M ROOM/BED: D.2229 AUTHOR: MURRAY LEHMAN PHYSICIAN: REFERRING PHYSICIAN: SHAHEEN DIETZ DO DATE OF SERVICE: 07/17/19 Discharge Plan Patient Name: EDDA BARRAGAN Facility: [facility]:[place] : 1965 Planned Disposition: Anticipated Discharge Date: Discharge Date: 07/17/2019 Expected LOS: Initial Reviewer: [email or web address] Initial Review Date: 07/14/2019 Generated: 07/17/19 3:57 pm Comments DCP- Discharge Planning Updated by [email or web address]: Carleen Kenney on 07/17/19 8:[address] Patient Name: EDDA BARRAGAN Admission Status: Elective Accout number: [id number] Admission Date: 07-14-2019 : 1965 Admission Diagnosis:DISRUPTION OF WOUND, UNSPECIFIED, INITIAL ENCOUNTER Attending: SHAHEEN DIETZ Current LOS: 3 Anticipated DC Date: Planned Disposition: Primary Insurance: MEDICARE A & B Discharge Planning Comments: CM met with patient at bedside after explaining CM role and obtaining verbal consent. CM discussed availability / needs of home health, REHAB and medical equipment. PATIENT DENIES ANY DISCHARGE NEEDS. States current with care 4 but states he doesn't want HH anymore. He states he will call and cancel HH. States he is going to use a wound clinic. imm signed. CM to follow and assist. Pantograph Transferrer: Carleen Kenney Coverage Notice Reviewer: [id number] - Carleen Kenney Notice Issued Date-Time: 07/17/2019 9:34 Notice Type: IM Discharge Notice Notice Delivered To: Patient Relationship to Patient: Weight Shifter Name: Delivery Method: HAND - Hand Delivered Ritu Days: Prior Verbal Notification: Recipient Understood Notice: Yes Recipient Signature: Yes Med Rec Note Co-signed by Attending: Coverage Notice Comment: Last DP export: 07/17/19 8:40 a Patient Name: EDDA BARRAGAN Page [id number] at 1457 All edits/amendments must be made on the electronic document DICTATION DATE: 07/17/191456 CHIEF OPHTHALMIC TECHNICIAN: LOREN 07/17/191456 RPT#: [id number] DC DATE:07/17/19 STATUS: DIS IN [facility] [address] [place] [address] END OF REPORT
== END 2019-07-17 11:27 | disposition home or self-care (01) | DRG 904 ==
LOC: D.OPS 14:32 → D.MS 14:32 → D.OPS 16:15 → D.MS 17:45 → D.OPS 20:42 → D.MS 07-17 11:27
PROVIDERS: Anesthesiology; ADMIT Orthopaedic Surgery; ATTEND Orthopaedic Surgery
PROC: 0HBNXZZ Excision of Left Foot Skin, External Approach (ICD-10-PCS; principal; 2019-07-14 16:15)
PROC: 0HBNXZZ Excision of Left Foot Skin, External Approach (ICD-10-PCS; 2019-07-17)
PROC: 0HRNXK3 Replacement of Left Foot Skin with Nonautologous Tissue Substitute, Full Thickness, External Approach (ICD-10-PCS; 2019-07-17 14:40)
DX: T81.30XA Disruption of wound, unspecified, initial encounter (principal); T84.051A Periprosthetic osteolysis of internal prosthetic left hip joint, initial encounter; N17.9 Acute kidney failure, unspecified; F17.203 Nicotine dependence unspecified, with withdrawal; Z68.41 Body mass index [BMI] 40.0-44.9, adult; I50.22 Chronic systolic (congestive) heart failure; Y82.9 Unspecified medical devices associated with adverse incidents; E11.9 Type 2 diabetes mellitus without complications; I11.0 Hypertensive heart disease with heart failure; I25.10 Atherosclerotic heart disease of native coronary artery without angina pectoris; E78.5 Hyperlipidemia, unspecified; J44.9 Chronic obstructive pulmonary disease, unspecified; X58.XXXA Exposure to other specified factors, initial encounter; E03.9 Hypothyroidism, unspecified; E66.01 Morbid (severe) obesity due to excess calories; F41.8 Other specified anxiety disorders

== ENCOUNTER 2019-07-31 12:50 | Day surgery (SDC) | payer MEDICARE ==
[~2019-07-31] VITALS: Ht 170.2 cm; Wt 119.3 kg
[~2019-07-31 12:50] MED LIST changes: +BACLOFEN10 MG PO; +BUPROPION HCL150 M1 PO; +DILAUDID4 MG PO; +DOXEPIN HCL10 MG PO; +LOTENSIN20 MG; +LYRICA75 MG PO; +PERCOCET 10-321 EAC1 PO; +SEROQUEL100 MG PO; +TRULICITY0.75 MG/0. SC
[2019-07-31 13:31] VITALS: BP 108/79; Ht 170.2 cm; Wt 119.3 kg
[2019-07-31 13:34] LABS: BASOPHILS 0.1 % (0-2); EOSINOPHILS 1.3 % (0-7); HEMATOCRIT 40.2 % (42.0-54.0); IMMATURE GRANULOCYTES 0.5 % (0-5); LYMPHOCYTES 15.9 % (15-50); MCH 29.9 pg (26.0-34.0); MCHC 32.3 g/dL (31.0-37.0); MCV 92.4 fL (80.0-100.0); MEAN PLATELET VOLUME 9.7 fL (7.4-10.4); MONOCYTES 5.6 % (2-11); NEUTROPHILS 76.6 % (40-80); PLATELET COUNT 168 10x3/uL (130-400); RBC 4.35 10x6/uL (4.20-6.10); RDW 16.1 % (11.5-14.5); WBC 9.8 10x3/uL (4.8-10.8)
[2019-07-31 13:39] LABS: CALC OSMOLALITY 285 mosm/kg (275-300); CALCIUM 8.8 mg/dL (8.5-10.1); CARBON DIOXIDE 26.3 mmol/L (21.0-32.0); CHLORIDE - SERUM 102 mmol/L (98-107); CREATININE - SERUM 1.1 mg/dL (0.6-1.3); GLUCOSE 371 mg/dL (74-106); POTASSIUM - SERUM 4.3 mmol/L (3.5-5.1); SODIUM 135 mmol/L (136-145); UREA NITROGEN 15 mg/dL (7-18); eGFR NON AFRICAN AMERICAN 75 mL/min (90-120)
[2019-07-31] MEDS ORDERED: RANEXA500 MG PO (13:50)
[2019-07-31] MEDS ORDERED: DOXEPIN HCL10 MG PO (13:51)
[2019-07-31] MEDS ORDERED: ALEVE220 MG PO (13:52)
[2019-07-31] MEDS ORDERED: BAYER CHEWABLE81 MG PO (13:57)
[2019-07-31] MEDS ORDERED: OXYCODONE HCL5 M1 PO (15:28)
--- NOTE | 2019-07-31 18:12 | NUR ---
172-REMOVED IV WITH CATH INTACT,DISPOSED INTO SHARPS,COVERED WITH GUAZE,SECURED WITH MEDIPORE TAPE.VSS.DENIES PAIN. DRESSING CDI. CAP REFILL WNL.WOUND VAC INTACT.
--- NOTE | 2019-07-31 18:18 | NUR ---
1748-REVIEWED POST OPERATIVE INSTRUCTIONS.PT WILL CALL [facility]S OFFICE SATURDAY MORNING TO CONFIRM FOLLOW UP. ESCORTED OUT VIA W/C WITH SPOUSE AWAITING TO DRIVE HOME
--- NOTE | 2019-08-01 09:15 | OP ---
PATIENT NAME: EDDA BARRAGAN JR MEDICAL RECORD: [id number] :69 LOCATION:D.OPS ADMISSION DATE: SURGEON: SHAHEEN DIETZ DO DATE OF OPERATION: 07/31/2019 PROCEDURE PERFORMED: Left foot wound irrigation and debridements with Kerecis application and wound VAC application. PREOPERATIVE DIAGNOSIS: Left foot surgical wound dehiscence. POSTOPERATIVE DIAGNOSIS: Left foot surgical wound dehiscence. INDICATIONS: Mr. Barragan is a 53-year-old male who had a wound dehiscence approximately 2-1/2 weeks ago, he underwent an I&D with Kerecis application 2 weeks ago and then came to the clinic every week and then this week, he came in and they had formed a small coverage over the hardware in the tendon of the foot over the third and fourth metatarsals distally. The wound was approximately 7 mm deep and was 1-cm wide x 4 cm long. We then decided to do another debridement and another Kerecis application in hopes to fill the rest of the wound then. He is aware of risks including infection, bleeding, damage to nerves and vessels, need for further surgery, continued pain, blood clots, and even and he signed a consent. SURGEON: Shaheen Dietz DO DESCRIPTION OF PROCEDURE: The patient was taken to the operative suite, laid in supine position, given general anesthetic and LMA was placed. He was given 2 grams Ancef. The left lower extremity was then prepped with Betadine and draped. The timeout was performed. Everyone was agreeance with the correct site, side, patient, procedure. I then began with irrigating with 300 mL normal saline on the wound and then taken a curette and getting bleeding surfaces around the edges and then applied the Kerecis sheet into the wound and folding it accordion style. The wound was then closed partially leaving a small opening 4 cm x 0.5 cm and after the debridement had been done with a curette that is when it applied. The wound was then partially closed with 4-0 Monocryl in horizontal mattress fashion. We then applied a Prevena plus wound VAC and then once we had good seal, he was awakened and taken to recovery in stable condition. I was assisted by Fernandez Gonzalez, certified surgical first leveler, who assisted me throughout the procedure with closing and with putting on wound VAC. The patient tolerated the procedure well and was taken to recovery. BLOOD LOSS: Minimal. COMPLICATIONS: None. TRANSINT:[id number] Voice Confirmation ID: [id number] DOCUMENT ID: [id number] OPERATIVE REPORT [id number] EDDA BARRAGAN JR, MICHAEL D, DO at 0915 CC: [id number] DICTATION DATE: 07/31/19 1544 HOSE INSPECTOR: 08/01/19 0029 [facility] 07/31/[address] [address]
== END 2019-07-31 17:48 | disposition home or self-care (01) ==
LOC: D.OPS 12:50 → D.PAN 13:00 → D.OPS 13:30 → D.PAN 13:30 → D.OPS 17:48
PROVIDERS: Anesthesiology; ATTEND Orthopaedic Surgery
DX: T81.31XD Disruption of external operation (surgical) wound, not elsewhere classified, subsequent encounter (principal); S92.302D Fracture of unspecified metatarsal bone(s), left foot, subsequent encounter for fracture with routine healing; E03.9 Hypothyroidism, unspecified; E11.9 Type 2 diabetes mellitus without complications; E78.5 Hyperlipidemia, unspecified; J44.9 Chronic obstructive pulmonary disease, unspecified; K21.9 Gastro-esophageal reflux disease without esophagitis; Z79.84 Long term (current) use of oral hypoglycemic drugs; Z72.0 Tobacco use

== ENCOUNTER 2019-08-28 11:21 | Day surgery (SDC) | payer OTHER, MEDICARE ==
[~2019-08-28] VITALS: Ht 170.2 cm; Wt 122.5 kg
[~2019-08-28 11:21] MED LIST changes: +ALEVE220 MG PO
[2019-08-28 11:44] LABS: HEMATOCRIT 40.1 % (42.0-54.0); HEMOGLOBIN 13.2 g/dL (13.5-17.5); MCHC 32.9 g/dL (31.0-37.0); MCV 91.1 fL (80.0-100.0); MEAN PLATELET VOLUME 9.2 fL (7.4-10.4); NEUTROPHILS 76.3 % (40-80); PLATELET COUNT 163 10x3/uL (130-400); RDW 16.1 % (11.5-14.5); WBC 7.6 10x3/uL (4.8-10.8)
[2019-08-28 11:49] LABS: CALC OSMOLALITY 280 mosm/kg (275-300); CALCIUM 8.1 mg/dL (8.5-10.1); CHLORIDE - SERUM 104 mmol/L (98-107); CREATININE - SERUM 0.9 mg/dL (0.6-1.3); POTASSIUM - SERUM 3.7 mmol/L (3.5-5.1); SODIUM 138 mmol/L (136-145); UREA NITROGEN 11 mg/dL (7-18); eGFR NON AFRICAN AMERICAN > 90 mL/min (90-120)
[2019-08-28 11:54] LABS: GLUCOSE 215 mg/dL (74-106)
[2019-08-28 13:12] VITALS: BP 113/69; Ht 170.2 cm; Wt 122.5 kg
--- NOTE | 2019-08-29 07:23 | OP ---
PATIENT NAME: EDDA BARRAGAN JR MEDICAL RECORD: [id number] :69 LOCATION:FOUZIA ADMISSION DATE: SURGEON: BEAR DIETZ DO DATE OF OPERATION: 08/28/2019 PROCEDURE PERFORMED: The patient had the procedure done on the left foot I&D with Kerecis application and wound VAC application. PREOPERATIVE DIAGNOSIS: Left foot open wound. POSTOPERATIVE DIAGNOSES: Left foot open wound. INDICATIONS: Mr. Barragan is a 53-year-old male who had a left foot 4 metatarsal open reduction internal fixation. He was doing well and then started walking on it prior to the time and he had a dehiscence of the wound. This is the third Kerecis application. The wound size has been shrinking and has been filling in quite nicely; however. We thought we needed 1 more application as his wound size was still approximately 3.5 cm x 1 cm x 4 mm in depth. The patient was aware of the risks including continued pain, need for further surgery, infection, bleeding, damage to nerves and vessels in the area. He signed the consent. SURGEON: Bear Dietz DO DESCRIPTION OF SURGERY: The patient was taken to the operative suite, laid in supine position, given general anesthetic and a gram of Ancef. The left lower extremity was then prepped and draped in sterile fashion. A timeout was performed. Everyone was agreeance with correct side, site, patient, and procedure. After he was sedated, an LMA was placed. The wound was then curetted out around the edges to good bleeding edges on the 3 x 3.5 cm of crust. This patch was rolled up and then put into the wound and then sutured in with 4-0 Monocryl in a horizontal mattress fashion. It was then cleaned off and dressed with a Prevena VAC, and held good suction. He was then awakened and taken to recovery in stable condition. BLOOD LOSS: Minimal. COMPLICATIONS: None. TRANSINT:[id number] Voice Confirmation ID: [id number] DOCUMENT ID: [id number] BEAR DIETZ DO at 0723 CC: [id number] DICTATION DATE: 08/28/19 1553 MARGIN CLERK: 08/29/19 0157 [facility] 08/28/19 [facility] [address] [place] [address]
== END 2019-08-28 17:20 | disposition home or self-care (01) ==
LOC: D.PAN 11:21 → D.OPS 13:45 → D.PAN 14:25
PROVIDERS: Anesthesiology; ATTEND Orthopaedic Surgery
DX: S91.302A Unspecified open wound, left foot, initial encounter (principal); X58.XXXA Exposure to other specified factors, initial encounter; E03.9 Hypothyroidism, unspecified; E11.9 Type 2 diabetes mellitus without complications; E78.2 Mixed hyperlipidemia; Z72.0 Tobacco use; J44.9 Chronic obstructive pulmonary disease, unspecified; K21.9 Gastro-esophageal reflux disease without esophagitis; Z79.84 Long term (current) use of oral hypoglycemic drugs

== ENCOUNTER 2019-10-03 05:52 | Inpatient (IN) | payer MEDICARE, MEDICAID ==
[~2019-10-03] VITALS: Ht 170.2 cm; Wt 136.1 kg
[~2019-10-03 05:52] MED LIST changes: -LOTENSIN20 MG; +LOTENSIN20 MG PO
--- NOTE | 2019-10-03 06:20 | NUR ---
PATIENT COMBATIVE AND CONFUSED TRYING TO CRAWL OUT OF BED. DENIES PAIN.CURSING AND MOVING ALL 4 EXTRMITIES SCOOTING AROUND IN BED.
[2019-10-03 06:44] LABS: BILIRUBIN NEGATIVE (NEGATIVE); GLUCOSE 100 mg/dL (NEGATIVE); KETONE NEGATIVE (NEGATIVE); NITRITE NEGATIVE (NEGATIVE); RED CELLS - URINE 0-5 /hpf (0-5); UROBILINOGEN NORMAL (NORMAL)
--- NOTE | 2019-10-03 06:46 | NUR ---
RESTING QUIETLY NO DISTRESS NOTES 87 SR 96% SAT ON O2 2L NC RESP 12 BP 124/54 AFTER HALDOL AND ATIVAN GIVEN
[2019-10-03 06:48] LABS: BASOPHILS 0.3 % (0-2); EOSINOPHILS 2.1 % (0-7); HEMATOCRIT 33.3 % (42.0-54.0); HEMOGLOBIN 10.9 g/dL (13.5-17.5); IMMATURE GRANULOCYTES 0.3 % (0-5); MCH 30.1 pg (26.0-34.0); MCHC 32.7 g/dL (31.0-37.0); MEAN PLATELET VOLUME 9.6 fL (7.4-10.4); MONOCYTES 7.5 % (2-11); NEUTROPHILS 77.8 % (40-80); PLATELET COUNT 141 10x3/uL (130-400); RBC 3.62 10x6/uL (4.20-6.10); RDW 16.2 % (11.5-14.5); WBC 6.2 10x3/uL (4.8-10.8)
[2019-10-03 06:49] LABS: UDS - AMPHET NEGATIVE QUAL (NEGATIVE); UDS - BARB NEGATIVE QUAL (NEGATIVE); UDS - BENZO NEGATIVE QUAL (NEGATIVE); UDS - COCAINE NEGATIVE QUAL (NEGATIVE); UDS - OPIATE POSITIVE QUAL (NEGATIVE); UDS - PCP NEGATIVE QUAL (NEGATIVE); UDS - THC NEGATIVE QUAL (NEGATIVE)
[2019-10-03 06:54] LABS: CALC OSMOLALITY 293 mosm/kg (275-300); CALCIUM 8.7 mg/dL (8.5-10.1); CARBON DIOXIDE 28.4 mmol/L (21.0-32.0); CHLORIDE - SERUM 103 mmol/L (98-107); CREATININE - SERUM 1.4 mg/dL (0.6-1.3); GLUCOSE 244 mg/dL (74-106); POTASSIUM - SERUM 3.4 mmol/L (3.5-5.1); SODIUM 140 mmol/L (136-145); UREA NITROGEN 33 mg/dL (7-18); eGFR NON AFRICAN AMERICAN 56 mL/min (90-120)
[2019-10-03 07:03] LABS: ALBUMIN 3.4 g/dL (3.4-5.0); ALKALINE PHOSPHATASE 93 U/L (30-120); ALT (SGPT) 20 U/L (10-68); BILIRUBIN - TOTAL 0.57 mg/dL (0.2-1.3); MAGNESIUM - SERUM 1.7 mg/dL (1.8-2.4)
[2019-10-03 07:04] LABS: TROPONIN-I < 0.017 ng/mL (0.000-0.060)
[2019-10-03 07:41] VITALS: BP 147/71
--- NOTE | 2019-10-03 07:42 | NUR ---
PT HOME MEDICATION GIVEN TO ABDULKADIR WOO.
--- NOTE | 2019-10-03 08:30 | NUR ---
PT ARRIVED TO FLOOR. BLOOD AROUND NOSE. BRUISE ON RIGHT THIGH. INCISION ON LEFT FOOT. IV LEFT UPPER CHEST. PT SNORING. INCONTINENT EPOSIDE OF BLADDER CLEANED UP. CL IN REACH. WAKES UP EASILY AND FALLS BACK ASLEEP. WCTM
[2019-10-03 09:42] VITALS: BP 151/100
[2019-10-03 11:37] LABS: % SATURATION 10 % (15-55); IRON 35 ug/dl (35-150); TOTAL IRON BIND CAPACITY 323 ug/dl (260-445); UNSAT IRON BIND CAPACITY 288 ug/dl (150-375)
[2019-10-03 13:51] VITALS: BP 151/100; BMI 43.3
[2019-10-03 13:54] VITALS: Ht 170.2 cm; Wt 136.1 kg
[2019-10-03 17:15] VITALS: BP 131/69
[2019-10-03 20:00] VITALS: BP 134/73
[2019-10-04] VITALS: BP 131/70
--- NOTE | 2019-10-04 00:21 | NUR ---
CHANGING INCONTINENCE OF URINE AND WHEN PATIENT TURNED OVER, WHAT APPEARS TO LOOK LIKE HAND PRINT TYPE BRUISES ON BACK IN SEVERAL PLACES. PATIENT NOT AWARE. DID NOT DISCLOSE ANY OTHER INFORMATION.
--- NOTE | 2019-10-04 01:00 | NUR ---
IV NO LONGER PATENT. ATTEMPTED TO RESITE X 3. CHARGE NURSE ATTEMPTED TO RESITE X1. UNSUCCESSFUL AT THIS TIME. NO IV ACCESS AT THIS TIME.
--- NOTE | 2019-10-04 02:56 | NUR ---
PATIENT WOKE UP ANGRY ABOUT IV. THIS IS THE MOST ALERT PATIENT HAS BEEN. PATIENT SAYS "WE'RE NOT TRYING IVS ANYMORE." THEN PATIENT ASKED IF HE COULD GO HOME. I TOLD HIM IT WAS 0300 AND HE COULD TALK TO DOCTOR IN THE MORNING. PATIENT SAID HE WOULD TRY TO GO BACK TO SLEEP. PATIENT VERY IRRITABLE AT THIS TIME.
--- NOTE | 2019-10-04 03:20 | NUR ---
PATIENT IRRITABLE. KEEPS ASKING WHEN HE WILL BE DISCHARGED. STATED HE NEEDED SOMETHING TO CALM DOWN. PROVIDED ATIVAN. ADMINSTERED PER ORDER. PATIENT TOLERATED WELL. EMPTIED URINAL. DENIES FURTHER NEEDS.
[2019-10-04 04:00] VITALS: BP 137/72
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
--- NOTE | 2019-10-04 06:39 | NUR ---
PATIENT BEING NON COMPLIANT. IRRITABLE. REFUSING ATIVAN.
[2019-10-04 07:04] LABS: BASOPHILS 0.2 % (0-2); EOSINOPHILS 1.7 % (0-7); HEMATOCRIT 37.3 % (42.0-54.0); IMMATURE GRANULOCYTES 0.4 % (0-5); LYMPHOCYTES 19.5 % (15-50); MCHC 32.2 g/dL (31.0-37.0); MCV 93.3 fL (80.0-100.0); MEAN PLATELET VOLUME 10.2 fL (7.4-10.4); MONOCYTES 6.1 % (2-11); NEUTROPHILS 72.1 % (40-80); PLATELET COUNT 135 10x3/uL (130-400); RDW 16.2 % (11.5-14.5)
[2019-10-04 07:16] LABS: WBC 4.6 10x3/uL (4.8-10.8)
--- NOTE | 2019-10-04 07:30 | NUR ---
PT WANTS DISCHARGE PAPERS. I TRIED TO EXPLAIN TO HIM THAT THE DR ARE NOT GOING TO RELEASE HIM AT THIS MOMENT. HE STATES THAT THEY WILL. I EXPLAINED TO HIM AND HIS FIANCEE SINA THAT HE COULD LEAVE AMA. HE WAS ALERT AND ORIENTED. I COULD NOT HOLD HIM. SINA AGREES THAT HE NEEDS TO STAY UNTIL DISCHARGED BY A DOCTOR. TRYING TO PAGE PAVER OPERATOR WITH [facility]. FOR IF PT CHANGES MIND AND WANTS TO LEAVE AMA.
[2019-10-04 07:33] LABS: ALBUMIN 3.5 g/dL (3.4-5.0); ALKALINE PHOSPHATASE 93 U/L (30-120); ALT (SGPT) 20 U/L (10-68); BILIRUBIN - TOTAL 0.49 mg/dL (0.2-1.3); CALC OSMOLALITY 285 mosm/kg (275-300); CALCIUM 9.5 mg/dL (8.5-10.1); CARBON DIOXIDE 28.2 mmol/L (21.0-32.0); CHLORIDE - SERUM 105 mmol/L (98-107); CREATININE - SERUM 0.7 mg/dL (0.6-1.3); GLUCOSE 165 mg/dL (74-106); POTASSIUM - SERUM 3.3 mmol/L (3.5-5.1); PROTEIN - SERUM 7.4 g/dL (6.4-8.2); SODIUM 142 mmol/L (136-145); UREA NITROGEN 10 mg/dL (7-18); eGFR NON AFRICAN AMERICAN > 90 mL/min (90-120)
--- NOTE | 2019-10-04 07:49 | NUR ---
NOTIFIED HOUSE SUP ABOUT PT WANTING TO LEAVE. TRYING TO CALL OR MARIELLE WITH THE [facility] AGAIN.
--- NOTE | 2019-10-04 08:52 | NUR ---
"" SINA IN ROOM. THEY ARE TALKING. PT HAS BEEN SEEN OUT IN THE [place]IELDS IN HIS UNDERWEAR LOOKING FOR HER. VERNONTM
[2019-10-04 09:13] VITALS: BP 135/94
--- NOTE | 2019-10-04 11:13 | NUR ---
CALLED TO LET SINA KNOW THAT THE CORD FOR EDDA'S CPAP IS AT MY DESK. I WILL BAG IT AND THEY WILL BE ABLE TO RETURN IT TO THEM.
== END 2019-10-04 09:48 | disposition home or self-care (01) | DRG 897 ==
LOC: D.ER 05:52 → D.MS 07:40
PROVIDERS: Family Medicine; ADMIT Family Medicine; ATTEND Family Medicine
DX: F19.921 Other psychoactive substance use, unspecified with intoxication with delirium (principal); N17.9 Acute kidney failure, unspecified; Z68.41 Body mass index [BMI] 40.0-44.9, adult; S02.2XXA Fracture of nasal bones, initial encounter for closed fracture; W19.XXXA Unspecified fall, initial encounter; D50.9 Iron deficiency anemia, unspecified; E83.42 Hypomagnesemia; E11.40 Type 2 diabetes mellitus with diabetic neuropathy, unspecified; I25.10 Atherosclerotic heart disease of native coronary artery without angina pectoris; I73.9 Peripheral vascular disease, unspecified; G47.33 Obstructive sleep apnea (adult) (pediatric); E03.9 Hypothyroidism, unspecified; F31.9 Bipolar disorder, unspecified; E66.01 Morbid (severe) obesity due to excess calories

== ENCOUNTER 2019-10-09 08:09 | Day surgery (SDC) | payer MEDICARE, MEDICAID ==
[~2019-10-09] VITALS: Ht 170.2 cm; Wt 122.5 kg
[2019-10-09 08:45] LABS: BASOPHILS 0.2 % (0-2); EOSINOPHILS 1.5 % (0-7); HEMATOCRIT 39.6 % (42.0-54.0); HEMOGLOBIN 12.9 g/dL (13.5-17.5); IMMATURE GRANULOCYTES 1.1 % (0-5); LYMPHOCYTES 12.3 % (15-50); MCH 30.3 pg (26.0-34.0); MCHC 32.6 g/dL (31.0-37.0); MEAN PLATELET VOLUME 9.6 fL (7.4-10.4); MONOCYTES 6.1 % (2-11); NEUTROPHILS 78.8 % (40-80); RBC 4.26 10x6/uL (4.20-6.10); RDW 16.6 % (11.5-14.5); WBC 8.8 10x3/uL (4.8-10.8)
[2019-10-09 08:50] LABS: PLATELET COUNT 186 10x3/uL (130-400)
[2019-10-09 08:52] LABS: CALC OSMOLALITY 281 mosm/kg (275-300); CALCIUM 8.7 mg/dL (8.5-10.1); CARBON DIOXIDE 30.9 mmol/L (21.0-32.0); CHLORIDE - SERUM 98 mmol/L (98-107); CREATININE - SERUM 0.7 mg/dL (0.6-1.3); POTASSIUM - SERUM 3.6 mmol/L (3.5-5.1); SODIUM 139 mmol/L (136-145); UREA NITROGEN 8 mg/dL (7-18); eGFR NON AFRICAN AMERICAN > 90 mL/min (90-120)
[2019-10-09 08:53] LABS: APTT 30.4 SECONDS (22.8-39.4); INR 1.11 (0.85-1.17); PROTIME 14.2 SECONDS (11.6-15.0)
[2019-10-09 08:55] LABS: GLUCOSE 213 mg/dL (74-106)
[2019-10-09 09:45] VITALS: BP 149/84; Ht 170.2 cm; Wt 122.5 kg
--- NOTE | 2019-10-09 18:34 | NUR ---
1540 IV REMOVED AND INSTRUCTIONS GIVEN TO PT
--- NOTE | 2019-10-12 08:18 | OP ---
PATIENT NAME: EDDA BARRAGAN JR MEDICAL RECORD: [id number] :69 LOCATION:D.OPS ADMISSION DATE: SURGEON: BEAR DIETZ DO DATE OF OPERATION: 10/09/2019 PROCEDURE PERFORMED: Left foot I&D with Kerecis application. PREOPERATIVE DIAGNOSIS: Left foot open wound. POSTOPERATIVE DIAGNOSIS: Left foot open wound. INDICATIONS: Mr. Barragan is a 54-year-old male who was had his left open wound for quite some time. He has had several applications with Kerecis. His wound is starting to fill in as he does have a good granular base; however, he does need just probably another application to get it to heal all the way. He has been dealing with this for quite some time. He is aware of the risks including infection, bleeding, damage to nerves and vessels, need for further surgery and possible amputation and he signed the consent. SURGEON: Bear Dietz DO DESCRIPTION OF PROCEDURE: The patient was taken to the operative suite, laid in supine position, given general anesthetic, LMA was placed. The left lower extremity was then prepped and draped in sterile fashion. Timeout was performed. Everyone was agreeance with correct side, site, patient, the procedure. Then, began by irrigating the wound and removing and debriding it. There was some hair on the wound and then I used a curette to get good bleeding edges on the edges of the wound, removing any nonviable tissue in the base of it. It was measured to be 4 cm x 1 cm and approximately 3 mm in depth. I then rolled up a 3 x 3 Kerecis and put in the wound and sutured in with 4-0 Monocryl. Then, I was assisted with this by Emma Jones, certified bench jeweler technician student, and she helped with cutting and holding and placing the graft. It was then dressed with Adaptic, 4 x 4s, ABD, cast padding and Vargas wrap. He was then awakened and taken to recovery in stable condition. BLOOD LOSS: Minimal. COMPLICATION: None. TRANSINT:[id number] Voice Confirmation ID: [id number] DOCUMENT ID: [id number] BEAR DIETZ DO at 0818 CC: [id number] DICTATION DATE: 10/09/19 1310 INVESTOR RELATIONS ANALYST: 10/10/19 0040 [facility] 10/09/19 [facility] [address] [facility]
== END 2019-10-09 15:40 | disposition home or self-care (01) ==
LOC: D.OPS 08:09 → D.PAN 10:45 → D.OPS 10:45
PROVIDERS: Anesthesiology; ATTEND Orthopaedic Surgery
DX: S91.302A Unspecified open wound, left foot, initial encounter (principal); E03.9 Hypothyroidism, unspecified; E11.9 Type 2 diabetes mellitus without complications; E78.2 Mixed hyperlipidemia; I10 Essential (primary) hypertension; Z72.0 Tobacco use; Z79.84 Long term (current) use of oral hypoglycemic drugs; J44.9 Chronic obstructive pulmonary disease, unspecified

== ENCOUNTER 2019-11-04 05:46 | Inpatient (IN) | payer MEDICARE, MEDICAID ==
[~2019-11-04] VITALS: Ht 170.2 cm; Wt 121.6 kg
[2019-11-04] VITALS (22 sets, daily range): BP systolic 98–169; BP diastolic 41–100; BMI 43.2
--- NOTE | 2019-11-04 07:15 | NUR ---
ASSUMED CARE OF PT. PT RESTING IN BED ASLEEP AROUSES WITH STIMULATION. PT INTUBATED AND OGT IN PLACE TO LOW INTER SUCTION. BILAT SOFT WRIST RESTRAINTS IN [place]. PROPOFOL GTT INFUSING TO RIGHT WRIST PIV @ 35 MCG/KG/MIN (33.4 ML/HR). RESP EVEN/UNLABORED. SKIN W/D//P. VSS. VENT SETTIGS: TV 550, PEEP 5 FIO2 100%.
--- NOTE | 2019-11-04 07:30 | NUR ---
URINE SPEC COLLECTED WHEN FC INSERTED, LABELED AT BS AND SENT TO LAB
--- NOTE | 2019-11-04 07:55 | NUR ---
REPORT CALLED TO ELISHA ANDINO
[2019-11-04 07:58] LABS: UDS - AMPHET NEGATIVE QUAL (NEGATIVE); UDS - BARB NEGATIVE QUAL (NEGATIVE); UDS - BENZO NEGATIVE QUAL (NEGATIVE); UDS - COCAINE NEGATIVE QUAL (NEGATIVE); UDS - OPIATE POSITIVE QUAL (NEGATIVE); UDS - PCP NEGATIVE QUAL (NEGATIVE); UDS - THC NEGATIVE QUAL (NEGATIVE)
[2019-11-04 08:04] LABS: BILIRUBIN NEGATIVE (NEGATIVE); KETONE NEGATIVE (NEGATIVE); NITRITE NEGATIVE (NEGATIVE); UROBILINOGEN NORMAL (NORMAL)
[2019-11-04 08:07] LABS: AMORPHOUS SEDIMENT <1+ /lpf (NONE SEEN); BACTERIA MODERATE /hpf (NONE SEEN); EPITHELIAL CELLS 0-5 /hpf (0-5)
--- NOTE | 2019-11-04 08:10 | NUR ---
LABS DRAWN PER ENVELOPE MACHINE OPERATOR
[2019-11-04 08:15] LABS: BASOPHILS 0.1 % (0-2); EOSINOPHILS 1.1 % (0-7); HEMATOCRIT 36.7 % (42.0-54.0); HEMOGLOBIN 11.7 g/dL (13.5-17.5); IMMATURE GRANULOCYTES 0.3 % (0-5); LYMPHOCYTES 9.4 % (15-50); MCHC 31.9 g/dL (31.0-37.0); MCV 94.1 fL (80.0-100.0); MEAN PLATELET VOLUME 9.8 fL (7.4-10.4); MONOCYTES 5.2 % (2-11); NEUTROPHILS 83.9 % (40-80); PLATELET COUNT 160 10x3/uL (130-400); RDW 16.3 % (11.5-14.5); WBC 10.2 10x3/uL (4.8-10.8)
--- NOTE | 2019-11-04 08:15 | NUR ---
XRAY SHOWS ET TUBE NEEDS TO BE PULLED BACK. SPOKE WITH DR RUSS AND INSTR TO PULL ET BACK 2 CM. RT AT BS AND TUBE RETRACTED 2 CM (25 CM AT THE LIP)
--- NOTE | 2019-11-04 08:25 | NUR ---
ADMITTED TO ROOM #8252. CONDITION STABLE
[2019-11-04 08:26] LABS: CALC OSMOLALITY 293 mosm/kg (275-300); CARBON DIOXIDE 25.2 mmol/L (21.0-32.0); CHLORIDE - SERUM 104 mmol/L (98-107); CREATININE - SERUM 2.2 mg/dL (0.6-1.3); GLUCOSE 203 mg/dL (74-106); POTASSIUM - SERUM 3.9 mmol/L (3.5-5.1); SODIUM 141 mmol/L (136-145); UREA NITROGEN 32 mg/dL (7-18); eGFR NON AFRICAN AMERICAN 33 mL/min (90-120)
--- NOTE | 2019-11-04 08:30 | NUR ---
REC'D VIA STRETCHER FROM ER PERSONNEL X2, AMBU BAG CONNECTED TO SECURED ETT WITH PORTABLE O2 IN USE, TRANSFERRED TO ICU BED, PLACE ON STAND UP VENT ON ARRIVAL, O2 SAT 100%, OTHER VSS, SEDATION IN USE, DOES NOT RESPOND TO TACTILE STIMULI, PROPOFAL TITRATED TO 20 MCG, OGT WITH ORANGE TRANSLUCENT DRAINAGE WITH SEDIMENT TO CANISTER, PIV'S TO RT FA AND LEFT UPPER ARM, FFOLEY TO GRAVITY WITH DEBORAH DRAINAGE TO BAG, B/L WRIST RETRAINTS IN USE, ASSESSMENT COMPLETED PER FLOWSHEET, NO FAMILY AVAILABLE UNABLE TO REACH BY PHONE, HISTORY FROM OLD RECORDS, PERSONAL BELONGING BAG WITH CELL PHONE AND NO FOOT WORKER, ONE T-SHIRT, AND ONE PAIR OF BOXER SHORTS AT BEDSIDE
[2019-11-04 08:41] LABS: ALBUMIN 3.7 g/dL (3.4-5.0); ALKALINE PHOSPHATASE 102 U/L (30-120); ALT (SGPT) 20 U/L (10-68); BILIRUBIN - TOTAL 0.66 mg/dL (0.2-1.3); C-REACTIVE PROTEIN 3.1 mg/dL (0.0-0.9); CREATINE KINASE 81 UL (21-232); MAGNESIUM - SERUM 1.5 mg/dL (1.8-2.4); PRO BNP 194 pg/mL (0-125); PROTEIN - SERUM 7.3 g/dL (6.4-8.2); THYROID STIMULATING HORMONE 3.13 uIU/mL (0.36-3.74); TROPONIN-I < 0.017 ng/mL (0.000-0.060)
--- NOTE | 2019-11-04 10:17 | NUR ---
CONSULT CALLED TO DR. DORMAN AT THIS TIME, NO NEW ORDERS
--- NOTE | 2019-11-04 11:30 | NUR ---
NO ACUTE CHANGE FROM PREVIOUS ASSESSMENT, DR DORMAN HERE FOR EVAL, FIO2 TITRATED TO 60 %, NO OTHER ACUTE CHANGE FROM PREVIOUS
--- NOTE | 2019-11-04 15:30 | NUR ---
RESTING WITH NO SIGNS OF DISTRESS, ORAL CARE AND SUCTION COMPLETED, RESPONDING TO TACCTILE STIMULI, WILL CONTINUE TO MONITOR
--- NOTE | 2019-11-04 19:00 | NUR ---
REPORT RECEIVED. PT SEDATED ON VENT, SOFT WRIST RESTRAINTS IN PLACE. ASSESSMENT COMPLETED, SEE FLOWSHEET. PIV IN RIGHT FOREARM INFUSING, SEE IV FLOWSHEET. NO ACUTE DISTRESS NOTED, WILL CONTINUE TO MONITOR.
[2019-11-05] VITALS (22 sets, daily range): BP systolic 138–195; BP diastolic 69–98
--- NOTE | 2019-11-05 03:21 | NUR ---
OLINDA DANIEL APN PAGED REGARDING HEART RATE, UPDATED ON PT STATUS, NEW ORDERS RECEIVED.
[2019-11-05 04:26] LABS: HEMATOCRIT 34.3 % (42.0-54.0); HEMOGLOBIN 11.7 g/dL (13.5-17.5); LYMPHOCYTES 10.3 % (15-50); MCH 31.1 pg (26.0-34.0); MCHC 34.1 g/dL (31.0-37.0); MEAN PLATELET VOLUME 10.3 fL (7.4-10.4); NEUTROPHILS 84.6 % (40-80); PLATELET COUNT 183 10x3/uL (130-400); RBC 3.76 10x6/uL (4.20-6.10); RDW 16.1 % (11.5-14.5); WBC 10.1 10x3/uL (4.8-10.8)
[2019-11-05 04:27] LABS: MCV 91.2 fL (80.0-100.0)
[2019-11-05 04:51] LABS: CALCIUM 7.5 mg/dL (8.5-10.1); CARBON DIOXIDE 26.6 mmol/L (21.0-32.0); CHLORIDE - SERUM 101 mmol/L (98-107); CKMB 0.7 U/L (0.0-3.6); CREATINE KINASE 145 UL (21-232); GLUCOSE 202 mg/dL (74-106); SODIUM 137 mmol/L (136-145); TROPONIN-I < 0.017 ng/mL (0.000-0.060)
[2019-11-05 04:58] LABS: CALC OSMOLALITY 279 mosm/kg (275-300); CREATININE - SERUM 0.8 mg/dL (0.6-1.3); POTASSIUM - SERUM 3.2 mmol/L (3.5-5.1); UREA NITROGEN 12 mg/dL (7-18); eGFR NON AFRICAN AMERICAN > 90 mL/min (90-120)
--- NOTE | 2019-11-05 10:50 | NUR ---
VENT ALARMING RESTLESS, AGITATED, PULLING AGAINST LINES, VERSED 4MG IVP GIVEN PER PRN ORDER
--- NOTE | 2019-11-05 11:00 | NUR ---
TEMP 102.0, BLOOD, URINE, AND RESPIRATORY CULTURES ORDERED, TYLENOL 650 PER OGT
[2019-11-05 11:11] LABS: CKMB 0.5 U/L (0.0-3.6); CREATINE KINASE 101 UL (21-232); TROPONIN-I < 0.017 ng/mL (0.000-0.060)
--- NOTE | 2019-11-05 11:50 | NUR ---
DR DORMAN MAKING ROUNDS, NEW ORDERS GIVEN
--- NOTE | 2019-11-05 14:00 | NUR ---
VENT ALARMING, BITING ON TUBE, VERSED 2 MG IVP GIVEN PER MAR ORDER, ORAL CARE AND SUCTION COMPLETED
--- NOTE | 2019-11-05 15:00 | NUR ---
TEMP 100.4, ICE PACKS PLACED FOR COOLING
[2019-11-05 17:12] LABS: CKMB 0.9 U/L (0.0-3.6); CREATINE KINASE 68 UL (21-232)
[2019-11-05 17:13] LABS: TROPONIN-I < 0.017 ng/mL (0.000-0.060)
[2019-11-06] VITALS (24 sets, daily range): BP systolic 115–151; BP diastolic 65–88
[2019-11-06 04:10] LABS: BASOPHILS 0.1 % (0-2); EOSINOPHILS 1.6 % (0-7); IMMATURE GRANULOCYTES 0.3 % (0-5); LYMPHOCYTES 11.6 % (15-50); MCH 30.2 pg (26.0-34.0); MCHC 32.4 g/dL (31.0-37.0); MEAN PLATELET VOLUME 10.1 fL (7.4-10.4); MONOCYTES 6.7 % (2-11); NEUTROPHILS 79.7 % (40-80); PLATELET COUNT 164 10x3/uL (130-400); RBC 3.98 10x6/uL (4.20-6.10); RDW 16.2 % (11.5-14.5); WBC 9.1 10x3/uL (4.8-10.8)
[2019-11-06 04:23] LABS: CALC OSMOLALITY 279 mosm/kg (275-300); CALCIUM 8.3 mg/dL (8.5-10.1); CARBON DIOXIDE 26.1 mmol/L (21.0-32.0); CHLORIDE - SERUM 103 mmol/L (98-107); CREATININE - SERUM 0.6 mg/dL (0.6-1.3); GLUCOSE 186 mg/dL (74-106); MAGNESIUM - SERUM 1.5 mg/dL (1.8-2.4); POTASSIUM - SERUM 3.1 mmol/L (3.5-5.1); SODIUM 139 mmol/L (136-145); eGFR NON AFRICAN AMERICAN > 90 mL/min (90-120)
[2019-11-06 04:40] LABS: UREA NITROGEN 5 mg/dL (7-18)
--- NOTE | 2019-11-06 10:43 | NUR ---
Nutrition follow-up: Pt intubated, sedated with propofol @ 62 ml/hr NPO Labs reviewed Noted TF to start within 24 hours if pt remains intubated Wt: 271# Recommend Pulmocare @ goal rate of 40 ml/hr RDN following.
--- NOTE | 2019-11-06 12:29 | NUR ---
KATHERINE COMPLETED AT BEDSIDE WITH HIRAM TAM AND PRN DOSE OF VERSED GIVEN, PER ORDER
--- NOTE | 2019-11-06 16:13 | NUR ---
pc from dago alejo, significant other, passcode obtained and status updated, no needs at this time
[2019-11-07] VITALS (24 sets, daily range): BP systolic 127–219; BP diastolic 68–108
[2019-11-07 05:25] LABS: BASOPHILS 0.1 % (0-2); EOSINOPHILS 1.2 % (0-7); HEMATOCRIT 37.7 % (42.0-54.0); HEMOGLOBIN 12.2 g/dL (13.5-17.5); IMMATURE GRANULOCYTES 0.5 % (0-5); LYMPHOCYTES 8.6 % (15-50); MCH 30.2 pg (26.0-34.0); MCHC 32.4 g/dL (31.0-37.0); MCV 93.3 fL (80.0-100.0); MEAN PLATELET VOLUME 10.2 fL (7.4-10.4); MONOCYTES 5.9 % (2-11); NEUTROPHILS 83.7 % (40-80); PLATELET COUNT 173 10x3/uL (130-400); RBC 4.04 10x6/uL (4.20-6.10); RDW 16.3 % (11.5-14.5); WBC 10.2 10x3/uL (4.8-10.8)
[2019-11-07 05:46] LABS: CALC OSMOLALITY 284 mosm/kg (275-300); CALCIUM 8.1 mg/dL (8.5-10.1); CARBON DIOXIDE 21.1 mmol/L (21.0-32.0); CHLORIDE - SERUM 104 mmol/L (98-107); CREATININE - SERUM 0.6 mg/dL (0.6-1.3); GLUCOSE 207 mg/dL (74-106); POTASSIUM - SERUM 3.3 mmol/L (3.5-5.1); SODIUM 141 mmol/L (136-145); UREA NITROGEN 6 mg/dL (7-18); eGFR NON AFRICAN AMERICAN > 90 mL/min (90-120)
--- NOTE | 2019-11-07 07:52 | NUR ---
LYING IN BED ON VENT AT THIS TIME. VSS. NO ACUTE DISTRESS NOTED. PT OPENS EYES TO STIMULATION, AND COUGHS OVER VENT WHEN STIMULATED. TURNED Q2H, ORAL CARE PROVIDED Q2H. WILL CONTINUE PLAN OF CARE.
--- NOTE | 2019-11-07 11:40 | NUR ---
SPOKE WITH PTS FAMILY. UPDATES PROVIDED.
--- NOTE | 2019-11-07 15:39 | NUR ---
SPOKE WITH PTS FAMILY, UPDATES PROVIDED.
--- NOTE | 2019-11-07 16:02 | NUR ---
PERSONAL ITEMS, SUCH CELL PHONE AND CLOTHES, SENT HOME WITH GIRLFRIEND, LETICIA WOO.
--- NOTE | 2019-11-07 16:53 | NUR ---
WILL START PTS TUBE FEEDING WHEN AVALIABLE.
--- NOTE | 2019-11-07 16:58 | NUR ---
DHALIWAL CARE PROVIDED. VSS. NO ACUTE DISTRESS NOTED. WILL CONTINUE PLAN OF CARE.
--- NOTE | 2019-11-07 17:22 | NUR ---
NOTED NO TUBE FEEDING TUBING AVALIABLE. WILL PROVIDE BOLUS (=10ML/HR) FOR PT UNTIL RECIEVE EQUIPMENT.
[2019-11-07 19:08] LABS: ACID FAST SMEAR Negative (()); AFB SPECIMEN PROCESSING Concentration (())
--- NOTE | 2019-11-07 20:00 | NUR ---
REC'D ON VENT FROM OFF-GOING NURSE. REPORT REC'D AND INITIAL ASSESSMENT COMPLETED PER FLOW SHEET. WILL CONT WITH CURRENT PLAN OF CARE.
[2019-11-08] VITALS (21 sets, daily range): BP systolic 122–161; BP diastolic 72–87
[2019-11-08 05:17] LABS: BASOPHILS 0.2 % (0-2); EOSINOPHILS 1.7 % (0-7); HEMATOCRIT 37.9 % (42.0-54.0); HEMOGLOBIN 12.3 g/dL (13.5-17.5); IMMATURE GRANULOCYTES 0.6 % (0-5); LYMPHOCYTES 9.5 % (15-50); MCH 30.7 pg (26.0-34.0); MCHC 32.5 g/dL (31.0-37.0); MCV 94.5 fL (80.0-100.0); MEAN PLATELET VOLUME 10.3 fL (7.4-10.4); MONOCYTES 6.9 % (2-11); NEUTROPHILS 81.1 % (40-80); PLATELET COUNT 172 10x3/uL (130-400); RBC 4.01 10x6/uL (4.20-6.10); RDW 16.6 % (11.5-14.5); WBC 12.4 10x3/uL (4.8-10.8)
[2019-11-08 05:35] LABS: CALCIUM 8.2 mg/dL (8.5-10.1); CARBON DIOXIDE 20.2 mmol/L (21.0-32.0); CHLORIDE - SERUM 104 mmol/L (98-107); CREATININE - SERUM 0.6 mg/dL (0.6-1.3); GLUCOSE 239 mg/dL (74-106); SODIUM 138 mmol/L (136-145); eGFR NON AFRICAN AMERICAN > 90 mL/min (90-120)
[2019-11-08 05:39] LABS: CALC OSMOLALITY 282 mosm/kg (275-300); POTASSIUM - SERUM 3.3 mmol/L (3.5-5.1); UREA NITROGEN 9 mg/dL (7-18)
--- NOTE | 2019-11-08 12:27 | NUR ---
NO ACUTE DISTRESS NOTED AT THIS TIME. VSS. PT TURNED Q2H. ORAL CARE PROVIDED Q2H. BED ALARM ON. WILL CONTINUE PLAN OF CARE.
--- NOTE | 2019-11-08 13:58 | NUR ---
NOTED PTS EMERGENCY CONTACT REQUESTED FOR PT TO HAVE A HEAD CT SINCE HE HAD FALLEN AT HOME PRIOR TO ADMISSION. PER DESTINY TAM TO ORDER HEAD CT.
--- NOTE | 2019-11-08 14:26 | NUR ---
0 ML RESIDUAL NOTED TO OGT WITH FLUID BOLUSES.
--- NOTE | 2019-11-08 15:16 | NUR ---
PER DR DORMAN, CHANGE NS ORDER FROM 200ML/HR TO 50ML/HR
--- NOTE | 2019-11-08 17:43 | NUR ---
INCONTINENT BOWEL MOVEMENT NOTED AT THIS TIME. TOTAL LINEN CHANGE PROVIDED. PT TURNED Q2H, ORAL CARE PROVIDED Q2H. VSS. WILL CONTINUE PLAN OF CARE.
[2019-11-09] VITALS (25 sets, daily range): BP systolic 19–149; BP diastolic 75–87
[2019-11-09 04:54] LABS: ALBUMIN 2.5 g/dL (3.4-5.0); ALKALINE PHOSPHATASE 87 U/L (30-120); BILIRUBIN - TOTAL 0.84 mg/dL (0.2-1.3); CALC OSMOLALITY 283 mosm/kg (275-300); CALCIUM 8.3 mg/dL (8.5-10.1); CARBON DIOXIDE 19.1 mmol/L (21.0-32.0); CHLORIDE - SERUM 105 mmol/L (98-107); GLUCOSE 228 mg/dL (74-106); PROTEIN - SERUM 6.5 g/dL (6.4-8.2); SODIUM 139 mmol/L (136-145); UREA NITROGEN 9 mg/dL (7-18)
[2019-11-09 04:56] LABS: BASOPHILS 0.2 % (0-2); EOSINOPHILS 2.7 % (0-7); HEMOGLOBIN 12.2 g/dL (13.5-17.5); IMMATURE GRANULOCYTES 0.9 % (0-5); LYMPHOCYTES 8.1 % (15-50); MCH 30.6 pg (26.0-34.0); MCV 92.7 fL (80.0-100.0); MONOCYTES 6.7 % (2-11); NEUTROPHILS 81.4 % (40-80); PLATELET COUNT 183 10x3/uL (130-400); RBC 3.99 10x6/uL (4.20-6.10); RDW 16.3 % (11.5-14.5); WBC 11.2 10x3/uL (4.8-10.8)
[2019-11-09 05:16] LABS: ALT (SGPT) 18 U/L (10-68); CREATININE - SERUM 0.4 mg/dL (0.6-1.3); POTASSIUM - SERUM 4.7 mmol/L (3.5-5.1); eGFR NON AFRICAN AMERICAN > 90 mL/min (90-120)
--- NOTE | 2019-11-09 07:10 | NUR ---
REPORT RECIEVED FROM MEAL MILLER AND PATIENT CARE ASSUMED. PATIENT LAYING IN BED ON BACK WITH EYES CLOSED ON VENT AC 20 TV 500 FIO2 30% PEEP 5. BP 139/78 R 28 93% HR 94 NSR. ZITA SOFT WRIST RESRAINTS IN PLACE DHALIWAL CATHETER IN PLACE DRAINING CONC ANBER URINE. WILL CONTINUE WITH PLAN OF CARE. SR UP X 2 BED IN LOW POSITION AND CALL LIGHT IN REACH.
--- NOTE | 2019-11-09 08:17 | NUR ---
Nutrition follow-up: Remains intubated, sedated Pulmocare has been given bolus; 40 ml Q 4 hours over the weekend / no TF bags available ELISHA Lamas reports TF will start today @ 10 ml/hr with increase to goal rate of 50 ml/hr. Labs reviewed +BM RDN following.
[2019-11-09 12:08] LABS: FUNGUS STAIN Final report (())
[2019-11-10] VITALS (25 sets, daily range): BP systolic 113–158; BP diastolic 68–94
[2019-11-10 05:17] LABS: BASOPHILS 0.2 % (0-2); EOSINOPHILS 3.1 % (0-7); HEMATOCRIT 37.2 % (42.0-54.0); HEMOGLOBIN 11.9 g/dL (13.5-17.5); IMMATURE GRANULOCYTES 1.1 % (0-5); LYMPHOCYTES 9.3 % (15-50); MCH 30.2 pg (26.0-34.0); MCV 94.4 fL (80.0-100.0); MEAN PLATELET VOLUME 10.3 fL (7.4-10.4); MONOCYTES 6.1 % (2-11); NEUTROPHILS 80.2 % (40-80); PLATELET COUNT 181 10x3/uL (130-400); RBC 3.94 10x6/uL (4.20-6.10); RDW 16.5 % (11.5-14.5); WBC 9.1 10x3/uL (4.8-10.8)
[2019-11-10 06:06] LABS: ALBUMIN 2.5 g/dL (3.4-5.0); ALKALINE PHOSPHATASE 84 U/L (30-120); ALT (SGPT) 19 U/L (10-68); BILIRUBIN - TOTAL 0.59 mg/dL (0.2-1.3); CALC OSMOLALITY 285 mosm/kg (275-300); CALCIUM 8.5 mg/dL (8.5-10.1); CARBON DIOXIDE 21.3 mmol/L (21.0-32.0); CHLORIDE - SERUM 107 mmol/L (98-107); CREATININE - SERUM 0.5 mg/dL (0.6-1.3); GLUCOSE 247 mg/dL (74-106); POTASSIUM - SERUM 3.5 mmol/L (3.5-5.1); PROTEIN - SERUM 7.1 g/dL (6.4-8.2); SODIUM 140 mmol/L (136-145); UREA NITROGEN 10 mg/dL (7-18); eGFR NON AFRICAN AMERICAN > 90 mL/min (90-120)
[2019-11-11] VITALS (18 sets, daily range): BP systolic 119–167; BP diastolic 74–96
--- NOTE | 2019-11-11 07:15 | NUR ---
BEDSIDE SHIFT REPORT COMPLETED. INTRODUCED MYSELF TO PT PRIMARY RN FOR TODAYS SHIFT. PT IS SEDATED AND NOT RESPONDING TO VERBAL OR TACTILE STIMULI AT THIS TIME. WILL CONTINUE TO TITRATE SEDATION PER ORDERS. INFUSING VIA R.UPPER ARM MIDLINE. PT IS ON VENT AND PULSE OX 94% AT THIS TIME. LUNGS HAVE CRACKLES AND WHEEZING IN BILAT UPPER LOBES AND MIDDLE WITH DIMINISHED LOWER LOBES. PT HAS COPIOUS AMOUNTS OF SECREATIONS COMING FROM ORAL TUBE AND AROUND OGT. SUCTIONED HIM AND PROVIDED ORAL CARE. PTS TUBE FEED IS CURRENTLY OFF PER NIGHTSHIFT BUT OGT WILL NEED ASSESSED FOR PLACEMENT AND THEN RESTART TUBE FEEDING PER ORDERS. S1S2 NOTED AND PT IS RUNNING SINUS TACHYCARDIA ON THE MONITER. BILAT SOFT WRIST RESTRAINTS IN PLACE BUT I WILL UNDO HE IS SO SEDATED AND NOT ATTEMPTING TO PULL AT ANY LINES AT THIS TIME. DHALIWAL CATHTER DRAINING TO GRAVITY DEBORAH COLORED URINE OFF L.SIDE OF THE BED. BILAT ARMS HAVE GENERALIZED EDEMA AND BRUISING BUT SKIN IS INTACT. PT HAD INCONTINENT EPISODE OF LOOSE GREENISH YELLOW STOOL. PARTIAL BED CHANGE COMPLETED AND CLEANED PT UP. BUTTOCKS IS RED AND NONBLANCHABLE BUT SKIN REMAINS INTACT. TURNED PT ONTO HIS L.SIDE AND WILL CONTINUE WITH POSITION CHANGES TO HELP REDUCE ANY BREAKDOWN. PTS L.HEEL HAS A BLISTER WITH SKIN INTACT BUT VERY BOGGY. BILAT FEET HAVE HEEL PROTECTORS IN PLACE. WILL REVIEW CHART AND ORDERS AND BEGIN PLACE OF CARE.
--- NOTE | 2019-11-11 08:00 | NUR ---
UPON GOING TO GIVE AM MEDICATIONS NOTED OGT WAS NOT FUNCTIONING. NIGHTSHIFT WAS UNABLE TO KEEP TUBE FEED GOING. REMOVED OLD OGT WITH TIP FULLY INTACT AND NEW ONE PLACED. AUSCULTATION DONE TO CONFIRM PLACEMENT. WAITING ON XRAY BEFORE STARTING TUBE FEED BACK. D/C PTS L.UPPER ARM PIV IT WAS RED AND LEAKING AT SITE. CATHETER TIP FULLY INTACT. D/C PTS R.WRIST PIV WITH CATHETER TIP INTACT WELL IT WAS NOT PATENT. PT REMAINS RECIEVING IV FLUIDS/DRUGS VIA R.UPPER ARM MIDLINE. NO IMMEDIATE NEEDS AT THIS TIME. WILL CPOC.
--- NOTE | 2019-11-11 08:40 | NUR ---
WEANED SEDATION PER ORDER AT BEDSIDE. WILL SEE HOW PT DOES.
--- NOTE | 2019-11-11 09:49 | NUR ---
Nutrition follow-up: Pt intubated, sedation being weaned off per Mitzi RN per Dr[facility] De La Paz [facility] needs advancing per xray. Labs reviewed Wt: 273# Recommend when TF resumes to advance to goal rate of 50 ml/hr RDN following.
--- NOTE | 2019-11-11 10:46 | NUR ---
PTS GIRLFRIEND LETICIA CALLED AND REC'D UPDATE REQUESTED. I AM CONTINUING TO WEAN DOWN PTS SEDATION. PT REMAINS ASLEEP BUT WILL AROUSE WITH TACTILE STIMULI AND HAS GAG REFLEX INTACT. VSS AND BEING MONITERED. PTS TEMP WAS 100.3 AND WAS TREATED WITH TYELENOL AND IS NOW AFEBRILE. NO IMMEDIATE NEEDS AT THIS TIME. WILL CPOC.
--- NOTE | 2019-11-11 12:00 | NUR ---
FULL CHG BED BATH COMPLETED. TURNED PT ONTO HIS LEFT SIDE TO RELIEVE PRESSURE OFF BOTTOM. PTS BUTTOCKS HAS SOME RED AREAS THAT ARE NOT BLANCHABLE BUT SKIN INTACT. DHALIWAL CATHETER CARE COMPLETED WITH SOAP AND WATER NO KINKS OR ISSUES NOTED WITH TUBING. DHALIWAL BAG DRAINING OFF L.SIDE OF BED TO GRAVITY. SUCTIONED PT AGAIN HE IS HAVING COPIOUS AMOUNTS OF THICK FROTHY SPUTUM FROM HIS MOUTH. CONTINUING TO WEAN PTS SEDATION FOR POSSIBLE EXTUBATION. NO IMMEDIATE NEEDS AT THIS TIME. RESTRAINTS CURRENTLY OFF AND PT IS VERY SEDATED AND RESTING CALM AND BEING COOPERATIVE. WILL CTM.
--- NOTE | 2019-11-11 14:30 | NUR ---
TUBE FEED RESTARTED OGT IS IN PLACE AND CONFIRMED WITH AUSCULTATION AND XRAY. CURRENTLY INFUSING @10CC/HR WILL CONTINUE TO INCREASE PER ORDERS AND CHECK RESIDUALS Q4HRS.
--- NOTE | 2019-11-11 15:52 | NUR ---
PTS SPOUSE/GIRLFRIEND CALLED AND WAS UPDATED WITH CONDITION AGAIN. PT STILL VERY SEDATED. I HAVE WEANED HIS SEDATION DRIP DOWN A LOT TODAY, WILL CONTINUE. VSS EXCEPT PT REMAINS FEBRILE DESPITE TYELENOL GIVEN. WILL DISCUSS WITH PRIMARY ABOUT TRYING SUPPOSITORY INSTEAD OF THROUGH OGT.
--- NOTE | 2019-11-11 16:13 | NUR ---
ROUNDRAZA STATES CONTINUE WEANING SEDATION. NO VENT OR RESPIRATORY CHANGES AT THIS TIME.
--- NOTE | 2019-11-11 18:56 | NUR ---
PT INCONTINENT OF LOOSE STOOL. CLEANED PT UP AND REPOSITIONED HIM TO HIS R.SIDE WITH A WEDGE BEHIND HIS BACK. PT IS DIAPHORETIC AND STILL RUNNING A FEVER. NEW ORDER OBTAINED FOR TYLENOL SUPPOSITORY AND WAS GIVEN. ORAL CARE PROVIDED FOR COPIOUS AMOUNTS OF SECREATIONS LEAKING FROM PTS MOUTH. ICE APPLIED BEHIND PTS HEAD TO TRY AND HELP COOL HIM OFF. PT NOW RESTING NO FURTHER NEEDS WILL GIVE BEDSIDE SHIFT REPORT.
[2019-11-12] VITALS (24 sets, daily range): BP systolic 107–163; BP diastolic 66–99
[2019-11-13] VITALS (24 sets, daily range): BP systolic 112–137; BP diastolic 63–87
[2019-11-13 08:02] LABS: ALBUMIN 2.5 g/dL (3.4-5.0); ALKALINE PHOSPHATASE 126 U/L (30-120); ALT (SGPT) 46 U/L (10-68); BILIRUBIN - TOTAL 0.87 mg/dL (0.2-1.3); CALC OSMOLALITY 293 mosm/kg (275-300); CALCIUM 8.8 mg/dL (8.5-10.1); CARBON DIOXIDE 24.1 mmol/L (21.0-32.0); CHLORIDE - SERUM 104 mmol/L (98-107); CREATININE - SERUM 0.7 mg/dL (0.6-1.3); GLUCOSE 283 mg/dL (74-106); POTASSIUM - SERUM 3.4 mmol/L (3.5-5.1); PROTEIN - SERUM 6.8 g/dL (6.4-8.2); SODIUM 141 mmol/L (136-145); UREA NITROGEN 20 mg/dL (7-18); eGFR NON AFRICAN AMERICAN > 90 mL/min (90-120)
[2019-11-13 08:39] LABS: BASOPHILS 0.4 % (0-2); EOSINOPHILS 2.7 % (0-7); HEMATOCRIT 39.7 % (42.0-54.0); HEMOGLOBIN 12.4 g/dL (13.5-17.5); IMMATURE GRANULOCYTES 0.8 % (0-5); LYMPHOCYTES 10.7 % (15-50); MCH 29.7 pg (26.0-34.0); MCHC 31.2 g/dL (31.0-37.0); MEAN PLATELET VOLUME 11.2 fL (7.4-10.4); NEUTROPHILS 80.4 % (40-80); PLATELET COUNT 286 10x3/uL (130-400); RBC 4.18 10x6/uL (4.20-6.10); RDW 16.1 % (11.5-14.5); WBC 10.6 10x3/uL (4.8-10.8)
--- NOTE | 2019-11-13 09:33 | NUR ---
PS TRIAL 12/06
--- NOTE | 2019-11-13 10:05 | NUR ---
Nutrition follow-up: Intubated, sedated; propofol @ 66.8 ml/hr OGT with Pulmocare @ 20 ml/hr labs reviewed Wt: 273# PS trial today Recommend increasing Pulmocare to goal rate of 60 ml/hr RDN following.
--- NOTE | 2019-11-13 14:19 | NUR ---
RESP RATE 30BPM,SPO2 DROPS TO 88%. PT PLACED BACK ON A/C. SPO2 INCREASED TO 97 AND DIPROVAN TITRATED BACK UP FOR SEDATION.
--- NOTE | 2019-11-13 15:29 | NUR ---
TEMP 101.1, REPORTED TO DR STONE. REC'D NEW ORDERS OBTAIN DRAW CULTURES.
--- NOTE | 2019-11-13 23:00 | NUR ---
60 ML ON RESIDUALS. INCREASED TUBE FEEDING TO 30 ML/HR PER ORDERS
[2019-11-14] VITALS (24 sets, daily range): BP systolic 116–168; BP diastolic 64–100
[2019-11-14 03:20] LABS: BASOPHILS 0.5 % (0-2); EOSINOPHILS 2.8 % (0-7); HEMATOCRIT 38.6 % (42.0-54.0); HEMOGLOBIN 12.2 g/dL (13.5-17.5); IMMATURE GRANULOCYTES 0.8 % (0-5); LYMPHOCYTES 12.8 % (15-50); MCH 29.9 pg (26.0-34.0); MCHC 31.6 g/dL (31.0-37.0); MCV 94.6 fL (80.0-100.0); MEAN PLATELET VOLUME 10.5 fL (7.4-10.4); MONOCYTES 5.9 % (2-11); NEUTROPHILS 77.2 % (40-80); PLATELET COUNT 281 10x3/uL (130-400); RBC 4.08 10x6/uL (4.20-6.10); RDW 15.9 % (11.5-14.5)
[2019-11-14 03:32] LABS: ALBUMIN 2.4 g/dL (3.4-5.0); ALKALINE PHOSPHATASE 125 U/L (30-120); ALT (SGPT) 50 U/L (10-68); BILIRUBIN - TOTAL 0.76 mg/dL (0.2-1.3); CALC OSMOLALITY 290 mosm/kg (275-300); CALCIUM 8.9 mg/dL (8.5-10.1); CARBON DIOXIDE 24.6 mmol/L (21.0-32.0); CHLORIDE - SERUM 102 mmol/L (98-107); CREATININE - SERUM 0.7 mg/dL (0.6-1.3); GLUCOSE 282 mg/dL (74-106); MAGNESIUM - SERUM 1.9 mg/dL (1.8-2.4); PHOSPHOROUS 3.2 mg/dL (2.5-4.9); POTASSIUM - SERUM 3.3 mmol/L (3.5-5.1); PROTEIN - SERUM 7.3 g/dL (6.4-8.2); SODIUM 139 mmol/L (136-145); UREA NITROGEN 22 mg/dL (7-18); eGFR NON AFRICAN AMERICAN > 90 mL/min (90-120)
--- NOTE | 2019-11-14 06:35 | NUR ---
LG BM, COMPLETE BED CHANGED
--- NOTE | 2019-11-14 09:47 | NUR ---
TEMP 100.3. TYLENOL GIVEN. RESP RATE 32BPM. VERSED GIVEN. SPO2 88%. FI02 INC FROM 50% TO 60%. DR GODINEZ NOTIFIED.
--- NOTE | 2019-11-14 13:04 | NUR ---
BRONCHOSCOPY DONE IN ICU BY DR GODINEZ. VERSED 4 MG GIVEN. PT ARIAN WELL.
[2019-11-14 17:00] LABS: MACROPHAGES BF 2 %; NEUT - BF 94 %
[2019-11-14 17:02] LABS: NEUT - BF 98 %
--- NOTE | 2019-11-14 17:26 | NUR ---
TEMP 101.2. HR 138, BP 171/98. PAGED DR GODINEZ. REC'D ORDERS FOR PRECIDEX GTT.
[2019-11-15] VITALS (24 sets, daily range): BP systolic 108–169; BP diastolic 63–104
--- NOTE | 2019-11-15 01:47 | NUR ---
0048-TEMP 102.8. ICE PACKS PLACED. WENT TO GIVE TYLENOL AND OGT TIP WAS IN MOUTH. PATIENT WAS AWAKE TRYING TO GET UP. MAXED OUT OF PRECEDEX AND FENTANYL. GIVEN PRN VERSED. REPLACED OGT. ASCULTATED. GIVEN TYLENOL AND RESTARTED TUBE FEEDING. DURING THIS TIME, PATIENT STARTED BREATHING 40/MIN AND BP ELEVATED. ONCE VERSED WENT IN, PATIENT'S VITAL WENT BACK TO WITHIN LIMITS AND PATIENT STOPPED TRYING TO GET UP.
[2019-11-15 03:27] LABS: BASOPHILS 0.2 % (0-2); EOSINOPHILS 1.3 % (0-7); HEMATOCRIT 36.4 % (42.0-54.0); HEMOGLOBIN 11.1 g/dL (13.5-17.5); IMMATURE GRANULOCYTES 0.5 % (0-5); LYMPHOCYTES 11.7 % (15-50); MCH 29.4 pg (26.0-34.0); MCHC 30.5 g/dL (31.0-37.0); MEAN PLATELET VOLUME 10.7 fL (7.4-10.4); MONOCYTES 4.7 % (2-11); NEUTROPHILS 81.6 % (40-80); RBC 3.77 10x6/uL (4.20-6.10); RDW 15.8 % (11.5-14.5); WBC 8.6 10x3/uL (4.8-10.8)
[2019-11-15 03:28] LABS: MCV 96.6 fL (80.0-100.0); PLATELET COUNT 213 10x3/uL (130-400)
[2019-11-15 03:36] LABS: ALBUMIN 2.2 g/dL (3.4-5.0); ALKALINE PHOSPHATASE 110 U/L (30-120); ALT (SGPT) 53 U/L (10-68); BILIRUBIN - TOTAL 0.56 mg/dL (0.2-1.3); CALC OSMOLALITY 299 mosm/kg (275-300); CALCIUM 8.6 mg/dL (8.5-10.1); CHLORIDE - SERUM 110 mmol/L (98-107); CREATININE - SERUM 0.6 mg/dL (0.6-1.3); GLUCOSE 318 mg/dL (74-106); POTASSIUM - SERUM 3.7 mmol/L (3.5-5.1); PROTEIN - SERUM 6.7 g/dL (6.4-8.2); SODIUM 143 mmol/L (136-145); UREA NITROGEN 22 mg/dL (7-18); eGFR NON AFRICAN AMERICAN > 90 mL/min (90-120)
[2019-11-15 03:39] LABS: PHOSPHOROUS 2.3 mg/dL (2.5-4.9)
--- NOTE | 2019-11-15 05:10 | NUR ---
TEMP 102.9. PAGED AND SPOKE TO FRANCHESCA RAMIREZ. NEW ORDERS REC'D/.
--- NOTE | 2019-11-15 09:35 | NUR ---
CPAP TRIALS STARTED. DR GODINEZ HERE.
--- NOTE | 2019-11-15 12:40 | NUR ---
PT ARIAN CPAP TRIALS. TYLENOL GIVEN FOR TEMP, ICE PKS APPLIED.
--- NOTE | 2019-11-15 13:34 | NUR ---
BATH AND LINENS CHANGED. PT CONTINUES CPAP TRIALS. DR GODINEZ AWARE OF TEMP 103. ICE PK APPLIED, TYLENOL GIVEN. PIPERCILLIN.
[2019-11-16] VITALS (25 sets, daily range): BP systolic 115–154; BP diastolic 62–107
[2019-11-16 05:07] LABS: BASOPHILS 0.1 % (0-2); EOSINOPHILS 5.7 % (0-7); LYMPHOCYTES 11.7 % (15-50); MCHC 29.7 g/dL (31.0-37.0); MCV 97.7 fL (80.0-100.0); MEAN PLATELET VOLUME 11.1 fL (7.4-10.4); MONOCYTES 5.7 % (2-11); NEUTROPHILS 74.8 % (40-80); RDW 15.6 % (11.5-14.5); WBC 8.1 10x3/uL (4.8-10.8)
[2019-11-16 05:09] LABS: HEMATOCRIT 50.5 % (42.0-54.0); PLATELET COUNT 99 10x3/uL (130-400); PLATELET ESTIMATE DECREASED; RBC 5.17 10x6/uL (4.20-6.10)
[2019-11-16 05:15] LABS: ALBUMIN 2.2 g/dL (3.4-5.0); ALKALINE PHOSPHATASE 94 U/L (30-120); ALT (SGPT) 46 U/L (10-68); BILIRUBIN - TOTAL 0.44 mg/dL (0.2-1.3); CALC OSMOLALITY 306 mosm/kg (275-300); CALCIUM 8.4 mg/dL (8.5-10.1); CARBON DIOXIDE 26.2 mmol/L (21.0-32.0); CHLORIDE - SERUM 113 mmol/L (98-107); CREATININE - SERUM 0.7 mg/dL (0.6-1.3); GLUCOSE 311 mg/dL (74-106); POTASSIUM - SERUM 3.8 mmol/L (3.5-5.1); PROTEIN - SERUM 6.1 g/dL (6.4-8.2); SODIUM 147 mmol/L (136-145); UREA NITROGEN 20 mg/dL (7-18); eGFR NON AFRICAN AMERICAN > 90 mL/min (90-120)
--- NOTE | 2019-11-16 10:55 | NUR ---
Nutrition follow-up: Pt remains intubated, sedated Pulmocare off 2/2 possible aspiration CPAP trials 11/14 Spoke with ELISHA Lindsey re: restarting TF per gravity drip after xray Labs reviewed Wt:263# RDN following.
--- NOTE | 2019-11-16 11:08 | NUR ---
PT SWITCHED OVER TO CPAP ON VENT. WILL CONTINUE TO MONITOR
[2019-11-17] VITALS (24 sets, daily range): BP systolic 123–167; BP diastolic 73–100
[2019-11-17 04:50] LABS: BASOPHILS 0.3 % (0-2); EOSINOPHILS 2.7 % (0-7); IMMATURE GRANULOCYTES 0.7 % (0-5); LYMPHOCYTES 12.8 % (15-50); MCH 29.2 pg (26.0-34.0); MCHC 29.9 g/dL (31.0-37.0); MCV 97.7 fL (80.0-100.0); MEAN PLATELET VOLUME 11.2 fL (7.4-10.4); MONOCYTES 4.9 % (2-11); NEUTROPHILS 78.6 % (40-80); RDW 15.3 % (11.5-14.5); WBC 6.7 10x3/uL (4.8-10.8)
[2019-11-17 04:55] LABS: HEMATOCRIT 34.1 % (42.0-54.0); HEMOGLOBIN 10.2 g/dL (13.5-17.5); PLATELET COUNT 185 10x3/uL (130-400); RBC 3.49 10x6/uL (4.20-6.10)
[2019-11-17 05:58] LABS: ALBUMIN 2.1 g/dL (3.4-5.0); ALKALINE PHOSPHATASE 98 U/L (30-120); BILIRUBIN - TOTAL 0.94 mg/dL (0.2-1.3); CALCIUM 8.4 mg/dL (8.5-10.1); CARBON DIOXIDE 26.5 mmol/L (21.0-32.0); CHLORIDE - SERUM 114 mmol/L (98-107); CREATININE - SERUM 0.6 mg/dL (0.6-1.3); POTASSIUM - SERUM 3.3 mmol/L (3.5-5.1); SODIUM 149 mmol/L (136-145); UREA NITROGEN 16 mg/dL (7-18); eGFR NON AFRICAN AMERICAN > 90 mL/min (90-120)
[2019-11-17 06:10] LABS: ALT (SGPT) 66 U/L (10-68); CALC OSMOLALITY 303 mosm/kg (275-300); GLUCOSE 218 mg/dL (74-106)
--- NOTE | 2019-11-17 07:30 | NUR ---
pt started on cpap trial. will continue to monitor
[2019-11-18] VITALS (23 sets, daily range): BP systolic 107–169; BP diastolic 56–106
[2019-11-18 04:58] LABS: BASOPHILS 0.4 % (0-2); EOSINOPHILS 3.7 % (0-7); HEMATOCRIT 36.3 % (42.0-54.0); HEMOGLOBIN 10.7 g/dL (13.5-17.5); IMMATURE GRANULOCYTES 0.4 % (0-5); LYMPHOCYTES 15.1 % (15-50); MCH 28.5 pg (26.0-34.0); MCHC 29.5 g/dL (31.0-37.0); MCV 96.8 fL (80.0-100.0); MEAN PLATELET VOLUME 11.3 fL (7.4-10.4); MONOCYTES 4.4 % (2-11); PLATELET COUNT 184 10x3/uL (130-400); RBC 3.75 10x6/uL (4.20-6.10); WBC 5.7 10x3/uL (4.8-10.8)
[2019-11-18 05:29] LABS: ALBUMIN 2.2 g/dL (3.4-5.0); ALKALINE PHOSPHATASE 105 U/L (30-120); BILIRUBIN - TOTAL 0.75 mg/dL (0.2-1.3); CALC OSMOLALITY 300 mosm/kg (275-300); CALCIUM 8.5 mg/dL (8.5-10.1); CARBON DIOXIDE 29.1 mmol/L (21.0-32.0); CHLORIDE - SERUM 112 mmol/L (98-107); CREATININE - SERUM 0.6 mg/dL (0.6-1.3); GLUCOSE 206 mg/dL (74-106); PROTEIN - SERUM 6.1 g/dL (6.4-8.2); SODIUM 148 mmol/L (136-145); UREA NITROGEN 14 mg/dL (7-18); eGFR NON AFRICAN AMERICAN > 90 mL/min (90-120)
[2019-11-18 05:30] LABS: ALT (SGPT) 87 U/L (10-68)
--- NOTE | 2019-11-18 12:51 | NUR ---
Nutrition follow-up: CPAP trials today TF on hold 2/2 possible misplaced feeding tube Labs reviewed Wt: 263# Recommend restarting TF @ 25 ml/hr with increase to goal rate of 50 ml/hr RDN following.
--- NOTE | 2019-11-18 18:27 | NUR ---
0700- REPORT RECEIVED. PT ASSESSED DOCUMENTED. BED LOCKED AND IN LOW POSITION. SAFETY MAINTAINED. 0900-cares cont. see mar and flowsheet 1141-VERSED GIVEN PRN FOR AGITATION 1420-CPAP TRIAL PER RT 1521-FAILED CPAP TRIAL WITH INCREASED AGITATION. VERSED GIVEN WITH GOOD RESULT. 1700-RESTING QUIETLY AFTER FAMILY CALLED AND PHONE HELD TO EAR.
--- NOTE | 2019-11-18 18:47 | NUR ---
0745-UNABLE TO VERIFY TUBE PLACEMENT. TUBE FEED HELD AT THIS TIME. 1241-PULMACARE TUBE FEED RESTARTED AT 10ML/HR AFTER PLACEMENT VERIFICATION FROM MATY AND DR DANDY WINSLOW.
--- NOTE | 2019-11-18 19:59 | MORECARE ---
CASE MANAGEMENT DISCHARGE SUMMARY PATIENT: EDDA BARRAGAN V JR UNIT: [id number] ADM DATE: 11/04/19 AGE: 54 : 69 SEX: M ROOM/BED: D.2306 AUTHOR: MURRAY LEHMAN PHYSICIAN: REFERRING PHYSICIAN: MELONY RODRIGUEZ MD DATE OF SERVICE: 11/18/19 Discharge Plan Patient Name: EDDA BARRAGAN [facility] [facility] 1965 Planned Disposition: Anticipated Discharge Date: Discharge Date: Expected LOS: Initial Reviewer: [email or web address] Initial Review Date: 11/04/2019 Generated: 11/18/19 8:58 pm Patient Name: EDDA BARRAGAN Page [id number] at 1956 All edits/amendments must be made on the electronic document DICTATION DATE: 11/18/191957 ONLINE BANKING SPECIALIST: LOREN 11/18/191957 RPT#: [id number] DC DATE: STATUS: ADM IN [facility] [address] [place] [address] END OF REPORT
--- NOTE | 2019-11-18 20:05 | MORECARE ---
CASE MANAGEMENT DISCHARGE SUMMARY PATIENT: EDDA BARRAGAN V JR UNIT: [id number] ADM DATE: 11/04/19 AGE: 54 : 69 SEX: M ROOM/BED: D.2306 AUTHOR: DOMINIK,DOC PHYSICIAN: REFERRING PHYSICIAN: MELONY RODRIGUEZ MD DATE OF SERVICE: 11/18/19 Discharge Plan Patient Name: EDDA BARRAGAN Facility: [facility]:[place] : 1965 Planned Disposition: Anticipated Discharge Date: Discharge Date: Expected LOS: Initial Reviewer: [email or web address] Initial Review Date: 11/04/2019 Generated: 11/18/19 9:05 pm DCP- Discharge Planning Updated by [email or web address]: Elvira Foy on 11/18/19 7:[address] LATE ENTRY 11/17/19 Patient Name: EDDA BARRAGAN Admission Status: ER Accout number: [id number] Admission Date: 11-04-2019 : 1965 Admission Diagnosis: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 CM educated patient's significant other on the CM role and verbal consent given by patient to complete assessment. Patient lives at home with significant other. Patient is independent. At discharge patient plans to return home and feels this is a safe discharge. CM discussed availability of home health, rehab services, and medical equipment. Patient will have family to transport home. Uncertain at this time discharge needs / disposition . CM will continue to follow and will assist as needed with dc plans/needs. Mailing Machine Helper: Elvira Foy DCPIA - Discharge Planning Initial Assessment Updated by [email or web address]: Elvira Foy on 11/18/19 7:58 pm * Is the patient Alert and Oriented? No * How many steps to enter\exit or inside your home? * PCP MARGARITA * [facility]acy [facility] * Preadmission Environment Home with Family * ADLs Independent * Other Equipment CPAP, GLUCOMETER * List name and contact numbers for known caregivers / representatives who currently or will assist patient after discharge: ISNA HORTA [facility] - [phone] * Verbal permission to speak to the caregivers and representatives has been obtained from the patient. N/A * Community resources currently utilized None * Additional services required to return to the preadmission environment? No * Can the patient safely return to the preadmission environment? Yes * Has this patient been hospitalized within the prior 30 days at any hospital? No Last DP export: 11/18/19 6:59 p Patient Name: EDDA BARRAGAN Page [phone] at 2005 All edits/amendments must be made on the electronic document DICTATION DATE: 11/18/192004 GAS TURBINE POWERPLANT MECHANIC: LOREN 11/18/192004 RPT#: [id number] DC DATE: STATUS: ADM IN [facility] [address] [place] [address] END OF REPORT
[2019-11-19] VITALS (24 sets, daily range): BP systolic 78–166; BP diastolic 47–98
[2019-11-19 05:18] LABS: ALBUMIN 2.4 g/dL (3.4-5.0); ALKALINE PHOSPHATASE 119 U/L (30-120); ALT (SGPT) 107 U/L (10-68); BILIRUBIN - TOTAL 0.68 mg/dL (0.2-1.3); CALC OSMOLALITY 295 mosm/kg (275-300); CALCIUM 8.5 mg/dL (8.5-10.1); CARBON DIOXIDE 27.4 mmol/L (21.0-32.0); CHLORIDE - SERUM 110 mmol/L (98-107); CREATININE - SERUM 0.6 mg/dL (0.6-1.3); POTASSIUM - SERUM 3.6 mmol/L (3.5-5.1); PROTEIN - SERUM 6.6 g/dL (6.4-8.2); SODIUM 147 mmol/L (136-145); UREA NITROGEN 14 mg/dL (7-18); eGFR NON AFRICAN AMERICAN > 90 mL/min (90-120)
[2019-11-19 05:20] LABS: GLUCOSE 147 mg/dL (74-106)
[2019-11-19 05:23] LABS: BASOPHILS 0.2 % (0-2); EOSINOPHILS 2.7 % (0-7); HEMATOCRIT 37.8 % (42.0-54.0); HEMOGLOBIN 11.5 g/dL (13.5-17.5); IMMATURE GRANULOCYTES 0.5 % (0-5); LYMPHOCYTES 16.2 % (15-50); MCH 28.6 pg (26.0-34.0); MCHC 30.4 g/dL (31.0-37.0); MEAN PLATELET VOLUME 11.8 fL (7.4-10.4); MONOCYTES 4.2 % (2-11); NEUTROPHILS 76.2 % (40-80); PLATELET COUNT 173 10x3/uL (130-400); RBC 4.02 10x6/uL (4.20-6.10); RDW 14.8 % (11.5-14.5); WBC 6.2 10x3/uL (4.8-10.8)
--- NOTE | 2019-11-19 07:16 | NUR ---
INCREASED O2 60%
--- NOTE | 2019-11-19 08:15 | NUR ---
IV PLACED TO RIGHT CHEST. PRECEDEX AND FENTANYL STARTED BACK ON PT. CALLED VASCULAR ACCESS NURSE TO PLACE A MIDLINE OR PICC.
--- NOTE | 2019-11-19 09:39 | NUR ---
PT CONTINUING TO THRASH AROUND IN BED. INCREASED FENTANYL. RT IN SUCTIONING PT. REPOSITIONED. RESTRAINTS ON.
--- NOTE | 2019-11-19 11:36 | NUR ---
PT ON CPAP TRIAL.
--- NOTE | 2019-11-19 12:39 | NUR ---
TURNED OFF CPAP TRIAL. DR DORMAN WANTS TO DO A BRONCH TODAY.
--- NOTE | 2019-11-19 15:48 | NUR ---
BRONCH DONE BY DR DORMAN.
[2019-11-20] VITALS (18 sets, daily range): BP systolic 73–134; BP diastolic 36–72
[2019-11-20 04:30] LABS: BASOPHILS 0.1 % (0-2); HEMATOCRIT 36.9 % (42.0-54.0); HEMOGLOBIN 11.2 g/dL (13.5-17.5); IMMATURE GRANULOCYTES 2.1 % (0-5); LYMPHOCYTES 13.3 % (15-50); MCH 29.2 pg (26.0-34.0); MCHC 30.4 g/dL (31.0-37.0); MEAN PLATELET VOLUME 11.8 fL (7.4-10.4); NEUTROPHILS 77.5 % (40-80); PLATELET COUNT 201 10x3/uL (130-400); RBC 3.84 10x6/uL (4.20-6.10); RDW 15.2 % (11.5-14.5)
[2019-11-20 04:33] LABS: MCV 96.1 fL (80.0-100.0)
[2019-11-20 04:47] LABS: ALBUMIN 2.3 g/dL (3.4-5.0); ALKALINE PHOSPHATASE 107 U/L (30-120); CALC OSMOLALITY 291 mosm/kg (275-300); CALCIUM 8.4 mg/dL (8.5-10.1); CARBON DIOXIDE 26.7 mmol/L (21.0-32.0); CHLORIDE - SERUM 110 mmol/L (98-107); CREATININE - SERUM 0.6 mg/dL (0.6-1.3); GLUCOSE 134 mg/dL (74-106); POTASSIUM - SERUM 3.9 mmol/L (3.5-5.1); SODIUM 146 mmol/L (136-145); UREA NITROGEN 11 mg/dL (7-18); eGFR NON AFRICAN AMERICAN > 90 mL/min (90-120)
[2019-11-20 04:52] LABS: ALT (SGPT) 79 U/L (10-68)
--- NOTE | 2019-11-20 08:27 | NUR ---
INCREASED O2 70%
--- NOTE | 2019-11-20 09:47 | NUR ---
UNABLE TO DO CPAP
--- NOTE | 2019-11-20 11:02 | NUR ---
Nutrition follow-up: Intubated with sedation NPO s/p bronch 11/[address] Olivares, restart TF of Pulmocare via OGT @ 20 ml/hr with increase to goal rate of 50 ml/hr Labs reviewed Wt: 260# RDN following.
--- NOTE | 2019-11-20 13:34 | NUR ---
INCREASED PEEP TO 8 @ 1100
--- NOTE | 2019-11-20 14:02 | NUR ---
0730: REC'D IN BED SATURATED WITH URINE. COMPLETE BATH AND LINEN CHANGE. DHALIWAL IRRIGATED WITH STERILE SALINE. RESISTANCE NOTED DURING IRRIGATION. 0900: DHALIWAL DC'. 18F DHALIWAL INSERTED USING ASEPTIC TECHNIQUE WITH IMMEDIATE RETURN CLOUDY URINE. 1100: DR. DORMAN MAKING ROUNDS. NOT OKAY USING PROPOFOL. PROPOFOL DC'D. PRECEDEX RESTARTED. 5OOCC NS BOLUS GIVEN PER ORDER DR. DORMAN. PEEP INCREAED TO [address] DORMAN.
--- NOTE | 2019-11-20 19:00 | NUR ---
RECIVED BEDSIDE SHIFT REPORT. ISOLATION OBSERVED. PT IS INTUBATED/SEDATED BUT AWAKE WITH EYES OPEN. VSS. AT THIS TIME HE IS CALM&COREOPERATIVE. DHALIWAL OBSERVED HANGING TO GRAVITY AND DRAINING YELLOW URINE. RIGHT IJ IS CDI. RESTRATINS OBSERVED BILAT UPPER EXTREMTIES THAT ARE WARM AND PINK. CAP REFILL LESS THAN 3 SECONDS. PT IS SEEN SQUIRMING SOME BUT DOES HAVE YEAST INFECTION ON BOTTOM AND GROIN AREA, MEDINE IS APPLIED. WILL PERFORM FULL ASSESSMENT AND DOC IN FLOWSHEET. IV MEDS WILL BE DOC IN FLOWSHEET. BED IS LOW,SIDE RAISLX2,CALL LIGTH WITHIN REACH. WILL CONTINUE TO MONITOR
[2019-11-21] VITALS (22 sets, daily range): BP systolic 100–149; BP diastolic 46–72
--- NOTE | 2019-11-21 | NUR ---
JUST GRAVITY FED 240ML OF PULMICARE PER OJ TUBE. PT TOELRATED WELL. THERE WAS NO RESIDULE BEFORE FEEDING WAS GIVEN. FLUSHED WITH 20ML OF TAP WATER TO CLEAR OJ TUBE. VSS. PT IS CALM C EYES CLOSED AT THIS TIME. BED IS LOW,SIDE RIASLX2,CALL LIGHT WITHIN REACH. WILL CONINTUE TO MONITOR
--- NOTE | 2019-11-21 05:00 | NUR ---
GRAVITY FED 240 OF PULMICARE AND FLUSHED WITH 20ML OF TAP WATER. PT TOLERATED WELL. VSS. BED IS LOW,SIDE RAILSX2,CALL LIGHT WITHIN REACH. WILL CONTINEU TO MONITOR
[2019-11-21 05:31] LABS: BASOPHILS 0.3 % (0-2); EOSINOPHILS 2.6 % (0-7); HEMATOCRIT 32.5 % (42.0-54.0); HEMOGLOBIN 9.8 g/dL (13.5-17.5); IMMATURE GRANULOCYTES 0.4 % (0-5); LYMPHOCYTES 13.1 % (15-50); MCH 28.7 pg (26.0-34.0); MCHC 30.2 g/dL (31.0-37.0); MCV 95.3 fL (80.0-100.0); MONOCYTES 4.2 % (2-11); NEUTROPHILS 79.4 % (40-80); PLATELET COUNT 177 10x3/uL (130-400); RBC 3.41 10x6/uL (4.20-6.10); RDW 15.3 % (11.5-14.5); WBC 6.9 10x3/uL (4.8-10.8)
[2019-11-21 05:53] LABS: ALKALINE PHOSPHATASE 101 U/L (30-120); BILIRUBIN - TOTAL 0.54 mg/dL (0.2-1.3); CALCIUM 8.4 mg/dL (8.5-10.1); CARBON DIOXIDE 27.2 mmol/L (21.0-32.0); CHLORIDE - SERUM 109 mmol/L (98-107); CREATININE - SERUM 0.6 mg/dL (0.6-1.3); MAGNESIUM - SERUM 1.5 mg/dL (1.8-2.4); PHOSPHOROUS 3.3 mg/dL (2.5-4.9); POTASSIUM - SERUM 3.4 mmol/L (3.5-5.1); SODIUM 143 mmol/L (136-145); TROPONIN-I 0.034 ng/mL (0.000-0.060); UREA NITROGEN 11 mg/dL (7-18); eGFR NON AFRICAN AMERICAN > 90 mL/min (90-120)
[2019-11-21 05:54] LABS: ALT (SGPT) 53 U/L (10-68); CALC OSMOLALITY 288 mosm/kg (275-300); GLUCOSE 182 mg/dL (74-106)
--- NOTE | 2019-11-21 10:44 | NUR ---
SPOKE WITH PTS EMERGENCY CONTACT, LETICIA. UPDATES PROVIDED. LETICIA WAS ASKING IF SHE COULD TALENT DEVELOPMENT DIRECTOR HIS CELLPHONE; SHE STATED THAT WHEN HE FIRST GOT TO THE HOSPITAL HE HAD HIS PHONE WHICH SHE TOOK HOME, BUT THEN BROUGHT BACK A FEW DAYS AGO IN CASE PT WAS TO BE EXTUBATED. LOOKED IN PTS ROOM, AND AROUND UNIT, UNABLE TO LOCATE PTS CELLPHONE. WILL CONTINUE TO LOOK FOR PHONE.
--- NOTE | 2019-11-21 11:13 | NUR ---
DR DORMAN ROUNDED ON PT, RECIEVED ORDERS FOR VERSED GTT. AFTER VERSED GTT STARTED THEN WEAN OFF PRESIDEX. ALSO RECIEVED ORDERS FOR BENADRYL FOR C/O ITCHING. PT NOTED TO MOVE ABOUT BED MOVING BACK AND SHOULDERS ON BED, STAFF ASKED PT IF HE FELT ITCHY AND PT NODDED HEAD.
[2019-11-21 21:07] LABS: ACID FAST SMEAR Negative (()); AFB SPECIMEN PROCESSING Concentration (())
[2019-11-22] VITALS (24 sets, daily range): BP systolic 82–145; BP diastolic 40–86
[2019-11-22 06:13] LABS: BASOPHILS 0.1 % (0-2); EOSINOPHILS 0.5 % (0-7); HEMATOCRIT 32.7 % (42.0-54.0); HEMOGLOBIN 9.6 g/dL (13.5-17.5); IMMATURE GRANULOCYTES 0.4 % (0-5); LYMPHOCYTES 5.9 % (15-50); MCHC 29.4 g/dL (31.0-37.0); MCV 95.3 fL (80.0-100.0); MEAN PLATELET VOLUME 11.2 fL (7.4-10.4); MONOCYTES 4.5 % (2-11); NEUTROPHILS 88.6 % (40-80); RBC 3.43 10x6/uL (4.20-6.10); RDW 15.7 % (11.5-14.5)
[2019-11-22 06:14] LABS: PLATELET COUNT 255 10x3/uL (130-400); WBC 10.3 10x3/uL (4.8-10.8)
[2019-11-22 07:13] LABS: ALKALINE PHOSPHATASE 102 U/L (30-120); ALT (SGPT) 43 U/L (10-68); BILIRUBIN - TOTAL 0.75 mg/dL (0.2-1.3); CALC OSMOLALITY 287 mosm/kg (275-300); CALCIUM 7.8 mg/dL (8.5-10.1); CARBON DIOXIDE 24.6 mmol/L (21.0-32.0); CHLORIDE - SERUM 108 mmol/L (98-107); CREATININE - SERUM 0.6 mg/dL (0.6-1.3); GLUCOSE 143 mg/dL (74-106); PROTEIN - SERUM 6.1 g/dL (6.4-8.2); SODIUM 144 mmol/L (136-145); UREA NITROGEN 10 mg/dL (7-18); eGFR NON AFRICAN AMERICAN > 90 mL/min (90-120)
[2019-11-22 07:15] LABS: POTASSIUM - SERUM 4.2 mmol/L (3.5-5.1)
--- NOTE | 2019-11-22 15:31 | NUR ---
PER DESTINY TAM TO CONSULT SURGERY FOR TRACH/PEG TOMORROW.
--- NOTE | 2019-11-22 18:14 | NUR ---
CHG BATH PROVIDED AT THIS TIME. TOTAL LINEN CHANGE PROVIDED. VSS. NO ACUTE DISTRESS NOTED. TURNED Q2H, ORAL CARE PROVIDED Q2H. DHALIWAL CARE PROVIDED. WILL CONTINUE PLAN OF CARE.
[2019-11-23] VITALS (28 sets, daily range): BP systolic 106–167; BP diastolic 54–128; Ht 170.2 cm; Wt 121.6 kg
[2019-11-23 05:12] LABS: BASOPHILS 0.2 % (0-2); EOSINOPHILS 3.2 % (0-7); HEMATOCRIT 32.2 % (42.0-54.0); HEMOGLOBIN 9.5 g/dL (13.5-17.5); IMMATURE GRANULOCYTES 0.3 % (0-5); LYMPHOCYTES 12.2 % (15-50); MCH 28.1 pg (26.0-34.0); MCHC 29.5 g/dL (31.0-37.0); MCV 95.3 fL (80.0-100.0); MEAN PLATELET VOLUME 11.1 fL (7.4-10.4); NEUTROPHILS 80.1 % (40-80); PLATELET COUNT 208 10x3/uL (130-400); RBC 3.38 10x6/uL (4.20-6.10); RDW 15.9 % (11.5-14.5)
[2019-11-23 05:39] LABS: INR 1.64 (0.85-1.17); PROTIME 19.3 SECONDS (11.6-15.0)
[2019-11-23 05:46] LABS: ALKALINE PHOSPHATASE 148 U/L (30-120); ALT (SGPT) 43 U/L (10-68); BILIRUBIN - TOTAL 1.63 mg/dL (0.2-1.3); CALCIUM 8.4 mg/dL (8.5-10.1); CARBON DIOXIDE 28.3 mmol/L (21.0-32.0); CHLORIDE - SERUM 106 mmol/L (98-107); CREATININE - SERUM 0.7 mg/dL (0.6-1.3); MAGNESIUM - SERUM 1.4 mg/dL (1.8-2.4); POTASSIUM - SERUM 3.6 mmol/L (3.5-5.1); PROTEIN - SERUM 6.2 g/dL (6.4-8.2); SODIUM 142 mmol/L (136-145); UREA NITROGEN 8 mg/dL (7-18); eGFR NON AFRICAN AMERICAN > 90 mL/min (90-120)
[2019-11-23 05:53] LABS: CALC OSMOLALITY 280 mosm/kg (275-300); GLUCOSE 94 mg/dL (74-106)
--- NOTE | 2019-11-23 07:00 | NUR ---
pt report received from county library director nurse. no acute signs of distress noted. pt resting in bed. shift assessment completed. will continue to monitor
--- NOTE | 2019-11-23 12:54 | NUR ---
Nutrition follow-up: Intubated, sedated Possible trach/PEG soon Pt receiving Pulmocare (4 cartons bolus/day) Labs reviewed Wt: 67# 4 cartons Pulmocare/day providin kcal, 60 gm protein Recommend increasing to 5 cans per day to provide: 1800 kcal, 75 g protein RDN following.
[2019-11-23 14:09] LABS: FUNGUS STAIN Final report (())
[2019-11-24] VITALS (39 sets, daily range): BP systolic 93–169; BP diastolic 51–110
[2019-11-24 05:29] LABS: BASOPHILS 0.2 % (0-2); EOSINOPHILS 2.4 % (0-7); HEMOGLOBIN 10.1 g/dL (13.5-17.5); IMMATURE GRANULOCYTES 0.8 % (0-5); LYMPHOCYTES 9.9 % (15-50); MCH 28.1 pg (26.0-34.0); MCHC 29.7 g/dL (31.0-37.0); MCV 94.7 fL (80.0-100.0); MEAN PLATELET VOLUME 10.8 fL (7.4-10.4); MONOCYTES 4.7 % (2-11); PLATELET COUNT 241 10x3/uL (130-400); RBC 3.59 10x6/uL (4.20-6.10); RDW 15.7 % (11.5-14.5); WBC 6.2 10x3/uL (4.8-10.8)
[2019-11-24 06:44] LABS: ALKALINE PHOSPHATASE 184 U/L (30-120); BILIRUBIN - TOTAL 1.42 mg/dL (0.2-1.3); CALCIUM 8.5 mg/dL (8.5-10.1); CARBON DIOXIDE 27.8 mmol/L (21.0-32.0); CHLORIDE - SERUM 103 mmol/L (98-107); CREATININE - SERUM 0.6 mg/dL (0.6-1.3); MAGNESIUM - SERUM 1.7 mg/dL (1.8-2.4); PHOSPHOROUS 3.4 mg/dL (2.5-4.9); POTASSIUM - SERUM 3.6 mmol/L (3.5-5.1); PROTEIN - SERUM 6.6 g/dL (6.4-8.2); SODIUM 138 mmol/L (136-145); UREA NITROGEN 6 mg/dL (7-18); eGFR NON AFRICAN AMERICAN > 90 mL/min (90-120)
[2019-11-24 06:47] LABS: ALT (SGPT) 75 U/L (10-68); CALC OSMOLALITY 276 mosm/kg (275-300); GLUCOSE 154 mg/dL (74-106)
--- NOTE | 2019-11-24 22:26 | MORECARE ---
CASE MANAGEMENT DISCHARGE SUMMARY PATIENT: EDDA BARRAGAN V JR UNIT: [id number] ADM DATE: 11/04/19 AGE: 54 : 69 SEX: M ROOM/BED: D.2306 AUTHOR: DOMINIK,DOC PHYSICIAN: REFERRING PHYSICIAN: MELONY RODRIGUEZ MD DATE OF SERVICE: 11/24/19 Discharge Plan Patient Name: EDDA BARRAGAN Facility: [facility]:[place] : 1965 Planned Disposition: Anticipated Discharge Date: Discharge Date: Expected LOS: Initial Reviewer: [email or web address] Initial Review Date: 11/04/2019 Generated: 11/24/19 11:25 pm DCP- Discharge Planning Updated by [email or web address]: Elvira Foy on 11/18/19 7:[address] LATE ENTRY 11/17/19 Patient Name: EDDA BARRAGAN Admission Status: ER Accout number: [id number] Admission Date: 11-04-2019 : 1965 Admission Diagnosis:POISONING BY OTH OPIOIDS, ACCIDENTAL (UNINTENTIONAL), I Attending: SABRINA RODRIGUEZ Current LOS: 14 Anticipated DC Date: Planned Disposition: Primary Insurance: [facility] MEDICARE SOLUTIONS Discharge Planning Comments: CM called and spoke with patient's significant other [facility] [phone] to complete initial dc planning assessment. CM educated patient's significant other on the CM role and verbal consent given by patient to complete assessment. Patient lives at home with significant other. Patient is independent. At discharge patient plans to return home and feels this is a safe discharge. CM discussed availability of home health, rehab services, and medical equipment. Patient will have family to transport home. Uncertain at this time discharge needs / disposition . CM will continue to follow and will assist as needed with dc plans/needs. Gantry Rigger: Elvira Foy DCPIA - Discharge Planning Initial Assessment Updated by [email or web address]: Elvira Foy on 11/18/19 7:58 pm * Is the patient Alert and Oriented? No * How many steps to enter\exit or inside your home? * PCP MARGARITA * [facility] * Preadmission Environment Home with Family * ADLs Independent * Other Equipment CPAP, GLUCOMETER * List name and contact numbers for known caregivers / representatives who currently or will assist patient after discharge: SINA HORTA [facility] - [phone] * Verbal permission to speak to the caregivers and representatives has been obtained from the patient. N/A * Community resources currently utilized None * Additional services required to return to the preadmission environment? No * Can the patient safely return to the preadmission environment? Yes * Has this patient been hospitalized within the prior 30 days at any hospital? No External Providers External Provider: Rosio Dumont [facility] Next Contact Date: Service Request Date: Service Type: Resolution: Reviewer: Comments: Last DP export: 11/18/19 7:05 p Patient Name: EDDA BARRAGAN Page 07013 at 2226 All edits/amendments must be made on the electronic document DICTATION DATE: 11/24/192225 ROLL PANNER: LOREN 11/24/192225 RPT#: [id number] DC DATE: STATUS: ADM IN [facility] [address] [place] [address] END OF REPORT
[2019-11-25] VITALS (18 sets, daily range): BP systolic 113–146; BP diastolic 62–112
--- NOTE | 2019-11-25 07:15 | NUR ---
AM ROUNDS COMPLETED. BEDSIDE SHIFT REPORT REC'D. INTRODUCED MYSELF TO PT PRIMARY RN FOR TODAYS SHIFT. PT IS AWAKE BUT DROWSY AND NONVERBAL. PT WAS ABLE TO COMMUNICATE WITH GESTURES AND SHAKE HIS HAND AND FOLLOW SOME COMMANDS. SHIFT ASSESSMENT COMPLETED. APPARENTLY PT IS SCHEDULED FOR TRACH PLACEMENT TODAY, CONSENTS ALREADY SIGNED AND IN CHART, WILL DISCUSS WITH ABOUT TIME. PT CURRENTLY STILL ON VENT. NO ISSUES NOTED THERE. LUNGS HAVE CRACKLES/RALES THROUGHOUT ALL LOBES THOUGH. WILL REVIEW CHART/LABS AND ORDERS AND BEGIN CARE FOR THIS PT.
--- NOTE | 2019-11-25 09:09 | NUR ---
AT BEDSIDE ROUNDING AND STATES HE WILL TRY TO COME AND PLACE TRACH AROUND NOON TODAY. ASKED ABOUT PEG FEEDING AND HE STATES IT WAS SUPPOSED TO BE TO GRAVITY DRAINAGE BAG HOWEVER WAS NOT DONE OVERNIGHT. HE STATES ITS FINE AND CAN RESUME TUBE FEEDS AFTER TRACH IS PLACED. WILL CHECK FOR CONSENTS IN CHART. NO IMMEDIATE NEEDS AT THIS TIME. BED IN LOWEST, SIDE RAILS X2. WILL CTM.
[2019-11-25 09:13] LABS: VIRAL - RESULT No virus isolated. (())
--- NOTE | 2019-11-25 11:15 | NUR ---
Nutrition follow-up: Intubated, sedated PEG placed 11/23 Pulmocare restarting today via gravity drip @ 50 ml/hr (~12 drips/minute) Labs reviewed Wt: 265# RDN following.
--- NOTE | 2019-11-25 12:06 | NUR ---
TURNED PT ONTO HIS L.SIDE WITH 2 PILLOW WEDGES BEHIND HIM. PT WAS ABLE TO FOLLOW COMMANDS AND ASSIST US WITH TURNING. PT SHOOK HIS HEAD "YES" TO ANSWER ME WITH QUESTIONS. FSBS 147 NO COVERAGE REQUIRED. PT RESTING QUIETLY IN BED, NO NEEDS IDENTIFIED AT THIS TIME. CL IN REACH, BED IN LOWEST, SIDE RAILS X2. WILL CPOC.
--- NOTE | 2019-11-25 12:45 | NUR ---
CAME BY TO DO THE TRACH HOWEVER NO RT WAS AVAILABLE. HE STATES HE WILL RETURN AFTER CLINIC TO PERFORM TRACH PROCEDURE. RT STATES THEY WILL MAKE SOMEONE AVAILABLE.
[2019-11-25 17:05] LABS: HEMATOCRIT 33.9 % (42.0-54.0); HEMOGLOBIN 9.9 g/dL (13.5-17.5); MCH 28.4 pg (26.0-34.0); MCHC 29.2 g/dL (31.0-37.0); MEAN PLATELET VOLUME 11.5 fL (7.4-10.4); PLATELET COUNT 274 10x3/uL (130-400); RBC 3.49 10x6/uL (4.20-6.10); RDW 16.2 % (11.5-14.5); WBC 6.7 10x3/uL (4.8-10.8)
[2019-11-25 17:13] LABS: MCV 97.1 fL (80.0-100.0)
--- NOTE | 2019-11-25 17:48 | NUR ---
CALLED AND STATES HE WILL PERFORM TRACH TOMORROW AT 11AM. NOTIFIED RT TO BE READY AND AVAILABLE. WILL PASS ON IN SHIFT REPORT. REPOSITIONED PT IN BED FOR COMFORT AND TO RELIEVE PRESSURE OFF HIS BUTTOCKS. NO IMMEDIATE NEEDS NOTED AT THIS TIME. WILL CPOC.
[2019-11-25 17:56] LABS: LYMPHOCYTES 11 % (15-50); NEUTROPHILS 89 % (40-80); PLATELET ESTIMATE NORMAL
[2019-11-25 18:12] LABS: CALC OSMOLALITY 284 mosm/kg (275-300); CALCIUM 8.3 mg/dL (8.5-10.1); CARBON DIOXIDE 28.3 mmol/L (21.0-32.0); CHLORIDE - SERUM 106 mmol/L (98-107); CREATININE - SERUM 0.6 mg/dL (0.6-1.3); GLUCOSE 155 mg/dL (74-106); POTASSIUM - SERUM 3.6 mmol/L (3.5-5.1); SODIUM 143 mmol/L (136-145); eGFR NON AFRICAN AMERICAN > 90 mL/min (90-120)
[2019-11-25 18:16] LABS: UREA NITROGEN 4 mg/dL (7-18)
--- NOTE | 2019-11-25 18:41 | NUR ---
FENTANYL SYRINGE CHANGED IT WAS EMPTY. NOW INFUSING AT 500MCG/HR. NO IMMEDIATE NEEDS NOTED AT THIS TIME. WILL GIVE BEDSIDE SHIFT REPORT AND PASS ON PT TO NIGHTSHIFT RN.
[2019-11-26] VITALS (25 sets, daily range): BP systolic 121–159; BP diastolic 66–92
--- NOTE | 2019-11-26 11:00 | NUR ---
DR MCMILLAN AND RT AT . TRACHEA PLACED. PATIENT TOLERATED WELL. PATIENT IS STABLE AND VSS. NO BLEEDING, BRUISING OR HEMATOMA NOTED. UPDATED PATIENT FIANCEE. WILL CONTINUE TO MONITOR. SR UP X 2 BED IN LOW POSITON AND CALL LIGHT IN REACH.
[2019-11-27] VITALS (26 sets, daily range): BP systolic 103–170; BP diastolic 7–104
[2019-11-27 06:01] LABS: BASOPHILS 0.1 % (0-2); EOSINOPHILS 1.4 % (0-7); HEMATOCRIT 32.3 % (42.0-54.0); HEMOGLOBIN 9.6 g/dL (13.5-17.5); IMMATURE GRANULOCYTES 0.5 % (0-5); LYMPHOCYTES 11.5 % (15-50); MCH 28.2 pg (26.0-34.0); MCHC 29.7 g/dL (31.0-37.0); MEAN PLATELET VOLUME 10.3 fL (7.4-10.4); MONOCYTES 4.9 % (2-11); NEUTROPHILS 81.6 % (40-80); PLATELET COUNT 263 10x3/uL (130-400); RBC 3.41 10x6/uL (4.20-6.10); RDW 16.7 % (11.5-14.5); WBC 7.9 10x3/uL (4.8-10.8)
[2019-11-27 06:06] LABS: MCV 94.7 fL (80.0-100.0)
--- NOTE | 2019-11-27 07:10 | NUR ---
REPORT RECEIVED FROM OFF GOING NURSE AND PATIENT CARE ASSUMED. PATIENT LAYHING IN BED ON BACK WITH HOB ELEVATED 30 DEGREES TRACH INTACT WITH VENT AC 20 FIO2 50% TV 500 PEEP8 . BP 136/65 74 94% R21. DHALIWAL CATHETER INTACT DRAINING YELLOW URINE. PEG TUBE INTACT WITH PULMONCARE 240 ML AT 20 ML PER HOUR CVL TO RIJ.NO NEEDS IDENTIFIED. BED IN LOW POSITION, SR UPX 2 AND CALL LIGHT IN REACH.
[2019-11-27 08:01] LABS: CALC OSMOLALITY 282 mosm/kg (275-300); CARBON DIOXIDE 29.6 mmol/L (21.0-32.0); CHLORIDE - SERUM 106 mmol/L (98-107); CREATININE - SERUM 0.7 mg/dL (0.6-1.3); GLUCOSE 146 mg/dL (74-106); POTASSIUM - SERUM 3.6 mmol/L (3.5-5.1); SODIUM 142 mmol/L (136-145); UREA NITROGEN 4 mg/dL (7-18); eGFR NON AFRICAN AMERICAN > 90 mL/min (90-120)
--- NOTE | 2019-11-27 09:44 | NUR ---
Nutrition follow-up: s/p trach, PEG placement 11/25 Pulmocare to restart this morning per RN Dorina Labs reviewed Recommend Pulmocare increase to goal rate of 50 ml/hr RDN following.
--- NOTE | 2019-11-27 11:00 | NUR ---
COMPLETE BED BATH GIVEN AND COMPLETE LINEN CHANGE. CVL CHANGE TO RTIJ AND PEG TUBE DRESSING CHANGE. BED IN LOW POSITION AND CALL LIGHT IN REACH.
--- NOTE | 2019-11-27 21:07 | MORECARE ---
CASE MANAGEMENT DISCHARGE SUMMARY PATIENT: EDDA BARRAGAN V JR UNIT: [id number] ADM DATE: 11/04/19 AGE: 54 : [birth year] SEX: M ROOM/BED: D.2306 AUTHOR: DOMINIK,DOC PHYSICIAN: REFERRING PHYSICIAN: MELONY RODRIGUEZ MD DATE OF SERVICE: 11/27/19 Discharge Plan Patient Name: EDDA BARRAGAN Facility: [facility]:[place] : 1965 Planned Disposition: Anticipated Discharge Date: Discharge Date: Expected LOS: Initial Reviewer: [email or web address] Initial Review Date: 11/04/2019 Generated: 11/27/19 10:07 pm Comments DCP- Discharge Planning Updated by [email or web address]: Elvira Foy on 11/27/19 8:[address] LATE ENTRY - 11/25/19 DREW spoke with Michelle and we discussed LTACH and CHRISTOPHER was completed. She was also looking for POA paperwork. She will notify CM when she locates it. CM sent referral to Celi Banks . 11/26/19 Alison with [facility] stated that she was sending referral for auth out to insurance company. DCP- Discharge Planning Updated by [email or web address]: Elvira Law on 11/18/19 7:[address] LATE ENTRY 11/17/19 Patient Name: EDDA BARRAGAN Admission Status: ER Accout number: [id number] Admission Date: 11-04-2019 : 1965 Admission Diagnosis:POISONING BY OTH OPIOIDS, ACCIDENTAL (UNINTENTIONAL), I Attending: SABRINA RODRIGUEZ Current LOS: 14 Anticipated DC Date: Planned Disposition: Primary Insurance: [facility] MEDICARE SOLUTIONS Discharge Planning Comments: CM called and spoke with patient's significant other Michelle [phone] to complete initial dc planning assessment. CM educated patient's significant other on the CM role and verbal consent given by patient to complete assessment. Patient lives at home with significant other. Patient is independent. At discharge patient plans to return home and feels this is a safe discharge. CM discussed availability of home health, rehab services, and medical equipment. Patient will have family to transport home. Uncertain at this time discharge needs / disposition . CM will continue to follow and will assist as needed with dc plans/needs. Physical Therapy Assistant Instructor: Elvira Foy DCPIA - Discharge Planning Initial Assessment Updated by [email or web address]: Elvira Foy on 11/18/19 7:58 pm * Is the patient Alert and Oriented? No * How many steps to enter\exit or inside your home? * PCP MARGARITA * [facility] * Preadmission Environment Home with Family * ADLs Independent * Other Equipment CPAP, GLUCOMETER * List name and contact numbers for known caregivers / representatives who currently or will assist patient after discharge: SINA HORTA [facility] - [phone] * Verbal permission to speak to the caregivers and representatives has been obtained from the patient. N/A * Community resources currently utilized None * Additional services required to return to the preadmission environment? No * Can the patient safely return to the preadmission environment? Yes * Has this patient been hospitalized within the prior 30 days at any hospital? No Last DP export: 11/24/19 9:26 p Patient Name: EDDA BARRAGAN Page 60918 at 2107 All edits/amendments must be made on the electronic document DICTATION DATE: 11/27/192106 HARBOR TUG CAPTAIN: LOREN 11/27/192106 RPT#: [id number] DC DATE: STATUS: ADM IN [facility] [address] [place] [address] END OF REPORT
--- NOTE | 2019-11-27 21:14 | MORECARE ---
CASE MANAGEMENT DISCHARGE SUMMARY PATIENT: EDDA BARRAGAN V JR UNIT: [id number] ADM DATE: 11/04/19 AGE: 54 : [birth year] SEX: M ROOM/BED: D.2306 AUTHOR: MURRAY LEHMAN PHYSICIAN: REFERRING PHYSICIAN: MELONY RODRIGUEZ MD DATE OF SERVICE: 11/27/19 Discharge Plan Patient Name: EDDA BARRAGAN Facility: [facility]:[place] : 1965 Planned Disposition: Anticipated Discharge Date: Discharge Date: Expected LOS: Initial Reviewer: [email or web address] Initial Review Date: 11/04/2019 Generated: 11/27/19 10:13 pm Comments DCP- Discharge Planning Updated by [email or web address]: Elvira Foy on 11/27/19 8:[address] Alison from [facility] stated that she has received auth from insurance. Awaiting COVID results and patient will need to be weaned down on fentanyl before they can accept. She stated that if test is negative and sedation is weaned then they will accept patient next week. CM spoke with Margoth in lab and Covid should be back tomorrow. CM will continue to follow and assist as needed with discharge planning / needs. DCP- Discharge Planning Updated by [email or web address]: Elvira Foy on 11/27/19 8:[address] LATE ENTRY - 11/25/19 CM spoke with Michelle and we discussed LTACH and CHRISTOPHER was completed. She was also looking for POA paperwork. She will notify CM when she locates it. CM sent referral to Celi Banks . 11/26/19 Alison with [facility] stated that she was sending referral for auth out to insurance company. DCP- Discharge Planning Updated by [email or web address]: Elvira Foy on 11/18/19 7:[address] LATE ENTRY 11/17/19 Patient Name: EDDA BARRAGAN Admission Status: ER Accout number: [id number] Admission Date: 11-04-2019 : 1965 Admission Diagnosis:POISONING BY OTH OPIOIDS, ACCIDENTAL (UNINTENTIONAL), I Attending: SABRINA RODRIGUEZ Current LOS: 14 Anticipated DC Date: Planned Disposition: Primary Insurance: [facility] MEDICARE SOLUTIONS Discharge Planning Comments: CM called and spoke with patient's significant other Michelle [phone] to complete initial dc planning assessment. CM educated patient's significant other on the CM role and verbal consent given by patient to complete assessment. Patient lives at home with significant other. Patient is independent. At discharge patient plans to return home and feels this is a safe discharge. CM discussed availability of home health, rehab services, and medical equipment. Patient will have family to transport home. Uncertain at this time discharge needs / disposition . CM will continue to follow and will assist as needed with dc plans/needs. Carpet Inspector: Elvira Foy DCPIA - Discharge Planning Initial Assessment Updated by [email or web address]: Elvira Foy on 11/18/19 7:58 pm * Is the patient Alert and Oriented? No * How many steps to enter\exit or inside your home? * PCP MARGARITA * [facility] * Preadmission Environment Home with Family * ADLs Independent * Other Equipment CPAP, GLUCOMETER * List name and contact numbers for known caregivers / representatives who currently or will assist patient after discharge: SINA WOO - [facility] [phone] * Verbal permission to speak to the caregivers and representatives has been obtained from the patient. N/A * Community resources currently utilized None * Additional services required to return to the preadmission environment? No * Can the patient safely return to the preadmission environment? Yes * Has this patient been hospitalized within the prior 30 days at any hospital? No Last DP export: 11/27/19 8:07 p Patient Name: EDDA BARRAGAN Page 46220 at 2114 All edits/amendments must be made on the electronic document DICTATION DATE: 11/27/192112 ACADEMIC SUPPORT ASSISTANT: LOREN 11/27/192112 RPT#: [id number] DC DATE: STATUS: ADM IN [facility] [address] [place] [address] END OF REPORT
[2019-11-28] VITALS (24 sets, daily range): BP systolic 101–189; BP diastolic 54–100
[2019-11-28 06:14] LABS: BASOPHILS 0.1 % (0-2); EOSINOPHILS 0.5 % (0-7); HEMATOCRIT 30.4 % (42.0-54.0); HEMOGLOBIN 9.2 g/dL (13.5-17.5); IMMATURE GRANULOCYTES 0.6 % (0-5); LYMPHOCYTES 6.3 % (15-50); MCH 28.2 pg (26.0-34.0); MCHC 30.3 g/dL (31.0-37.0); MCV 93.3 fL (80.0-100.0); MEAN PLATELET VOLUME 9.6 fL (7.4-10.4); NEUTROPHILS 87.5 % (40-80); PLATELET COUNT 253 10x3/uL (130-400); RBC 3.26 10x6/uL (4.20-6.10); RDW 16.6 % (11.5-14.5); WBC 8.4 10x3/uL (4.8-10.8)
[2019-11-28 06:31] LABS: ALBUMIN 1.9 g/dL (3.4-5.0); ALKALINE PHOSPHATASE 121 U/L (30-120); ALT (SGPT) 29 U/L (10-68); BILIRUBIN - TOTAL 0.74 mg/dL (0.2-1.3); CALC OSMOLALITY 279 mosm/kg (275-300); CALCIUM 7.8 mg/dL (8.5-10.1); CHLORIDE - SERUM 104 mmol/L (98-107); CREATININE - SERUM 0.6 mg/dL (0.6-1.3); GLUCOSE 189 mg/dL (74-106); MAGNESIUM - SERUM 1.2 mg/dL (1.8-2.4); PHOSPHOROUS 4.9 mg/dL (2.5-4.9); POTASSIUM - SERUM 3.4 mmol/L (3.5-5.1); PROTEIN - SERUM 6.3 g/dL (6.4-8.2); SODIUM 139 mmol/L (136-145); UREA NITROGEN 3 mg/dL (7-18); eGFR NON AFRICAN AMERICAN > 90 mL/min (90-120)
[2019-11-29] VITALS (23 sets, daily range): BP systolic 109–177; BP diastolic 58–105
[2019-11-29 04:12] LABS: BASOPHILS 0.2 % (0-2); EOSINOPHILS 1.7 % (0-7); HEMATOCRIT 32.1 % (42.0-54.0); HEMOGLOBIN 9.7 g/dL (13.5-17.5); LYMPHOCYTES 11.9 % (15-50); MCH 28.4 pg (26.0-34.0); MCHC 30.2 g/dL (31.0-37.0); MCV 93.9 fL (80.0-100.0); MEAN PLATELET VOLUME 9.4 fL (7.4-10.4); MONOCYTES 5.5 % (2-11); NEUTROPHILS 79.7 % (40-80); PLATELET COUNT 253 10x3/uL (130-400); RBC 3.42 10x6/uL (4.20-6.10); RDW 16.5 % (11.5-14.5); WBC 8.1 10x3/uL (4.8-10.8)
[2019-11-29 04:25] LABS: ALBUMIN 2.1 g/dL (3.4-5.0); ALKALINE PHOSPHATASE 118 U/L (30-120); ALT (SGPT) 22 U/L (10-68); BILIRUBIN - TOTAL 0.66 mg/dL (0.2-1.3); CALC OSMOLALITY 277 mosm/kg (275-300); CARBON DIOXIDE 29.5 mmol/L (21.0-32.0); CHLORIDE - SERUM 104 mmol/L (98-107); CREATININE - SERUM 0.7 mg/dL (0.6-1.3); GLUCOSE 184 mg/dL (74-106); POTASSIUM - SERUM 3.6 mmol/L (3.5-5.1); PROTEIN - SERUM 6.6 g/dL (6.4-8.2); SODIUM 138 mmol/L (136-145); eGFR NON AFRICAN AMERICAN > 90 mL/min (90-120)
[2019-11-29 04:26] LABS: MAGNESIUM - SERUM 1.9 mg/dL (1.8-2.4); UREA NITROGEN 5 mg/dL (7-18)
[2019-11-30] VITALS (24 sets, daily range): BP systolic 100–181; BP diastolic 55–95
[2019-11-30 04:55] LABS: BASOPHILS 0.1 % (0-2); EOSINOPHILS 0.7 % (0-7); HEMATOCRIT 30.6 % (42.0-54.0); HEMOGLOBIN 9.1 g/dL (13.5-17.5); IMMATURE GRANULOCYTES 0.6 % (0-5); LYMPHOCYTES 7.2 % (15-50); MCHC 29.7 g/dL (31.0-37.0); MCV 94.2 fL (80.0-100.0); MEAN PLATELET VOLUME 9.8 fL (7.4-10.4); MONOCYTES 4.3 % (2-11); NEUTROPHILS 87.1 % (40-80); PLATELET COUNT 263 10x3/uL (130-400); RBC 3.25 10x6/uL (4.20-6.10); RDW 16.4 % (11.5-14.5); WBC 8.5 10x3/uL (4.8-10.8)
[2019-11-30 05:22] LABS: ALBUMIN 1.9 g/dL (3.4-5.0); ALKALINE PHOSPHATASE 99 U/L (30-120); ALT (SGPT) 17 U/L (10-68); BILIRUBIN - TOTAL 0.55 mg/dL (0.2-1.3); CALC OSMOLALITY 281 mosm/kg (275-300); CARBON DIOXIDE 30.7 mmol/L (21.0-32.0); CHLORIDE - SERUM 102 mmol/L (98-107); CREATININE - SERUM 0.8 mg/dL (0.6-1.3); GLUCOSE 202 mg/dL (74-106); MAGNESIUM - SERUM 1.5 mg/dL (1.8-2.4); PROTEIN - SERUM 6.5 g/dL (6.4-8.2); SODIUM 139 mmol/L (136-145); eGFR NON AFRICAN AMERICAN > 90 mL/min (90-120)
[2019-11-30 05:26] LABS: UREA NITROGEN 7 mg/dL (7-18)
--- NOTE | 2019-11-30 07:03 | NUR ---
SPOKE WITH FRANCHESCA RAMIREZ AT 0640. NEW ORDERS FOR UA D/T TEMP. TEMP DOWN TO 101.7
--- NOTE | 2019-11-30 10:10 | NUR ---
Nutrition follow-up: Pt remains intubated, sedated Pulmocare via OGT - Per ELISHA Lindsey bolus 5 cans per day Labs reviewed Wt: 268# +BM Pt for Trach/PEG soon RDN following.
--- NOTE | 2019-11-30 14:37 | NUR ---
CHG BATH GIVEN WITH COMPLETE LINEN CHANGE. WILL CONTINUE TO MONITOR. SR UP X 2 BED IN LOW POSITON AND CALL LIGHT IN REACH.
[2019-11-30 22:53] LABS: BILIRUBIN NEGATIVE (NEGATIVE); KETONE NEGATIVE (NEGATIVE); NITRITE NEGATIVE (NEGATIVE)
[2019-11-30 22:54] LABS: BACTERIA MANY HPF (NONE SEEN); WHITE CELLS - URINE >50 HPF (0-1)
[2019-12-01] VITALS (8 sets, daily range): BP systolic 99–153; BP diastolic 53–84
[2019-12-01 05:45] LABS: BASOPHILS 0.2 % (0-2); EOSINOPHILS 1.7 % (0-7); HEMOGLOBIN 8.9 g/dL (13.5-17.5); IMMATURE GRANULOCYTES 1.1 % (0-5); LYMPHOCYTES 9.3 % (15-50); MCHC 29.7 g/dL (31.0-37.0); MCV 94.3 fL (80.0-100.0); MEAN PLATELET VOLUME 9.8 fL (7.4-10.4); NEUTROPHILS 82.7 % (40-80); PLATELET COUNT 249 10x3/uL (130-400); RBC 3.18 10x6/uL (4.20-6.10); RDW 16.3 % (11.5-14.5)
[2019-12-01 06:21] LABS: ALBUMIN 1.9 g/dL (3.4-5.0); ALKALINE PHOSPHATASE 93 U/L (30-120); ALT (SGPT) 18 U/L (10-68); AMYLASE - SERUM 19 U/L (25-115); BILIRUBIN - TOTAL 0.56 mg/dL (0.2-1.3); CALC OSMOLALITY 279 mosm/kg (275-300); CALCIUM 8.1 mg/dL (8.5-10.1); CARBON DIOXIDE 30.7 mmol/L (21.0-32.0); CHLORIDE - SERUM 102 mmol/L (98-107); CREATININE - SERUM 0.7 mg/dL (0.6-1.3); GLUCOSE 218 mg/dL (74-106); LIPASE 67 U/L (73-393); POTASSIUM - SERUM 3.8 mmol/L (3.5-5.1); PRO BNP 1206 pg/mL (0-125); PROTEIN - SERUM 6.3 g/dL (6.4-8.2); SODIUM 137 mmol/L (136-145); UREA NITROGEN 9 mg/dL (7-18); eGFR NON AFRICAN AMERICAN > 90 mL/min (90-120)
--- NOTE | 2019-12-01 07:00 | NUR ---
REC'D REPORT AND RESUMED CARE, VENT TO TRACH AND SECURED, SETTING PER FLOWSHEET, O2 SAT 98% ON 50% FIO2, RIGHT IJ WITH FENTANYL AT 300 MCG & VERSED AT 4 MG/HR, PEG TUBE WITH PULMOCARE TF, DHALIWAL TO GRAVITY WITH DEBORAH DRAINAGE TO BAG, SKIN ASSESSMENT PER FLOWSHEET, ASSESSMENT COMPLETED PER FLOWSHEET, VSS, CHG BATH GIVEN, BUTT PASTE APPLIED, WILL CONTINUE WITH POC
--- NOTE | 2019-12-01 09:49 | OP ---
PATIENT NAME: EDDA BARRAGAN JR MEDICAL RECORD: [id number] :[birth year] LOCATION:[facility] D.2306 ADMISSION DATE:11/04/19 SURGEON: PABLITO MCMILLAN MD DATE OF OPERATION: 11/26/2019 PREOPERATIVE DIAGNOSES: 1. Acute respiratory failure on the ventilator. 2. Opioid overdose. POSTOPERATIVE DIAGNOSES: 1. Acute respiratory failure on the ventilator. 2. Opioid overdose. PROCEDURE: A 7-Cypriot percutaneous tracheostomy tube placement. SURGEON: Pablito Mcmillan MD REPORT OF PROCEDURE: The endoscope was advanced through the indwelling endotracheal tube. We were able to back-up the endotracheal tube until we could see the top part of the patient's trachea. The neck was prepped and draped. A skin incision was made on the inferior aspect of the neck near the sternal notch. I used a blunt dissection to get down towards the trachea and I could feel the area between the second and third intercostal rings. A needle was used to advance between these rings and under direct visualization, I could see the Angiocath passing into the trachea. A wire was advanced through the Angiocath. We then placed a small dilator over the wire followed by the white Rhino dilator. The 7-Cypriot tracheostomy tube was then inserted and sutured down on all 4 sides using interrupted 3-0 Prolene. We reinserted the scope and can see that the trach was in good position and there was no sign of any active bleeding. COMPLICATIONS: None. CONDITION: Fair. ANESTHESIA: General endotracheal. BLOOD LOSS: 30 mL. Procedure done in the ICU at the bedside. TRANSINT:[id number] Voice Confirmation ID: [id number] DOCUMENT ID: [id number] PABLITO MCMILLAN MD at 0949 CC: [id number] DICTATION DATE: 11/26/19 1306 DOG RACES MANAGER: 11/26/19 1408 ADM IN [facility] [id number] [place] [address]
--- NOTE | 2019-12-01 09:49 | OP ---
PATIENT NAME: EDDA BARRAGAN V MEDICAL RECORD: [id number] :[birth year] LOCATION:.[facility] D.2306 ADMISSION DATE:11/04/19 SURGEON: PABLITO MCMILLAN MD DATE OF OPERATION: 11/24/2019 PREOPERATIVE DIAGNOSES: 1. Acute respiratory failure on the ventilator. 2. Opioid overdose. 3. Coronary artery disease. 4. Bipolar disorder. POSTOPERATIVE DIAGNOSES: 1. Acute respiratory failure on the ventilator. 2. Opioid overdose. 3. Coronary artery disease. 4. Bipolar disorder. PROCEDURE: PEG placement. SURGEON: Pablito Mcmillan MD REPORT OF PROCEDURE: An Olympus endoscope was advanced through the mouth and esophagus. We entered the stomach and there was a large amount of thin gastric contents that were present. We suctioned out as much of this as possible. I was able to pass through the patient's pylorus and entered the duodenum. There are no signs of any masses, lesions, or strictures. I did not see any evidence of a gastric outlet obstruction. As we pulled back, we are able to find an area to house our PEG tube on the antrum of the stomach. A total of 5 mL of 1% lidocaine was infused into the subcutaneous tissues. A skin incision was then made on the left upper quadrant and an Angiocath needle was inserted through the abdominal wall to the gastric lumen. An Endo snare was used to grasp the wire which was passed through this Angiocath. We then pulled the scope and wire out through the mouth and esophagus. The PEG tube was affixed to the wire, which was then pulled through the mouth and esophagus and out the abdominal wall. This rested at 6 cm at the skin. We went back down with the endoscope and saw that there was no sign of any bleeding present. At this point, the insufflation was removed and the scope was taken out. COMPLICATIONS: None. CONDITION: Stable. ANESTHESIA: General endotracheal. BLOOD LOSS: Minimal. Procedure done in the ICU at the bedside. TRANSINT:[id number] Voice Confirmation ID: [id number] DOCUMENT ID: [id number] OPERATIVE REPORT [id number] EDDA BARRAGAN JR, CHRISTIAN MD at 0949 CC: [id number] DICTATION DATE: 11/24/19 1544 MAINTENANCE SHOP CLERK: 11/25/19 0007 ADM IN [facility] [address] [place] [address]
--- NOTE | 2019-12-01 10:30 | NUR ---
DR MANLEY IN UNIT, PC TO HEALTHCARE PROXY RE: TRANSFER TO [facility], SINA WOO, [place] GIVEN FOR TRANSFER
--- NOTE | 2019-12-01 11:10 | NUR ---
AMBULANCE CALLED FOR TRANSPORT
--- NOTE | 2019-12-01 12:26 | NUR ---
DC'D VIA STRETCHER WITH EMS PERSONNEL X2, TRACH TO PORTABLE VENT AND SECURED, VSS, TRANSPROTING TO [facility]
--- NOTE | 2019-12-01 21:23 | MORECARE ---
CASE MANAGEMENT DISCHARGE SUMMARY PATIENT: EDDA BARRAGAN V JR UNIT: [id number] ADM DATE: 11/04/19 AGE: 54 : 69 SEX: M ROOM/BED: D.2306 AUTHOR: MURRAY LEHMAN PHYSICIAN: REFERRING PHYSICIAN: MELONY RODRIGUEZ MD DATE OF SERVICE: 12/01/19 Discharge Plan Patient Name: EDDA BARRAGAN Facility: [facility]:[place] : 1965 Planned Disposition: Anticipated Discharge Date: Discharge Date: 12/01/2019 Expected LOS: Initial Reviewer: [email or web address] Initial Review Date: 11/04/2019 Generated: 12/01/19 10:22 pm DCP- Discharge Planning Updated by [email or web address]: Elvira Foy on 11/27/19 8:[address] Alison from [facility] stated that she has received auth from insurance. Awaiting COVID results and patient will need to be weaned down on fentanyl before they can accept. She stated that if test is negative and sedation is weaned then they will accept patient next week. CM spoke with Margoth in lab and Covid should be back tomorrow. CM will continue to follow and assist as needed with discharge planning / needs. DCP- Discharge Planning Updated by [id number]: Elvira Foy on 11/27/19 8:[address] LATE ENTRY - 11/25/19 CM spoke with Michelle and we discussed LTACH and CHRISTOPHER was completed. She was also looking for POA paperwork. She will notify CM when she locates it. CM sent referral to Celi Banks . 11/26/19 Alison with [facility] stated that she was sending referral for auth out to insurance company. DCP- Discharge Planning Updated by [email or web address]: Elvira Foy on 11/18/19 7:[address] LATE ENTRY 11/17/19 Patient Name: EDDA BARRAGAN Admission Status: ER Accout number: [id number] Admission Date: 11-04-2019 : 1965 Admission Diagnosis:POISONING BY OTH OPIOIDS, ACCIDENTAL (UNINTENTIONAL), I Attending: SABRINA RODRIGUEZ Current LOS: 14 Anticipated DC Date: Planned Disposition: Primary Insurance: [facility] MEDICARE SOLUTIONS Discharge Planning Comments: CM called and spoke with patient's significant other Michelle [phone] to complete initial dc planning assessment. CM educated patient's significant other on the CM role and verbal consent given by patient to complete assessment. Patient lives at home with significant other. Patient is independent. At discharge patient plans to return home and feels this is a safe discharge. CM discussed availability of home health, rehab services, and medical equipment. Patient will have family to transport home. Uncertain at this time discharge needs / disposition . CM will continue to follow and will assist as needed with dc plans/needs. Brick Picker: Elvira Foy DCPIA - Discharge Planning Initial Assessment Updated by [email or web address]: Elvira Foy on 11/18/19 7:58 pm * Is the patient Alert and Oriented? No * How many steps to enter\exit or inside your home? * PCP MARGARITA * [facility]acy [facility] * Preadmission Environment Home with Family * ADLs Independent * Other Equipment CPAP, GLUCOMETER * List name and contact numbers for known caregivers / representatives who currently or will assist patient after discharge: SINA WOO - [facility] [phone] * Verbal permission to speak to the caregivers and representatives has been obtained from the patient. N/A * Community resources currently utilized None * Additional services required to return to the preadmission environment? No * Can the patient safely return to the preadmission environment? Yes * Has this patient been hospitalized within the prior 30 days at any hospital? No Last DP export: 11/27/19 8:14 p Patient Name: EDDA BARRAGAN Page 02156 at 2123 All edits/amendments must be made on the electronic document DICTATION DATE: 12/01/192121 A P MECHANIC: LOREN 12/01/192121 RPT#: [id number] DC DATE:12/01/19 STATUS: DIS IN [facility] [address] [place] [address] END OF REPORT
[2019-12-03 12:11] LABS: FUNGUS CULTURE RESULT 1 Candida albicans (()); FUNGUS MYCOLOGY CULTURE Final report (())
== END 2019-12-01 12:30 | DRG 4 ==
LOC: D.ER 05:46 → D.EDHOLD 07:29 → D.ICU 07:29
PROVIDERS: Family Medicine; Internal Medicine Pulmonary Disease; ADMIT Emergency Medicine; ATTEND Emergency Medicine
PROC: 5A1955Z Respiratory Ventilation, Greater than 96 Consecutive Hours (ICD-10-PCS; 2019-11-04)
PROC: 0BH17EZ Insertion of Endotracheal Airway into Trachea, Via Natural or Artificial Opening (ICD-10-PCS; 2019-11-04)
PROC: 05HB33Z Insertion of Infusion Device into Right Basilic Vein, Percutaneous Approach (ICD-10-PCS; 2019-11-05)
PROC: 0B9J8ZX Drainage of Left Lower Lung Lobe, Via Natural or Artificial Opening Endoscopic, Diagnostic (ICD-10-PCS; 2019-11-06)
PROC: 0B9F8ZX Drainage of Right Lower Lung Lobe, Via Natural or Artificial Opening Endoscopic, Diagnostic (ICD-10-PCS; 2019-11-06)
PROC: 0B9J8ZX Drainage of Left Lower Lung Lobe, Via Natural or Artificial Opening Endoscopic, Diagnostic (ICD-10-PCS; 2019-11-14)
PROC: 0B9F8ZX Drainage of Right Lower Lung Lobe, Via Natural or Artificial Opening Endoscopic, Diagnostic (ICD-10-PCS; 2019-11-14)
PROC: 0B9M8ZX Drainage of Bilateral Lungs, Via Natural or Artificial Opening Endoscopic, Diagnostic (ICD-10-PCS; 2019-11-19)
PROC: 03HB33Z Insertion of Infusion Device into Right Radial Artery, Percutaneous Approach (ICD-10-PCS; 2019-11-20)
PROC: 05HM33Z Insertion of Infusion Device into Right Internal Jugular Vein, Percutaneous Approach (ICD-10-PCS; 2019-11-20)
PROC: 0DH63UZ Insertion of Feeding Device into Stomach, Percutaneous Approach (ICD-10-PCS; 2019-11-24)
PROC: 0B110F4 Bypass Trachea to Cutaneous with Tracheostomy Device, Open Approach (ICD-10-PCS; principal; 2019-11-26)
DX: T40.2X1A Poisoning by other opioids, accidental (unintentional), initial encounter (principal); J96.02 Acute respiratory failure with hypercapnia; J96.01 Acute respiratory failure with hypoxia; I50.33 Acute on chronic diastolic (congestive) heart failure; G92 Toxic encephalopathy; N17.9 Acute kidney failure, unspecified; I13.0 Hypertensive heart and chronic kidney disease with heart failure and stage 1 through stage 4 chronic kidney disease, or unspecified chronic kidney disease; L03.116 Cellulitis of left lower limb; L02.612 Cutaneous abscess of left foot; Z68.41 Body mass index [BMI] 40.0-44.9, adult; F11.121 Opioid abuse with intoxication delirium; N39.0 Urinary tract infection, site not specified; J95.851 Ventilator associated pneumonia; E03.9 Hypothyroidism, unspecified; E78.5 Hyperlipidemia, unspecified; I25.10 Atherosclerotic heart disease of native coronary artery without angina pectoris; Z95.1 Presence of aortocoronary bypass graft; K21.9 Gastro-esophageal reflux disease without esophagitis; M54.9 Dorsalgia, unspecified; G89.29 Other chronic pain; F31.9 Bipolar disorder, unspecified; D64.9 Anemia, unspecified; J44.9 Chronic obstructive pulmonary disease, unspecified; N18.9 Chronic kidney disease, unspecified; E11.22 Type 2 diabetes mellitus with diabetic chronic kidney disease; T40.2X5A Adverse effect of other opioids, initial encounter; E66.01 Morbid (severe) obesity due to excess calories; E11.51 Type 2 diabetes mellitus with diabetic peripheral angiopathy without gangrene; Z79.84 Long term (current) use of oral hypoglycemic drugs; R41.82 Altered mental status, unspecified; E11.65 Type 2 diabetes mellitus with hyperglycemia; R50.9 Fever, unspecified; E87.6 Hypokalemia; E83.42 Hypomagnesemia; R21 Rash and other nonspecific skin eruption

== ENCOUNTER 2020-05-12 13:26 | Emergency (ER) | payer MEDICARE, MEDICAID ==
[~2020-05-12] VITALS: Ht 170.2 cm; Wt 106.4 kg
[~2020-05-12 13:26] MED LIST changes: +DOXYCYCLINE HY100 M2 PO; -METOPROLOL TAR100 M1 PO; +METOPROLOL TART50 MG PO; +PREDNISONE20 MG PO; +PROAIR HFA8.5 G1 INH
[2020-05-12 13:30] VITALS: BP 126/68; Ht 170.2 cm; Wt 106.4 kg
== END 2020-05-12 15:37 | disposition home or self-care (01) ==
LOC: D.ER 13:26
DX: Z43.0 Encounter for attention to tracheostomy (principal); F41.9 Anxiety disorder, unspecified; F10.129 Alcohol abuse with intoxication, unspecified; Y90.9 Presence of alcohol in blood, level not specified; E11.9 Type 2 diabetes mellitus without complications; I50.9 Heart failure, unspecified; J44.9 Chronic obstructive pulmonary disease, unspecified; K21.9 Gastro-esophageal reflux disease without esophagitis

== ENCOUNTER 2020-07-08 08:31 | Observation (INO) | payer MEDICARE, MEDICAID ==
[~2020-07-08] VITALS: Ht 170.2 cm; Wt 109.1 kg
--- NOTE | ~2020-07-08 | OP ---
PATIENT NAME: EDDA BARRAGAN JR MEDICAL RECORD: [id number] LOCATION:[id number] ADMISSION DATE:07/08/20 SURGEON: PABLITO MCMILLAN MD DATE OF OPERATION: 07/08/2020 PREOPERATIVE DIAGNOSIS: Tracheostomy tube in situ. POSTOPERATIVE DIAGNOSIS: Acute respiratory failure. PROCEDURE: 1. Removal of 6-Maltese cuffed tracheostomy. 2. Insertion of 6-Maltese non-cuffed fenestrated Shiley trach. SURGEON: Pablito Mcmillan MD REPORT OF PROCEDURE: The patient was brought in through outpatient to the GI lab where we removed the tracheostomy. The patient was monitored for about 15 minutes and had minimal trouble. He was satting around 92% to 96% on room air. He was not short of breath and actually as we were preparing to gather him to leave, he stated that he was becoming acutely short of breath and all of a sudden his saturations dipped very low. At this point, he was taken into the operating room and a 5-Maltese endotracheal tube was advanced through the tracheostomy site. The patient was placed on the ventilator and he was noted at that time to be hypercarbic and hypoxic. We were eventually able to improve his overall saturations and oxygen level and his CO2 came down appropriately. I ended up switching out the endotracheal tube with a 6-Maltese Shiley non-cuffed fenestrated tracheostomy tube. COMPLICATIONS: Acute respiratory failure, status post removal of tracheostomy. CONDITION: Stable. ANESTHESIA: General endotracheal. BLOOD LOSS: Minimal. TRANSINT:[id number] Voice Confirmation ID: [id number] DOCUMENT ID: [id number] PABLITO MCMILLAN MD CC: EDIE DORMAN MD [id number] DICTATION DATE: 07/19/20 1223 PRINT LINE TAILER: 07/19/20 1323 DIS IN 07/09/[address] [facility] [address] [id number]
[2020-07-08 10:11] VITALS: BP 123/77; BMI 37.7
--- NOTE | 2020-07-08 10:44 | NUR ---
1037 PT IS PROCESS OF BEING DISCHARGED FROM OPS WHEN PT STARTED C/O HAVING DIFFICULTY IN BREATHING. TOOK PT BACK TO ROOM TO MONITOR OXYGEN SATURATION. O2 SAT AT 89% PT PULLING HARD TO GET AIR/SRIDOR NOISES AUDIBLE. TROY, RESPIRATORY THERAPIST NOTIFED. 1038 TROY AT PT BEDSIDE. RACEMIC TREATMENT ORDERED. PT ON SFM 10L/MIN. 1044 BREATHING TREATMENT STARTED. PT STILL IN RESPIRATORY DISTRESS. ANESTHESIA NOTIFIED FOR STAT HELP. DR MCMILLAN PAGED. 1045 DR TRIPLETT AT BEDSIDE. OXYGEN SATURATION IN 70'S.PT REMAINS CONSCIOUS. 1055 PT MOVED TO OR 7 VIA STRETCHER FOR FURTHER CARE AND REINSERTION OF TRACH WITH OXYGEN FLOWING DURING TRANSFER. 1100 PT'S FIANCE HAD GONE TO CAR TO TRANSPORT PT HOME BEFORE PT GOT INTO RESPIRATORY DISTRESS. PT HAD NOT LEFT OPS WHEN THIS EVENT BEGAN. PT'S FIANCE IS BACK IN OPS IN ROOM 20 WAITING FOR AN UPDATE.
--- NOTE | 2020-07-08 11:34 | NUR ---
1120 DR MCMILLAN GAVE PT'S FIANCE AN UPDATE. SHE IS AWARE THAT A NEW TRACH WAS INSERTED AND THAT PT WILL BE ADMITTED TO HOSPITAL FOR OBSERVATION AND FURTHER WORKUP. 1130 PACU NURSES GIVEN AN UPDATE AND WILL NOTIFY MS WOO OF ROOM NUMBER.
[2020-07-08 12:14] VITALS: BP 104/51
[2020-07-08] MEDS ORDERED: METHADONE 10 MG10 MG PO (12:22)
[2020-07-08 12:32] VITALS: BP 104/51
[2020-07-08 13:24] VITALS: BP 138/77; Ht 170.2 cm; Wt 109.1 kg
[2020-07-08 17:25] VITALS: BP 128/73
[2020-07-08 20:00] VITALS: BP 128/73
--- NOTE | 2020-07-09 02:42 | NUR ---
PT IS RESTING IN BED WITH EYES CLOSED, EASY TO AROUSE. CONT PULSE O2 IN PLACE 99% 10L TRACH. WILL CONT TO MONITOR.
--- NOTE | 2020-07-09 03:08 | NUR ---
I have reviewed this patient and I concur with the Shift Assessment completed by the Licensed Practical Nurse today this shift.
[2020-07-09 08:22] VITALS: BP 126/71
--- NOTE | 2020-07-09 09:07 | NUR ---
PT PLACED ON RA WITH HUMDIFICATION AND PASSY KEILY VALVE.
--- NOTE | 2020-07-09 09:30 | NUR ---
O2 OFF PER MD ORDER. PLACED ON HUMIDIFIED AIR ONLY. WILL MONITOR SATS.
--- NOTE | 2020-07-09 12:15 | NUR ---
DISCHARGED TO HOME AMBULATORY WITH . DISCHARGE INSTRUCTIONS GIVEN BOTH VERBALLY AND WRITTEN. ALL QUESTIONS ANSWERED. PATIENT VERBALIZED UNDERSTANDING OF SAME. SL TO RIGHT FOREARM D/C WITH CATHETER INTACT. NO NEW PRESCRIPTIONS NEEDED. ALL BELONGINGS WITH PATIENT. MAINTAINED O2 SAT 92 OR BETTER ON RA.
== END 2020-07-09 12:56 | disposition home or self-care (01) ==
LOC: OBSVTIME 09:26 → D.MS 09:26 → D.CLR 09:26 → D.OPS 10:00 → D.MS 11:38
PROVIDERS: ADMIT Surgery; ATTEND Surgery
DX: J96.20 Acute and chronic respiratory failure, unspecified whether with hypoxia or hypercapnia (principal); J44.9 Chronic obstructive pulmonary disease, unspecified; G47.33 Obstructive sleep apnea (adult) (pediatric); E03.9 Hypothyroidism, unspecified; E11.9 Type 2 diabetes mellitus without complications; E78.5 Hyperlipidemia, unspecified; I50.32 Chronic diastolic (congestive) heart failure; K21.9 Gastro-esophageal reflux disease without esophagitis; E66.01 Morbid (severe) obesity due to excess calories; Z68.37 Body mass index [BMI] 37.0-37.9, adult

== ENCOUNTER 2020-07-14 09:48 | Emergency (ER) | payer MEDICARE, MEDICAID ==
[~2020-07-14] VITALS: Ht 170.2 cm; Wt 109.5 kg
[~2020-07-14 09:48] MED LIST changes: +METHADONE 10 MG10 MG PO
[2020-07-14 10:00] VITALS: BP 109/79; Ht 170.2 cm; Wt 109.5 kg
[2020-07-14] MEDS ORDERED: LASIX40 MG PO (10:03)
[2020-07-14] MEDS ORDERED: KLOR-CON 1010 MEQ PO (10:04)
[2020-07-14] MEDS ORDERED: HYDROCODON-ACE1 EA10 PO (10:06)
[2020-07-14] MEDS ORDERED: TORADOL10 MG PO (11:36)
[2020-07-14] MEDS ORDERED: METHOCARBAMOL500 MG PO (11:36)
== END 2020-07-14 11:48 | disposition home or self-care (01) ==
LOC: D.ER 09:48
DX: S16.1XXA Strain of muscle, fascia and tendon at neck level, initial encounter (principal); S39.012A Strain of muscle, fascia and tendon of lower back, initial encounter; E11.9 Type 2 diabetes mellitus without complications; I50.9 Heart failure, unspecified; E78.5 Hyperlipidemia, unspecified; J44.9 Chronic obstructive pulmonary disease, unspecified; K21.9 Gastro-esophageal reflux disease without esophagitis; Z72.0 Tobacco use; Z79.84 Long term (current) use of oral hypoglycemic drugs; V89.2XXA Person injured in unspecified motor-vehicle accident, traffic, initial encounter; Y93.9 Activity, unspecified; Y92.9 Unspecified place or not applicable